=== PATIENT | male | born 1985 | race Caucasian/White ===

== ENCOUNTER → 2023-10-24 09:00 | Outpatient (CLI) | payer OTHER, SELFPAY ==
[2023-10-24 10:47] LABS: Add Manual Diff / Slide Review NO; Basophils Absolute Auto 0 /uL (0-100); Basophils Percent Auto 0.4 % (0-2); Eosinophils Absolute Auto 200 /uL (0-450); Eosinophils Percent Auto 2.3 % (2-4); Hematocrit 45.8 % (41-53); Hemoglobin 15.5 g/dL (13.5-17.5); Lymphocytes Absolute Auto 2000 /uL (1100-4500); Lymphocytes Percent Auto 23.2 % (25-40); Mean Corpuscular HGB Conc 33.8 % (30-36); Mean Corpuscular Volume 88.9 fL (80-100); Monocytes Absolute Auto 900 /uL (0-900); Monocytes Percent Auto 10.1 % (3-14); Neutrophils Absolute Auto 5400 /uL (1500-7000); Platelet Count 269 X10^3/uL (150-400); Red Blood Cell Count 5.15 X10^6/uL (4.5-5.9); Red Cell Distribution Width 13.2 % (11.6-14.8); White Blood Cell Count 8.5 X10^3/uL (4.5-11.0)
[2023-10-24 11:11] LABS: Alanine Aminotransferase 45 IU/L (<50); Albumin 4.5 g/dL (3.5-5.0); Albumin Globulin Ratio 1.5 (1.0-2.8); Alkaline Phosphatase 99 U/L (38-126); Aspartate Aminotransferase 27 IU/L (17-59); BUN Creatinine Ratio 12.6 (6-22); Bilirubin Total 0.6 mg/dL (0.2-1.3); Blood Urea Nitrogen 12 mg/dL (9-20); Calcium 9.2 mg/dL (8.4-10.2); Carbon Dioxide 26 mmol/L (22-32); Chloride 109 mmol/L (98-107); Cholesterol 131 mg/dL (140-199); Estimated Glomerular Filt Rate > 60 mL/min (>60); Glucose 99 mg/dL (70-100); HDL Cholesterol 31 mg/dL (40-60); HEMOLYSIS 15 (0-50); LDL Cholesterol Calculated 80 mg/dL (<100); Potassium 4.7 mmol/L (3.4-5.1); Sodium 139 mmol/L (137-145); Total Protein 7.5 g/dL (6.3-8.2); Triglycerides 98 mg/dL (35-150)
[2023-10-24 18:04] LABS: HIV 1 & 2 Ab/Ag 4th Gen Combo NEGATIVE (NEGATIVE); Hep C Virus Ab w/Reflex Quant NEGATIVE s/c (NEGATIVE)
== END ==
PROVIDERS: PCP Family Medicine; Referring Provider Family Medicine; Visit Provider Family Medicine
DX: Z11.4 Encounter for screening for human immunodeficiency virus [HIV] (principal); Z11.59 Encounter for screening for other viral diseases; Z13.220 Encounter for screening for lipoid disorders; H53.2 Diplopia
CPT/HCPCS: 36415; 80053; 80061; 84443; 85025; 86803; 87389

== ENCOUNTER → 2023-10-26 12:23 | Outpatient (CLI) | payer OTHER, SELFPAY ==
--- NOTE | 2023-10-26 12:24 | DI.ECHO.S_ITS ---
[facility] : : [address] : : [place] : : [id number] : : Phone: [phone] Echocardiogram Report + + :Name: SUE LORA Study Date: 10/26/2023 Height: 69 in : :[facility] ReadingLocation: Weight: 180 lb : : Gender: Male BSA: 2.0 m2 : :: 1985 Age: 38 yrs BP: 119/80 mmHg: :Reason For Study: SYNCOPE : :Ordering Physician: JUD DIAS Performed By: Candice Villavicencio : :Referring: JUD MORILLO : + + Interpretation Summary Normal sinus rhythm. Normal LV size, wall thickness, wall motion and LV systolic function. EF is 60-65%. Normal chamber sizes. No valvular abnormalities. No prior study available for comparison. Procedure: A two-dimensional transthoracic echocardiogram with color flow and Doppler was performed. The study quality was technically adequate. There is no prior echocardiogram noted for this patient. The patient was in sinus rhythm with heart rates between 65-82 bpm during the exam. Left Ventricle: The left ventricle is normal in size and wall thickness. The ejection fraction is estimated to be 60-65%. Right Ventricle: The right ventricle is normal in size and function. Atria: The left atrial size is normal. Right atrial size is normal. There is no Doppler evidence for an interatrial shunt. Mitral Valve: The mitral valve is normal in structure and function. There is trace mitral regurgitation. Aortic Valve: The aortic valve is trileaflet. The aortic valve opens well. There is no aortic valve stenosis. No aortic regurgitation is present. Tricuspid Valve: The tricuspid valve is normal in structure and function. There is a trace or physiologic amount of tricuspid regurgitation. Pulmonic Valve: The pulmonic valve leaflets are thin and pliable; valve motion is normal. There is no pulmonic valvular regurgitation. Great Vessels: The aortic root is normal size. The dimensions of the ascending aorta are normal. The IVC is of normal diameter and collapses greater than 50% with a sniff. This suggests a low right atrial pressure of 3 mm Hg. Pericardium/ Pleura There is no pericardial effusion. There is no pleural effusion. MMode/2D Measurements & Calculations LVIDd: 4.6 cm LVOT diam: 2.0 cm LVIDs: 3.0 cm Ao root diam: 3.0 cm FS: 33.5 % asc Aorta Diam: 3.2 cm IVSd: 0.77 cm Ao Arch Diam (Prox Trans): 2.8 cm LVPWd: 0.71 cm LV jiang. diameter/BSA (cm/m^2): 2.3 LV sys. diameter/BSA (cm/m^2): 1.5 LA A2 area: 10.7 cm2 RA long axis: 3.8 cm LA A4 area: 12.6 cm2 RA area: 11.0 cm2 LA length (vol): 4.5 cm RA vol: 27.4 ml LA vol: 25.2 ml RA : 13.9 ml/m2 LA vol index: 12.8 ml/m2 IVC diam: 1.7 cm RVD1 (basal): 3.1 cm RVD2 (mid): 2.9 cm TAPSE: 1.7 cm Doppler Measurements & Calculations Ao V2 max: 116.3 cm/sec LVOT Max Eben: 107.0 cm/sec Ao V2 mean: 83.9 cm/sec LV V1 max P.6 mmHg Ao max P.4 mmHg LV V1 VTI: 19.3 cm Ao mean P.1 mmHg ELY(I,D): 3.0 cm2 Ao V2 VTI: 21.4 cm ELY(V,D): 3.0 cm2 sev ratio: 0.90 ELY indexed to BSA (cm^2/m^2): 1.5 MV E max eben: 51.7 cm/sec PA V2 max: 110.3 cm/sec MV A max eben: 53.3 cm/sec PA V2 mean: 79.7 cm/sec MV E/A: 0.97 PA mean P.8 mmHg Med Peak E' Eben: 11.3 cm/sec PA pr(Accel): 29.3 mmHg E/E' med: 4.6 Lat Peak E' Eben: 14.9 cm/sec E/E' lat: 3.5 E/e' average: 4.0 MV dec time: 0.16 sec SV(LVOT): 63.5 ml Electronically signed by: Zaira Hickey M.D. on Reading Physician:10/27/2023 02:23 AM
== END ==
PROVIDERS: PCP Family Medicine; Referring Provider Family Medicine; Visit Provider Family Medicine
DX: R55 Syncope and collapse (principal)
CPT/HCPCS: 93306

== ENCOUNTER → 2023-10-27 08:19 | Outpatient (CLI) | payer OTHER, SELFPAY ==
--- NOTE | 2023-10-27 08:21 | DI.MRI.S_ITS ---
PROCEDURE: MR BRAIN (PITUITARY) WWO CON INDICATIONS: syncope, double vision TECHNIQUE: Noncontrast sagittal and axial FLAIR, axial gradient echo, axial diffusion and ADC through the brain. Thin-slice sagittal and coronal T1 spin echo, coronal T2 fast spin echo through the pituitary. After the administration contrast, optional dynamic coronal T1 spin echo, thin-slice coronal and sagittal T1 spin echo images through the pituitary fossa; axial and coronal and sagittal T1 spin echo with fat saturation through the brain. COMPARISON: None. FINDINGS: Image quality: Excellent. Pituitary Gland: The pituitary gland demonstrates normal signal and bulk. On the postcontrast imaging, no masses or abnormally enhancing areas are seen. The pituitary stalk and infundibulum have an unremarkable appearance. A normal appearing pituitary bright spot is seen posteriorly on the precontrast sagittal T1-weighted images. The optic chiasm and the ventral forebrain have an unremarkable appearance. CSF Spaces: Ventricles are normal in size and shape. Basal cisterns are patent. No extra-axial fluid collections. Brain: There is a poorly defined, poorly enhancing mass seen within the left frontal lobe anteriorly and inferiorly. This measures 4.8 x 7.2 cm in greatest axial dimension, with a craniocaudal extent 6 cm. Along the inferior medial aspect of the mass, there is a projection seen, which abuts the optic chiasm, with deviation the left optic tract, which is best seen on series 15, image 6. Associated mass effect is seen, with 1 cm of midline shift. There is mild subfalcine herniation. Moderate surrounding edema can be seen. Mildly increased FLAIR signal can be seen within the central cerebellum. No abnormal enhancement is seen. The clinical significance of this is uncertain. Parsons-white matter interface is intact. Diffusion weighted images demonstrate no acute ischemic insults. Brainstem is normal. Normal intravascular flow voids are present. Skull and face: Calvarial marrow is normal in signal. Orbits appear normal. Sinuses: Sinuses and mastoids are clear. IMPRESSION: Normal pituitary. There is a 7.2 cm poorly enhancing, poorly defined mass involving the left frontal lobe, with surrounding edema. An inferior projection of this mass is seen up on the optic chiasm and the left optic tract, which corresponds to the given history of double vision. There is surrounding edema and mass effect seen. There is 1 mm midline shift, with subfalcine herniation. Note: Dr. Moore could not be reached to discuss this case at the time of this dictation. Findings relayed to Dr. Moore via office staff, Niranjan, at 10:[address] [address] Moore will call back if there are any questions. Dictated by: Noel Lin M.D. on 10/27/2023 at 9:36 Approved by: Noel Lin M.D. on 10/27/2023 at 9:51
== END ==
PROVIDERS: PCP Family Medicine; Referring Provider Family Medicine; Visit Provider Family Medicine
DX: G93.89 Other specified disorders of brain (principal); G93.5 Compression of brain; R55 Syncope and collapse; H53.2 Diplopia; G93.6 Cerebral edema
CPT/HCPCS: 70553; A9579

== ENCOUNTER 2023-11-11 11:01 | Outpatient (RCR) | payer OTHER, SELFPAY ==
--- NOTE | 2023-11-11 15:13 | OT.OP.DC ---
Visit Care Team Role Provider Type Dany Moore DO Attending Provider Physician Family Provider Primary Care Provider Referring Provider Address: [address] [place] [address], [address], [place], [address] Email: [email or web address] [email or web address] Outpatient Adult Evaluation Start: 11/11/23 14:41 Freq: Status: Active Protocol: Document 11/11/23 14:41 AMS (Rec: 11/11/23 15:11 AMS [id number]) General Information - Adult Visit Information Insurance Information [employer] Session Time Visit Start Time 11:15 Visit Stop Time 11:40 Setting Treatment Setting Outpatient Care Visit Type Note Type Initial Evaluation Identification Identification Confirmed Yes Identification Confirmed By Self Assessment/Plan Assessment Treatment Assessment Boris Kennedy) is 38 y.o.; he is right hand dominant. He was referred to outpatient OT s/p L frontotemporal craniotomy ( which was completed on 10/28/23 ) for tumor resection. No other medical history was of significance and/or recorded on Health History Intake Form. Amadou resides an apartment independently; parents are in town visiting and assisting w/ public transportation given that Amadou currently is not driving. Amadou denies any difficulties with functional tasks. 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 Amaduo presented to session without mobility AE. He was independent with functional transfers and was able to navigate within outpatient clinic hallways without deviation and/or needing euceda to support orientation and/or upright mobility. He reported decreased activity tolerance frequently being active for 2 hours -> then napping. Although, he indicated that he had been up for 4 hours this a.m. without need for rest. Pain Assessment Grid completed ; indication of 1 out of 10 on pain scale relative to head ( left temporal/frontal region); indication of 2 out of 10 on the Hand/Wrist Pain Assessment relative to head (left temporal/frontal region). QuickDASH UE Outcome Measure Score = 9.09. QuickDASH UE WorkModule Score (ems helicopter pilot) = 100 .00. No coordination difficulties observed w/ opposition of thumb to each digit pad bilaterally w/ EO or EC. Slight impairment noted w / [id number]-dw-[id number] bilaterally with EC R and L. Misses however, were to some part of the 2nd digit bilaterally. Good B UE AROM; B UE AROM WNL. (+) orientation to midline w/ UEs relative to above head and at midline/infront of body . Dynamometer II agricultural mechanic strength elbows flexed 90 degrees = 82 .0# of force R agricultural mechanic (compared to 35-39 y.o. male norms 119.7 +/- 24.0) vs 88.0# of force L agricultural mechanic (compared to 35-39 y.o. male norms 112.9 +/- 21.7). Dynamometer II Employee'S Representative Strength Elbows Extended = 100.0# of force R agricultural mechanic vs 94.0# of force L agricultural mechanic. Pinchometer strength results: 21.0# of force R lateral dillard pinch (compared to 35-39 y.o. male norms 26.1 +/ - 3.2) vs 20.0# of force L lateral dillard pinch (compared to 35-39 y.o. male norms 25.6 +/ - 3.9); 13.0# of force R tip pinch (compared to 35-39 y.o. male norms 18.0 +/- 3.6) vs 12 .5# of force L tip pinch ( compared to 35-39 y.o. male norms 17.7 +/- 3.8); 15.0# of force R 3-jaw pinch (compared to 35-39 y.o. male norms 26.2 +/- 4.1) vs 21.0# of force L 3 -jaw pinch (compared to 35-39 y.o. male norms 25.9 +/- 5.4). The 9-Hole Peg Test is a timed test in which 9 pegs are inserted and removed from 9 holes in the pegboard with each hand. It is an assessment that can be used to assess hand dexterity. Amadou completed the 9-HPT in 24.9 sec with his right hand (vs norm for 35 -39 y.o. males 17.9 +/- 2.4) and in 27.2 sec with his left hand (vs norm for 35-39 y.o. males 19.4 +/- 3.5). Rec d/c from outpatient OT given that Amadou denies any functional limitations and his main concerns are related to PT scope of practice, gait abnormalities/balance concerns . Plan Patient Recommendations Discharge from Occupational Therapy Functional Wrist/Hand Scan Hand Side Sensory Assessment Sensory Profile2
== END 2023-11-15 10:50 | disposition home or self-care (01) ==
LOC: OT 11:01
PROVIDERS: Family Provider Family Medicine; PCP Family Medicine; Referring Provider Family Medicine; Visit Provider Family Medicine
DX: G93.89 Other specified disorders of brain (principal)
CPT/HCPCS: 97165

== ENCOUNTER → 2023-11-21 07:05 | Outpatient (CLI) | payer OTHER, SELFPAY ==
--- NOTE | 2023-11-21 07:07 | DI.MRI.S_ITS ---
PROCEDURE: MR CERVICAL SPINE WO/W CON INDICATIONS: Brain mass TECHNIQUE: Noncontrast sagittal T1 spin echo and T2 fast spin echo, sagittal STIR, foraminal oblique sagittal T2 fast spin echo, axial gradient echo or T2 fast spin echo through the cervical spine. After the administration of contrast, axial and sagittal T1 spin echo with fat saturation through the cervical spine. COMPARISON: [facility], MR, MR HEAD/BRAIN WO/W CON, 11/21/2023, 7:11. [facility], MR, MR THORACIC SPINE WO/W CON, 11/21/2023, 7:11. [facility], MR, MR LUMBAR SPINE WO/W CON, 11/21/2023, 7:11. [facility], MR, MR BRAIN (PITUITARY) WWO CON, 10/27/2023, 8:49. FINDINGS: Image quality: Diagnostic, with note made of motion artifact. Alignment and curvature: There is normal bony alignment. Marrow: Marrow is normal in overall signal, without suspicious enhancement. Spinal cord: Visualized spinal cord has normal size and signal. No cerebellar tonsillar herniation. No abnormal intramedullary enhancement. Paraspinous soft tissues: No paravertebral masses or suspicious enhancement. C2-3: The disc height is well-preserved. Loss of disc signal is seen at this level. A mild degree of generalized disc osteophyte complex is seen. There is mild left-sided and no right-sided neural foraminal narrowing. No central canal narrowing is seen. C3-4: The disc height and disk signal are relatively well-preserved. A mild degree of generalized disc osteophyte complex is seen. Mild facet joint hypertrophy is seen. Moderate bilateral neural foraminal narrowing is seen. No significant central canal narrowing is seen. C4-5: The disc height and disk signal are relatively well-preserved. A mild degree of generalized disc osteophyte complex is seen. Mild facet joint hypertrophy is seen. Mild bilateral neural foraminal narrowing is seen. No central canal narrowing is seen. C5-6: There is at least moderate loss of disc height and disc signal. Moderate generalized disc osteophyte complex is seen. There is a central disc osteophyte protrusion seen. There is xdmw-st-odftbdew right-sided and moderate left-sided facet hypertrophy. There is at least moderate bilateral neural foraminal narrowing. Mild central canal narrowing is seen. There is associated mass effect upon the ventral spinal cord. C6-7: Mild loss of disc height is seen. Loss of disc signal is seen. Mild disc osteophyte complex is seen, which is eccentric to the left. Mild facet joint hypertrophy is seen. No significant neural foraminal or central canal narrowing can be seen. C7-T1: Normal appearance. IMPRESSION: No findings of neoplasm can be seen within the cervical spine. No masses or abnormal enhancement can be seen. Cervical spine degenerative changes are seen, which are worst at the C5-C6 level. Dictated by: Noel Lin M.D. on 11/21/2023 at 13:52 Approved by: Noel Lin M.D. on 11/21/2023 at 13:57
--- NOTE | 2023-11-21 07:07 | DI.MRI.S_ITS ---
PROCEDURE: MR LUMBAR SPINE WO/W CON INDICATIONS: Brain mass TECHNIQUE: Noncontrast sagittal T1 spin echo and T2 fast echo, sagittal STIR, and T2 fast spin echo through the lumbar spine. In cases with scoliosis, additional coronal T2 fast spin echo may be performed. COMPARISON: [facility], MR, MR CERVICAL SPINE WO/W CON, 11/21/2023, 7:11. [facility], MR, MR THORACIC SPINE WO/W CON, 11/21/2023, 7:11. [facility], MR, MR HEAD/BRAIN WO/W CON, 11/21/2023, 7:11. [facility], MR, MR BRAIN (PITUITARY) WWO CON, 10/27/2023, 8:49. FINDINGS: Image quality: Excellent. Alignment and Curvature: There is normal bony alignment. Bone Marrow: Marrow is of normal overall signal. No acute vertebral body compression fractures. Spinal Cord: Conus medullaris terminates at the L1 level. Visualized cord demonstrates normal signal and size. Paraspinous Soft Tissues: No paravertebral masses. T12-L1: Normal appearance. L1-L2: Normal appearance. L2-L3: Normal appearance. L3-L4: Normal appearance. L4-L5: Normal appearance. L5-S1: Normal appearance. IMPRESSION: No findings of neoplasm can be seen within the lumbar spine. No masses or abnormal enhancement can be seen. Dictated by: Noel Lin M.D. on 11/21/2023 at 13:48 Approved by: Noel Lin M.D. on 11/21/2023 at 13:50
--- NOTE | 2023-11-21 07:07 | DI.MRI.S_ITS ---
PROCEDURE: MR HEAD/BRAIN WO/W CON INDICATIONS: Brain mass TECHNIQUE: Noncontrast axial T1 spin echo, axial T2 fast spin echo, sagittal and axial FLAIR, coronal T2 fast spin echo, axial gradient echo, axial diffusion and ADC through the brain. After the administration of contrast, axial and coronal and sagittal 3D VIBE or T1 spin echo with fat saturation through the brain. COMPARISON: [facility], MR, MR BRAIN (PITUITARY) [facility], 10/27/2023, 8:49. FINDINGS: Image quality: Excellent. CSF Spaces: Basal cisterns are patent. No extra-axial fluid collections. Ventricles are normal in size and shape. Brain: There is been interval removal of the left-sided brain mass, with a portion of the anterior left frontal lobe removed. Within the postoperative bed, there is hemosiderin deposition seen. The previously seen mass effect has clearly improved. Midline shift is seen, measuring 2-3 mm, which is improved compared to the prior. No mass effect is now seen upon the optic chiasm. There is a mild amount of curvilinear enhancement seen along the margins of the postoperative bed. No midline shift. The brainstem appears normal. Diffusion-weighted images demonstrate no acute infarct. No chronic ischemic insults. Normal intravascular flow voids are present. Skull and face: Left-sided craniotomy change can be seen. Associated soft tissue postoperative change with postoperative fluid can be seen involving the scalp. Calvarial marrow is normal in signal. Orbits appear normal. Sinuses: Sinuses and mastoids appear clear. IMPRESSION: Interval resection of a mass within the left frontal lobe, with clear improvement in the degree of mass effect. Curvilinear enhancement can be seen along the postoperative bed, which is most likely within postoperative limits. Please consider a short-term follow-up brain MRI performed with and without IV contrast for further evaluation. Dictated by: Noel Lin M.D. on 11/21/2023 at 13:44 Approved by: Noel Lin M.D. on 11/21/2023 at 13:48
--- NOTE | 2023-11-21 09:30 | DI.MRI.S_ITS ---
PROCEDURE: MR THORACIC SPINE WO/W CON INDICATIONS: Brain mass TECHNIQUE: Noncontrast sagittal T1 spin echo and T2 fast spin echo, sagittal STIR, axial T1 and T2 fast spin echo through the thoracic spine. After the administration of contrast, axial and sagittal T1 spin echo with fat saturation through the thoracic spine. COMPARISON: [facility], MR, MR HEAD/BRAIN WO/W CON, 11/21/2023, 7:11. [facility], MR, MR CERVICAL SPINE WO/W CON, 11/21/2023, 7:11. [facility], MR, MR LUMBAR SPINE WO/W CON, 11/21/2023, 7:11. [facility], MR, MR BRAIN (PITUITARY) [facility], 10/27/2023, 8:49. FINDINGS: Image quality: Diagnostic, with note made of motion artifact. Alignment and curvature: There is normal bony alignment. Marrow: Marrow is of normal overall signal. No acute vertebral body compression fractures. Spinal cord: Visualized spinal cord is of normal signal and size, without abnormal enhancement. Paraspinous soft tissues: No paravertebral masses or abnormal enhancement. Miscellaneous: At the T8-T9 level, there is a mild central disc osteophyte protrusion seen, as on series 12, image 6 and on series 8 image 8. There is minimal central canal narrowing seen, with minimal mass effect upon the ventral spinal cord. No significant neural foraminal narrowing can be seen. IMPRESSION: No masses or abnormal enhancement can be seen throughout the thoracic spine. Mild focal degenerative change can be seen at the T8-T9 level. Dictated by: Noel Lin M.D. on 11/21/2023 at 13:50 Approved by: Noel Lin M.D. on 11/21/2023 at 13:52
== END ==
PROVIDERS: Family Provider Family Medicine; PCP Family Medicine; Referring Provider Psychiatry & Neurology Neurology; Visit Provider Psychiatry & Neurology Neurology
DX: G93.89 Other specified disorders of brain (principal); M47.812 Spondylosis without myelopathy or radiculopathy, cervical region; M47.814 Spondylosis without myelopathy or radiculopathy, thoracic region
CPT/HCPCS: 70553; 72156; 72157; 72158; A9579

== ENCOUNTER 2023-12-07 10:30 | Outpatient (RCR) | payer OTHER, SELFPAY ==
--- NOTE | 2023-11-10 08:53 | ST.OPIE ---
Visit Care Team Role Provider Type Dany Moore DO Attending Provider Physician Family Provider Primary Care Provider Referring Provider Specialty: Family Practice Address: [address] [place] [address], [address], [place], [address] Email: [email or web address] Speech-Language Pathology Initial Evaluation DIRECTOR OF PLANT OPERATIONS Adult Cognitive Linguistic Eval Start: 11/09/23 17:18 Freq: Status: Active Protocol: Document 11/10/23 08:29 MA (Rec: 11/10/23 08:53 MA [id number]) Adult Cognitive Linguistic Evaluation Session Time Visit Start Time 15:15 Visit Stop Time 16:00 Total Visit Minutes 45 Visit Information Visit Number Initial Eval Plan of Care Dates 11/10/23-02/10/24 Insurance Information [facility] Referral Referring Provider Dr. Moore Reason for Referral Other specified disorders of the brain Setting Assessment Location Outpatient Care Visit Type Note Type Initial evaluation Next Note Type Next Note Type Treatment Note Patient Information Identification Type Name Patient History Pt is a 38 year old male seen this date for 1:1 speech/ language/cog evaluation s/p s/ p L awake craniotomy for tumor resection, specifically left frontal mass. He reports about a month ago he was experiencing vertigo, which caused him to go to the doctor 's where a cardiac/neurologic work up was completed. He had a MRI compelted on Oct 27 2023 where a frontal mass was found. He reports no other significant past medical history. His mom and dad are present for the evaluation. 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 He reports residual double vision since surgery, slower with words/processing information. He states he had lapses of words while in the hospital, however has improved since discharged home. He reports he has been engaging in brain stimulating games, such as crosswords and word games. Hearing Hearing Level Normal Vision Vision Status Impaired Comments Double vision Previous Therapy Previous Speech-Language Therapy Yes History of Therapy He reports he had speech therapy while at , however only a few sessions. Subjective Mental Status Alert,Responsive,Cooperative Assessment Oral Motor Examination Completed No Informal Assessment Receptive Language Normal Yes Expressive Language Normal No Expressive Language Impairment(s) Confrontation naming,Divergent naming Pragmatic Language Normal Yes Speech Normal Yes Cognition Normal No Cognitive Impairment(s) Short-term memory,Thought organization Formal Assessment Standardized Test/Screener Type Cognitive Linguistic Quick Test (CLQT) Administration Complete Results ST faciliated Cognitive Linguistic Quick Test (CLQT) with Pt scoring a total 4.0 indicating a severity rating of WNL. Pt scored the following on each section: Attention- 207- WNL Memory 169- WNL Executive Functions 32- WNL Language 31- WNL Visuospatial skills 101- WNL Clocking drawing 13- WNL Pt scored overall WNL, however demonstrated weaknesses with divergent naming task and memory task. Findings/Results Language Function Mildly impaired Cognitive Function Mildly impaired Findings Pt presents with mild cognitive communication deficits. ST is warranted in order to improve naming/word finding to improve overall communication as well as providing education on memory/ problem solving compensatory strategies. Cognitive Communication Deficits Self-awareness of Cognitive- Predictive awareness (able to Communication Deficits predict problem; impact of impairments) Concomitant Factors Concomitant Factors Diplopia Prognosis Prognosis Good Based on Cognitive status,Family support,Time since onset Plan of Care Speech-Language Treatment Yes Frequency 1x/week Duration 3 months Patient/Caregiver Education Described results of evaluation,Patient expressed understanding of evaluation, Patient expressed agreement with goals and treatment plans ,Patient requires further education/training,Family/ caregivers require further education/training Short Term Goals STG 1: Patient will name/ describe objects/pictures with 90% accuracy and mod cues for forced choice, phonemic/ semantic cueing, gestural/ contextual cues. STG 2: Patient will complete divergent naming task by naming 10 words in 1 minute given minimal cues. STG 3: Patient will demonstrate increase short term recall for functional/ daily life information with 90 % of opportunities given environmental modifications implemented and by using visual aids in order to increase safety during ADLs. Care Home Goals LTG 1: Patient will develop functional, cognitive- linguistic-based skills and utilize compensatory strategies to communicate wants and needs effectively to different conversational partners, maintain safety and participate socially in functional living environment
--- NOTE | 2023-11-10 08:53 | ST.OPPOC ---
Physical, Occupational & Speech Therapy At [facility] Visit Care Team Role Provider Type Dany Moore DO Attending Provider Physician Family Provider Primary Care Provider Referring Provider Address: [address] [place] [address], [address], [place], [address] Speech Pathology Plan of Care Plan of Care Dates 11/10/23-02/10/[address] Moore Patient History Pt is a 38 year old male seen this date for 1:1 speech/language/cog evaluation s/p s/p L awake craniotomy for tumor resection, specifically left frontal mass. He reports about a month ago he was experiencing vertigo, which caused him to go to the doctor's where a cardiac/neurologic work up was completed. He had a MRI compelted on Oct 27 2023 where a frontal mass was found. He reports no other significant past medical history. His mom and dad are present for the evaluation. 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 He reports residual double vision since surgery, slower with words/processing information. He states he had lapses of words while in the hospital, however has improved since discharged home. He reports he has been engaging in brain stimulating games, such as crosswNewlans and word games. Self-awareness of Cognitive- Predictive awareness (abl Communication Deficits Short Term Goals STG 1: Patient will name/describe objects/ pictures with 90% accuracy and mod cues for forced choice, phonemic/semantic cueing, gestural/contextual cues. STG 2: Patient will complete divergent naming task by naming 10 words in 1 minute given minimal cues. STG 3: Patient will demonstrate increase short term recall for functional/daily life information with 90% of opportunities given environmental modifications implemented and by using visual aids in order to increase safety during ADLs. Catering Attendant Goals LTG 1: Patient will develop functional, hszhgaqvw-awnaubhwlb-fvqmp skills and utilize compensatory strategies to communicate wants and needs effectively to different conversational partners, maintain safety and participate socially in functional living environment Comment: Electronically Signed by: NINFA Cunningham 11/10/23 0853 If you are in agreement with this Plan of Care, please return a signed and dated copy. I have reviewed this Plan of Care and certify that the skilled therapy services above are required to meet the patient?s needs. Physician Signature Date Printed Name and Credentials Clinical Instructor Signature Printed Name and Credentials
--- NOTE | 2023-12-07 10:44 | ST.OPTN ---
Visit Care Team Role Provider Type Dany Moore DO Attending Provider Physician Family Provider Primary Care Provider Referring Provider Address: [address] [place] [address], [address], [place], [address] DOCUMENT ANALYST Treatment Note DOCUMENT ANALYST Treatment Note Start: 12/07/23 10:39 Freq: Status: Active Protocol: Document 12/07/23 10:40 MA (Rec: 12/07/23 10:44 MA [id number]) Speech Pathology Treatment Note Session Time Visit Start Time 10:20 Visit Stop Time 10:35 Total Visit Minutes 15 Visit Information Visit Number 2 Plan of Care Dates 11/10/23-02/10/24 Setting Treatment Setting Outpatient Care Next Note Type Next Note Type Treatment Note General Information Patient History Pt is a 38 year old male seen this date for 1:1 speech/ language/cog evaluation s/p s/ p L awake craniotomy for tumor resection, specifically left frontal mass. He reports about a month ago he was experiencing vertigo, which caused him to go to the doctor 's where a cardiac/neurologic work up was completed. He had a MRI compelted on Oct 27 2023 where a frontal mass was found. He reports no other significant past medical history. His mom and dad are present for the evaluation. 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 He reports residual double vision since surgery, slower with words/processing information. He states he had lapses of words while in the hospital, however has improved since discharged home. He reports he has been engaging in brain stimulating games, such as crosswagencyQ and word games. Subjective Observations/Patient Presentation Pt arrived on time with his girlfriend who accompanied him to therapy. Objective Short Term Goals STG 1: Patient will name/ describe objects/pictures with 90% accuracy and mod cues for forced choice, phonemic/ semantic cueing, gestural/ contextual cues. STG 2: Patient will complete divergent naming task by naming 10 words in 1 minute given minimal cues. STG 3: Patient will demonstrate increase short term recall for functional/ daily life information with 90 % of opportunities given environmental modifications implemented and by using visual aids in order to increase safety during ADLs. Mental Health Aides Teacher Goals LTG 1: Patient will develop functional, cognitive- linguistic-based skills and utilize compensatory strategies to communicate wants and needs effectively to different conversational partners, maintain safety and participate socially in functional living environment Treatment Activities Check in post neurology appointment, education on word finding strategies and POC Assessment Assessment of Improvement Pt reports he had a f/u with his surgical team at a few weeks ago. He reports he has been feeling good, however continues with residual double vision and unsteady gait. He states he saw a neuro housing management representative who did not have many concerns and will see him in 6-8 weeks. He reports he has a second round of chemoo/radiation in [place] starting soon that will end in January. He states he will be living down there at that time. He states he has been engaging in brain games such as [employer]. He denies any difficulties communicating and only has occasional word finding difficulties. Denies any cognitive issues. He reports he has a f/u appointment scheduled in January, which he would like to keep d/t chemo/radiation possibly causing cognitive issues. ST provided educational handout on word finding strategies and encouraged Pt to practice them . Pt verbalized understanding.
--- NOTE | 2024-01-23 11:22 | ST.OPDS ---
Visit Care Team Role Provider Type Dany Moore DO Attending Provider Physician Family Provider Primary Care Provider Referring Provider Address: [address] [place] [address], [address], [place], [address] HEEL SCOURER Treatment Note HEEL SCOURER Treatment Note Start: 12/07/23 10:39 Freq: Status: Active Protocol: Document 12/07/23 10:40 MA (Rec: 12/07/23 10:44 MA [id number]) Speech Pathology Treatment Note Session Time Visit Start Time 10:20 Visit Stop Time 10:35 Total Visit Minutes 15 Visit Information Visit Number 2 Plan of Care Dates 11/10/23-02/10/24 Setting Treatment Setting Outpatient Care Next Note Type Next Note Type Treatment Note General Information Patient History Pt is a 38 year old male seen this date for 1:1 speech/ language/cog evaluation s/p s/ p L awake craniotomy for tumor resection, specifically left frontal mass. He reports about a month ago he was experiencing vertigo, which caused him to go to the doctor 's where a cardiac/neurologic work up was completed. He had a MRI compelted on Oct 27 2023 where a frontal mass was found. He reports no other significant past medical history. His mom and dad are present for the evaluation. 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 He reports residual double vision since surgery, slower with words/processing information. He states he had lapses of words while in the hospital, however has improved since discharged home. He reports he has been engaging in brain stimulating games, such as crosswHarperlabz and word games. Subjective Observations/Patient Presentation Pt arrived on time with his girlfriend who accompanied him to therapy. Objective Short Term Goals STG 1: Patient will name/ describe objects/pictures with 90% accuracy and mod cues for forced choice, phonemic/ semantic cueing, gestural/ contextual cues.- NOT MET STG 2: Patient will complete divergent naming task by naming 10 words in 1 minute given minimal cues.- NOT MET STG 3: Patient will demonstrate increase short term recall for functional/ daily life information with 90 % of opportunities given environmental modifications implemented and by using visual aids in order to increase safety during ADLs.- NOT MET Half-Way Goals LTG 1: Patient will develop functional, cognitive- linguistic-based skills and utilize compensatory strategies to communicate wants and needs effectively to different conversational partners, maintain safety and participate socially in functional living environment- NOT MET Treatment Activities Check in post neurology appointment, education on word finding strategies and POC Assessment Assessment of Improvement Pt reports he had a f/u with his surgical team at a few weeks ago. He reports he has been feeling good, however continues with residual double vision and unsteady gait. He states he saw a neuro machinist bench who did not have many concerns and will see him in 6-8 weeks. He reports he has a second round of chemoo/radiation in [place] starting soon that will end in January. He states he will be living down there at that time. He states he has been engaging in brain games such as [employer]. He denies any difficulties communicating and only has occasional word finding difficulties. Denies any cognitive issues. He reports he has a f/u appointment scheduled in January, which he would like to keep d/t chemo/radiation possibly causing cognitive issues. ST provided educational handout on word finding strategies and encouraged Pt to practice them . Pt verbalized understanding. Pt discharged d/t not returning to therapy.
== END 2024-01-23 13:52 | disposition home or self-care (01) ==
LOC: SP 10:30
PROVIDERS: Family Provider Family Medicine; PCP Family Medicine; Referring Provider Family Medicine; Visit Provider Family Medicine
DX: G93.89 Other specified disorders of brain (principal)
CPT/HCPCS: 92507; 92523

== ENCOUNTER → 2024-03-12 15:17 | Outpatient (CLI) | payer OTHER, SELFPAY ==
[2024-03-12 16:24] LABS: Add Manual Diff / Slide Review NO; Basophils Absolute Auto 0 /uL (0-100); Basophils Percent Auto 0.3 % (0-2); Eosinophils Absolute Auto 200 /uL (0-450); Eosinophils Percent Auto 2.6 % (2-4); Hematocrit 43.4 % (41-53); Hemoglobin 14.9 g/dL (13.5-17.5); Lymphocytes Absolute Auto 1300 /uL (1100-4500); Lymphocytes Percent Auto 20.1 % (25-40); Mean Corpuscular HGB Conc 34.3 % (30-36); Mean Corpuscular Hemoglobin 30.1 PG (26-34); Mean Corpuscular Volume 87.9 fL (80-100); Monocytes Absolute Auto 800 /uL (0-900); Monocytes Percent Auto 12.8 % (3-14); Neutrophils Absolute Auto 4100 /uL (1500-7000); Neutrophils Percent Auto 64.2 % (50-75); Platelet Count 276 X10^3/uL (150-400); Red Blood Cell Count 4.94 X10^6/uL (4.5-5.9); Red Cell Distribution Width 12.6 % (11.6-14.8); White Blood Cell Count 6.3 X10^3/uL (4.5-11.0)
[2024-03-12 16:45] LABS: Alanine Aminotransferase 37 IU/L (<50); Albumin 4.4 g/dL (3.5-5.0); Albumin Globulin Ratio 1.4 (1.0-2.8); Alkaline Phosphatase 95 U/L (38-126); Aspartate Aminotransferase 28 IU/L (17-59); BUN Creatinine Ratio 10.4 (6-22); Bilirubin Total 0.5 mg/dL (0.2-1.3); Blood Urea Nitrogen 11 mg/dL (9-20); Calcium 9.7 mg/dL (8.4-10.2); Carbon Dioxide 23 mmol/L (22-32); Chloride 104 mmol/L (98-107); Estimated Glomerular Filt Rate > 60 mL/min (>60); Globulin 3.1 g/dL (1.7-4.1); Glucose 101 mg/dL (70-100); HEMOLYSIS < 15 (0-50); Potassium 3.6 mmol/L (3.4-5.1); Sodium 138 mmol/L (137-145); Total Protein 7.5 g/dL (6.3-8.2)
== END ==
PROVIDERS: Family Provider Family Medicine; PCP Family Medicine; Referring Provider Psychiatry & Neurology Neurology; Visit Provider Psychiatry & Neurology Neurology
DX: C71.9 Malignant neoplasm of brain, unspecified (principal)
CPT/HCPCS: 36415; 80053; 85025

== ENCOUNTER → 2024-03-21 14:35 | Outpatient (CLI) | payer OTHER, SELFPAY ==
[2024-03-21 15:08] LABS: Add Manual Diff / Slide Review NO; Basophils Absolute Auto 0 /uL (0-100); Basophils Percent Auto 0.6 % (0-2); Eosinophils Absolute Auto 200 /uL (0-450); Eosinophils Percent Auto 3.2 % (2-4); Hematocrit 42.6 % (41-53); Hemoglobin 14.7 g/dL (13.5-17.5); Lymphocytes Absolute Auto 1000 /uL (1100-4500); Lymphocytes Percent Auto 17.8 % (25-40); Mean Corpuscular HGB Conc 34.4 % (30-36); Mean Corpuscular Hemoglobin 29.9 PG (26-34); Monocytes Absolute Auto 700 /uL (0-900); Monocytes Percent Auto 12.3 % (3-14); Neutrophils Absolute Auto 3900 /uL (1500-7000); Neutrophils Percent Auto 66.1 % (50-75); Platelet Count 293 X10^3/uL (150-400); Red Cell Distribution Width 12.8 % (11.6-14.8); White Blood Cell Count 5.9 X10^3/uL (4.5-11.0)
[2024-03-21 15:31] LABS: Alanine Aminotransferase 32 IU/L (<50); Albumin 4.3 g/dL (3.5-5.0); Albumin Globulin Ratio 1.4 (1.0-2.8); Alkaline Phosphatase 90 U/L (38-126); Aspartate Aminotransferase 29 IU/L (17-59); BUN Creatinine Ratio 9.1 (6-22); Bilirubin Total 0.5 mg/dL (0.2-1.3); Blood Urea Nitrogen 10 mg/dL (9-20); Calcium 9.5 mg/dL (8.4-10.2); Carbon Dioxide 26 mmol/L (22-32); Chloride 105 mmol/L (98-107); Estimated Glomerular Filt Rate > 60 mL/min (>60); Globulin 3.1 g/dL (1.7-4.1); Glucose 100 mg/dL (70-100); HEMOLYSIS < 15 (0-50); Potassium 4.1 mmol/L (3.4-5.1); Sodium 139 mmol/L (137-145); Total Protein 7.4 g/dL (6.3-8.2)
== END ==
PROVIDERS: Family Provider Family Medicine; PCP Family Medicine; Referring Provider Psychiatry & Neurology Neurology; Visit Provider Psychiatry & Neurology Neurology
DX: C71.9 Malignant neoplasm of brain, unspecified (principal)
CPT/HCPCS: 36415; 80053; 85025

== ENCOUNTER → 2024-04-09 15:27 | Outpatient (CLI) | payer OTHER, SELFPAY ==
[2024-04-09 16:01] LABS: Add Manual Diff / Slide Review NO; Basophils Absolute Auto 0 /uL (0-100); Basophils Percent Auto 0.1 % (0-2); Eosinophils Absolute Auto 200 /uL (0-450); Eosinophils Percent Auto 3.1 % (2-4); Hematocrit 45.6 % (41-53); Hemoglobin 15.3 g/dL (13.5-17.5); Lymphocytes Absolute Auto 1100 /uL (1100-4500); Lymphocytes Percent Auto 17.8 % (25-40); Mean Corpuscular HGB Conc 33.5 % (30-36); Mean Corpuscular Hemoglobin 29.4 PG (26-34); Mean Corpuscular Volume 87.6 fL (80-100); Monocytes Absolute Auto 800 /uL (0-900); Monocytes Percent Auto 12.8 % (3-14); Neutrophils Absolute Auto 4200 /uL (1500-7000); Neutrophils Percent Auto 66.2 % (50-75); Platelet Count 266 X10^3/uL (150-400); Red Blood Cell Count 5.21 X10^6/uL (4.5-5.9); Red Cell Distribution Width 13.3 % (11.6-14.8); White Blood Cell Count 6.3 X10^3/uL (4.5-11.0)
[2024-04-09 16:20] LABS: Alanine Aminotransferase 34 IU/L (<50); Albumin 4.6 g/dL (3.5-5.0); Albumin Globulin Ratio 1.6 (1.0-2.8); Alkaline Phosphatase 94 U/L (38-126); Aspartate Aminotransferase 27 IU/L (17-59); BUN Creatinine Ratio 10.7 (6-22); Bilirubin Total 0.7 mg/dL (0.2-1.3); Blood Urea Nitrogen 13 mg/dL (9-20); Calcium 9.6 mg/dL (8.4-10.2); Carbon Dioxide 24 mmol/L (22-32); Chloride 106 mmol/L (98-107); Estimated Glomerular Filt Rate > 60 mL/min (>60); Globulin 2.9 g/dL (1.7-4.1); Glucose 104 mg/dL (70-100); HEMOLYSIS < 15 (0-50); Potassium 3.6 mmol/L (3.4-5.1); Sodium 141 mmol/L (137-145); Total Protein 7.5 g/dL (6.3-8.2)
== END ==
LOC: LAB 15:30
PROVIDERS: Family Provider Family Medicine; PCP Family Medicine; Referring Provider Psychiatry & Neurology Neurology; Visit Provider Psychiatry & Neurology Neurology
DX: C71.9 Malignant neoplasm of brain, unspecified (principal)
CPT/HCPCS: 36415; 80053; 85025

== ENCOUNTER → 2024-04-17 10:18 | Outpatient (CLI) | payer OTHER, SELFPAY ==
[2024-04-17 10:58] LABS: Add Manual Diff / Slide Review NO; Basophils Absolute Auto 0 /uL (0-100); Basophils Percent Auto 0.3 % (0-2); Eosinophils Absolute Auto 100 /uL (0-450); Eosinophils Percent Auto 2.2 % (2-4); Hematocrit 43.8 % (41-53); Hemoglobin 15.1 g/dL (13.5-17.5); Lymphocytes Absolute Auto 1000 /uL (1100-4500); Lymphocytes Percent Auto 15.8 % (25-40); Mean Corpuscular HGB Conc 34.4 % (30-36); Monocytes Absolute Auto 1000 /uL (0-900); Monocytes Percent Auto 14.9 % (3-14); Neutrophils Absolute Auto 4300 /uL (1500-7000); Neutrophils Percent Auto 66.8 % (50-75); Platelet Count 181 X10^3/uL (150-400); Red Blood Cell Count 5.03 X10^6/uL (4.5-5.9); White Blood Cell Count 6.4 X10^3/uL (4.5-11.0)
[2024-04-17 11:15] LABS: Alanine Aminotransferase 38 IU/L (<50); Albumin 4.4 g/dL (3.5-5.0); Albumin Globulin Ratio 1.7 (1.0-2.8); Alkaline Phosphatase 91 U/L (38-126); Aspartate Aminotransferase 26 IU/L (17-59); BUN Creatinine Ratio 14.3 (6-22); Bilirubin Total 0.6 mg/dL (0.2-1.3); Blood Urea Nitrogen 14 mg/dL (9-20); Calcium 9.7 mg/dL (8.4-10.2); Carbon Dioxide 27 mmol/L (22-32); Chloride 106 mmol/L (98-107); Estimated Glomerular Filt Rate > 60 mL/min (>60); Globulin 2.6 g/dL (1.7-4.1); Glucose 89 mg/dL (70-100); HEMOLYSIS < 15 (0-50); Potassium 3.9 mmol/L (3.4-5.1); Sodium 141 mmol/L (137-145)
== END ==
PROVIDERS: Family Provider Family Medicine; PCP Family Medicine; Referring Provider Family Medicine; Visit Provider Psychiatry & Neurology Neurology
DX: C71.9 Malignant neoplasm of brain, unspecified (principal)
CPT/HCPCS: 36415; 80053; 85025

== ENCOUNTER → 2024-05-04 14:21 | Outpatient (CLI) | payer OTHER, SELFPAY ==
[2024-05-04 15:20] LABS: Add Manual Diff / Slide Review NO; Basophils Absolute Auto 0 /uL (0-100); Basophils Percent Auto 0.3 % (0-2); Eosinophils Absolute Auto 100 /uL (0-450); Eosinophils Percent Auto 1.7 % (2-4); Hematocrit 42.2 % (41-53); Hemoglobin 14.6 g/dL (13.5-17.5); Lymphocytes Absolute Auto 900 /uL (1100-4500); Lymphocytes Percent Auto 15.3 % (25-40); Mean Corpuscular HGB Conc 34.6 % (30-36); Mean Corpuscular Hemoglobin 30.3 PG (26-34); Mean Corpuscular Volume 87.5 fL (80-100); Monocytes Absolute Auto 700 /uL (0-900); Monocytes Percent Auto 12.7 % (3-14); Neutrophils Absolute Auto 4100 /uL (1500-7000); Platelet Count 307 X10^3/uL (150-400); Red Blood Cell Count 4.82 X10^6/uL (4.5-5.9); Red Cell Distribution Width 14.1 % (11.6-14.8); White Blood Cell Count 5.9 X10^3/uL (4.5-11.0)
[2024-05-04 15:43] LABS: Alanine Aminotransferase 44 IU/L (<50); Albumin 4.2 g/dL (3.5-5.0); Albumin Globulin Ratio 1.5 (1.0-2.8); Alkaline Phosphatase 106 U/L (38-126); Aspartate Aminotransferase 31 IU/L (17-59); BUN Creatinine Ratio 11.7 (6-22); Bilirubin Total 0.4 mg/dL (0.2-1.3); Blood Urea Nitrogen 13 mg/dL (9-20); Calcium 9.7 mg/dL (8.4-10.2); Carbon Dioxide 25 mmol/L (22-32); Chloride 105 mmol/L (98-107); Estimated Glomerular Filt Rate > 60 mL/min (>60); Globulin 2.8 g/dL (1.7-4.1); Glucose 93 mg/dL (70-100); HEMOLYSIS < 15 (0-50); Potassium 4.1 mmol/L (3.4-5.1); Sodium 137 mmol/L (137-145)
== END ==
LOC: LAB 14:22
PROVIDERS: Family Provider Family Medicine; PCP Family Medicine; Referring Provider Psychiatry & Neurology Neurology; Visit Provider Psychiatry & Neurology Neurology
DX: C71.9 Malignant neoplasm of brain, unspecified (principal)
CPT/HCPCS: 36415; 80053; 85025

== ENCOUNTER → 2024-06-04 10:40 | Outpatient (CLI) | payer OTHER, SELFPAY ==
[2024-06-04 12:47] LABS: Add Manual Diff / Slide Review NO; Basophils Absolute Auto 0 /uL (0-100); Basophils Percent Auto 0.4 % (0-2); Eosinophils Absolute Auto 300 /uL (0-450); Eosinophils Percent Auto 5.1 % (2-4); Hematocrit 43.9 % (41-53); Hemoglobin 14.9 g/dL (13.5-17.5); Lymphocytes Absolute Auto 600 /uL (1100-4500); Lymphocytes Percent Auto 11.5 % (25-40); Mean Corpuscular HGB Conc 33.9 % (30-36); Mean Corpuscular Hemoglobin 30.3 PG (26-34); Mean Corpuscular Volume 89.4 fL (80-100); Monocytes Absolute Auto 600 /uL (0-900); Monocytes Percent Auto 11.6 % (3-14); Neutrophils Absolute Auto 3900 /uL (1500-7000); Neutrophils Percent Auto 71.4 % (50-75); Platelet Count 273 X10^3/uL (150-400); Red Blood Cell Count 4.91 X10^6/uL (4.5-5.9); Red Cell Distribution Width 14.8 % (11.6-14.8); White Blood Cell Count 5.5 X10^3/uL (4.5-11.0)
[2024-06-04 13:23] LABS: Alanine Aminotransferase 37 IU/L (<50); Albumin 4.2 g/dL (3.5-5.0); Albumin Globulin Ratio 1.7 (1.0-2.8); Alkaline Phosphatase 101 U/L (38-126); Aspartate Aminotransferase 29 IU/L (17-59); BUN Creatinine Ratio 10.4 (6-22); Bilirubin Total 0.5 mg/dL (0.2-1.3); Blood Urea Nitrogen 14 mg/dL (9-20); Calcium 9.5 mg/dL (8.4-10.2); Carbon Dioxide 24 mmol/L (22-32); Chloride 108 mmol/L (98-107); Estimated Glomerular Filt Rate > 60 mL/min (>60); Globulin 2.5 g/dL (1.7-4.1); Glucose 90 mg/dL (70-100); HEMOLYSIS < 15 (0-50); Potassium 4.4 mmol/L (3.4-5.1); Sodium 141 mmol/L (137-145); Total Protein 6.7 g/dL (6.3-8.2)
== END ==
LOC: LAB 10:42
PROVIDERS: Family Provider Family Medicine; PCP Family Medicine; Referring Provider Psychiatry & Neurology Neurology; Visit Provider Psychiatry & Neurology Neurology
DX: C71.9 Malignant neoplasm of brain, unspecified (principal)
CPT/HCPCS: 36415; 80053; 85025

== ENCOUNTER → 2024-07-16 10:37 | Outpatient (CLI) | payer OTHER, SELFPAY ==
[2024-07-16 11:08] LABS: Add Manual Diff / Slide Review NO; Basophils Absolute Auto 0 /uL (0-100); Eosinophils Absolute Auto 100 /uL (0-450); Eosinophils Percent Auto 2.3 % (2-4); Hematocrit 43.8 % (41-53); Hemoglobin 15.2 g/dL (13.5-17.5); Lymphocytes Absolute Auto 900 /uL (1100-4500); Lymphocytes Percent Auto 20.5 % (25-40); Mean Corpuscular HGB Conc 34.7 % (30-36); Mean Corpuscular Volume 89.3 fL (80-100); Monocytes Absolute Auto 600 /uL (0-900); Monocytes Percent Auto 13.2 % (3-14); Neutrophils Absolute Auto 2900 /uL (1500-7000); Platelet Count 157 X10^3/uL (150-400); Red Blood Cell Count 4.91 X10^6/uL (4.5-5.9); Red Cell Distribution Width 14.6 % (11.6-14.8); White Blood Cell Count 4.6 X10^3/uL (4.5-11.0)
[2024-07-16 11:30] LABS: Alanine Aminotransferase 37 IU/L (<50); Albumin 4.7 g/dL (3.5-5.0); Albumin Globulin Ratio 1.9 (1.0-2.8); Alkaline Phosphatase 96 U/L (38-126); Aspartate Aminotransferase 29 IU/L (17-59); BUN Creatinine Ratio 11.7 (6-22); Bilirubin Total 0.5 mg/dL (0.2-1.3); Blood Urea Nitrogen 15 mg/dL (9-20); Calcium 9.5 mg/dL (8.4-10.2); Carbon Dioxide 22 mmol/L (22-32); Chloride 107 mmol/L (98-107); Estimated Glomerular Filt Rate > 60 mL/min (>60); Globulin 2.5 g/dL (1.7-4.1); Glucose 104 mg/dL (70-100); HEMOLYSIS < 15 (0-50); Potassium 3.9 mmol/L (3.4-5.1); Sodium 141 mmol/L (137-145); Total Protein 7.2 g/dL (6.3-8.2)
== END ==
PROVIDERS: Family Provider Family Medicine; PCP Family Medicine; Referring Provider Psychiatry & Neurology Neurology; Visit Provider Psychiatry & Neurology Neurology
DX: C71.9 Malignant neoplasm of brain, unspecified (principal)
CPT/HCPCS: 36415; 80053; 85025

== ENCOUNTER → 2024-08-13 11:41 | Outpatient (CLI) | payer OTHER, SELFPAY ==
[2024-08-13 12:21] LABS: Add Manual Diff / Slide Review NO; Basophils Absolute Auto 0 /uL (0-100); Basophils Percent Auto 0.5 % (0-2); Eosinophils Absolute Auto 100 /uL (0-450); Eosinophils Percent Auto 2.2 % (2-4); Hematocrit 43.8 % (41-53); Hemoglobin 14.9 g/dL (13.5-17.5); Lymphocytes Absolute Auto 700 /uL (1100-4500); Lymphocytes Percent Auto 10.8 % (25-40); Mean Corpuscular Hemoglobin 31.1 PG (26-34); Mean Corpuscular Volume 91.6 fL (80-100); Monocytes Absolute Auto 800 /uL (0-900); Monocytes Percent Auto 11.9 % (3-14); Neutrophils Absolute Auto 4800 /uL (1500-7000); Neutrophils Percent Auto 74.6 % (50-75); Platelet Count 154 X10^3/uL (150-400); Red Blood Cell Count 4.78 X10^6/uL (4.5-5.9); Red Cell Distribution Width 14.3 % (11.6-14.8); White Blood Cell Count 6.5 X10^3/uL (4.5-11.0)
[2024-08-13 12:37] LABS: Alanine Aminotransferase 33 IU/L (<50); Albumin 4.5 g/dL (3.5-5.0); Albumin Globulin Ratio 1.7 (1.0-2.8); Alkaline Phosphatase 96 U/L (38-126); Aspartate Aminotransferase 26 IU/L (17-59); BUN Creatinine Ratio 14.8 (6-22); Bilirubin Total 0.5 mg/dL (0.2-1.3); Blood Urea Nitrogen 19 mg/dL (9-20); Calcium 9.6 mg/dL (8.4-10.2); Carbon Dioxide 23 mmol/L (22-32); Chloride 107 mmol/L (98-107); Estimated Glomerular Filt Rate > 60 mL/min (>60); Globulin 2.6 g/dL (1.7-4.1); Glucose 129 mg/dL (70-100); HEMOLYSIS < 15 (0-50); Potassium 4.1 mmol/L (3.4-5.1); Sodium 140 mmol/L (137-145); Total Protein 7.1 g/dL (6.3-8.2)
== END ==
LOC: LAB 11:44
PROVIDERS: Family Provider Family Medicine; PCP Family Medicine; Referring Provider Psychiatry & Neurology Neurology; Visit Provider Psychiatry & Neurology Neurology
DX: C71.9 Malignant neoplasm of brain, unspecified (principal)
CPT/HCPCS: 36415; 80053; 85025

== ENCOUNTER 2025-01-22 14:30 | Outpatient (RCR) | payer OTHER, SELFPAY ==
--- NOTE | 2024-01-31 14:28 | PT.OIE ---
Current Diagnoses Other specified disorders of brain (01/31/24) Past Medical History (Last Updated 12/03/23 @ 20:22 by Viktoriya Karimi) Allergies Brain mass Brain tumor, glioma Chicken pox Tinnitus Past Surgical History (Last Updated 12/03/23 @ 20:22 by Viktoriya Karimi) Anesthesia Calder teeth removed Visit Care Team Role Provider Type Dany Moore DO Attending Provider Physician Family Provider Primary Care Provider Referring Provider Specialty: Family Practice Address: [address] [place] [address], [facility] [address], [place], [facility] Email: [email or web address] Physical Therapy Initial Evaluation PT-OP-A Visit Information Start: 01/25/24 17:51 Freq: Status: Active Protocol: Document 01/31/24 13:01 [facility] (Rec: 01/31/24 14:28 [facility] [id number]) Out-Patient Physical Therapy Visit Information Visit Information Visit Type Initial Evaluation Visit Start Time 13:01 Visit Stop Time 13:51 Visit Number 1 Number of GLASS PRODUCTS INSPECTOR Visits 0 PT-OP-B Current Condition Start: 01/25/24 17:51 Freq: Status: Active Protocol: Document 01/31/24 13:01 [facility] (Rec: 01/31/24 14:28 [facility] [id number]) Current Condition History of Current Condition Onset Date october 27 Current Complaints dec balance and double vision s/p brain mass ressection w/ residual tumors History of Current Condition Pt had brain mass ressection ( frontal lobe L) on oct 28 2023 at . In September, passed out and on October 26 was able to get MRI and SAKSHI () helped her get into a neuro surgeon the next day. He was DC from hospital October 30. Reports he is feeling wobbly. Mass was cancerous. 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 He just finished radiation on Jan 22 and start chemo in one month (feb 25) through Jul then further MRIs. Double vision and wobbly. Going to see neuro-opthamologist in about 1 .5 month. Grade 3 astrocytoma. denies pain or ORTEGA. Wobby gait since surgery. Minor short term memory loss. Hard to stab things with fork. He has been DC from [employer] and OT. 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 Does better w/balance when following line. The faster he walks, the straighter he walks and more normal AGNES he has vs wider AGNES. Denies falls, but occ braces w/wall. terrain changes that are the same color, he struggles to recognize it. Past hx: likes to hike and occ run and gym. Has not done either since. Trying to get more regular w/ walking. Stamina is also a concern. denies lightheadness/ dizziness. BP is slightly high but okay. Has not returned to gym. This is the first day since not getting treatments since hospital. Tapering off kepra from surgery. Does report jaw tightness. He can't eat large sandwiches. sore after been eating. 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 Treatment Goals Patient/Caregiver Goals Wants to not walk as zigzag; dec use of support of euceda PT-OP-D Balance Start: 01/25/24 17:51 Freq: Status: Active Protocol: Document 01/31/24 13:01 [facility] (Rec: 01/31/24 14:28 [facility] [id number]) Balance Tests Single Limb Standing Single Limb- Right 2 sec Single Limb- Left 3 sec Other Other Balance Tests Performed coordination tests: hand pronation/supination-able w/ alt hands EO/EC; dec coordination w/leg slide up opp leg seated R>L; dec coordination and speed EO and EC w/finger to nose L hand PT-OP-E Functional Tests Start: 01/25/24 17:51 Freq: Status: Active Protocol: Document 01/31/24 13:01 [facility] (Rec: 01/31/24 14:28 [facility] [id number]) Functional Tests 30 Second Sit to Stand Test Score 9 Dynamic Gait Index (DGI) Score 12 Five Times Sit to Stand Test Score 16 sec Functional Gait Assessment Score 14 PT-OP-F Manual Assessment Start: 01/25/24 17:51 Freq: Status: Active Protocol: Document 01/31/24 13:01 [facility] (Rec: 01/31/24 14:28 [facility] [id number]) Manual Assessments Other Manual Assessments Other Manual Assessments jaw opening deviates to L as opens; scar tissue tightness L side (pt reports some mm taken out w/surgery) PT-OP-G Mobility & Gait Start: 01/25/24 17:51 Freq: Status: Active Protocol: Document 01/31/24 13:01 [facility] (Rec: 01/31/24 14:28 [facility] [id number]) OP Gait Assessment Comments Gait Comments WBOS, lat leaning, arms slightly to sides PT-OP-M Strength Start: 01/25/24 17:51 Freq: Status: Active Protocol: Document 01/31/24 13:01 [facility] (Rec: 01/31/24 14:28 [facility] [id number]) Hip Strength Hip Manual Muscle Testing B Flexion (L2) 5 Normal External Rotation 5 Normal Internal Rotation 5 Normal Knee Strength Knee Manual Muscle Testing B Flexion (S2) 5 Normal Extension (L3) 5 Normal Ankle/Foot Strength Ankle and Foot Manual Muscle Testing B Dorsiflexion (L4) 5 Normal Plantarflexion (S1) 5 Normal Comments tested seated PT-OP-Q Treatments Start: 01/25/24 17:51 Freq: Status: Active Protocol: Document 01/31/24 13:01 [facility] (Rec: 01/31/24 14:28 [facility] [id number]) Self-Care/Home Management Treatment Education Other Education 8 min: edu to pt that will adjust schedule based on chemo and progression likely will not be a linear progression d/ t tumors and undergoing chemo in 1 month. Discussed not seeing pt during chemo week and week after unless feels well enough for PT during that week. PT-OP-T Assessment and Plan Start: 01/25/24 17:51 Freq: Status: Active Protocol: Document 01/31/24 13:01 [facility] (Rec: 01/31/24 14:28 [facility] [id number]) Physical Therapy Assessment Rehab Potential Rehabilitation Potential Good Evaluation Complexity Number of Personal Factors/Comorbidities 3 or More Number of Body Systems Impaired 4 or More Clinical Presentation at Evaluation Evolving Impairments Impairments Activity Tolerance,Balance, Coordination,Functional Activities,Functional Mobility ,Gait,Posture,ROM,Soft Tissue Mobility,Strength Goals dynamic balance Impairment DGI 12;FGA 14/30 Short Term Goal (STG) Pt will score at least 20/24 on DGI to show dec fall risk STG Duration 10/1 Halfway Goal (LTG) Pt will score at least 22/30 on FGA to show dec fall risk LTG Duration 11/5 sit to stands Impairment 9 in 30 sec; 16 sec for 5x sit to stand Short Term Goal (STG) Pt will be able to do 5x sit to investments manager no more than 11 sec STG Duration 03/19 Valve Fitter Goal (LTG) Pt will be able to do at least 15 sit to stands in 30 sec to show improved balance and coordination LTG Duration 04/24 SLS Short Term Goal (STG) Pt will be able to do SLS B at least 5 sec STG Duration 03/04 Valve Fitter Goal (LTG) Pt will be able to do SLS B at least 8 sec w/good recovery method vs need for use of wall LTG Duration 04/24 jaw Valve Fitter Goal (LTG) pt will be able to open jaw w/ o feeling of tightness and no more than mild deviation to L LTG Duration 04/24 Assessment Summary Assessment Pt presents 3 months after mass removal from L frontal lobe and 2 month ago finding of further tumors at brain stem and cerebellum. He finished radiation last week and will start 6 months of chemo in 1 month. He shows unsteadiness w/his gait and reports fatigues w/activity. He shows inc risk for falls based on testing today and showed dec coordination overall most notable w/LUE and RLE. He does have difficulty and when starts to lose balance when tested, has delayed response. Pt would benefit from skilled PT to work on balance, gait, strength and mobility to improve safety. Physical Therapy Plan Frequency and Duration Frequency of Treatment 2x/Week Duration of treatment (weeks) 12 Plan of Care Start Date 01/31/24 Plan of Care End Date 04/24/24 Therapeutic Interventions Therapeutic Interventions Balance Training,Coordination Training,Gait Training,Home Exercise Program,Joint Mobilizations,Manual Therapy, Neuromuscular Re-education, Orthotic/Prosthetic Management ,Patient/Caregiver Education, Self-Care/Home Management,Soft Tissue Mobilization,Taping, Therapeutic Activities, Therapeutic Exercises Next Visit Focus/Plan Next Note Type Treatment Note Next Visit Plan close CGA w/balance activities ; hurdles, balance board, toe taps, foam w/head turns, EC balance HEP: corner SLS & tandem/ modified tandem; sit to stands , rocabado jaw exercises
--- NOTE | 2024-01-31 14:28 | PT.OPPOC ---
Physical, Occupational & Speech Therapy At [facility] Current Diagnoses Other specified disorders of brain (01/31/24) Visit Care Team Role Provider Type Dany Moore DO Attending Provider Physician Family Provider Primary Care Provider Referring Provider Specialty: Family Practice Address: [address] [place] [address], [address], [place], [address] Email: [email or web address] Plan Of Care PT-OP-B Current Condition Start: 01/25/24 17:51 Freq: Status: Active Protocol: Document 01/31/24 13:01 [facility] (Rec: 01/31/24 14:28 [facility] [id number]) Current Condition History of Current Condition Onset Date october 27 Current Complaints dec balance and double vision s/p brain mass ressection w/ residual tumors History of Current Condition Pt had brain mass ressection ( frontal lobe L) on oct 28 2023 at . In September, passed out and on October 26 was able to get MRI and SAKSHI () helped her get into a neuro surgeon the next day. He was DC from hospital October 30. Reports he is feeling wobbly. Mass was cancerous. 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 He just finished radiation on Jan 22 and start chemo in one month (feb 25) through Jul then further MRIs. Double vision and wobbly. Going to see neuro-opthamologist in about 1 .5 month. Grade 3 astrocytoma. denies pain or ORTEGA. Wobby gait since surgery. Minor short term memory loss. Hard to stab things with fork. 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 Does better w/balance when following line. The faster he walks, the straighter he walks and more normal AGNES he has vs wider AGNES. Denies falls, but occ braces w/wall. terrain changes that are the same color, he struggles to recognize it. Past hx: likes to hike and occ run and gym. Has not done either since. Trying to get more regular w/ walking. Stamina is also a concern. denies lightheadness/ dizziness. BP is slightly high but okay. Has not returned to gym. This is the first day since not getting treatments since hospital. Tapering off kepra from surgery. Does report jaw tightness. He can't eat large sandwiches. sore after been eating. 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 Treatment Goals Patient/Caregiver Goals Wants to not walk as zigzag; dec use of support of euceda PT-OP-T Assessment and Plan Start: 01/25/24 17:51 Freq: Status: Active Protocol: Document 01/31/24 13:01 [facility] (Rec: 01/31/24 14:28 [facility] [id number]) Physical Therapy Assessment Rehab Potential Rehabilitation Potential Good Evaluation Complexity Number of Personal Factors/Comorbidities 3 or More Number of Body Systems Impaired 4 or More Clinical Presentation at Evaluation Evolving Impairments Impairments Activity Tolerance,Balance, Coordination,Functional Activities,Functional Mobility ,Gait,Posture,ROM,Soft Tissue Mobility,Strength Goals dynamic balance Impairment DGI 06/12;FGA Short Term Goal (STG) Pt will score at least 20/24 on DGI to show dec fall risk STG Duration 03/20 Assisted Goal (LTG) Pt will score at least 22/30 on FGA to show dec fall risk LTG Duration 04/24 sit to stands Impairment 9 in 30 sec; 16 sec for 5x sit to stand Short Term Goal (STG) Pt will be able to do 5x sit to senior principal no more than 11 sec STG Duration 03/19 P D Driver Goal (LTG) Pt will be able to do at least 15 sit to stands in 30 sec to show improved balance and coordination LTG Duration 04/24 SLS Short Term Goal (STG) Pt will be able to do SLS B at least 5 sec STG Duration 03/04 P D Driver Goal (LTG) Pt will be able to do SLS B at least 8 sec w/good recovery method vs need for use of wall LTG Duration 04/24 jaw Assisted Goal (LTG) pt will be able to open jaw w/ o feeling of tightness and no more than mild deviation to L LTG Duration 04/24 Assessment Summary Assessment Pt presents 3 months after mass removal from L frontal lobe and 2 month ago finding of further tumors at brain stem and cerebellum. He finished radiation last week and will start 6 months of chemo in 1 month. He shows unsteadiness w/his gait and reports fatigues w/activity. He shows inc risk for falls based on testing today and showed dec coordination overall most notable w/LUE and RLE. He does have difficulty and when starts to lose balance when tested, has delayed response. Pt would benefit from skilled PT to work on balance, gait, strength and mobility to improve safety. Physical Therapy Plan Frequency and Duration Frequency of Treatment 2x/Week Duration of treatment (weeks) 12 Plan of Care Start Date 01/31/24 Plan of Care End Date 04/24/24 Therapeutic Interventions Therapeutic Interventions Balance Training,Coordination Training,Gait Training,Home Exercise Program,Joint Mobilizations,Manual Therapy, Neuromuscular Re-education, Orthotic/Prosthetic Management ,Patient/Caregiver Education, Self-Care/Home Management,Soft Tissue Mobilization,Taping, Therapeutic Activities, Therapeutic Exercises Next Visit Focus/Plan Next Note Type Treatment Note Next Visit Plan close CGA w/balance activities ; hurdles, balance board, toe taps, foam w/head turns, EC balance HEP: corner SLS & tandem/ modified tandem; sit to stands , rocabado jaw exercises Plan of Care Dates Plan of Care Start Date 01/31/24 Plan of Care End Date 04/24/24 Electronically Signed by: Libia Barroso, PT 01/31/24 2744 If you are in agreement with this Plan of Care, please return a signed and dated copy. I have reviewed this Plan of Care and certify that the skilled therapy services above are required to meet the patient?s needs. Physician Signature Date Printed Name and Credentials Clinical Instructor Signature Printed Name and Credentials
--- NOTE | 2024-02-02 09:00 | PT.OTN ---
Current Diagnoses Other specified disorders of brain (02/02/24) Physical Therapy Treatment Note PT-OP-A Visit Information Start: 01/25/24 17:51 Freq: Status: Active Protocol: Document 02/02/24 08:19 [facility] (Rec: 02/02/24 09:02 [facility] [id number]) Out-Patient Physical Therapy Visit Information Visit Information Visit Type Treatment Note Visit Start Time 08:19 Visit Stop Time 09:00 Visit Number 2 Number of COUNSELING CASE MANAGER Visits 1 Precautions Precautions *Uncontrolled without warning decreased properioception R and retro at times, Double Vision, difficulty see uneven and change in surfaces, goyo if coloring similar. PT-OP-B Current Condition Start: 01/25/24 17:51 Freq: Status: Active Protocol: Document 01/31/24 13:01 [facility] (Rec: 01/31/24 14:28 [facility] [id number]) Current Condition History of Current Condition Onset Date october 27 Current Complaints dec balance and double vision s/p brain mass ressection w/ residual tumors History of Current Condition Pt had brain mass ressection ( frontal lobe L) on oct 28 2023 at . In September, passed out and on October 26 was able to get MRI and SAKSHI () helped her get into a neuro surgeon the next day. He was DC from hospital October 30. Reports he is feeling wobbly. Mass was cancerous. 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 He just finished radiation on Jan 22 and start chemo in one month (feb 25) through Jul then further MRIs. Double vision and wobbly. Going to see neuro-opthamologist in about 1 .5 month. Grade 3 astrocytoma. denies pain or ORTEGA. Wobby gait since surgery. Minor short term memory loss. Hard to stab things with fork. He has been DC from PRODUCTION GEAR CUTTER and OT. 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 Does better w/balance when following line. The faster he walks, the straighter he walks and more normal AGNES he has vs wider AGNES. Denies falls, but occ braces w/wall. terrain changes that are the same color, he struggles to recognize it. Past hx: likes to hike and occ run and gym. Has not done either since. Trying to get more regular w/ walking. Stamina is also a concern. denies lightheadness/ dizziness. BP is slightly high but okay. Has not returned to gym. This is the first day since not getting treatments since hospital. Tapering off kepra from surgery. Does report jaw tightness. He can't eat large sandwiches. sore after been eating. 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 Treatment Goals Patient/Caregiver Goals Wants to not walk as zigzag; dec use of support of euceda PT-OP-C Subjective Start: 01/25/24 17:51 Freq: Status: Active Protocol: Document 02/02/24 08:19 SP (Rec: 02/02/24 09:02 SP [id number]) OP-PT Subjective Patient Comments Patient Comments Pt doesn't use AD. Does demonstration deviations to R during gait. States at times during balance challenges can just lose balance to R without warning. He is walking laps around block 2-3 blocks then tires out. PT-OP-D Balance Start: 01/25/24 17:51 Freq: Status: Active Protocol: Document 01/31/24 13:01 [facility] (Rec: 01/31/24 14:28 [facility] [id number]) Balance Tests Single Limb Standing Single Limb- Right 2 sec Single Limb- Left 3 sec Other Other Balance Tests Performed coordination tests: hand pronation/supination-able w/ alt hands EO/EC; dec coordination w/leg slide up opp leg seated R>L; dec coordination and speed EO and EC w/finger to nose L hand PT-OP-E Functional Tests Start: 01/25/24 17:51 Freq: Status: Active Protocol: Document 01/31/24 13:01 [facility] (Rec: 01/31/24 14:28 [facility] [id number]) Functional Tests 30 Second Sit to Stand Test Score 9 Dynamic Gait Index (DGI) Score 12 Five Times Sit to Stand Test Score 16 sec Functional Gait Assessment Score 14 PT-OP-F Manual Assessment Start: 01/25/24 17:51 Freq: Status: Active Protocol: Document 01/31/24 13:01 [facility] (Rec: 01/31/24 14:28 [facility] [id number]) Manual Assessments Other Manual Assessments Other Manual Assessments jaw opening deviates to L as opens; scar tissue tightness L side (pt reports some mm taken out w/surgery) PT-OP-G Mobility & Gait Start: 01/25/24 17:51 Freq: Status: Active Protocol: Document 01/31/24 13:01 [facility] (Rec: 01/31/24 14:28 [facility] [id number]) OP Gait Assessment Comments Gait Comments WBOS, lat leaning, arms slightly to sides PT-OP-M Strength Start: 01/25/24 17:51 Freq: Status: Active Protocol: Document 01/31/24 13:01 [facility] (Rec: 01/31/24 14:28 [facility] [id number]) Hip Strength Hip Manual Muscle Testing B Flexion (L2) 5 Normal External Rotation 5 Normal Internal Rotation 5 Normal Knee Strength Knee Manual Muscle Testing B Flexion (S2) 5 Normal Extension (L3) 5 Normal Ankle/Foot Strength Ankle and Foot Manual Muscle Testing B Dorsiflexion (L4) 5 Normal Plantarflexion (S1) 5 Normal Comments tested seated PT-OP-Q Treatments Start: 01/25/24 17:51 Freq: Status: Active Protocol: Document 02/02/24 08:19 SP (Rec: 02/02/24 09:02 SP [id number]) Gym Equipment Shuttle Recovery bilateral squat Details cued no lock knees, slower pacing eccentric control for strength Resistance 100# (4 navy bands) Reps/Time 2x15 Therapeutic Exercises Sitting Exercises STS Sitting Exercise Name added to HEP- declined HO Equipment Used mesh chair Reps/Minutes 5 reps sit stand, 5 reps eccentric taps Standing Exercises hip abd Standing Exercise Name added to HEP- declined HO Side bilateral Resistance TB #3 grand traverse green at ankles, counter/chair support Reps/Minutes x10 Comments cued postural alignment tall over full foot, slow effort pacing. Neuro Re-Education Treatment Balance Activities hurdles Details fwd, lateral Surface 5 hurdles, floor>blue foam Equipment //bars PRN -CG-Min A Reps/Duration 4 laps each Comments step to (fwd and lateral)> receiprocal (fwd) LOB x5 to R (Mod A recovery) and couple retro but improved with reps step taps Equipment 6>8 step, //bars PRN, gait belt 4@ leg wt Reps/Duration 10 reps alternating BLE Comments cued tall slight fwd over stance LE /c core and Rhomboid fac , slower pacing, soft stepping-improved stabiltiy reduction retro and R lateral lean PT-OP-T Assessment and Plan Start: 01/25/24 17:51 Freq: Status: Active Protocol: Document 02/02/24 08:19 SP (Rec: 02/02/24 09:02 SP [id number]) Physical Therapy Assessment Goals dynamic balance Impairment DGI 06/12;FGA Short Term Goal (STG) Pt will score at least 20/24 on DGI to show dec fall risk STG Duration 03/20 Mcc Goal (LTG) Pt will score at least 22/30 on FGA to show dec fall risk LTG Duration 04/24 sit to stands Impairment 9 in 30 sec; 16 sec for 5x sit to stand Short Term Goal (STG) Pt will be able to do 5x sit to higher level teaching assistant no more than 11 sec STG Duration 03/19 Propeller Tester Goal (LTG) Pt will be able to do at least 15 sit to stands in 30 sec to show improved balance and coordination LTG Duration 04/24 SLS Short Term Goal (STG) Pt will be able to do SLS B at least 5 sec STG Duration 03/04 Propeller Tester Goal (LTG) Pt will be able to do SLS B at least 8 sec w/good recovery method vs need for use of wall LTG Duration 04/24 jaw Propeller Tester Goal (LTG) pt will be able to open jaw w/ o feeling of tightness and no more than mild deviation to L LTG Duration 04/24 Assessment Summary Assessment Use gait belt for safety support during all activities in standing due to proprioception deficits to R and retro at times. Good tolerance tiring report during resistance shuttle recovery warm up cued not locking knees and eccentric control. Added HEP for assist safety progression carryover home: STS cues for feet parallel and lessen momentum coming to standing without UE support COG over AGNES so no retro lean into heel LOB, hip hinge slower descent sit for safety and muscular control emphasis progression. Pt challenged initially midline trunk corrections gadiel steppings step to progressed to receiprocal stepping. Mod cues for tall posture, parascapular and core engagement over stance LE was ableto progress without UE support and add uneven surface , LOB x5 total during 4 laps Mod A recovery and use //bar. Pt improved decreased trunk sway gait leaving but continues wider AGNES. Physical Therapy Plan Frequency and Duration Frequency of Treatment 2x/Week Duration of treatment (weeks) 12 Plan of Care Start Date 01/31/24 Plan of Care End Date 04/24/24 Therapeutic Interventions Therapeutic Interventions Balance Training,Coordination Training,Gait Training,Home Exercise Program,Joint Mobilizations,Manual Therapy, Neuromuscular Re-education, Orthotic/Prosthetic Management ,Patient/Caregiver Education, Self-Care/Home Management,Soft Tissue Mobilization,Taping, Therapeutic Activities, Therapeutic Exercises Next Visit Focus/Plan Next Note Type Treatment Note Next Visit Plan *GAIT BELT USE! PT POC: close CGA w/balance activities; hurdles, balance board, toe taps, foam w/head turns, EC balance HEP: corner SLS & tandem/ modified tandem; sit to stands , rocabado jaw exercises
--- NOTE | 2024-02-06 12:07 | PT-OP ANOTE ---
Pt cancelled today's appt, change in [facility]. Next appt scheduled with PT 02/08/24.
--- NOTE | 2024-02-14 13:46 | PT.OTN ---
Current Diagnoses Other specified disorders of brain (02/14/24) Physical Therapy Treatment Note PT-OP-A Visit Information Start: 01/25/24 17:51 Freq: Status: Active Protocol: Document 02/14/24 12:59 [facility] (Rec: 02/14/24 13:46 [facility] [id number]) Out-Patient Physical Therapy Visit Information Visit Information Visit Type Treatment Note Visit Start Time 13:03 Visit Stop Time 13:43 Visit Number 4 Number of NETWORKING ENGINEER Visits 0 PT-OP-B Current Condition Start: 01/25/24 17:51 Freq: Status: Active Protocol: Document 01/31/24 13:01 [facility] (Rec: 01/31/24 14:28 [facility] [id number]) Current Condition History of Current Condition Onset Date october 27 Current Complaints dec balance and double vision s/p brain mass ressection w/ residual tumors History of Current Condition Pt had brain mass ressection ( frontal lobe L) on oct 28 2023 at . In September, passed out and on October 26 was able to get MRI and SAKSHI () helped her get into a neuro surgeon the next day. He was DC from hospital October 30. Reports he is feeling wobbly. Mass was cancerous. 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 He just finished radiation on Jan 22 and start chemo in one month (feb 25) through Jul then further MRIs. Double vision and wobbly. Going to see neuro-opthamologist in about 1 .5 month. Grade 3 astrocytoma. denies pain or ORTEGA. Wobby gait since surgery. Minor short term memory loss. Hard to stab things with fork. He has been DC from DATA ENTRY ANALYST and OT. 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 Does better w/balance when following line. The faster he walks, the straighter he walks and more normal AGNES he has vs wider AGNES. Denies falls, but occ braces w/wall. terrain changes that are the same color, he struggles to recognize it. Past hx: likes to hike and occ run and gym. Has not done either since. Trying to get more regular w/ walking. Stamina is also a concern. denies lightheadness/ dizziness. BP is slightly high but okay. Has not returned to gym. This is the first day since not getting treatments since hospital. Tapering off kepra from surgery. Does report jaw tightness. He can't eat large sandwiches. sore after been eating. 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 Treatment Goals Patient/Caregiver Goals Wants to not walk as zigzag; dec use of support of euceda PT-OP-C Subjective Start: 01/25/24 17:51 Freq: Status: Active Protocol: Document 02/14/24 12:59 [facility] (Rec: 02/14/24 13:46 [facility] [id number]) OP-PT Subjective Patient Comments Patient Comments pt reports compliance w/ exercises. PT-OP-D Balance Start: 01/25/24 17:51 Freq: Status: Active Protocol: Document 01/31/24 13:01 [facility] (Rec: 01/31/24 14:28 [facility] [id number]) Balance Tests Single Limb Standing Single Limb- Right 2 sec Single Limb- Left 3 sec Other Other Balance Tests Performed coordination tests: hand pronation/supination-able w/ alt hands EO/EC; dec coordination w/leg slide up opp leg seated R>L; dec coordination and speed EO and EC w/finger to nose L hand PT-OP-E Functional Tests Start: 01/25/24 17:51 Freq: Status: Active Protocol: Document 01/31/24 13:01 [facility] (Rec: 01/31/24 14:28 [facility] [id number]) Functional Tests 30 Second Sit to Stand Test Score 9 Dynamic Gait Index (DGI) Score 12 Five Times Sit to Stand Test Score 16 sec Functional Gait Assessment Score 14 PT-OP-F Manual Assessment Start: 01/25/24 17:51 Freq: Status: Active Protocol: Document 01/31/24 13:01 [facility] (Rec: 01/31/24 14:28 [facility] [id number]) Manual Assessments Other Manual Assessments Other Manual Assessments jaw opening deviates to L as opens; scar tissue tightness L side (pt reports some mm taken out w/surgery) PT-OP-G Mobility & Gait Start: 01/25/24 17:51 Freq: Status: Active Protocol: Document 01/31/24 13:01 [facility] (Rec: 01/31/24 14:28 [facility] [id number]) OP Gait Assessment Comments Gait Comments WBOS, lat leaning, arms slightly to sides PT-OP-M Strength Start: 08/07/24 17:51 Freq: Status: Active Protocol: Document 01/31/24 13:01 [facility] (Rec: 01/31/24 14:28 [facility] [id number]) Hip Strength Hip Manual Muscle Testing B Flexion (L2) 5 Normal External Rotation 5 Normal Internal Rotation 5 Normal Knee Strength Knee Manual Muscle Testing B Flexion (S2) 5 Normal Extension (L3) 5 Normal Ankle/Foot Strength Ankle and Foot Manual Muscle Testing B Dorsiflexion (L4) 5 Normal Plantarflexion (S1) 5 Normal Comments tested seated PT-OP-Q Treatments Start: 01/25/24 17:51 Freq: Status: Active Protocol: Document 02/14/24 12:59 [facility] (Rec: 02/14/24 13:46 [facility] [id number]) Therapeutic Exercises Standing Exercises resisted walk Standing Exercise Name 1.fwd/back 2. side step Side bilateral Equipment Used L3 Reps/Minutes 15ft x2 ea lat lunge Standing Exercise Name lat step lunge Side bilateral Reps/Minutes 10 lunge Standing Exercise Name backwards Side bilateral Equipment Used rail prn Reps/Minutes 10 ea DF/PF Side bilateral Equipment Used rail Reps/Minutes 20 Neuro Re-Education Treatment Balance Activities bosu Details DL balance tandem Comments 1. stance B trials 2. fwd walk 2x15ft tilt board Details 1.fwd facing 2. lat facing Comments 1. balance 2. wt shifts 3. squats x5 ea position foam Details EO/EC, head turns vertical and horizonal Equipment blue foam Comments WBOS, NBOS, staggered stance hurdles Surface firm Equipment 6 hurdles Comments 1. recip fwd x8 2. sidestep x2 B step taps Details tap to bosu (quiet tap) Reps/Duration 10 B PT-OP-T Assessment and Plan Start: 01/25/24 17:51 Freq: Status: Active Protocol: Document 02/14/24 12:59 [facility] (Rec: 02/14/24 13:46 [facility] [id number]) Physical Therapy Assessment Goals dynamic balance Impairment DGI 06/12;FGA 1430 Short Term Goal (STG) Pt will score at least 20/24 on DGI to show dec fall risk STG Duration 10 Mcfp Goal (LTG) Pt will score at least 22/30 on FGA to show dec fall risk LTG Duration 11/5 sit to stands Impairment 9 in 30 sec; 16 sec for 5x sit to stand Short Term Goal (STG) Pt will be able to do 5x sit to oil well drilling manager no more than 11 sec STG Duration 03/19 Mcfp Goal (LTG) Pt will be able to do at least 15 sit to stands in 30 sec to show improved balance and coordination LTG Duration 04/24 SLS Short Term Goal (STG) Pt will be able to do SLS B at least 5 sec STG Duration 03/04 Entry Level Paralegal Goal (LTG) Pt will be able to do SLS B at least 8 sec w/good recovery method vs need for use of wall LTG Duration 04/24 jaw Mcfp Goal (LTG) pt will be able to open jaw w/ o feeling of tightness and no more than mild deviation to L LTG Duration 04/24 Assessment Summary Assessment Pt had improved overall balance response but does completely lose balance w/EC activities. He was challenged by lunges w/ mm weakness and balance. Physical Therapy Plan Frequency and Duration Frequency of Treatment 2x/Week Duration of treatment (weeks) 12 Plan of Care Start Date 01/31/24 Plan of Care End Date 04/24/24 Next Visit Focus/Plan Next Note Type Treatment Note Next Visit Plan *GAIT BELT USE! Advance balance exercises HEP:add rocabado jaw exercises
--- NOTE | 2024-02-16 13:43 | PT.OTN ---
Current Diagnoses Other specified disorders of brain (02/16/24) Physical Therapy Treatment Note PT-OP-A Visit Information Start: 01/25/24 17:51 Freq: Status: Active Protocol: Document 02/16/24 13:02 SP (Rec: 02/16/24 13:50 SP [id number]) Out-Patient Physical Therapy Visit Information Visit Information Visit Type Treatment Note Visit Start Time 13:02 Visit Stop Time 13:43 Visit Number 5 Number of MANAGER DECISION SUPPORT Visits 1 Precautions Precautions *Uncontrolled without warning decreased properioception R and retro at times, Double Vision, difficulty see uneven and change in surfaces, goyo if coloring similar. PT-OP-B Current Condition Start: 01/25/24 17:51 Freq: Status: Active Protocol: Document 01/31/24 13:01 [facility] (Rec: 01/31/24 14:28 [facility] [id number]) Current Condition History of Current Condition Onset Date october 27 Current Complaints dec balance and double vision s/p brain mass ressection w/ residual tumors History of Current Condition Pt had brain mass ressection ( frontal lobe L) on oct 28 2023 at . In September, passed out and on October 26 was able to get MRI and SAKSHI () helped her get into a neuro surgeon the next day. He was DC from hospital October 30. Reports he is feeling wobbly. Mass was cancerous. 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 He just finished radiation on Jan 22 and start chemo in one month (feb 25) through Jul then further MRIs. Double vision and wobbly. Going to see neuro-opthamologist in about 1 .5 month. Grade 3 astrocytoma. denies pain or ORTEGA. Wobby gait since surgery. Minor short term memory loss. Hard to stab things with fork. He has been DC from [facility] and OT. 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 Does better w/balance when following line. The faster he walks, the straighter he walks and more normal AGNES he has vs wider AGNES. Denies falls, but occ braces w/wall. terrain changes that are the same color, he struggles to recognize it. Past hx: likes to hike and occ run and gym. Has not done either since. Trying to get more regular w/ walking. Stamina is also a concern. denies lightheadness/ dizziness. BP is slightly high but okay. Has not returned to gym. This is the first day since not getting treatments since hospital. Tapering off kepra from surgery. Does report jaw tightness. He can't eat large sandwiches. sore after been eating. 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 His eyes are twitching today. PT-OP-D Balance Start: 01/25/24 17:51 Freq: Status: Active Protocol: Document 01/31/24 13:01 [facility] (Rec: 01/31/24 14:28 [facility] [id number]) Balance Tests Single Limb Standing Single Limb- Right 2 sec Single Limb- Left 3 sec Other Other Balance Tests Performed coordination tests: hand pronation/supination-able w/ alt hands EO/EC; dec coordination w/leg slide up opp leg seated R>L; dec coordination and speed EO and EC w/finger to nose L hand PT-OP-E Functional Tests Start: 01/25/24 17:51 Freq: Status: Active Protocol: Document 01/31/24 13:01 [facility] (Rec: 01/31/24 14:28 [facility] [id number]) Functional Tests 30 Second Sit to Stand Test Score 9 Dynamic Gait Index (DGI) Score 12 Five Times Sit to Stand Test Score 16 sec Functional Gait Assessment Score 14 PT-OP-F Manual Assessment Start: 01/25/24 17:51 Freq: Status: Active Protocol: Document 01/31/24 13:01 [facility] (Rec: 01/31/24 14:28 [facility] [id number]) Manual Assessments Other Manual Assessments Other Manual Assessments jaw opening deviates to L as opens; scar tissue tightness L side (pt reports some mm taken out w/surgery) PT-OP-G Mobility & Gait Start: 01/25/24 17:51 Freq: Status: Active Protocol: Document 01/31/24 13:01 [facility] (Rec: 01/31/24 14:28 [facility] [id number]) OP Gait Assessment Comments Gait Comments WBOS, lat leaning, arms slightly to sides PT-OP-M Strength Start: 01/25/24 17:51 Freq: Status: Active Protocol: Document 01/31/24 13:01 [facility] (Rec: 01/31/24 14:28 [facility] [id number]) Hip Strength Hip Manual Muscle Testing B Flexion (L2) 5 Normal External Rotation 5 Normal Internal Rotation 5 Normal Knee Strength Knee Manual Muscle Testing B Flexion (S2) 5 Normal Extension (L3) 5 Normal Ankle/Foot Strength Ankle and Foot Manual Muscle Testing B Dorsiflexion (L4) 5 Normal Plantarflexion (S1) 5 Normal Comments tested seated PT-OP-Q Treatments Start: 01/25/24 17:51 Freq: Status: Active Protocol: Document 02/16/24 13:02 SP (Rec: 02/16/24 13:50 SP [id number]) Therapeutic Exercises Standing Exercises resisted walk Standing Exercise Name 1.fwd/back 2. side step Side bilateral Resistance near rail, not needed, provided close sBA Equipment Used L3 at ankles (discussed shins home) Reps/Minutes 15ft x2 ea Comments no LOB, cued slower eccentric together lat lunge Standing Exercise Name lat step lunge Side bilateral Resistance (gait belt donned)- CG- 5%A Equipment Used AROM-near rail- contact PRN Reps/Minutes 10 Comments cued WB forefoot & heel COG over AGNES lunge Standing Exercise Name backwards Side bilateral Equipment Used rail prn, CG- Mod A due to over wt shfit lean L or R or fwd. Reps/Minutes 10 reps, 5 reps Comments cued increase AGNES stepping back, pause stance then lunge not to floor DF/PF Standing Exercise Name 1. DF/PF facing rail 2. DF back to rail Side bilateral Resistance CG- close SBA Equipment Used rail Reps/Minutes 1. 20 2. 10 reps 2 SH- buttocks near rail but not touching Comments MANAGER DECISION SUPPORT prepared anterior shld support needed. Neuro Re-Education Treatment Balance Activities tandem Details CG- 5%A tandem Comments 1. stance B trials- support cue where do corrections midline 2. fwd walk 2x15ft- wts shift fwd front foot fwd, wt shift over front bharat going bwd until placement. SL balance Surface firm Equipment near rail for bal support, gait belt Reps/Duration trials Comments 2 sets CG -5%A RLE 18 sec LLE 20 sec PT-OP-T Assessment and Plan Start: 01/25/24 17:51 Freq: Status: Active Protocol: Document 02/16/24 13:02 SP (Rec: 02/16/24 13:50 SP [id number]) Physical Therapy Assessment Goals dynamic balance Impairment DGI 06/12;FGA Short Term Goal (STG) Pt will score at least 20/24 on DGI to show dec fall risk STG Duration 03/20 Provider Engagement Executive Goal (LTG) Pt will score at least 22/30 on FGA to show dec fall risk LTG Duration 04/24 sit to stands Impairment 9 in 30 sec; 16 sec for 5x sit to stand Short Term Goal (STG) Pt will be able to do 5x sit to metal sprayer machined parts no more than 11 sec STG Duration 03/19 Halfway Goal (LTG) Pt will be able to do at least 15 sit to stands in 30 sec to show improved balance and coordination LTG Duration 04/24 SLS Short Term Goal (STG) Pt will be able to do SLS B at least 5 sec STG Duration 03/04 Provider Engagement Executive Goal (LTG) Pt will be able to do SLS B at least 8 sec w/good recovery method vs need for use of wall LTG Duration 04/24 jaw Halfway Goal (LTG) pt will be able to open jaw w/ o feeling of tightness and no more than mild deviation to L LTG Duration 04/24 Assessment Summary Assessment Pt improved COG over AGNES during many activities, today provided support into lean cued which direction for self correction midline vs helping if just slight support needed . He was ableto complete SLS up to 18-20 sec with slight sways with alot focus. Pt most challenged tandem stepping LOB to R and L, improves with cues for tall over adavanced LE fwd, and slight fwd over front leg when retro stepping. Sill needs gait belt support for safety. Disucssed add band walk side stepping back couch for safety, not need assist today without rail but SBA provided. . Physical Therapy Plan Frequency and Duration Frequency of Treatment 2x/Week Duration of treatment (weeks) 12 Plan of Care Start Date 01/31/24 Plan of Care End Date 04/24/24 Therapeutic Interventions Therapeutic Interventions Balance Training,Coordination Training,Gait Training,Home Exercise Program,Joint Mobilizations,Manual Therapy, Neuromuscular Re-education, Orthotic/Prosthetic Management ,Patient/Caregiver Education, Self-Care/Home Management,Soft Tissue Mobilization,Taping, Therapeutic Activities, Therapeutic Exercises Next Visit Focus/Plan Next Note Type Treatment Note Next Visit Plan *GAIT BELT USE! Advance balance exercises HEP:add rocabado jaw exercises
--- NOTE | 2024-02-21 13:46 | PT.OTN ---
Current Diagnoses Other specified disorders of brain (02/21/24) Physical Therapy Treatment Note PT-OP-A Visit Information Start: 01/25/24 17:51 Freq: Status: Active Protocol: Document 02/21/24 13:05 SP (Rec: 02/21/24 13:50 SP [id number]) Out-Patient Physical Therapy Visit Information Visit Information Visit Type Treatment Note Visit Start Time 13:05 Visit Stop Time 13:46 Visit Number 6 Number of INCIDENT COORDINATOR Visits 2 Precautions Precautions *Uncontrolled without warning decreased properioception R and retro at times, Double Vision, difficulty see uneven and change in surfaces, goyo if coloring similar. PT-OP-B Current Condition Start: 01/25/24 17:51 Freq: Status: Active Protocol: Document 01/31/24 13:01 [facility] (Rec: 01/31/24 14:28 [facility] [id number]) Current Condition History of Current Condition Onset Date october 27 Current Complaints dec balance and double vision s/p brain mass ressection w/ residual tumors History of Current Condition Pt had brain mass ressection ( frontal lobe L) on oct 28 2023 at . In September, passed out and on October 26 was able to get MRI and SAKSHI () helped her get into a neuro surgeon the next day. He was DC from hospital October 30. Reports he is feeling wobbly. Mass was cancerous. 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 He just finished radiation on Jan 22 and start chemo in one month (feb 25) through Jul then further MRIs. Double vision and wobbly. Going to see neuro-opthamologist in about 1 .5 month. Grade 3 astrocytoma. denies pain or ORTEGA. Wobby gait since surgery. Minor short term memory loss. Hard to stab things with fork. He has been DC from [facility] [facility] and OT. 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 Does better w/balance when following line. The faster he walks, the straighter he walks and more normal AGNES he has vs wider AGNES. Denies falls, but occ braces w/wall. terrain changes that are the same color, he struggles to recognize it. Past hx: likes to hike and occ run and gym. Has not done either since. Trying to get more regular w/ walking. Stamina is also a concern. denies lightheadness/ dizziness. BP is slightly high but okay. Has not returned to gym. This is the first day since not getting treatments since hospital. Tapering off kepra from surgery. Does report jaw tightness. He can't eat large sandwiches. sore after been eating. 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 Treatment Goals Patient/Caregiver Goals Wants to not walk as zigzag; dec use of support of euceda PT-OP-C Subjective Start: 01/25/24 17:51 Freq: Status: Active Protocol: Document 02/21/24 13:05 SP (Rec: 02/21/24 13:50 SP [id number]) OP-PT Subjective Patient Comments Patient Comments Pt reports feels good tiring effort post PT, feels making gains over all on balance, less LOB, compliant with PT exercises. Seeing NeuroOpthamologist on Mar 12 follow up. PT-OP-D Balance Start: 01/25/24 17:51 Freq: Status: Active Protocol: Document 01/31/24 13:01 [facility] (Rec: 01/31/24 14:28 [facility] [id number]) Balance Tests Single Limb Standing Single Limb- Right 2 sec Single Limb- Left 3 sec Other Other Balance Tests Performed coordination tests: hand pronation/supination-able w/ alt hands EO/EC; dec coordination w/leg slide up opp leg seated R>L; dec coordination and speed EO and EC w/finger to nose L hand PT-OP-E Functional Tests Start: 01/25/24 17:51 Freq: Status: Active Protocol: Document 01/31/24 13:01 [facility] (Rec: 01/31/24 14:28 [facility] [id number]) Functional Tests 30 Second Sit to Stand Test Score 9 Dynamic Gait Index (DGI) Score 12 Five Times Sit to Stand Test Score 16 sec Functional Gait Assessment Score 14 PT-OP-F Manual Assessment Start: 01/25/24 17:51 Freq: Status: Active Protocol: Document 01/31/24 13:01 [facility] (Rec: 01/31/24 14:28 [facility] [id number]) Manual Assessments Other Manual Assessments Other Manual Assessments jaw opening deviates to L as opens; scar tissue tightness L side (pt reports some mm taken out w/surgery) PT-OP-G Mobility & Gait Start: 01/25/24 17:51 Freq: Status: Active Protocol: Document 01/31/24 13:01 [facility] (Rec: 01/31/24 14:28 [facility] [id number]) OP Gait Assessment Comments Gait Comments WBOS, lat leaning, arms slightly to sides PT-OP-M Strength Start: 01/25/24 17:51 Freq: Status: Active Protocol: Document 01/31/24 13:01 [facility] (Rec: 01/31/24 14:28 [facility] [id number]) Hip Strength Hip Manual Muscle Testing B Flexion (L2) 5 Normal External Rotation 5 Normal Internal Rotation 5 Normal Knee Strength Knee Manual Muscle Testing B Flexion (S2) 5 Normal Extension (L3) 5 Normal Ankle/Foot Strength Ankle and Foot Manual Muscle Testing B Dorsiflexion (L4) 5 Normal Plantarflexion (S1) 5 Normal Comments tested seated PT-OP-Q Treatments Start: 01/25/24 17:51 Freq: Status: Active Protocol: Document 02/21/24 13:05 SP (Rec: 02/21/24 13:50 SP [id number]) Therapeutic Exercises Standing Exercises racabado ex Standing Exercise Name 1. tongue roof mouth breath 2. add open close 3. resisted open close Equipment Used front mirror- improves alignment post manual and self performance with reps Reps/Minutes 1. 30 2. x10 3. x5 reps Comments use mirror for self corrections alignment, tends to considerable deviate L resisted walk Standing Exercise Name 1.fwd/back 2. side step Side bilateral Resistance near rail, not needed, provided close sBA Equipment Used L3 at ankles Reps/Minutes 15ft x3 ea Comments no LOB, cued slower eccentric together lat lunge Standing Exercise Name lat step lunge- in PT Side bilateral Resistance (gait belt donned)- CG- 5%A Equipment Used AROM>TB #3 at ankles- contact PRN Reps/Minutes 10 Comments cued WB forefoot & heel COG over AGNES lunge Standing Exercise Name backwards- in PT Side bilateral Resistance AROM>Tb #3 at ankles Equipment Used rail prn, CG-5% A PRN Reps/Minutes 10 reps Comments cued increase AGNES stepping back, pause stance then lunge not to floor DF/PF Standing Exercise Name 1. DF/PF facing rail 2. DF back to rail Side bilateral Resistance CG- close SBA Equipment Used rail Reps/Minutes 1. 20 2. 10 reps 2 SH- buttocks near rail but not touching Comments INCIDENT COORDINATOR prepared anterior shld support needed. Manual Therapy Treatment Soft Tissue Mobilization TMJ Body Location Masseter, Med Pterygoid, Hypoglossal Comments manual STMs and self ed, MWM tongue roof mouth Neuro Re-Education Treatment Balance Activities bosu Details DL balance Equipment PRN rail at stairs Comments CGA- Min A 10% PRN stop over wt shift but self correct with cuing then self without cues. Self-Care/Home Management Treatment Education Patient Education Body Mechanics Other Education Assessed Geraldo calf tightness: able DF knee to wall up to 2 toe from wall, Unable complete DF at 3 from wall. PT-OP-T Assessment and Plan Start: 01/25/24 17:51 Freq: Status: Active Protocol: Document 02/21/24 13:05 SP (Rec: 02/21/24 13:50 SP [id number]) Physical Therapy Assessment Goals dynamic balance Impairment DGI 06/12;FGA Short Term Goal (STG) Pt will score at least 20/24 on DGI to show dec fall risk STG Duration 03/20 Log Buncher Goal (LTG) Pt will score at least 22/30 on FGA to show dec fall risk LTG Duration 04/24 sit to stands Impairment 9 in 30 sec; 16 sec for 5x sit to stand Short Term Goal (STG) Pt will be able to do 5x sit to biomedical service engineer no more than 11 sec STG Duration 03/19 Half-Way Goal (LTG) Pt will be able to do at least 15 sit to stands in 30 sec to show improved balance and coordination LTG Duration 04/24 SLS Short Term Goal (STG) Pt will be able to do SLS B at least 5 sec STG Duration 03/04 Log Buncher Goal (LTG) Pt will be able to do SLS B at least 8 sec w/good recovery method vs need for use of wall LTG Duration 04/24 jaw Log Buncher Goal (LTG) pt will be able to open jaw w/ o feeling of tightness and no more than mild deviation to L LTG Duration 04/24 Assessment Summary Assessment INCIDENT COORDINATOR had to provide less repetition support during lunges today only block over wt shift and cues self correct midline slower pacing to reduce use of momentum and better control noted, added resistance to ankles with no adverse affect. Cues for COG over front and back foot. Physical Therapy Plan Frequency and Duration Frequency of Treatment 2x/Week Duration of treatment (weeks) 12 Plan of Care Start Date 01/31/24 Plan of Care End Date 04/24/24 Therapeutic Interventions Therapeutic Interventions Balance Training,Coordination Training,Gait Training,Home Exercise Program,Joint Mobilizations,Manual Therapy, Neuromuscular Re-education, Orthotic/Prosthetic Management ,Patient/Caregiver Education, Self-Care/Home Management,Soft Tissue Mobilization,Taping, Therapeutic Activities, Therapeutic Exercises Next Visit Focus/Plan Next Note Type Treatment Note Next Visit Plan *GAIT BELT USE! Advance balance exercises Review: rocabado jaw exercises added last tx.
--- NOTE | 2024-02-23 14:36 | PT.OTN ---
Current Diagnoses Other specified disorders of brain (02/23/24) Physical Therapy Treatment Note PT-OP-A Visit Information Start: 01/25/24 17:51 Freq: Status: Active Protocol: Document 02/23/24 13:05 [facility] (Rec: 02/23/24 14:36 [facility] [id number]) Out-Patient Physical Therapy Visit Information Visit Information Visit Type Treatment Note Visit Start Time 13:05 Visit Stop Time 13:45 Visit Number 7 Number of SALES AND CATERING COORDINATOR Visits 0 PT-OP-B Current Condition Start: 01/25/24 17:51 Freq: Status: Active Protocol: Document 01/31/24 13:01 [facility] (Rec: 01/31/24 14:28 [facility] [id number]) Current Condition History of Current Condition Onset Date october 27 Current Complaints dec balance and double vision s/p brain mass ressection w/ residual tumors History of Current Condition Pt had brain mass ressection ( frontal lobe L) on oct 28 2023 at . In September, passed out and on October 26 was able to get MRI and SAKSHI () helped her get into a neuro surgeon the next day. He was DC from hospital October 30. Reports he is feeling wobbly. Mass was cancerous. 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 He just finished radiation on Jan 22 and start chemo in one month (feb 25) through Jul then further MRIs. Double vision and wobbly. Going to see neuro-opthamologist in about 1 .5 month. Grade 3 astrocytoma. denies pain or ORTEGA. Wobby gait since surgery. Minor short term memory loss. Hard to stab things with fork. He has been DC from PERIPATOLOGIST and OT. 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 Does better w/balance when following line. The faster he walks, the straighter he walks and more normal AGNES he has vs wider AGNES. Denies falls, but occ braces w/wall. terrain changes that are the same color, he struggles to recognize it. Past hx: likes to hike and occ run and gym. Has not done either since. Trying to get more regular w/ walking. Stamina is also a concern. denies lightheadness/ dizziness. BP is slightly high but okay. Has not returned to gym. This is the first day since not getting treatments since hospital. Tapering off kepra from surgery. Does report jaw tightness. He can't eat large sandwiches. sore after been eating. 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 Treatment Goals Patient/Caregiver Goals Wants to not walk as zigzag; dec use of support of euceda PT-OP-C Subjective Start: 01/25/24 17:51 Freq: Status: Active Protocol: Document 02/23/24 13:05 [facility] (Rec: 02/23/24 14:36 [facility] [id number]) OP-PT Subjective Patient Comments Patient Comments pt reports he feels little more unbalanced today. Did spend 8 hours at yesterday. Starts treatment next week. PT-OP-D Balance Start: 01/25/24 17:51 Freq: Status: Active Protocol: Document 01/31/24 13:01 [facility] (Rec: 01/31/24 14:28 [facility] [id number]) Balance Tests Single Limb Standing Single Limb- Right 2 sec Single Limb- Left 3 sec Other Other Balance Tests Performed coordination tests: hand pronation/supination-able w/ alt hands EO/EC; dec coordination w/leg slide up opp leg seated R>L; dec coordination and speed EO and EC w/finger to nose L hand PT-OP-E Functional Tests Start: 01/25/24 17:51 Freq: Status: Active Protocol: Document 01/31/24 13:01 [facility] (Rec: 01/31/24 14:28 [facility] [id number]) Functional Tests 30 Second Sit to Stand Test Score 9 Dynamic Gait Index (DGI) Score 12 Five Times Sit to Stand Test Score 16 sec Functional Gait Assessment Score 14 PT-OP-F Manual Assessment Start: 01/25/24 17:51 Freq: Status: Active Protocol: Document 01/31/24 13:01 [facility] (Rec: 01/31/24 14:28 [facility] [id number]) Manual Assessments Other Manual Assessments Other Manual Assessments jaw opening deviates to L as opens; scar tissue tightness L side (pt reports some mm taken out w/surgery) PT-OP-G Mobility & Gait Start: 01/25/24 17:51 Freq: Status: Active Protocol: Document 01/31/24 13:01 [facility] (Rec: 01/31/24 14:28 [facility] [id number]) OP Gait Assessment Comments Gait Comments WBOS, lat leaning, arms slightly to sides PT-OP-M Strength Start: 01/25/24 17:51 Freq: Status: Active Protocol: Document 01/31/24 13:01 [facility] (Rec: 01/31/24 14:28 [facility] [id number]) Hip Strength Hip Manual Muscle Testing B Flexion (L2) 5 Normal External Rotation 5 Normal Internal Rotation 5 Normal Knee Strength Knee Manual Muscle Testing B Flexion (S2) 5 Normal Extension (L3) 5 Normal Ankle/Foot Strength Ankle and Foot Manual Muscle Testing B Dorsiflexion (L4) 5 Normal Plantarflexion (S1) 5 Normal Comments tested seated PT-OP-Q Treatments Start: 01/25/24 17:51 Freq: Status: Active Protocol: Document 02/23/24 13:05 [facility] (Rec: 02/23/24 14:36 [facility] [id number]) Neuro Re-Education Treatment Balance Activities bosu Comments 1. standing balance DL 2. step ups w/2 fingers on rail (occ grab) x6 B tandem Comments 1. stance trials B 2. fwd walk 2 fingers on rail 2x15ft tilt board Details 1.fwd facing 2. lat facing Comments 1. balance 2. wt shifts foam Details 1-3 EC & head turn trials Surface blue foam Comments 1. WBOS 2. NBOS 3. staggered stance 4. squats x15 5. PT pertubations WBOS & NBOS EO and EC 6. pT pertubations w/L4 band WBOS & NBOS EO and EC hurdles Surface firm Equipment 6 hurdles Comments 1. recip fwd x8 2. sidestep x2 B PT-OP-T Assessment and Plan Start: 01/25/24 17:51 Freq: Status: Active Protocol: Document 02/23/24 13:05 [facility] (Rec: 02/23/24 14:36 [facility] [id number]) Physical Therapy Assessment Goals dynamic balance Impairment DGI 12;FGA 14/30 Short Term Goal (STG) Pt will score at least 20/24 on DGI to show dec fall risk STG Duration 10/1 Otr Company Driver Goal (LTG) Pt will score at least 22/30 on FGA to show dec fall risk LTG Duration 11/5 sit to stands Impairment 9 in 30 sec; 16 sec for 5x sit to stand Short Term Goal (STG) Pt will be able to do 5x sit to stitcher standard machine no more than 11 sec STG Duration 03/19 Otr Company Driver Goal (LTG) Pt will be able to do at least 15 sit to stands in 30 sec to show improved balance and coordination LTG Duration 04/24 SLS Short Term Goal (STG) Pt will be able to do SLS B at least 5 sec STG Duration 03/04 Jail Goal (LTG) Pt will be able to do SLS B at least 8 sec w/good recovery method vs need for use of wall LTG Duration 04/24 jaw Otr Company Driver Goal (LTG) pt will be able to open jaw w/ o feeling of tightness and no more than mild deviation to L LTG Duration 04/24 Assessment Summary Assessment Pt did better w/tilt board today but did still struggle w /balance on it. He was very challenged by EC activities and bosutoday Physical Therapy Plan Frequency and Duration Frequency of Treatment 2x/Week Duration of treatment (weeks) 12 Plan of Care Start Date 01/31/24 Plan of Care End Date 04/24/24 Next Visit Focus/Plan Next Note Type Progress Note Next Visit Plan *GAIT BELT USE! Advance balance exercises Review: rocabado jaw exercises added last tx.
--- NOTE | 2024-03-12 15:22 | PT.OTN ---
Current Diagnoses Other specified disorders of brain (03/12/24) Physical Therapy Treatment Note PT-OP-A Visit Information Start: 01/25/24 17:51 Freq: Status: Active Protocol: Document 03/12/24 15:16 [facility] (Rec: 03/12/24 15:18 [facility] [id number]) Out-Patient Physical Therapy Visit Information Visit Information Visit Type Progress Note Visit Note 06/29 Visit Start Time 14:30 Visit Stop Time 15:12 Visit Number 8 Number of CLASP MACHINE OPERATOR Visits 0 PT-OP-B Current Condition Start: 01/25/24 17:51 Freq: Status: Active Protocol: Document 01/31/24 13:01 [facility] (Rec: 01/31/24 14:28 [facility] [id number]) Current Condition History of Current Condition Onset Date october 27 Current Complaints dec balance and double vision s/p brain mass ressection w/ residual tumors History of Current Condition Pt had brain mass ressection ( frontal lobe L) on oct 28 2023 at . In September, passed out and on October 26 was able to get MRI and SAKSHI () helped her get into a neuro surgeon the next day. He was DC from hospital October 30. Reports he is feeling wobbly. Mass was cancerous. 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 He just finished radiation on Jan 22 and start chemo in one month (feb 25) through Jul then further MRIs. Double vision and wobbly. Going to see neuro-opthamologist in about 1 .5 month. Grade 3 astrocytoma. denies pain or ORTEGA. Wobby gait since surgery. Minor short term memory loss. Hard to stab things with fork. He has been DC from PRINCIPAL INVESTIGATOR and OT. 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 Does better w/balance when following line. The faster he walks, the straighter he walks and more normal AGNES he has vs wider AGNES. Denies falls, but occ braces w/wall. terrain changes that are the same color, he struggles to recognize it. Past hx: likes to hike and occ run and gym. Has not done either since. Trying to get more regular w/ walking. Stamina is also a concern. denies lightheadness/ dizziness. BP is slightly high but okay. Has not returned to gym. This is the first day since not getting treatments since hospital. Tapering off kepra from surgery. Does report jaw tightness. He can't eat large sandwiches. sore after been eating. 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 Treatment Goals Patient/Caregiver Goals Wants to not walk as zigzag; dec use of support of euceda PT-OP-C Subjective Start: 01/25/24 17:51 Freq: Status: Active Protocol: Document 03/12/24 15:16 [facility] (Rec: 03/12/24 15:18 [facility] [id number]) OP-PT Subjective Patient Comments Patient Comments Pt reports chemo went okay. didn't feel great for a few days. Towards the end of last week resumed exercsies again PT-OP-D Balance Start: 01/25/24 17:51 Freq: Status: Active Protocol: Document 03/12/24 15:16 [facility] (Rec: 03/12/24 15:18 [facility] [id number]) Balance Tests Single Limb Standing Single Limb- Right 5 sec Single Limb- Left 3 sec PT-OP-E Functional Tests Start: 01/25/24 17:51 Freq: Status: Active Protocol: Document 03/12/24 15:16 [facility] (Rec: 03/12/24 15:18 [facility] [id number]) Functional Tests 30 Second Sit to Stand Test Score 9 Dynamic Gait Index (DGI) Score 20 Five Times Sit to Stand Test Score 16 sec Functional Gait Assessment Score 22 PT-OP-F Manual Assessment Start: 01/25/24 17:51 Freq: Status: Active Protocol: Document 01/31/24 13:01 [facility] (Rec: 01/31/24 14:28 [facility] [id number]) Manual Assessments Other Manual Assessments Other Manual Assessments jaw opening deviates to L as opens; scar tissue tightness L side (pt reports some mm taken out w/surgery) PT-OP-G Mobility & Gait Start: 01/25/24 17:51 Freq: Status: Active Protocol: Document 01/31/24 13:01 [facility] (Rec: 01/31/24 14:28 [facility] [id number]) OP Gait Assessment Comments Gait Comments WBOS, lat leaning, arms slightly to sides PT-OP-M Strength Start: 01/25/24 17:51 Freq: Status: Active Protocol: Document 01/31/24 13:01 [facility] (Rec: 01/31/24 14:28 [facility] [id number]) Hip Strength Hip Manual Muscle Testing B Flexion (L2) 5 Normal External Rotation 5 Normal Internal Rotation 5 Normal Knee Strength Knee Manual Muscle Testing B Flexion (S2) 5 Normal Extension (L3) 5 Normal Ankle/Foot Strength Ankle and Foot Manual Muscle Testing B Dorsiflexion (L4) 5 Normal Plantarflexion (S1) 5 Normal Comments tested seated PT-OP-Q Treatments Start: 01/25/24 17:51 Freq: Status: Active Protocol: Document 03/12/24 15:16 [facility] (Rec: 03/12/24 15:18 [facility] [id number]) Gym Equipment Shuttle Balance red clips Comments fwd & side:WBOS & NBOS fwd: staggered stance B Therapeutic Exercises Sitting Exercises STS Equipment Used silver chair Reps/Minutes 30 sec Standing Exercises racabado ex Standing Exercise Name 1. opening w/blocking TMJ B 2. add open close 3. resisted open close Equipment Used front mirror- improves alignment post manual and self performance with reps Reps/Minutes 10 ea Comments use mirror for self corrections alignment, tends to considerable deviate L Neuro Re-Education Treatment Balance Activities testing Comments FGA, DGI tilt board Details 1.fwd facing 2. lat facing Comments 1.squatsx8 ea 2. wt shifts SL balance Details B trials hurdles Equipment 6 hurdles Comments 1. recip fwd x2 ;x6 w/ square foam every other gadiel 2. sidestep x2 B PT-OP-T Assessment and Plan Start: 01/25/24 17:51 Freq: Status: Active Protocol: Document 03/12/24 15:16 [facility] (Rec: 03/12/24 15:18 [facility] [id number]) Physical Therapy Assessment Goals dynamic balance Impairment DGI 06/12;FGA Short Term Goal (STG) Pt will score at least 20/24 on DGI to show dec fall risk STG Duration achieved 03/12 Senior Living Goal (LTG) Pt will score at least 22/30 on FGA to show dec fall risk 03/12: achieved advance goal to 25/30 LTG Duration 12/6 sit to stands Impairment 9 in 30 sec; 16 sec for 5x sit to stand Short Term Goal (STG) Pt will be able to do 5x sit to viscosity inspector no more than 11 sec STG Duration 10/25 Software Systems Analyst Goal (LTG) Pt will be able to do at least 15 sit to stands in 30 sec to show improved balance and coordination LTG Duration 06/04 SLS Short Term Goal (STG) Pt will be able to do SLS B at least 5 sec 03/12-3 sec L; 5 sec R STG Duration 03/04 Senior Living Goal (LTG) Pt will be able to do SLS B at least 8 sec w/good recovery method vs need for use of wall LTG Duration 04/24 jaw Senior Living Goal (LTG) pt will be able to open jaw w/ o feeling of tightness and no more than mild deviation to L 03/12-still feels tight and has deviation L; completing exercises LTG Duration 05/25 Assessment Summary Assessment Pt making excellent progress w /PT and is showing much improved balance based on standardized testing and less risk for falls, but still at risk based on FGA and DGI. Would benefit form cont PT for balance, strength and work on jaw mobility. Physical Therapy Plan Frequency and Duration Frequency of Treatment 2x/Week Duration of treatment (weeks) 12 Plan of Care Start Date 03/12/24 Plan of Care End Date 06/04/24 Therapeutic Interventions Therapeutic Interventions Balance Training,Coordination Training,Gait Training,Home Exercise Program,Joint Mobilizations,Manual Therapy, Neuromuscular Re-education, Orthotic/Prosthetic Management ,Patient/Caregiver Education, Self-Care/Home Management,Soft Tissue Mobilization,Taping, Therapeutic Activities, Therapeutic Exercises Next Visit Focus/Plan Next Note Type Treatment Note Next Visit Plan *GAIT BELT USE! Advance balance exercises Review: rocabado jaw exercises added last tx.
--- NOTE | 2024-03-12 15:22 | PT.OPPOC ---
Physical, Occupational & Speech Therapy At [facility] Current Diagnoses Other specified disorders of brain (03/12/24) Visit Care Team Role Provider Type Dany Moore DO Attending Provider Physician Family Provider Primary Care Provider Referring Provider Specialty: Family Practice Address: [address] [place] [address], [address], [place], [address] Email: [email or web address] Plan Of Care PT-OP-B Current Condition Start: 01/25/24 17:51 Freq: Status: Active Protocol: Document 01/31/24 13:01 [facility] (Rec: 01/31/24 14:28 [facility] [id number]) Current Condition History of Current Condition Onset Date october 27 Current Complaints dec balance and double vision s/p brain mass ressection w/ residual tumors History of Current Condition Pt had brain mass ressection ( frontal lobe L) on oct 28 2023 at . In September, passed out and on October 26 was able to get MRI and SAKSHI () helped her get into a neuro surgeon the next day. He was DC from hospital October 30. Reports he is feeling wobbly. Mass was cancerous. 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 He just finished radiation on Jan 22 and start chemo in one month (feb 25) through Jul then further MRIs. Double vision and wobbly. Going to see neuro-opthamologist in about 1 .5 month. Grade 3 astrocytoma. denies pain or ORTEGA. Wobby gait since surgery. Minor short term memory loss. Hard to stab things with fork. He has been DC from DISASTER DIRECTOR and OT. 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 Does better w/balance when following line. The faster he walks, the straighter he walks and more normal AGNES he has vs wider AGNES. Denies falls, but occ braces w/wall. terrain changes that are the same color, he struggles to recognize it. Past hx: likes to hike and occ run and gym. Has not done either since. Trying to get more regular w/ walking. Stamina is also a concern. denies lightheadness/ dizziness. BP is slightly high but okay. Has not returned to gym. This is the first day since not getting treatments since hospital. Tapering off kepra from surgery. Does report jaw tightness. He can't eat large sandwiches. sore after been eating. 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 Treatment Goals Patient/Caregiver Goals Wants to not walk as zigzag; dec use of support of euceda PT-OP-T Assessment and Plan Start: 01/25/24 17:51 Freq: Status: Active Protocol: Document 03/12/24 15:16 [facility] (Rec: 03/12/24 15:18 [facility] [id number]) Physical Therapy Assessment Goals dynamic balance Impairment DGI 06/12;FGA Short Term Goal (STG) Pt will score at least 20/24 on DGI to show dec fall risk STG Duration achieved 03/12 Precision Devices Inspector/Tester Goal (LTG) Pt will score at least 22/30 on FGA to show dec fall risk 03/12: achieved advance goal to LTG Duration 05/25 sit to stands Impairment 9 in 30 sec; 16 sec for 5x sit to stand Short Term Goal (STG) Pt will be able to do 5x sit to screen examiner no more than 11 sec STG Duration 04/13 Jail Goal (LTG) Pt will be able to do at least 15 sit to stands in 30 sec to show improved balance and coordination LTG Duration 06/04 SLS Short Term Goal (STG) Pt will be able to do SLS B at least 5 sec 03/12-3 sec L; 5 sec R STG Duration 03/04 Precision Devices Inspector/Tester Goal (LTG) Pt will be able to do SLS B at least 8 sec w/good recovery method vs need for use of wall LTG Duration 04/24 jaw Jail Goal (LTG) pt will be able to open jaw w/ o feeling of tightness and no more than mild deviation to L 03/12-still feels tight and has deviation L; completing exercises LTG Duration 05/25 Assessment Summary Assessment Pt making excellent progress w /PT and is showing much improved balance based on standardized testing and less risk for falls, but still at risk based on FGA and DGI. Would benefit form cont PT for balance, strength and work on jaw mobility. Physical Therapy Plan Frequency and Duration Frequency of Treatment 2x/Week Duration of treatment (weeks) 12 Plan of Care Start Date 03/12/24 Plan of Care End Date 12/16/24 Therapeutic Interventions Therapeutic Interventions Balance Training,Coordination Training,Gait Training,Home Exercise Program,Joint Mobilizations,Manual Therapy, Neuromuscular Re-education, Orthotic/Prosthetic Management ,Patient/Caregiver Education, Self-Care/Home Management,Soft Tissue Mobilization,Taping, Therapeutic Activities, Therapeutic Exercises Next Visit Focus/Plan Next Note Type Treatment Note Next Visit Plan *GAIT BELT USE! Advance balance exercises Review: rocabado jaw exercises added last tx. Plan of Care Dates Plan of Care Start Date 03/12/24 Plan of Care End Date 06/04/24 Electronically Signed by: Libia Barroso, PT 03/12/24 [id number] If you are in agreement with this Plan of Care, please return a signed and dated copy. I have reviewed this Plan of Care and certify that the skilled therapy services above are required to meet the patient?s needs. Physician Signature Date Printed Name and Credentials Clinical Instructor Signature Printed Name and Credentials
--- NOTE | 2024-03-14 15:11 | PT.OTN ---
Current Diagnoses Other specified disorders of brain (03/14/24) Physical Therapy Treatment Note PT-OP-A Visit Information Start: 01/25/24 17:51 Freq: Status: Active Protocol: Document 03/14/24 14:31 SP (Rec: 03/14/24 15:30 SP [id number]) Out-Patient Physical Therapy Visit Information Visit Information Visit Type Treatment Note Visit Note 07/30 after PN Visit Start Time 14:31 Visit Stop Time 15:11 Visit Number 9 Number of LONG TERM Visits 1 Precautions Precautions *Uncontrolled without warning decreased properioception R and retro at times, Double Vision, difficulty see uneven and change in surfaces, goyo if coloring similar. PT-OP-B Current Condition Start: 01/25/24 17:51 Freq: Status: Active Protocol: Document 01/31/24 13:01 [facility] (Rec: 01/31/24 14:28 [facility] [id number]) Current Condition History of Current Condition Onset Date october 27 Current Complaints dec balance and double vision s/p brain mass ressection w/ residual tumors History of Current Condition Pt had brain mass ressection ( frontal lobe L) on oct 28 2023 at . In September, passed out and on October 26 was able to get MRI and SAKSHI () helped her get into a neuro surgeon the next day. He was DC from hospital October 30. Reports he is feeling wobbly. Mass was cancerous. 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 He just finished radiation on Jan 22 and start chemo in one month (feb 25) through Jul then further MRIs. Double vision and wobbly. Going to see neuro-opthamologist in about 1 .5 month. Grade 3 astrocytoma. denies pain or ORTEGA. Wobby gait since surgery. Minor short term memory loss. Hard to stab things with fork. He has been DC from [employer] and OT. 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 Does better w/balance when following line. The faster he walks, the straighter he walks and more normal AGNES he has vs wider AGNES. Denies falls, but occ braces w/wall. terrain changes that are the same color, he struggles to recognize it. Past hx: likes to hike and occ run and gym. Has not done either since. Trying to get more regular w/ walking. Stamina is also a concern. denies lightheadness/ dizziness. BP is slightly high but okay. Has not returned to gym. This is the first day since not getting treatments since hospital. Tapering off kepra from surgery. Does report jaw tightness. He can't eat large sandwiches. sore after been eating. 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 Treatment Goals Patient/Caregiver Goals Wants to not walk as zigzag; dec use of support of euceda PT-OP-C Subjective Start: 01/25/24 17:51 Freq: Status: Active Protocol: Document 03/14/24 14:31 SP (Rec: 03/14/24 15:30 SP [id number]) OP-PT Subjective Patient Comments Patient Comments Pt reports compliant with jaw ex inmirror. Stil haveing L jaw tension. PT-OP-D Balance Start: 01/25/24 17:51 Freq: Status: Active Protocol: Document 03/12/24 15:16 [facility] (Rec: 03/12/24 15:18 [facility] [id number]) Balance Tests Single Limb Standing Single Limb- Right 5 sec Single Limb- Left 3 sec PT-OP-E Functional Tests Start: 01/25/24 17:51 Freq: Status: Active Protocol: Document 03/12/24 15:16 [facility] (Rec: 03/12/24 15:18 [facility] [id number]) Functional Tests 30 Second Sit to Stand Test Score 9 Dynamic Gait Index (DGI) Score 20 Five Times Sit to Stand Test Score 16 sec Functional Gait Assessment Score 22 PT-OP-F Manual Assessment Start: 01/25/24 17:51 Freq: Status: Active Protocol: Document 01/31/24 13:01 [facility] (Rec: 01/31/24 14:28 [facility] [id number]) Manual Assessments Other Manual Assessments Other Manual Assessments jaw opening deviates to L as opens; scar tissue tightness L side (pt reports some mm taken out w/surgery) PT-OP-G Mobility & Gait Start: 01/25/24 17:51 Freq: Status: Active Protocol: Document 01/31/24 13:01 [facility] (Rec: 01/31/24 14:28 [facility] [id number]) OP Gait Assessment Comments Gait Comments WBOS, lat leaning, arms slightly to sides PT-OP-M Strength Start: 01/25/24 17:51 Freq: Status: Active Protocol: Document 01/31/24 13:01 [facility] (Rec: 01/31/24 14:28 [facility] [id number]) Hip Strength Hip Manual Muscle Testing B Flexion (L2) 5 Normal External Rotation 5 Normal Internal Rotation 5 Normal Knee Strength Knee Manual Muscle Testing B Flexion (S2) 5 Normal Extension (L3) 5 Normal Ankle/Foot Strength Ankle and Foot Manual Muscle Testing B Dorsiflexion (L4) 5 Normal Plantarflexion (S1) 5 Normal Comments tested seated PT-OP-Q Treatments Start: 01/25/24 17:51 Freq: Status: Active Protocol: Document 03/14/24 14:31 SP (Rec: 03/14/24 15:30 SP [id number]) Gym Equipment Shuttle Balance red clips Details WBOS, stagger stance Comments fwd & side:WBOS fwd: WBOS HTs, EC, stagger stance wt shift and stationary look fwd Cued during HTs look at wall items for support stabiltiy and slow turns during uneven stationary stance- improved with more midline bal recovery midline CG- Mod A- cues for direction wt shfit recovery. Sport Cord green Exercise Details fwd, bwd, lateral R & stepping , fw/bk down 4 step, 4 step + 2 foam Cord/Resistance green (red next tx) Reps/Duration 5 reps each LE Comments occasional cues for eccentric return stepping R return, step up LLE, wt shift over stance LE during step advancement /c eccentric landing, eccentric fwd heel toe Therapeutic Exercises Standing Exercises racabado ex Standing Exercise Name 1. opening w/blocking TMJ B 2. add open close 3. resisted open close Equipment Used front mirror- improves alignment post manual and self performance with reps Reps/Minutes 10 ea Comments use mirror for self corrections alignment, tends to considerable deviate L Manual Therapy Treatment Soft Tissue Mobilization head Body Location L>R temporalis, ear pull, mandible light caudal decompression Mobilization Type Cross-Friction,Rolling, Sustained Pressure,Other Intensity/Depth Moderate Body Position Supine Comments manual and ed self application TMJ Body Location L [place], L Med Pterygoid ( intraoral), B Hypoglossal Mobilization Type Rolling,Sustained Pressure, Other Intensity/Depth Moderate Body Position Supine Comments manual and ed self inSTMs and ed self MWM tongue roof mouth PT-OP-T Assessment and Plan Start: 01/25/24 17:51 Freq: Status: Active Protocol: Document 03/14/24 14:31 SP (Rec: 03/14/24 15:30 SP [id number]) Physical Therapy Assessment Goals dynamic balance Impairment DGI 06/12;FGA Short Term Goal (STG) Pt will score at least 20/24 on DGI to show dec fall risk STG Duration achieved 03/12 Nursing Home Goal (LTG) Pt will score at least 22/30 on FGA to show dec fall risk 03/12: achieved advance goal to LTG Duration 05/25 sit to stands Impairment 9 in 30 sec; 16 sec for 5x sit to stand Short Term Goal (STG) Pt will be able to do 5x sit to hogshead mat inspector no more than 11 sec STG Duration 04/13 Nursing Home Goal (LTG) Pt will be able to do at least 15 sit to stands in 30 sec to show improved balance and coordination LTG Duration 06/04 SLS Short Term Goal (STG) Pt will be able to do SLS B at least 5 sec 03/12-3 sec L; 5 sec R STG Duration 03/04 Saas Architect Goal (LTG) Pt will be able to do SLS B at least 8 sec w/good recovery method vs need for use of wall LTG Duration 04/24 jaw Nursing Home Goal (LTG) pt will be able to open jaw w/ o feeling of tightness and no more than mild deviation to L 03/12-still feels tight and has deviation L; completing exercises LTG Duration 05/25 Assessment Summary Assessment Pt responded well to manual and education on self application intraoral and exteral TMJ and temporalis for tension reduction on L, use mirror for self jaw opening corrections. Improved CG- Mod A during shuttle balance and occasional Min A druing initiated sport cord resisted stepping with cues for trunk directioning midline support. Physical Therapy Plan Frequency and Duration Frequency of Treatment 2x/Week Duration of treatment (weeks) 12 Plan of Care Start Date 03/12/24 Plan of Care End Date 06/04/24 Therapeutic Interventions Therapeutic Interventions Balance Training,Coordination Training,Gait Training,Home Exercise Program,Joint Mobilizations,Manual Therapy, Neuromuscular Re-education, Orthotic/Prosthetic Management ,Patient/Caregiver Education, Self-Care/Home Management,Soft Tissue Mobilization,Taping, Therapeutic Activities, Therapeutic Exercises Next Visit Focus/Plan Next Note Type Treatment Note Next Visit Plan *GAIT BELT USE! Ask response to sport cord and addition of self ed manual L TMJ last tx. POC: Advance balance exercises Review: rocabado jaw exercises added last tx.
--- NOTE | 2024-03-19 15:10 | PT.OTN ---
Current Diagnoses Other specified disorders of brain (03/19/24) Physical Therapy Treatment Note PT-OP-A Visit Information Start: 01/25/24 17:51 Freq: Status: Active Protocol: Document 03/19/24 14:32 SP (Rec: 03/19/24 15:48 SP [id number]) Out-Patient Physical Therapy Visit Information Visit Information Visit Type Treatment Note Visit Note 08/27 after PN Visit Start Time 14:32 Visit Stop Time 15:10 Visit Number 10 Number of SPONSORSHIP MANAGER Visits 2 Precautions Precautions *Decreased proprioception R and retro gait belt at all times, Double Vision, difficulty see uneven and change in surfaces, goyo if coloring similar. PT-OP-B Current Condition Start: 01/25/24 17:51 Freq: Status: Active Protocol: Document 01/31/24 13:01 [facility] (Rec: 01/31/24 14:28 [facility] [id number]) Current Condition History of Current Condition Onset Date october 27 Current Complaints dec balance and double vision s/p brain mass ressection w/ residual tumors History of Current Condition Pt had brain mass ressection ( frontal lobe L) on oct 28 2023 at . In September, passed out and on October 26 was able to get MRI and SAKSHI () helped her get into a neuro surgeon the next day. He was DC from hospital October 30. Reports he is feeling wobbly. Mass was cancerous. 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 He just finished radiation on Jan 22 and start chemo in one month (feb 25) through Jul then further MRIs. Double vision and wobbly. Going to see neuro-opthamologist in about 1 .5 month. Grade 3 astrocytoma. denies pain or ORTEGA. Wobby gait since surgery. Minor short term memory loss. Hard to stab things with fork. He has been DC from [employer] and OT. 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 Does better w/balance when following line. The faster he walks, the straighter he walks and more normal AGNES he has vs wider AGNES. Denies falls, but occ braces w/wall. terrain changes that are the same color, he struggles to recognize it. Past hx: likes to hike and occ run and gym. Has not done either since. Trying to get more regular w/ walking. Stamina is also a concern. denies lightheadness/ dizziness. BP is slightly high but okay. Has not returned to gym. This is the first day since not getting treatments since hospital. Tapering off kepra from surgery. Does report jaw tightness. He can't eat large sandwiches. sore after been eating. 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 Treatment Goals Patient/Caregiver Goals Wants to not walk as zigzag; dec use of support of euceda PT-OP-C Subjective Start: 01/25/24 17:51 Freq: Status: Active Protocol: Document 03/19/24 14:32 SP (Rec: 03/19/24 15:48 SP [id number]) OP-PT Subjective Patient Comments Patient Comments Pt reports not as stable today . Jaw feels fine today. PT-OP-D Balance Start: 01/25/24 17:51 Freq: Status: Active Protocol: Document 03/12/24 15:16 [facility] (Rec: 03/12/24 15:18 [facility] [id number]) Balance Tests Single Limb Standing Single Limb- Right 5 sec Single Limb- Left 3 sec PT-OP-E Functional Tests Start: 01/25/24 17:51 Freq: Status: Active Protocol: Document 03/12/24 15:16 [facility] (Rec: 03/12/24 15:18 [facility] [id number]) Functional Tests 30 Second Sit to Stand Test Score 9 Dynamic Gait Index (DGI) Score 20 Five Times Sit to Stand Test Score 16 sec Functional Gait Assessment Score 22 PT-OP-F Manual Assessment Start: 01/25/24 17:51 Freq: Status: Active Protocol: Document 01/31/24 13:01 [facility] (Rec: 01/31/24 14:28 [facility] [id number]) Manual Assessments Other Manual Assessments Other Manual Assessments jaw opening deviates to L as opens; scar tissue tightness L side (pt reports some mm taken out w/surgery) PT-OP-G Mobility & Gait Start: 01/25/24 17:51 Freq: Status: Active Protocol: Document 01/31/24 13:01 [facility] (Rec: 01/31/24 14:28 [facility] [id number]) OP Gait Assessment Comments Gait Comments WBOS, lat leaning, arms slightly to sides PT-OP-M Strength Start: 01/25/24 17:51 Freq: Status: Active Protocol: Document 01/31/24 13:01 [facility] (Rec: 01/31/24 14:28 [facility] [id number]) Hip Strength Hip Manual Muscle Testing B Flexion (L2) 5 Normal External Rotation 5 Normal Internal Rotation 5 Normal Knee Strength Knee Manual Muscle Testing B Flexion (S2) 5 Normal Extension (L3) 5 Normal Ankle/Foot Strength Ankle and Foot Manual Muscle Testing B Dorsiflexion (L4) 5 Normal Plantarflexion (S1) 5 Normal Comments tested seated PT-OP-Q Treatments Start: 01/25/24 17:51 Freq: Status: Active Protocol: Document 03/19/24 14:32 SP (Rec: 03/19/24 15:48 SP [id number]) Gym Equipment Sport Cord red Exercise Details f, b, lateral Cord/Resistance red Reps/Duration 5 reps each direction/ each suface Comments floor> blue mat CG-5%A LOB Lateral L>R initial stepping fwd/bwd on mat then improved midline corrections and eccentric stepping with reps Therapeutic Exercises Supine Exercises bridge Supine Exercise Name DIscussed, suggested performanc Side bilateral Resistance AROM Equipment Used added to HEP Comments recheck next tx Prone Exercises Plank Prone Exercise Name 1. forearm knees 2. Forearms/ feet Resistance added to HEP Reps/Minutes 1. 30 sec x2 2. 7 sec x1 Comments cued Sitting Exercises STS Resistance mesh chair, 5.5 lb Equipment Used foam, rocker board not successful Reps/Minutes 10 reps each, 1 rep Comments CG-5%A Standing Exercises lunge Standing Exercise Name backwards- in PT Side bilateral Resistance AROM>Tb #3 at ankles Equipment Used rail prn, CG-5% A PRN Reps/Minutes 10 reps Comments cued increase AGNES stepping back, pause stance then lunge not to floor Therapeutic Activity Therapeutic Activity on/off floor Reps/Minutes 1 rep Comments safe & controlled /c use of chair support Neuro Re-Education Treatment Balance Activities dynamic walking Reps/Duration hallway 50 ft x2 laps fwd/bwd Comments -head turn vertical/horiztonal fwd EO -backward stepping EO - EC fwd/bwd walk finger glide on wall: 20 ft x2 laps -Tandem- EO- moderate challenging Min/Mod A PT-OP-T Assessment and Plan Start: 01/25/24 17:51 Freq: Status: Active Protocol: Document 03/19/24 14:32 SP (Rec: 03/19/24 15:48 SP [id number]) Physical Therapy Assessment Goals dynamic balance Impairment DGI 06/12;FGA Short Term Goal (STG) Pt will score at least 20/24 on DGI to show dec fall risk STG Duration achieved 03/12 Custodial Goal (LTG) Pt will score at least 22/30 on FGA to show dec fall risk 03/12: achieved advance goal to LTG Duration 05/25 sit to stands Impairment 9 in 30 sec; 16 sec for 5x sit to stand Short Term Goal (STG) Pt will be able to do 5x sit to completion engineer no more than 11 sec STG Duration 04/13 Custodial Goal (LTG) Pt will be able to do at least 15 sit to stands in 30 sec to show improved balance and coordination LTG Duration 06/04 SLS Short Term Goal (STG) Pt will be able to do SLS B at least 5 sec 03/12-3 sec L; 5 sec R STG Duration 03/04 Metrology Technician Goal (LTG) Pt will be able to do SLS B at least 8 sec w/good recovery method vs need for use of wall LTG Duration 04/24 jaw Custodial Goal (LTG) pt will be able to open jaw w/ o feeling of tightness and no more than mild deviation to L 03/12-still feels tight and has deviation L; completing exercises LTG Duration 05/25 Assessment Summary Assessment Pt worked hard this session on midline postural/COG corrections. Increased support initially resisted mat walking and tandem dynamic gait due to R>L lateral uncontrolled lean. Pt was ableto get on floor use chair support with cues safe slow pacing 1/2 kneel stance, importance use chair ascend for control momentum return to stand. Initiated floor strengthening and flexibility exercises if feels safe to perform on floor but can do on bed if tolerated. Pt reports feels pretty good end tx, not to tired and glad to have HEP can continue home. Physical Therapy Plan Frequency and Duration Frequency of Treatment 2x/Week Duration of treatment (weeks) 12 Plan of Care Start Date 03/12/24 Plan of Care End Date 06/04/24 Therapeutic Interventions Therapeutic Interventions Balance Training,Coordination Training,Gait Training,Home Exercise Program,Joint Mobilizations,Manual Therapy, Neuromuscular Re-education, Orthotic/Prosthetic Management ,Patient/Caregiver Education, Self-Care/Home Management,Soft Tissue Mobilization,Taping, Therapeutic Activities, Therapeutic Exercises Next Visit Focus/Plan Next Note Type Treatment Note Next Visit Plan *GAIT BELT USE! Recheck floor ex: bridge, forearm plank knees, bird dog, child's pose, thread needle. POC: Advance balance exercises Review: rocabado jaw exercises added last tx.
--- NOTE | 2024-03-21 14:29 | PT.OTN ---
Current Diagnoses Other specified disorders of brain (03/21/24) Physical Therapy Treatment Note PT-OP-A Visit Information Start: 01/25/24 17:51 Freq: Status: Active Protocol: Document 03/21/24 13:46 [facility] (Rec: 03/21/24 14:29 [facility] [id number]) Out-Patient Physical Therapy Visit Information Visit Information Visit Type Treatment Note Visit Note 09/27 after PN Visit Start Time 13:46 Visit Stop Time 14:26 Visit Number 11 Number of APPLE TURNER Visits 0 PT-OP-B Current Condition Start: 01/25/24 17:51 Freq: Status: Active Protocol: Document 01/31/24 13:01 [facility] (Rec: 01/31/24 14:28 [facility] [id number]) Current Condition History of Current Condition Onset Date october 27 Current Complaints dec balance and double vision s/p brain mass ressection w/ residual tumors History of Current Condition Pt had brain mass ressection ( frontal lobe L) on oct 28 2023 at . In September, passed out and on October 26 was able to get MRI and SAKSHI () helped her get into a neuro surgeon the next day. He was DC from hospital October 30. Reports he is feeling wobbly. Mass was cancerous. 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 He just finished radiation on Jan 22 and start chemo in one month (feb 25) through Jul then further MRIs. Double vision and wobbly. Going to see neuro-opthamologist in about 1 .5 month. Grade 3 astrocytoma. denies pain or ORTEGA. Wobby gait since surgery. Minor short term memory loss. Hard to stab things with fork. He has been DC from BUSINESS CONTROLLER and OT. 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 Does better w/balance when following line. The faster he walks, the straighter he walks and more normal AGNES he has vs wider AGNES. Denies falls, but occ braces w/wall. terrain changes that are the same color, he struggles to recognize it. Past hx: likes to hike and occ run and gym. Has not done either since. Trying to get more regular w/ walking. Stamina is also a concern. denies lightheadness/ dizziness. BP is slightly high but okay. Has not returned to gym. This is the first day since not getting treatments since hospital. Tapering off kepra from surgery. Does report jaw tightness. He can't eat large sandwiches. sore after been eating. 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 Treatment Goals Patient/Caregiver Goals Wants to not walk as zigzag; dec use of support of euceda PT-OP-C Subjective Start: 01/25/24 17:51 Freq: Status: Active Protocol: Document 03/21/24 13:46 [facility] (Rec: 03/21/24 14:29 [facility] [id number]) OP-PT Subjective Patient Comments Patient Comments Has another treatment next week. PT-OP-D Balance Start: 01/25/24 17:51 Freq: Status: Active Protocol: Document 03/12/24 15:16 [facility] (Rec: 03/12/24 15:18 [facility] [id number]) Balance Tests Single Limb Standing Single Limb- Right 5 sec Single Limb- Left 3 sec PT-OP-E Functional Tests Start: 01/25/24 17:51 Freq: Status: Active Protocol: Document 03/12/24 15:16 [facility] (Rec: 03/12/24 15:18 [facility] [id number]) Functional Tests 30 Second Sit to Stand Test Score 9 Dynamic Gait Index (DGI) Score 20 Five Times Sit to Stand Test Score 16 sec Functional Gait Assessment Score 22 PT-OP-F Manual Assessment Start: 01/25/24 17:51 Freq: Status: Active Protocol: Document 01/31/24 13:01 [facility] (Rec: 01/31/24 14:28 [facility] [id number]) Manual Assessments Other Manual Assessments Other Manual Assessments jaw opening deviates to L as opens; scar tissue tightness L side (pt reports some mm taken out w/surgery) PT-OP-G Mobility & Gait Start: 01/25/24 17:51 Freq: Status: Active Protocol: Document 01/31/24 13:01 [facility] (Rec: 01/31/24 14:28 [facility] [id number]) OP Gait Assessment Comments Gait Comments WBOS, lat leaning, arms slightly to sides PT-OP-M Strength Start: 01/25/24 17:51 Freq: Status: Active Protocol: Document 01/31/24 13:01 [facility] (Rec: 01/31/24 14:28 [facility] [id number]) Hip Strength Hip Manual Muscle Testing B Flexion (L2) 5 Normal External Rotation 5 Normal Internal Rotation 5 Normal Knee Strength Knee Manual Muscle Testing B Flexion (S2) 5 Normal Extension (L3) 5 Normal Ankle/Foot Strength Ankle and Foot Manual Muscle Testing B Dorsiflexion (L4) 5 Normal Plantarflexion (S1) 5 Normal Comments tested seated PT-OP-Q Treatments Start: 01/25/24 17:51 Freq: Status: Active Protocol: Document 03/21/24 13:46 [facility] (Rec: 03/21/24 14:29 [facility] [id number]) Gym Equipment Shuttle Balance red clips Comments fwd& side WBOS Therapeutic Exercises Supine Exercises bridge Supine Exercise Name w/march Side bilateral Reps/Minutes 8 Prone Exercises Plank Prone Exercise Name 1. forearm knees Resistance added to HEP Reps/Minutes 1. 30 sec x2 Comments cued Other Exercises bird dog Side bilateral Reps/Minutes 10 Comments cues core and steadiness angel pose Side bilateral Reps/Minutes 30 sec thread the needle Side bilateral Reps/Minutes 5 Comments cues for elbow position Manual Therapy Treatment Consent Patient gave verbal consent for manual Yes treatment Soft Tissue Mobilization head Body Location L scar, temoralis Mobilization Type Myofascial Release,Rolling Body Position Supine TMJ Body Location L masseter, L med pterygoid, digastric Mobilization Type Rolling,Sustained Pressure Intensity/Depth Moderate Body Position Supine Joint Mobilizations TMJ Joint L distraction w/ R glide Neuro Re-Education Treatment Balance Activities dynamic walking Comments 1. head turns vertical/ horizonal per PT direction 5x50ft 2. fwd/back walk x50ft ea EC 3. fwd august (slow) x50ft 4. grapevine x50ft B PT-OP-T Assessment and Plan Start: 01/25/24 17:51 Freq: Status: Active Protocol: Document 03/21/24 13:46 [facility] (Rec: 03/21/24 14:29 [facility] [id number]) Physical Therapy Assessment Goals dynamic balance Impairment DGI 06/12;FGA Short Term Goal (STG) Pt will score at least 20/24 on DGI to show dec fall risk STG Duration achieved 03/12 [facility] Goal (LTG) Pt will score at least 22/30 on FGA to show dec fall risk 03/12: achieved advance goal to 2530 LTG Duration 12/6 sit to stands Impairment 9 in 30 sec; 16 sec for 5x sit to stand Short Term Goal (STG) Pt will be able to do 5x sit to roll up machine operator no more than 11 sec STG Duration 04/13 [facility] Goal (LTG) Pt will be able to do at least 15 sit to stands in 30 sec to show improved balance and coordination LTG Duration 06/04 SLS Short Term Goal (STG) Pt will be able to do SLS B at least 5 sec 03/12-3 sec L; 5 sec R STG Duration 03/04 [facility] Goal (LTG) Pt will be able to do SLS B at least 8 sec w/good recovery method vs need for use of wall LTG Duration 04/24 jaw [facility] Goal (LTG) pt will be able to open jaw w/ o feeling of tightness and no more than mild deviation to L 03/12-still feels tight and has deviation L; completing exercises LTG Duration 05/25 Assessment Summary Assessment Pt did well with dynamic balance but was challenged by all. MIld improvemnt in tracking of jaw after manual. Physical Therapy Plan Frequency and Duration Frequency of Treatment 2x/Week Duration of treatment (weeks) 12 Plan of Care Start Date 03/12/24 Plan of Care End Date 06/04/24 Next Visit Focus/Plan Next Note Type Treatment Note Next Visit Plan *GAIT BELT USE! Recheck floor ex: bridge, forearm plank knees, bird dog, child's pose, thread needle. POC: Advance balance exercises Review: rocabado jaw exercises added last tx.
--- NOTE | 2024-04-09 18:19 | PT.OTN ---
Current Diagnoses Other specified disorders of brain (04/09/24) Physical Therapy Treatment Note PT-OP-A Visit Information Start: 01/25/24 17:51 Freq: Status: Active Protocol: Document 04/09/24 14:32 [facility] (Rec: 04/09/24 18:19 [facility] [id number]) Out-Patient Physical Therapy Visit Information Visit Information Visit Type Treatment Note Visit Note 10/27 after PN Visit Start Time 14:31 Visit Stop Time 15:14 Visit Number [address]MIN[address]RATOR Visits 0 PT-OP-B Current Condition Start: 01/25/24 17:51 Freq: Status: Active Protocol: Document 01/31/24 13:01 [facility] (Rec: 01/31/24 14:28 [facility] [id number]) Current Condition History of Current Condition Onset Date october 27 Current Complaints dec balance and double vision s/p brain mass ressection w/ residual tumors History of Current Condition Pt had brain mass ressection ( frontal lobe L) on oct 28 2023 at . In September, passed out and on October 26 was able to get MRI and SAKSHI () helped her get into a neuro surgeon the next day. He was DC from hospital October 30. Reports he is feeling wobbly. Mass was cancerous. 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 He just finished radiation on Jan 22 and start chemo in one month (feb 25) through Jul then further MRIs. Double vision and wobbly. Going to see neuro-opthamologist in about 1 .5 month. Grade 3 astrocytoma. denies pain or ORTEGA. Wobby gait since surgery. Minor short term memory loss. Hard to stab things with fork. He has been DC from OIL FIELD PUMPER and OT. 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 Does better w/balance when following line. The faster he walks, the straighter he walks and more normal AGNES he has vs wider AGNES. Denies falls, but occ braces w/wall. terrain changes that are the same color, he struggles to recognize it. Past hx: likes to hike and occ run and gym. Has not done either since. Trying to get more regular w/ walking. Stamina is also a concern. denies lightheadness/ dizziness. BP is slightly high but okay. Has not returned to gym. This is the first day since not getting treatments since hospital. Tapering off kepra from surgery. Does report jaw tightness. He can't eat large sandwiches. sore after been eating. 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 Treatment Goals Patient/Caregiver Goals Wants to not walk as zigzag; dec use of support of euceda PT-OP-C Subjective Start: 01/25/24 17:51 Freq: Status: Active Protocol: Document 04/09/24 14:32 [facility] (Rec: 04/09/24 18:19 [facility] [id number]) OP-PT Subjective Patient Comments Patient Comments pt reports he had days were he slept 12 hours overnight and a 4 hour nap during the day. PT-OP-D Balance Start: 01/25/24 17:51 Freq: Status: Active Protocol: Document 03/12/24 15:16 [facility] (Rec: 03/12/24 15:18 [facility] [id number]) Balance Tests Single Limb Standing Single Limb- Right 5 sec Single Limb- Left 3 sec PT-OP-E Functional Tests Start: 01/25/24 17:51 Freq: Status: Active Protocol: Document 03/12/24 15:16 [facility] (Rec: 03/12/24 15:18 [facility] [id number]) Functional Tests 30 Second Sit to Stand Test Score 9 Dynamic Gait Index (DGI) Score 20 Five Times Sit to Stand Test Score 16 sec Functional Gait Assessment Score 22 PT-OP-F Manual Assessment Start: 01/25/24 17:51 Freq: Status: Active Protocol: Document 01/31/24 13:01 [facility] (Rec: 01/31/24 14:28 [facility] [id number]) Manual Assessments Other Manual Assessments Other Manual Assessments jaw opening deviates to L as opens; scar tissue tightness L side (pt reports some mm taken out w/surgery) PT-OP-G Mobility & Gait Start: 01/25/24 17:51 Freq: Status: Active Protocol: Document 01/31/24 13:01 [facility] (Rec: 01/31/24 14:28 [facility] [id number]) OP Gait Assessment Comments Gait Comments WBOS, lat leaning, arms slightly to sides PT-OP-M Strength Start: 01/25/24 17:51 Freq: Status: Active Protocol: Document 01/31/24 13:01 [facility] (Rec: 01/31/24 14:28 [facility] [id number]) Hip Strength Hip Manual Muscle Testing B Flexion (L2) 5 Normal External Rotation 5 Normal Internal Rotation 5 Normal Knee Strength Knee Manual Muscle Testing B Flexion (S2) 5 Normal Extension (L3) 5 Normal Ankle/Foot Strength Ankle and Foot Manual Muscle Testing B Dorsiflexion (L4) 5 Normal Plantarflexion (S1) 5 Normal Comments tested seated PT-OP-Q Treatments Start: 01/25/24 17:51 Freq: Status: Active Protocol: Document 04/09/24 14:32 [facility] (Rec: 04/09/24 18:19 [facility] [id number]) Gym Equipment Shuttle Rebound balance Comments alt august x10 B Shuttle Balance red clips Comments fwd& side: WBOS, NBOS fwd: staggered stance B Neuro Re-Education Treatment Balance Activities uneven surface Comments over foam mat w/different textures under x8 dynamic walking Comments 1.fwd august x50ft 2. backwards walk x50ft 3. EC walk 2x50ft foam Comments 1. WBOS, NBOS and staggered stance B w/EC and head turns trials 2. fwd walk over x8 hurdles Equipment 6 hurdles Comments 1. recip fwd x8 step taps Surface foam Reps/Duration 10 B PT-OP-T Assessment and Plan Start: 01/25/24 17:51 Freq: Status: Active Protocol: Document 04/09/24 14:32 [facility] (Rec: 04/09/24 18:19 [facility] [id number]) Physical Therapy Assessment Goals dynamic balance Impairment DGI 06/12;FGA Short Term Goal (STG) Pt will score at least 20/24 on DGI to show dec fall risk STG Duration achieved 03/12 Wide Area Network Administrator Goal (LTG) Pt will score at least 22/30 on FGA to show dec fall risk 03/12: achieved advance goal to LTG Duration 12/ sit to stands Impairment 9 in 30 sec; 16 sec for 5x sit to stand Short Term Goal (STG) Pt will be able to do 5x sit to traffic incident management manager no more than 11 sec STG Duration 04/13 Wide Area Network Administrator Goal (LTG) Pt will be able to do at least 15 sit to stands in 30 sec to show improved balance and coordination LTG Duration 1216 SLS Short Term Goal (STG) Pt will be able to do SLS B at least 5 sec 03/12-3 sec L; 5 sec R STG Duration 03/04 Wide Area Network Administrator Goal (LTG) Pt will be able to do SLS B at least 8 sec w/good recovery method vs need for use of wall LTG Duration 04/24 jaw Wide Area Network Administrator Goal (LTG) pt will be able to open jaw w/ o feeling of tightness and no more than mild deviation to L 03/12-still feels tight and has deviation L; completing exercises LTG Duration 05/25 Assessment Summary Assessment Pt did well overall with balance today but struggled w/ dynamic walk over uneven surfaces most Physical Therapy Plan Frequency and Duration Frequency of Treatment 2x/Week Duration of treatment (weeks) 12 Plan of Care Start Date 03/12/24 Plan of Care End Date 06/04/24 Therapeutic Interventions Therapeutic Interventions Balance Training,Coordination Training,Gait Training,Home Exercise Program,Joint Mobilizations,Manual Therapy, Neuromuscular Re-education, Orthotic/Prosthetic Management ,Patient/Caregiver Education, Self-Care/Home Management,Soft Tissue Mobilization,Taping, Therapeutic Activities, Therapeutic Exercises Next Visit Focus/Plan Next Note Type Treatment Note Next Visit Plan PN 04/18 appt, cont to advance balancea dn work on jaw mobility
--- NOTE | 2024-04-11 15:13 | PT.OTN ---
Current Diagnoses Other specified disorders of brain (04/11/24) Physical Therapy Treatment Note PT-OP-A Visit Information Start: 01/25/24 17:51 Freq: Status: Active Protocol: Document 04/11/24 14:33 [facility] (Rec: 04/11/24 15:44 [facility] [id number]) Out-Patient Physical Therapy Visit Information Visit Information Visit Type Treatment Note Visit Start Time 14:33 Visit Stop Time 15:13 Visit Number 13 (11/27 after PN) Number of APPLE PRESS OPERATOR Visits 1 Precautions Precautions *Decreased proprioception R and retro gait belt at all times, Double Vision, difficulty see uneven and change in surfaces, goyo if coloring similar. PT-OP-B Current Condition Start: 01/25/24 17:51 Freq: Status: Active Protocol: Document 01/31/24 13:01 [facility] (Rec: 01/31/24 14:28 [facility] [id number]) Current Condition History of Current Condition Onset Date october 27 Current Complaints dec balance and double vision s/p brain mass ressection w/ residual tumors History of Current Condition Pt had brain mass ressection ( frontal lobe L) on oct 28 2023 at . In September, passed out and on October 26 was able to get MRI and SAKSHI () helped her get into a neuro surgeon the next day. He was DC from hospital October 30. Reports he is feeling wobbly. Mass was cancerous. 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 He just finished radiation on Jan 22 and start chemo in one month (feb 25) through Jul then further MRIs. Double vision and wobbly. Going to see neuro-opthamologist in about 1 .5 month. Grade 3 astrocytoma. denies pain or ORTEGA. Wobby gait since surgery. Minor short term memory loss. Hard to stab things with fork. He has been DC from POP SINGER and OT. 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 Does better w/balance when following line. The faster he walks, the straighter he walks and more normal AGNES he has vs wider AGNES. Denies falls, but occ braces w/wall. terrain changes that are the same color, he struggles to recognize it. Past hx: likes to hike and occ run and gym. Has not done either since. Trying to get more regular w/ walking. Stamina is also a concern. denies lightheadness/ dizziness. BP is slightly high but okay. Has not returned to gym. This is the first day since not getting treatments since hospital. Tapering off kepra from surgery. Does report jaw tightness. He can't eat large sandwiches. sore after been eating. 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 Treatment Goals Patient/Caregiver Goals Wants to not walk as zigzag; dec use of support of euceda PT-OP-C Subjective Start: 01/25/24 17:51 Freq: Status: Active Protocol: Document 04/11/24 14:33 [facility] (Rec: 04/11/24 15:44 [facility] [id number]) OP-PT Subjective Patient Comments Patient Comments Pt reports reports feels doing more multiple actiions at same time as walking texting/ put phone on silent. Still challenge walking on grass due unsure terrain intaller grass and balance recovery. PT-OP-D Balance Start: 01/25/24 17:51 Freq: Status: Active Protocol: Document 03/12/24 15:16 [facility] (Rec: 03/12/24 15:18 [facility] [id number]) Balance Tests Single Limb Standing Single Limb- Right 5 sec Single Limb- Left 3 sec PT-OP-E Functional Tests Start: 01/25/24 17:51 Freq: Status: Active Protocol: Document 03/12/24 15:16 [facility] (Rec: 03/12/24 15:18 [facility] [id number]) Functional Tests 30 Second Sit to Stand Test Score 9 Dynamic Gait Index (DGI) Score 20 Five Times Sit to Stand Test Score 16 sec Functional Gait Assessment Score 22 PT-OP-F Manual Assessment Start: 01/25/24 17:51 Freq: Status: Active Protocol: Document 01/31/24 13:01 [facility] (Rec: 01/31/24 14:28 [facility] [id number]) Manual Assessments Other Manual Assessments Other Manual Assessments jaw opening deviates to L as opens; scar tissue tightness L side (pt reports some mm taken out w/surgery) PT-OP-G Mobility & Gait Start: 01/25/24 17:51 Freq: Status: Active Protocol: Document 01/31/24 13:01 [facility] (Rec: 01/31/24 14:28 [facility] [id number]) OP Gait Assessment Comments Gait Comments WBOS, lat leaning, arms slightly to sides PT-OP-M Strength Start: 01/25/24 17:51 Freq: Status: Active Protocol: Document 01/31/24 13:01 [facility] (Rec: 01/31/24 14:28 [facility] [id number]) Hip Strength Hip Manual Muscle Testing B Flexion (L2) 5 Normal External Rotation 5 Normal Internal Rotation 5 Normal Knee Strength Knee Manual Muscle Testing B Flexion (S2) 5 Normal Extension (L3) 5 Normal Ankle/Foot Strength Ankle and Foot Manual Muscle Testing B Dorsiflexion (L4) 5 Normal Plantarflexion (S1) 5 Normal Comments tested seated PT-OP-Q Treatments Start: 01/25/24 17:51 Freq: Status: Active Protocol: Document 04/11/24 14:33 [facility] (Rec: 04/11/24 15:44 [facility] [id number]) Gym Equipment Sport Cord red Exercise Details fwd, bwd, lateral R and L Cord/Resistance red Reps/Duration 6 reps each direction Comments initial quick uncontrolled, cues for smaller controlled step return, imrpoved last 2 reps each Therapeutic Exercises Supine Exercises bridge Supine Exercise Name 1. SL bridge 2. bridge w/march Side bilateral Reps/Minutes 1. x10 2. alternating 10 each LE Comments cued eccentric foot landing and level pelvis Prone Exercises Plank Prone Exercise Name forearm & knees Reps/Minutes 1min 15 sec Comments good form, only scap tiring, no pain Sidelying Exercises side plank Sidelying Exercise Name forearms, knees Side bilateral Reps/Minutes L 30 sec, R 60 sec Comments cued for pelvis forward Neuro Re-Education Treatment Balance Activities uneven surface Details fwd, lateral Surface mat over tilt board, wedges, pods, foam stones Reps/Duration 4 laps each direction Comments cues smaller eccentric LE advancement stride, wt shift midline stability CG-Mod A, dynamic walking Surface finger glide wall as needed during EC Reps/Duration 3 LAPS EACH Comments 1. fwd tandem x20ft x2 laps- challenging 2. backwards walk [id number] 3. EC fwd/bwd walk 2x50ft hurdles Surface 6 hurdles +foam Equipment inside //bars Reps/Duration recip fwd x8 Comments CG- Mod A /c cues for wt shift balanced over advanced LE, eccentric landing PT-OP-T Assessment and Plan Start: 01/25/24 17:51 Freq: Status: Active Protocol: Document 04/11/24 14:33 [facility] (Rec: 04/11/24 15:44 [facility] [id number]) Physical Therapy Assessment Goals dynamic balance Impairment DGI 06/12;FGA Short Term Goal (STG) Pt will score at least 20/24 on DGI to show dec fall risk STG Duration achieved 03/12 Electron Gun Inspector Goal (LTG) Pt will score at least 22/30 on FGA to show dec fall risk 03/12: achieved advance goal to LTG Duration 05/25 sit to stands Impairment 9 in 30 sec; 16 sec for 5x sit to stand Short Term Goal (STG) Pt will be able to do 5x sit to entry level mechanical engineer no more than 11 sec STG Duration 04/13 Intermediate Goal (LTG) Pt will be able to do at least 15 sit to stands in 30 sec to show improved balance and coordination LTG Duration 06/04 SLS Short Term Goal (STG) Pt will be able to do SLS B at least 5 sec 03/12-3 sec L; 5 sec R STG Duration 03/04 Intermediate Goal (LTG) Pt will be able to do SLS B at least 8 sec w/good recovery method vs need for use of wall LTG Duration 04/24 jaw Intermediate Goal (LTG) pt will be able to open jaw w/ o feeling of tightness and no more than mild deviation to L 03/12-still feels tight and has deviation L; completing exercises LTG Duration 05/25 Assessment Summary Assessment Pt improved postural corrections with cuing directioning, challenging with Mod A required uneven surface stepping. cues for smaller stride and eccentric foot strike. Mod A during dynamic stepping tandem tends to vier forward left, less CG/MIn A after EC backward walking. Physical Therapy Plan Frequency and Duration Frequency of Treatment 2x/Week Duration of treatment (weeks) 12 Plan of Care Start Date 03/12/24 Plan of Care End Date 06/04/24 Therapeutic Interventions Therapeutic Interventions Balance Training,Coordination Training,Gait Training,Home Exercise Program,Joint Mobilizations,Manual Therapy, Neuromuscular Re-education, Orthotic/Prosthetic Management ,Patient/Caregiver Education, Self-Care/Home Management,Soft Tissue Mobilization,Taping, Therapeutic Activities, Therapeutic Exercises Next Visit Focus/Plan Next Note Type Treatment Note Next Visit Plan PN 10/30 appt, cont to advance balance and work on jaw mobility
--- NOTE | 2024-04-16 15:16 | PT.OTN ---
Current Diagnoses Other specified disorders of brain (04/16/24) Physical Therapy Treatment Note PT-OP-A Visit Information Start: 01/25/24 17:51 Freq: Status: Active Protocol: Document 04/16/24 14:36 SP (Rec: 04/16/24 15:38 SP [id number]) Out-Patient Physical Therapy Visit Information Visit Information Visit Type Treatment Note Visit Start Time 14:36 Visit Stop Time 15:16 Visit Number 14 (12/27 after PN) Number of SPOOLING MACHINE OPERATOR Visits 2 Precautions Precautions *Decreased proprioception R and retro gait belt at all times, Double Vision, difficulty see uneven and change in surfaces, goyo if coloring similar. PT-OP-B Current Condition Start: 01/25/24 17:51 Freq: Status: Active Protocol: Document 01/31/24 13:01 [facility] (Rec: 01/31/24 14:28 [facility] [id number]) Current Condition History of Current Condition Onset Date october 27 Current Complaints dec balance and double vision s/p brain mass ressection w/ residual tumors History of Current Condition Pt had brain mass ressection ( frontal lobe L) on oct 28 2023 at . In September, passed out and on October 26 was able to get MRI and SAKSHI () helped her get into a neuro surgeon the next day. He was DC from hospital October 30. Reports he is feeling wobbly. Mass was cancerous. 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 He just finished radiation on Jan 22 and start chemo in one month (feb 25) through Jul then further MRIs. Double vision and wobbly. Going to see neuro-opthamologist in about 1 .5 month. Grade 3 astrocytoma. denies pain or ORTEGA. Wobby gait since surgery. Minor short term memory loss. Hard to stab things with fork. He has been DC from FINANCIAL SYSTEMS ADMINISTRATOR and OT. 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 Does better w/balance when following line. The faster he walks, the straighter he walks and more normal AGNES he has vs wider AGNES. Denies falls, but occ braces w/wall. terrain changes that are the same color, he struggles to recognize it. Past hx: likes to hike and occ run and gym. Has not done either since. Trying to get more regular w/ walking. Stamina is also a concern. denies lightheadness/ dizziness. BP is slightly high but okay. Has not returned to gym. This is the first day since not getting treatments since hospital. Tapering off kepra from surgery. Does report jaw tightness. He can't eat large sandwiches. sore after been eating. 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 Treatment Goals Patient/Caregiver Goals Wants to not walk as zigzag; dec use of support of euceda PT-OP-C Subjective Start: 01/25/24 17:51 Freq: Status: Active Protocol: Document 04/16/24 14:36 SP (Rec: 04/16/24 15:38 SP [id number]) OP-PT Subjective Patient Comments Patient Comments Pt report PT-OP-D Balance Start: 01/25/24 17:51 Freq: Status: Active Protocol: Document 03/12/24 15:16 [facility] (Rec: 03/12/24 15:18 [facility] [id number]) Balance Tests Single Limb Standing Single Limb- Right 5 sec Single Limb- Left 3 sec PT-OP-E Functional Tests Start: 01/25/24 17:51 Freq: Status: Active Protocol: Document 03/12/24 15:16 [facility] (Rec: 03/12/24 15:18 [facility] [id number]) Functional Tests 30 Second Sit to Stand Test Score 9 Dynamic Gait Index (DGI) Score 20 Five Times Sit to Stand Test Score 16 sec Functional Gait Assessment Score 22 PT-OP-F Manual Assessment Start: 01/25/24 17:51 Freq: Status: Active Protocol: Document 01/31/24 13:01 [facility] (Rec: 01/31/24 14:28 [facility] [id number]) Manual Assessments Other Manual Assessments Other Manual Assessments jaw opening deviates to L as opens; scar tissue tightness L side (pt reports some mm taken out w/surgery) PT-OP-G Mobility & Gait Start: 01/25/24 17:51 Freq: Status: Active Protocol: Document 01/31/24 13:01 [facility] (Rec: 01/31/24 14:28 [facility] [id number]) OP Gait Assessment Comments Gait Comments WBOS, lat leaning, arms slightly to sides PT-OP-M Strength Start: 01/25/24 17:51 Freq: Status: Active Protocol: Document 01/31/24 13:01 [facility] (Rec: 01/31/24 14:28 [facility] [id number]) Hip Strength Hip Manual Muscle Testing B Flexion (L2) 5 Normal External Rotation 5 Normal Internal Rotation 5 Normal Knee Strength Knee Manual Muscle Testing B Flexion (S2) 5 Normal Extension (L3) 5 Normal Ankle/Foot Strength Ankle and Foot Manual Muscle Testing B Dorsiflexion (L4) 5 Normal Plantarflexion (S1) 5 Normal Comments tested seated PT-OP-Q Treatments Start: 01/25/24 17:51 Freq: Status: Active Protocol: Document 04/16/24 14:36 SP (Rec: 04/16/24 15:38 SP [id number]) Gym Equipment Shuttle Recovery unilateral squat Resistance 62# 2 navy Reps/Time 2x12 Shuttle Balance red clips Comments fwd: WBOS, NBOS, staggered stance B (CG-10%) HTs EC up to WBOS 7 sec Therapeutic Exercises Sitting Exercises STS Equipment Used 16 box Reps/Minutes 10 reps each end tx gross motor trunk Flexion Comments SBA Standing Exercises racabado ex Standing Exercise Name 1. opening w/blocking TMJ B 2. add open close 3. resisted open close Resistance 04/16 supine: manual with verbal cues Equipment Used states does self front mirror Reps/Minutes 10 ea Comments 2. resisted inferior then R lateral mandible resisted walk Standing Exercise Name 1.fwd/back 2. side step Side bilateral Resistance SBA, //bars contact x2 instances self recovery Equipment Used GTB at ankles Reps/Minutes 15ft x3 ea Comments no LOB, cued slower eccentric together Manual Therapy Treatment Consent Patient gave verbal consent for manual Yes treatment Soft Tissue Mobilization TMJ Body Location L masseter, L med pterygoid, digastric Mobilization Type Myofascial Release,Rolling Intensity/Depth Moderate Body Position Hooklying Comments manual intra and external STMs and review self application Neuro Re-Education Treatment Balance Activities dynamic walking Surface finger glide wall EO, EC Reps/Duration 3 LAPS EACH Comments 1. fwd tandem x20ft x2 laps- not performed 04/16 2. backwards walk EO/MXu83gl ( finger/no finger assist) 3. EC fwd/bwd walk 2x50ft 4. Fwd EO HTs 90 bpm 50 ft x4 lengths 5. carioca 20 ft x2 laps little slower coordinating L, CGA no added supported needed bosu Comments 1. Standing balance DL, min contact as needed rail 2. Mini squat- very challenging 2 reps tilt board Details fwd & lat facing Equipment PRN contact side stair rails ( 2) Comments squats x 10 ea PT-OP-T Assessment and Plan Start: 01/25/24 17:51 Freq: Status: Active Protocol: Document 04/16/24 14:36 SP (Rec: 04/16/24 15:38 SP [id number]) Physical Therapy Assessment Goals dynamic balance Impairment DGI 06/12;FGA Short Term Goal (STG) Pt will score at least 20/24 on DGI to show dec fall risk STG Duration achieved 03/12 [facility]entiary Goal (LTG) Pt will score at least 22/30 on FGA to show dec fall risk 03/12: achieved advance goal to LTG Duration 05/25 sit to stands Impairment 9 in 30 sec; 16 sec for 5x sit to stand Short Term Goal (STG) Pt will be able to do 5x sit to metal machine setter no more than 11 sec STG Duration 04/13 Penitentiary Goal (LTG) Pt will be able to do at least 15 sit to stands in 30 sec to show improved balance and coordination LTG Duration 06/04 SLS Short Term Goal (STG) Pt will be able to do SLS B at least 5 sec 03/12-3 sec L; 5 sec R STG Duration 03/04 Banquet Line Cook Goal (LTG) Pt will be able to do SLS B at least 8 sec w/good recovery method vs need for use of wall LTG Duration 04/24 jaw Banquet Line Cook Goal (LTG) pt will be able to open jaw w/ o feeling of tightness and no more than mild deviation to L 03/12-still feels tight and has deviation L; completing exercises 04/16/24: still not able open fully and L jaw gets tight eating steak. LTG Duration 05/25 updated 04/16/24 Assessment Summary Assessment Pt improved ability to balance wiht less cues for self postural midline corrections, able to complete head turns with slightly increased support up to 10%A and EC up to 7 sec on shuttle balance today. Cues for softer stepping during EC dynamic stepping was able to walk without wall support fwd, tends to vier R backward but corrects with cuing. He was able to complete patterning carioca stepping CGA for safety, little slower pacing L than R. He reports decreased tension L jaw post manual, didn't measure pre/post AROM. Physical Therapy Plan Frequency and Duration Frequency of Treatment 2x/Week Duration of treatment (weeks) 12 Plan of Care Start Date 03/12/24 Plan of Care End Date 06/04/24 Therapeutic Interventions Therapeutic Interventions Balance Training,Coordination Training,Gait Training,Home Exercise Program,Joint Mobilizations,Manual Therapy, Neuromuscular Re-education, Orthotic/Prosthetic Management ,Patient/Caregiver Education, Self-Care/Home Management,Soft Tissue Mobilization,Taping, Therapeutic Activities, Therapeutic Exercises Next Visit Focus/Plan Next Note Type Treatment Note Next Visit Plan PN 04/18 appt, cont to advance balance and work on jaw mobility
--- NOTE | 2024-04-18 15:18 | PT.OTN ---
Current Diagnoses Other specified disorders of brain (04/18/24) Physical Therapy Treatment Note PT-OP-A Visit Information Start: 01/25/24 17:51 Freq: Status: Active Protocol: Document 04/18/24 14:32 [facility] (Rec: 04/18/24 15:18 [facility] [id number]) Out-Patient Physical Therapy Visit Information Visit Information Visit Type Progress Note Visit Start Time 14:32 Visit Stop Time 15:12 Visit Number 15 (06/29 after PN) Number of SURVEY CAD TECHNICIAN Visits 0 PT-OP-B Current Condition Start: 01/25/24 17:51 Freq: Status: Active Protocol: Document 01/31/24 13:01 [facility] (Rec: 01/31/24 14:28 [facility] [id number]) Current Condition History of Current Condition Onset Date october 27 Current Complaints dec balance and double vision s/p brain mass ressection w/ residual tumors History of Current Condition Pt had brain mass ressection ( frontal lobe L) on oct 28 2023 at . In September, passed out and on October 26 was able to get MRI and SAKSHI () helped her get into a neuro surgeon the next day. He was DC from hospital October 30. Reports he is feeling wobbly. Mass was cancerous. 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 He just finished radiation on Jan 22 and start chemo in one month (feb 25) through Jul then further MRIs. Double vision and wobbly. Going to see neuro-opthamologist in about 1 .5 month. Grade 3 astrocytoma. denies pain or ORTEGA. Wobby gait since surgery. Minor short term memory loss. Hard to stab things with fork. He has been DC from GENERAL MAINTENANCE TECHNICIAN and OT. 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 Does better w/balance when following line. The faster he walks, the straighter he walks and more normal AGNES he has vs wider AGNES. Denies falls, but occ braces w/wall. terrain changes that are the same color, he struggles to recognize it. Past hx: likes to hike and occ run and gym. Has not done either since. Trying to get more regular w/ walking. Stamina is also a concern. denies lightheadness/ dizziness. BP is slightly high but okay. Has not returned to gym. This is the first day since not getting treatments since hospital. Tapering off kepra from surgery. Does report jaw tightness. He can't eat large sandwiches. sore after been eating. 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 Treatment Goals Patient/Caregiver Goals Wants to not walk as zigzag; dec use of support of euceda PT-OP-C Subjective Start: 01/25/24 17:51 Freq: Status: Active Protocol: Document 04/18/24 14:32 [facility] (Rec: 04/18/24 15:18 [facility] [id number]) OP-PT Subjective Patient Comments Patient Comments Pt reports a busy earlier day including doctor's visit and check in at [facility]. A little more fatigued today. PT-OP-D Balance Start: 01/25/24 17:51 Freq: Status: Active Protocol: Document 04/18/24 14:32 [facility] (Rec: 04/18/24 15:18 [facility] [id number]) Balance Tests Single Limb Standing Single Limb- Right 3 sec Single Limb- Left 3 sec PT-OP-E Functional Tests Start: 01/25/24 17:51 Freq: Status: Active Protocol: Document 04/18/24 14:32 [facility] (Rec: 04/18/24 15:18 [facility] [id number]) Functional Tests 30 Second Sit to Stand Test Score 13 Five Times Sit to Stand Test Score 10 sec Functional Gait Assessment Score 21 PT-OP-F Manual Assessment Start: 01/25/24 17:51 Freq: Status: Active Protocol: Document 01/31/24 13:01 [facility] (Rec: 01/31/24 14:28 [facility] [id number]) Manual Assessments Other Manual Assessments Other Manual Assessments jaw opening deviates to L as opens; scar tissue tightness L side (pt reports some mm taken out w/surgery) PT-OP-G Mobility & Gait Start: 01/25/24 17:51 Freq: Status: Active Protocol: Document 01/31/24 13:01 [facility] (Rec: 01/31/24 14:28 [facility] [id number]) OP Gait Assessment Comments Gait Comments WBOS, lat leaning, arms slightly to sides PT-OP-M Strength Start: 01/25/24 17:51 Freq: Status: Active Protocol: Document 01/31/24 13:01 [facility] (Rec: 01/31/24 14:28 [facility] [id number]) Hip Strength Hip Manual Muscle Testing B Flexion (L2) 5 Normal External Rotation 5 Normal Internal Rotation 5 Normal Knee Strength Knee Manual Muscle Testing B Flexion (S2) 5 Normal Extension (L3) 5 Normal Ankle/Foot Strength Ankle and Foot Manual Muscle Testing B Dorsiflexion (L4) 5 Normal Plantarflexion (S1) 5 Normal Comments tested seated PT-OP-Q Treatments Start: 01/25/24 17:51 Freq: Status: Active Protocol: Document 04/18/24 14:32 [facility] (Rec: 04/18/24 15:18 [facility] [id number]) Gym Equipment Shuttle Rebound balance Comments alt august x12 B Shuttle Balance red clips Comments fwd & side: WBOS & NBOS fwd: staggered stance B Neuro Re-Education Treatment Balance Activities dynamic walking Comments FGA tilt board Details fwd & lat facing Equipment rails prn Comments 1. squats x8 ea 2. wt shifts x12 b foam Comments WBOS, NBOS, staggered stance B w/head turns and EC trials PT-OP-T Assessment and Plan Start: 01/25/24 17:51 Freq: Status: Active Protocol: Document 04/18/24 14:32 [facility] (Rec: 04/18/24 15:18 [facility] [id number]) Physical Therapy Assessment Goals dynamic balance Impairment DGI 06/12;FGA Short Term Goal (STG) Pt will score at least 20/24 on DGI to show dec fall risk STG Duration achieved 03/12 [facility] Goal (LTG) Pt will score at least 22/30 on FGA to show dec fall risk 03/12: achieved advance goal to 04/18- LTG Duration 07/11/24 sit to stands Impairment 9 in 30 sec; 16 sec for 5x sit to stand Short Term Goal (STG) Pt will be able to do 5x sit to renal medicine physician no more than 11 sec STG Duration achieved to 10 sec 04/18 [facility] Goal (LTG) Pt will be able to do at least 15 sit to stands in 30 sec to show improved balance and coordination 04/18- improved LTG Duration 07/11 SLS Short Term Goal (STG) Pt will be able to do SLS B at least 5 sec 03/12-3 sec L; 5 sec R 04/18- 3 sec B STG Duration 05/20 [facility] Goal (LTG) Pt will be able to do SLS B at least 8 sec w/good recovery method vs need for use of wall LTG Duration 07/11 jaw [facility]sp Goal (LTG) pt will be able to open jaw w/ o feeling of tightness and no more than mild deviation to L 03/12-still feels tight and has deviation L; completing exercises 04/16/24: still not able open fully and L jaw gets tight eating steak. 04/18 tightness here and there . still some deviation to L LTG Duration 07/11/24 Assessment Summary Assessment Pt improved w/sit to stand test and had minor dec (1 pt) in FGA and mild dec LLE SLS but did have a busy day earlier likely affecting this. He cont to participate in ongoing chemo and would benefit from cont PT to work on balance, strength, jaw mobility and reduce risk for falls. Physical Therapy Plan Frequency and Duration Frequency of Treatment 1-2x/Week Duration of treatment (weeks) 12 Plan of Care Start Date 04/18/24 Plan of Care End Date 07/11/24 Therapeutic Interventions Therapeutic Interventions Balance Training,Coordination Training,Gait Training,Home Exercise Program,Joint Mobilizations,Manual Therapy, Neuromuscular Re-education, Orthotic/Prosthetic Management ,Patient/Caregiver Education, Self-Care/Home Management,Soft Tissue Mobilization,Taping, Therapeutic Activities, Therapeutic Exercises Next Visit Focus/Plan Next Note Type Treatment Note Next Visit Plan cont to advance balance and work on jaw mobility
--- NOTE | 2024-04-18 15:18 | PT.OPPOC ---
Physical, Occupational & Speech Therapy At [facility] Current Diagnoses Other specified disorders of brain (04/18/24) Visit Care Team Role Provider Type Dany Moore DO Attending Provider Physician Family Provider Primary Care Provider Referring Provider Specialty: Family Practice Address: [address] [place] [address], [address], [place], [address] Email: [email or web address] Plan Of Care PT-OP-B Current Condition Start: 01/25/24 17:51 Freq: Status: Active Protocol: Document 01/31/24 13:01 [facility] (Rec: 01/31/24 14:28 [facility] [id number]) Current Condition History of Current Condition Onset Date october 27 Current Complaints dec balance and double vision s/p brain mass ressection w/ residual tumors History of Current Condition Pt had brain mass ressection ( frontal lobe L) on oct 28 2023 at . In September, passed out and on October 26 was able to get MRI and SAKSHI () helped her get into a neuro surgeon the next day. He was DC from hospital October 30. Reports he is feeling wobbly. Mass was cancerous. 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 He just finished radiation on Jan 22 and start chemo in one month (feb 25) through Jul then further MRIs. Double vision and wobbly. Going to see neuro-opthamologist in about 1 .5 month. Grade 3 astrocytoma. denies pain or ORTEGA. Wobby gait since surgery. Minor short term memory loss. Hard to stab things with fork. He has been DC from SEISMOGRAPHER and OT. 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 Does better w/balance when following line. The faster he walks, the straighter he walks and more normal AGNES he has vs wider AGNES. Denies falls, but occ braces w/wall. terrain changes that are the same color, he struggles to recognize it. Past hx: likes to hike and occ run and gym. Has not done either since. Trying to get more regular w/ walking. Stamina is also a concern. denies lightheadness/ dizziness. BP is slightly high but okay. Has not returned to gym. This is the first day since not getting treatments since hospital. Tapering off kepra from surgery. Does report jaw tightness. He can't eat large sandwiches. sore after been eating. 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 Treatment Goals Patient/Caregiver Goals Wants to not walk as zigzag; dec use of support of euceda PT-OP-T Assessment and Plan Start: 01/25/24 17:51 Freq: Status: Active Protocol: Document 04/18/24 14:32 [facility] (Rec: 04/18/24 15:18 [facility] [id number]) Physical Therapy Assessment Goals dynamic balance Impairment DGI 06/12;FGA Short Term Goal (STG) Pt will score at least / on DGI to show dec fall risk STG Duration achieved 03/12 Public Transit Specialist Goal (LTG) Pt will score at least on FGA to show dec fall risk 03/12: achieved advance goal to 04/18- LTG Duration 07/11/24 sit to stands Impairment 9 in 30 sec; 16 sec for 5x sit to stand Short Term Goal (STG) Pt will be able to do 5x sit to conference planning manager no more than 11 sec STG Duration achieved to 10 sec 04/18 [facility] Goal (LTG) Pt will be able to do at least 15 sit to stands in 30 sec to show improved balance and coordination 04/18- improved LTG Duration 07/11 SLS Short Term Goal (STG) Pt will be able to do SLS B at least 5 sec 03/12-3 sec L; 5 sec R 04/18- 3 sec B STG Duration 05/20 Public Transit Specialist Goal (LTG) Pt will be able to do SLS B at least 8 sec w/good recovery method vs need for use of wall LTG Duration 07/11 jaw Public Transit Specialist Goal (LTG) pt will be able to open jaw w/ o feeling of tightness and no more than mild deviation to L 03/12-still feels tight and has deviation L; completing exercises 04/16/24: still not able open fully and L jaw gets tight eating steak. 04/18 tightness here and there . still some deviation to L LTG Duration 07/11/24 Assessment Summary Assessment Pt improved w/sit to stand test and had minor dec (1 pt) in FGA and mild dec LLE SLS but did have a busy day earlier likely affecting this. He cont to participate in ongoing chemo and would benefit from cont PT to work on balance, strength, jaw mobility and reduce risk for falls. Physical Therapy Plan Frequency and Duration Frequency of Treatment 1-2x/Week Duration of treatment (weeks) 12 Plan of Care Start Date 04/18/24 Plan of Care End Date 07/11/24 Therapeutic Interventions Therapeutic Interventions Balance Training,Coordination Training,Gait Training,Home Exercise Program,Joint Mobilizations,Manual Therapy, Neuromuscular Re-education, Orthotic/Prosthetic Management ,Patient/Caregiver Education, Self-Care/Home Management,Soft Tissue Mobilization,Taping, Therapeutic Activities, Therapeutic Exercises Next Visit Focus/Plan Next Note Type Treatment Note Next Visit Plan cont to advance balance and work on jaw mobility Plan of Care Dates Plan of Care Start Date 04/18/24 Plan of Care End Date 07/11/24 Electronically Signed by: Libia Barroso, PT 04/18/24 8240 If you are in agreement with this Plan of Care, please return a signed and dated copy. I have reviewed this Plan of Care and certify that the skilled therapy services above are required to meet the patient?s needs. Physician Signature Date Printed Name and Credentials Clinical Instructor Signature Printed Name and Credentials
--- NOTE | 2024-05-04 10:29 | PT.OTN ---
Current Diagnoses Other specified disorders of brain (05/04/24) Physical Therapy Treatment Note PT-OP-A Visit Information Start: 01/25/24 17:51 Freq: Status: Active Protocol: Document 05/04/24 09:49 SP (Rec: 05/04/24 10:31 SP [id number]) Out-Patient Physical Therapy Visit Information Visit Information Visit Type Treatment Note Visit Note *Gap in appts 05/04-05/30 away for Thanksigiving and round of Chemo, also cxl 06/06 due to OOT family visit xmas. *182 lbs, awareness for feedback eating. Visit Start Time 09:49 Visit Stop Time 10:29 Visit Number 16 (07/30 after PN) Number of CEMENT GUN OPERATOR Visits 1 Precautions Precautions *Decreased proprioception R and retro gait belt at all times, Double Vision, difficulty see uneven and change in surfaces, goyo if coloring similar. PT-OP-B Current Condition Start: 01/25/24 17:51 Freq: Status: Active Protocol: Document 01/31/24 13:01 [facility] (Rec: 01/31/24 14:28 [facility] [id number]) Current Condition History of Current Condition Onset Date october 27 Current Complaints dec balance and double vision s/p brain mass ressection w/ residual tumors History of Current Condition Pt had brain mass ressection ( frontal lobe L) on oct 28 2023 at . In September, passed out and on October 26 was able to get MRI and SAKSHI () helped her get into a neuro surgeon the next day. He was DC from hospital October 30. Reports he is feeling wobbly. Mass was cancerous. 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 He just finished radiation on Jan 22 and start chemo in one month (feb 25) through Jul then further MRIs. Double vision and wobbly. Going to see neuro-opthamologist in about 1 .5 month. Grade 3 astrocytoma. denies pain or ORTEGA. Wobby gait since surgery. Minor short term memory loss. Hard to stab things with fork. He has been DC from SCHEDULE CLERK and OT. 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 Does better w/balance when following line. The faster he walks, the straighter he walks and more normal AGNES he has vs wider AGNES. Denies falls, but occ braces w/wall. terrain changes that are the same color, he struggles to recognize it. Past hx: likes to hike and occ run and gym. Has not done either since. Trying to get more regular w/ walking. Stamina is also a concern. denies lightheadness/ dizziness. BP is slightly high but okay. Has not returned to gym. This is the first day since not getting treatments since hospital. Tapering off kepra from surgery. Does report jaw tightness. He can't eat large sandwiches. sore after been eating. 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 Treatment Goals Patient/Caregiver Goals Wants to not walk as zigzag; dec use of support of euceda PT-OP-C Subjective Start: 01/25/24 17:51 Freq: Status: Active Protocol: Document 05/04/24 09:49 SP (Rec: 05/04/24 10:31 SP [id number]) OP-PT Subjective Patient Comments Patient Comments Pt reports wasn't as fatigued as thought would be after activities. PT-OP-D Balance Start: 01/25/24 17:51 Freq: Status: Active Protocol: Document 04/18/24 14:32 [facility] (Rec: 04/18/24 15:18 [facility] [id number]) Balance Tests Single Limb Standing Single Limb- Right 3 sec Single Limb- Left 3 sec PT-OP-E Functional Tests Start: 01/25/24 17:51 Freq: Status: Active Protocol: Document 04/18/24 14:32 [facility] (Rec: 04/18/24 15:18 [facility] [id number]) Functional Tests 30 Second Sit to Stand Test Score 13 Five Times Sit to Stand Test Score 10 sec Functional Gait Assessment Score 21 PT-OP-F Manual Assessment Start: 01/25/24 17:51 Freq: Status: Active Protocol: Document 01/31/24 13:01 [facility] (Rec: 01/31/24 14:28 [facility] [id number]) Manual Assessments Other Manual Assessments Other Manual Assessments jaw opening deviates to L as opens; scar tissue tightness L side (pt reports some mm taken out w/surgery) PT-OP-G Mobility & Gait Start: 01/25/24 17:51 Freq: Status: Active Protocol: Document 01/31/24 13:01 [facility] (Rec: 01/31/24 14:28 [facility] [id number]) OP Gait Assessment Comments Gait Comments WBOS, lat leaning, arms slightly to sides PT-OP-M Strength Start: 01/25/24 17:51 Freq: Status: Active Protocol: Document 01/31/24 13:01 [facility] (Rec: 01/31/24 14:28 [facility] [id number]) Hip Strength Hip Manual Muscle Testing B Flexion (L2) 5 Normal External Rotation 5 Normal Internal Rotation 5 Normal Knee Strength Knee Manual Muscle Testing B Flexion (S2) 5 Normal Extension (L3) 5 Normal Ankle/Foot Strength Ankle and Foot Manual Muscle Testing B Dorsiflexion (L4) 5 Normal Plantarflexion (S1) 5 Normal Comments tested seated PT-OP-Q Treatments Start: 01/25/24 17:51 Freq: Status: Active Protocol: Document 05/04/24 09:49 SP (Rec: 05/04/24 10:31 SP [id number]) Gym Equipment Shuttle Rebound balance Comments 1. alt august x20 B alternating 2. balloon volley /c PT Aide ( CG-5%A provided by CEMENT GUN OPERATOR) 1 min x2 Shuttle Balance red clips Comments fwd WBOS HTs 1 LOB 5%A and contact , EC 10 sec side: wt shift trying not touch floor improved slow change direction wt shift NBOS ball & wt shift fwd: staggered stance B Neuro Re-Education Treatment Balance Activities dynamic walking Details fwd, bwd; grapevine (arms out to side) Comments HTs each direction Challenge arm swing cue fwd increase min A due to adducted stepping foam Comments WBOS, NBOS, staggered stance B w/head turns and EC trials Stagger Stance (2 between BLEs) HTs self midline correction: EC 7 sec before LOB L L ft fwd; R ft fwd EC 32 sec before LOB R head turn R. PT-OP-T Assessment and Plan Start: 01/25/24 17:51 Freq: Status: Active Protocol: Document 05/04/24 09:49 SP (Rec: 05/04/24 10:31 SP [id number]) Physical Therapy Assessment Goals dynamic balance Impairment DGI 06/12;FGA Short Term Goal (STG) Pt will score at least 20/24 on DGI to show dec fall risk STG Duration achieved 03/12 Community Music Therapist Goal (LTG) Pt will score at least 22/30 on FGA to show dec fall risk 03/12: achieved advance goal to 04/18- LTG Duration 07/11/24 sit to stands Impairment 9 in 30 sec; 16 sec for 5x sit to stand Short Term Goal (STG) Pt will be able to do 5x sit to agricultural engineering teacher no more than 11 sec STG Duration achieved to 10 sec 04/18 Community Music Therapist Goal (LTG) Pt will be able to do at least 15 sit to stands in 30 sec to show improved balance and coordination 04/18- improved LTG Duration 07/11 SLS Short Term Goal (STG) Pt will be able to do SLS B at least 5 sec 03/12-3 sec L; 5 sec R 04/18- 3 sec B STG Duration 05/20 Community Music Therapist Goal (LTG) Pt will be able to do SLS B at least 8 sec w/good recovery method vs need for use of wall LTG Duration 07/11 jaw Skilled Nursing Goal (LTG) pt will be able to open jaw w/ o feeling of tightness and no more than mild deviation to L 03/12-still feels tight and has deviation L; completing exercises 04/16/24: still not able open fully and L jaw gets tight eating steak. 04/18 tightness here and there . still some deviation to L LTG Duration 07/11/24 Assessment Summary Assessment Pt improved midline corrections with less outside assist. Challenge arms swings during dynamic head turn fwd/ bwd, causing adducted stepping . Was able to increase time EC uneven stationary stance before LOB. Physical Therapy Plan Frequency and Duration Frequency of Treatment 1-2x/Week Duration of treatment (weeks) 12 Plan of Care Start Date 04/18/24 Plan of Care End Date 07/11/24 Therapeutic Interventions Therapeutic Interventions Balance Training,Coordination Training,Gait Training,Home Exercise Program,Joint Mobilizations,Manual Therapy, Neuromuscular Re-education, Orthotic/Prosthetic Management ,Patient/Caregiver Education, Self-Care/Home Management,Soft Tissue Mobilization,Taping, Therapeutic Activities, Therapeutic Exercises Next Visit Focus/Plan Next Note Type Treatment Note Next Visit Plan cont to advance balance and work on jaw mobility
--- NOTE | 2024-05-30 12:32 | PT-OP ANOTE ---
Called pt re: w/in 24 hr cancellation. Pt started chemo 4 days late d/t pharmacy. [place] okay the past couple days but woke up today and felt a little dizzy and doesn't feel like he could tolerate PT today d/t med affects.
--- NOTE | 2024-06-01 11:28 | PT.OTN ---
Current Diagnoses Other specified disorders of brain (06/01/24) Physical Therapy Treatment Note PT-OP-A Visit Information Start: 01/25/24 17:51 Freq: Status: Active Protocol: Document 06/01/24 10:48 SP (Rec: 06/01/24 11:58 SP [id number]) Out-Patient Physical Therapy Visit Information Visit Information Visit Type Treatment Note Visit Note cxl 06/06 due to OOT family visit xmas. *1781bs (loss of 4), awareness for feedback eating enough maintain/gains needed. Visit Start Time 10:48 Visit Stop Time 11:28 Visit Number 17 (08/27 after PN) Number of TIN PLATER Visits 2 Precautions Precautions *Decreased proprioception R and retro gait belt at all times, Double Vision, difficulty see uneven and change in surfaces, goyo if coloring similar. PT-OP-B Current Condition Start: 01/25/24 17:51 Freq: Status: Active Protocol: Document 01/31/24 13:01 [facility] (Rec: 01/31/24 14:28 [facility] [id number]) Current Condition History of Current Condition Onset Date october 27 Current Complaints dec balance and double vision s/p brain mass ressection w/ residual tumors History of Current Condition Pt had brain mass ressection ( frontal lobe L) on oct 28 2023 at . In September, passed out and on October 26 was able to get MRI and SAKSHI () helped her get into a neuro surgeon the next day. He was DC from hospital October 30. Reports he is feeling wobbly. Mass was cancerous. 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 He just finished radiation on Jan 22 and start chemo in one month (feb 25) through Jul then further MRIs. Double vision and wobbly. Going to see neuro-opthamologist in about 1 .5 month. Grade 3 astrocytoma. denies pain or ORTEGA. Wobby gait since surgery. Minor short term memory loss. Hard to stab things with fork. He has been DC from FLATBED TRUCK DRIVER and OT. 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 Does better w/balance when following line. The faster he walks, the straighter he walks and more normal AGNES he has vs wider AGNES. Denies falls, but occ braces w/wall. terrain changes that are the same color, he struggles to recognize it. Past hx: likes to hike and occ run and gym. Has not done either since. Trying to get more regular w/ walking. Stamina is also a concern. denies lightheadness/ dizziness. BP is slightly high but okay. Has not returned to gym. This is the first day since not getting treatments since hospital. Tapering off kepra from surgery. Does report jaw tightness. He can't eat large sandwiches. sore after been eating. 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 Treatment Goals Patient/Caregiver Goals Wants to not walk as zigzag; dec use of support of euceda PT-OP-C Subjective Start: 01/25/24 17:51 Freq: Status: Active Protocol: Document 06/01/24 10:48 SP (Rec: 06/01/24 11:58 SP [id number]) OP-PT Subjective Patient Comments Patient Comments Pt reported had to cancel not good day yesterday. Getting HEP in 2/wk. Go to HEP: cheng STS, PT-OP-D Balance Start: 01/25/24 17:51 Freq: Status: Active Protocol: Document 04/18/24 14:32 [facility] (Rec: 04/18/24 15:18 [facility] [id number]) Balance Tests Single Limb Standing Single Limb- Right 3 sec Single Limb- Left 3 sec PT-OP-E Functional Tests Start: 01/25/24 17:51 Freq: Status: Active Protocol: Document 04/18/24 14:32 [facility] (Rec: 04/18/24 15:18 [facility] [id number]) Functional Tests 30 Second Sit to Stand Test Score 13 Five Times Sit to Stand Test Score 10 sec Functional Gait Assessment Score 21 PT-OP-F Manual Assessment Start: 01/25/24 17:51 Freq: Status: Active Protocol: Document 01/31/24 13:01 [facility] (Rec: 01/31/24 14:28 [facility] [id number]) Manual Assessments Other Manual Assessments Other Manual Assessments jaw opening deviates to L as opens; scar tissue tightness L side (pt reports some mm taken out w/surgery) PT-OP-G Mobility & Gait Start: 01/25/24 17:51 Freq: Status: Active Protocol: Document 01/31/24 13:01 [facility] (Rec: 01/31/24 14:28 [facility] [id number]) OP Gait Assessment Comments Gait Comments WBOS, lat leaning, arms slightly to sides PT-OP-M Strength Start: 01/25/24 17:51 Freq: Status: Active Protocol: Document 01/31/24 13:01 [facility] (Rec: 01/31/24 14:28 [facility] [id number]) Hip Strength Hip Manual Muscle Testing B Flexion (L2) 5 Normal External Rotation 5 Normal Internal Rotation 5 Normal Knee Strength Knee Manual Muscle Testing B Flexion (S2) 5 Normal Extension (L3) 5 Normal Ankle/Foot Strength Ankle and Foot Manual Muscle Testing B Dorsiflexion (L4) 5 Normal Plantarflexion (S1) 5 Normal Comments tested seated PT-OP-Q Treatments Start: 01/25/24 17:51 Freq: Status: Active Protocol: Document 06/01/24 10:48 SP (Rec: 06/01/24 11:58 SP [id number]) Gym Equipment Shuttle Recovery jumps squat Details cued DF, heel down, knee flexion slower pacing landing Resistance 37# Shuttle Recovery Platform Stable Reps/Time 10 x2 unilateral squat Details reminded not lock into ext and slower eccentric control flexion Resistance 62# 2 navy Reps/Time 2x15 Shuttle Balance red clips Details WBOS, stagger Comments -WBOS: HTs & EC up to 20 sec -Stagger: balloon volley /c PT Aide- CG-Min A, more challenging R ft fwd. Therapeutic Exercises Supine Exercises bridge Supine Exercise Name 1. SL bridge 2. bridge w/march Side bilateral Resistance 06/01/24: discussed perform daily Reps/Minutes 1. x10 2. alternating 10 each LE Comments cued eccentric foot landing and level pelvis Prone Exercises Plank Prone Exercise Name forearm & feet Reps/Minutes 50 sec max Comments cued TA & glut fac, started tiring at 28 sec, shaky scap/ LEs/core need stop Sitting Exercises STS Sitting Exercise Name verbalized continue as HEP Standing Exercises resisted walk Standing Exercise Name verbalized continue as HEP Other Exercises bird dog Side bilateral Reps/Minutes 10 Comments cues slower pacing reach vs lift high, impro core and steadiness Neuro Re-Education Treatment Balance Activities dynamic walking Details fwd, bwd; grapevine (arms out to side) Reps/Duration 50 ft x3 laps each Comments -Fwd HTs 90>100 bpm -Bwd regular stepping look fwd -[place] progressed 100 spm then added HT change every side step. Self-Care/Home Management Treatment Education Patient Education Body Mechanics,Fall Risk, Posture,Safety Other Education Time spent review good effort HEP performance at least 3x/wk to daily: SL bridge, DL bridge august, plank off feet, STS, resisted stepping, add fwd HTs/regular retro stepping / grapevine stepping behind couch safety contact for carryover progression home if safe that day. PT-OP-T Assessment and Plan Start: 01/25/24 17:51 Freq: Status: Active Protocol: Document 06/01/24 10:48 SP (Rec: 06/01/24 11:58 SP [id number]) Physical Therapy Assessment Goals dynamic balance Impairment DGI 06/12;FGA Short Term Goal (STG) Pt will score at least 20/24 on DGI to show dec fall risk STG Duration achieved 03/12 Clinical Psychologist Goal (LTG) Pt will score at least 22/30 on FGA to show dec fall risk 03/12: achieved advance goal to 04/18- LTG Duration 07/11/24 sit to stands Impairment 9 in 30 sec; 16 sec for 5x sit to stand Short Term Goal (STG) Pt will be able to do 5x sit to cooker pie filling no more than 11 sec STG Duration achieved to 10 sec 04/18 Clinical Psychologist Goal (LTG) Pt will be able to do at least 15 sit to stands in 30 sec to show improved balance and coordination 04/18- improved LTG Duration 07/11 SLS Short Term Goal (STG) Pt will be able to do SLS B at least 5 sec 03/12-3 sec L; 5 sec R 04/18- 3 sec B STG Duration 05/20 Clinical Psychologist Goal (LTG) Pt will be able to do SLS B at least 8 sec w/good recovery method vs need for use of wall LTG Duration 07/11 jaw Clinical Psychologist Goal (LTG) pt will be able to open jaw w/ o feeling of tightness and no more than mild deviation to L 03/12-still feels tight and has deviation L; completing exercises 04/16/24: still not able open fully and L jaw gets tight eating steak. 04/18 tightness here and there . still some deviation to L LTG Duration 07/11/24 Assessment Summary Assessment Took time to review HEP and education performance home at least 3x/wk, improved progression plank off feet up to 50 sec cued TA & glut fac. Improved dynamic walking with incorporation use metronome head turns up to 90 BPM then grapevine step patterning 100spm then able add HTs, safety continue in PTdue to CG - 5%A, occ cues for slower pace soft step to beat reduce risk fall. Pt verbalized agreement. Good challenged balloon volley, up to MoD A required. Physical Therapy Plan Frequency and Duration Frequency of Treatment 1-2x/Week Duration of treatment (weeks) 12 Plan of Care Start Date 04/18/24 Plan of Care End Date 07/11/24 Therapeutic Interventions Therapeutic Interventions Balance Training,Coordination Training,Gait Training,Home Exercise Program,Joint Mobilizations,Manual Therapy, Neuromuscular Re-education, Orthotic/Prosthetic Management ,Patient/Caregiver Education, Self-Care/Home Management,Soft Tissue Mobilization,Taping, Therapeutic Activities, Therapeutic Exercises Next Visit Focus/Plan Next Note Type Progress Note Next Visit Plan 30 day PN next visit, then update POC before 07/11/23. cont to advance balance incorporation metronome and work on jaw mobility
--- NOTE | 2024-06-04 16:09 | PT.OTN ---
Current Diagnoses Other specified disorders of brain (06/04/24) Physical Therapy Treatment Note PT-OP-A Visit Information Start: 01/25/24 17:51 Freq: Status: Active Protocol: Document 06/04/24 09:51 [facility] (Rec: 06/04/24 16:09 [facility] [id number]) Out-Patient Physical Therapy Visit Information Visit Information Visit Type Progress Note Visit Start Time 10:51 Visit Stop Time 11:31 Visit Number 18 (06/29 PN) Number of WEATHER TEACHER Visits 0 PT-OP-B Current Condition Start: 01/25/24 17:51 Freq: Status: Active Protocol: Document 01/31/24 13:01 [facility] (Rec: 01/31/24 14:28 [facility] [id number]) Current Condition History of Current Condition Onset Date october 27 Current Complaints dec balance and double vision s/p brain mass ressection w/ residual tumors History of Current Condition Pt had brain mass ressection ( frontal lobe L) on oct 28 2023 at . In September, passed out and on October 26 was able to get MRI and SAKSHI () helped her get into a neuro surgeon the next day. He was DC from hospital October 30. Reports he is feeling wobbly. Mass was cancerous. 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 He just finished radiation on Jan 22 and start chemo in one month (feb 25) through Jul then further MRIs. Double vision and wobbly. Going to see neuro-opthamologist in about 1 .5 month. Grade 3 astrocytoma. denies pain or ORTEGA. Wobby gait since surgery. Minor short term memory loss. Hard to stab things with fork. He has been DC from [employer]ELES[employer] PROFESSIONAL and OT. 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 Does better w/balance when following line. The faster he walks, the straighter he walks and more normal AGNES he has vs wider AGNES. Denies falls, but occ braces w/wall. terrain changes that are the same color, he struggles to recognize it. Past hx: likes to hike and occ run and gym. Has not done either since. Trying to get more regular w/ walking. Stamina is also a concern. denies lightheadness/ dizziness. BP is slightly high but okay. Has not returned to gym. This is the first day since not getting treatments since hospital. Tapering off kepra from surgery. Does report jaw tightness. He can't eat large sandwiches. sore after been eating. 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 Treatment Goals Patient/Caregiver Goals Wants to not walk as zigzag; dec use of support of euceda PT-OP-C Subjective Start: 01/25/24 17:51 Freq: Status: Active Protocol: Document 06/04/24 09:51 [facility] (Rec: 06/04/24 16:09 [facility] [id number]) OP-PT Subjective Patient Comments Patient Comments Pt has been away and had med come late which threw off his treatments w/PT PT-OP-D Balance Start: 01/25/24 17:51 Freq: Status: Active Protocol: Document 06/04/24 09:51 [facility] (Rec: 06/04/24 16:09 [facility] [id number]) Balance Tests Single Limb Standing Single Limb- Right 4 sec Single Limb- Left 12 sec PT-OP-E Functional Tests Start: 01/25/24 17:51 Freq: Status: Active Protocol: Document 06/04/24 09:51 [facility] (Rec: 06/04/24 16:09 [facility] [id number]) Functional Tests 30 Second Sit to Stand Test Score 17 Five Times Sit to Stand Test Score 8 sec Functional Gait Assessment Score 22 PT-OP-F Manual Assessment Start: 01/25/24 17:51 Freq: Status: Active Protocol: Document 01/31/24 13:01 [facility] (Rec: 01/31/24 14:28 [facility] [id number]) Manual Assessments Other Manual Assessments Other Manual Assessments jaw opening deviates to L as opens; scar tissue tightness L side (pt reports some mm taken out w/surgery) PT-OP-G Mobility & Gait Start: 01/25/24 17:51 Freq: Status: Active Protocol: Document 01/31/24 13:01 [facility] (Rec: 01/31/24 14:28 [facility] [id number]) OP Gait Assessment Comments Gait Comments WBOS, lat leaning, arms slightly to sides PT-OP-M Strength Start: 01/25/24 17:51 Freq: Status: Active Protocol: Document 01/31/24 13:01 [facility] (Rec: 01/31/24 14:28 [facility] [id number]) Hip Strength Hip Manual Muscle Testing B Flexion (L2) 5 Normal External Rotation 5 Normal Internal Rotation 5 Normal Knee Strength Knee Manual Muscle Testing B Flexion (S2) 5 Normal Extension (L3) 5 Normal Ankle/Foot Strength Ankle and Foot Manual Muscle Testing B Dorsiflexion (L4) 5 Normal Plantarflexion (S1) 5 Normal Comments tested seated PT-OP-Q Treatments Start: 01/25/24 17:51 Freq: Status: Active Protocol: Document 06/04/24 09:51 [facility] (Rec: 06/04/24 16:09 [facility] [id number]) Gym Equipment Shuttle Rebound balance Comments alt august x10 B Shuttle Balance red clips Comments fwd and side : WBOS and NBOS fwd:staggered stance B Therapeutic Exercises Sitting Exercises STS Reps/Minutes 30 sec Comments 15 x Standing Exercises step up Side bilateral Equipment Used 8 in w/black foam Reps/Minutes 10 B Neuro Re-Education Treatment Balance Activities testing Comments FGA SL balance Comments step up 8 in step to SL then step down x10 B PT-OP-T Assessment and Plan Start: 01/25/24 17:51 Freq: Status: Active Protocol: Document 06/04/24 09:51 [facility] (Rec: 06/04/24 16:09 [facility] [id number]) Physical Therapy Assessment Goals dynamic balance Impairment DGI 06/12;FGA Short Term Goal (STG) Pt will score at least 20/24 on DGI to show dec fall risk STG Duration achieved 03/12 [facility] Goal (LTG) Pt will score at least 22/30 on FGA to show dec fall risk 03/12: achieved advance goal to 04/18- 06/04- LTG Duration 07/30 sit to stands Impairment 9 in 30 sec; 16 sec for 5x sit to stand Short Term Goal (STG) Pt will be able to do 5x sit to analyst market intelligence no more than 11 sec STG Duration achieved to 10 sec 04/18 Trail Maintenance Worker Goal (LTG) Pt will be able to do at least 15 sit to stands in 30 sec to show improved balance and coordination 04/18-13 improved LTG Duration achieved 06/04 SLS Short Term Goal (STG) Pt will be able to do SLS B at least 5 sec 03/12-3 sec L; 5 sec R 10/30- 3 sec B 06/04-improving 4 sec R; 12 sec R STG Duration 07/04 [facility] Goal (LTG) Pt will be able to do SLS B at least 8 sec w/good recovery method vs need for use of wall 06/04-improving 4 sec R; 12 sec R LTG Duration 08/13/24 jaw [facility] Goal (LTG) pt will be able to open jaw w/ o feeling of tightness and no more than mild deviation to L 03/12-still feels tight and has deviation L; completing exercises 04/16/24: still not able open fully and L jaw gets tight eating steak. 04/18 tightness here and there . still some deviation to L 06/04-tightenss w/deviation LTG Duration 08/13/24 Assessment Summary Assessment pt demonstrated improved balance today and is showing improved strnegth and stability w/testing today. Much improved sit to stand test and much improved SLS today. Cont PT for strength and balance. Pt will have less linear progress as he is going through chemo treatments for active brain cancer. Physical Therapy Plan Frequency and Duration Frequency of Treatment 1-2x/Week Duration of treatment (weeks) 10 Plan of Care Start Date 06/04/24 Plan of Care End Date 08/13/24 Therapeutic Interventions Therapeutic Interventions Balance Training,Coordination Training,Gait Training,Home Exercise Program,Joint Mobilizations,Manual Therapy, Neuromuscular Re-education, Orthotic/Prosthetic Management ,Patient/Caregiver Education, Self-Care/Home Management,Soft Tissue Mobilization,Taping, Therapeutic Activities, Therapeutic Exercises Next Visit Focus/Plan Next Note Type Treatment Note Next Visit Plan cont to advance balance incorporation metronome and work on jaw mobility
--- NOTE | 2024-06-04 16:09 | PT.OPPOC ---
Physical, Occupational & Speech Therapy At [facility] Current Diagnoses Other specified disorders of brain (06/04/24) Visit Care Team Role Provider Type Dany Moore DO Attending Provider Physician Family Provider Primary Care Provider Referring Provider Specialty: Family Practice Address: [address] [place] [address], [address], [place], [address] Email: [email or web address] Plan Of Care PT-OP-B Current Condition Start: 01/25/24 17:51 Freq: Status: Active Protocol: Document 01/31/24 13:01 [facility] (Rec: 01/31/24 14:28 [facility] [id number]) Current Condition History of Current Condition Onset Date october 27 Current Complaints dec balance and double vision s/p brain mass ressection w/ residual tumors History of Current Condition Pt had brain mass ressection ( frontal lobe L) on oct 28 2023 at . In September, passed out and on October 26 was able to get MRI and SAKSHI () helped her get into a neuro surgeon the next day. He was DC from hospital October 30. Reports he is feeling wobbly. Mass was cancerous. 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 He just finished radiation on Jan 22 and start chemo in one month (feb 25) through Jul then further MRIs. Double vision and wobbly. Going to see neuro-opthamologist in about 1 .5 month. Grade 3 astrocytoma. denies pain or ORTEGA. Wobby gait since surgery. Minor short term memory loss. Hard to stab things with fork. 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 Does better w/balance when following line. The faster he walks, the straighter he walks and more normal AGNES he has vs wider AGNES. Denies falls, but occ braces w/wall. terrain changes that are the same color, he struggles to recognize it. Past hx: likes to hike and occ run and gym. Has not done either since. Trying to get more regular w/ walking. Stamina is also a concern. denies lightheadness/ dizziness. BP is slightly high but okay. Has not returned to gym. This is the first day since not getting treatments since hospital. Tapering off kepra from surgery. Does report jaw tightness. He can't eat large sandwiches. sore after been eating. 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 Treatment Goals Patient/Caregiver Goals Wants to not walk as zigzag; dec use of support of euceda PT-OP-T Assessment and Plan Start: 01/25/24 17:51 Freq: Status: Active Protocol: Document 06/04/24 09:51 [facility] (Rec: 06/04/24 16:09 [facility] [id number]) Physical Therapy Assessment Goals dynamic balance Impairment DGI 06/12;FGA Short Term Goal (STG) Pt will score at least 20/24 on DGI to show dec fall risk STG Duration achieved 03/12 Shopper Goal (LTG) Pt will score at least 22/ on FGA to show dec fall risk 03/12: achieved advance goal to 04/18- 06/04- LTG Duration 07/30 sit to stands Impairment 9 in 30 sec; 16 sec for 5x sit to stand Short Term Goal (STG) Pt will be able to do 5x sit to blue line hanger no more than 11 sec STG Duration achieved to 10 sec 04/18 Shopper Goal (LTG) Pt will be able to do at least 15 sit to stands in 30 sec to show improved balance and coordination 04/18- improved LTG Duration achieved 06/04 SLS Short Term Goal (STG) Pt will be able to do SLS B at least 5 sec 03/12-3 sec L; 5 sec R 04/18- 3 sec B 06/04-improving 4 sec R; 12 sec R STG Duration 07/04 [facility] Goal (LTG) Pt will be able to do SLS B at least 8 sec w/good recovery method vs need for use of wall 06/04-improving 4 sec R; 12 sec R LTG Duration 08/13/24 jaw Shopper Goal (LTG) pt will be able to open jaw w/ o feeling of tightness and no more than mild deviation to L 03/12-still feels tight and has deviation L; completing exercises 04/16/24: still not able open fully and L jaw gets tight eating steak. 04/18 tightness here and there . still some deviation to L 06/04-tightenss w/deviation LTG Duration 08/13/24 Assessment Summary Assessment pt demonstrated improved balance today and is showing improved strnegth and stability w/testing today. Much improved sit to stand test and much improved SLS today. Cont PT for strength and balance. Pt will have less linear progress as he is going through chemo treatments for active brain cancer. Physical Therapy Plan Frequency and Duration Frequency of Treatment 1-2x/Week Duration of treatment (weeks) 10 Plan of Care Start Date 06/04/24 Plan of Care End Date 08/13/24 Therapeutic Interventions Therapeutic Interventions Balance Training,Coordination Training,Gait Training,Home Exercise Program,Joint Mobilizations,Manual Therapy, Neuromuscular Re-education, Orthotic/Prosthetic Management ,Patient/Caregiver Education, Self-Care/Home Management,Soft Tissue Mobilization,Taping, Therapeutic Activities, Therapeutic Exercises Next Visit Focus/Plan Next Note Type Treatment Note Next Visit Plan cont to advance balance incorporation metronome and work on jaw mobility Plan of Care Dates Plan of Care Start Date 06/04/24 Plan of Care End Date 08/13/24 Electronically Signed by: Libia Barroso, PT 06/04/24 1816 If you are in agreement with this Plan of Care, please return a signed and dated copy. I have reviewed this Plan of Care and certify that the skilled therapy services above are required to meet the patient?s needs. Physician Signature Date Printed Name and Credentials Clinical Instructor Signature Printed Name and Credentials
--- NOTE | 2024-07-02 12:34 | PT.OTN ---
Current Diagnoses Other specified disorders of brain (07/02/24) Physical Therapy Treatment Note PT-OP-A Visit Information Start: 01/25/24 17:51 Freq: Status: Active Protocol: Document 07/02/24 10:51 [facility] (Rec: 07/02/24 12:34 [facility] [id number]) Out-Patient Physical Therapy Visit Information Visit Information Visit Type Progress Note Visit Start Time 10:51 Visit Stop Time 11:32 Visit Number 19 (06/29 PN) Number of MARINE CARGO INSPECTOR Visits 0 PT-OP-B Current Condition Start: 01/25/24 17:51 Freq: Status: Active Protocol: Document 01/31/24 13:01 [facility] (Rec: 01/31/24 14:28 [facility] [id number]) Current Condition History of Current Condition Onset Date october 27 Current Complaints dec balance and double vision s/p brain mass ressection w/ residual tumors History of Current Condition Pt had brain mass ressection ( frontal lobe L) on oct 28 2023 at . In September, passed out and on October 26 was able to get MRI and SAKSHI () helped her get into a neuro surgeon the next day. He was DC from hospital October 30. Reports he is feeling wobbly. Mass was cancerous. 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 He just finished radiation on Jan 22 and start chemo in one month (feb 25) through Jul then further MRIs. Double vision and wobbly. Going to see neuro-opthamologist in about 1 .5 month. Grade 3 astrocytoma. denies pain or ORTEGA. Wobby gait since surgery. Minor short term memory loss. Hard to stab things with fork. 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 Does better w/balance when following line. The faster he walks, the straighter he walks and more normal AGNES he has vs wider AGNES. Denies falls, but occ braces w/wall. terrain changes that are the same color, he struggles to recognize it. Past hx: likes to hike and occ run and gym. Has not done either since. Trying to get more regular w/ walking. Stamina is also a concern. denies lightheadness/ dizziness. BP is slightly high but okay. Has not returned to gym. This is the first day since not getting treatments since hospital. Tapering off kepra from surgery. Does report jaw tightness. He can't eat large sandwiches. sore after been eating. 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 Treatment Goals Patient/Caregiver Goals Wants to not walk as zigzag; dec use of support of euceda PT-OP-C Subjective Start: 01/25/24 17:51 Freq: Status: Active Protocol: Document 07/02/24 10:51 [facility] (Rec: 07/02/24 12:34 [facility] [id number]) OP-PT Subjective Patient Comments Patient Comments reports hasn't been great about exercises with all the travelling PT-OP-D Balance Start: 01/25/24 17:51 Freq: Status: Active Protocol: Document 07/02/24 10:51 [facility] (Rec: 07/02/24 12:34 [facility] [id number]) Balance Tests Single Limb Standing Single Limb- Right 7 sec Single Limb- Left 6 sec PT-OP-E Functional Tests Start: 01/25/24 17:51 Freq: Status: Active Protocol: Document 07/02/24 10:51 [facility] (Rec: 07/02/24 12:34 [facility] [id number]) Functional Tests Functional Gait Assessment Score 25 PT-OP-F Manual Assessment Start: 01/25/24 17:51 Freq: Status: Active Protocol: Document 01/31/24 13:01 [facility] (Rec: 01/31/24 14:28 [facility] [id number]) Manual Assessments Other Manual Assessments Other Manual Assessments jaw opening deviates to L as opens; scar tissue tightness L side (pt reports some mm taken out w/surgery) PT-OP-G Mobility & Gait Start: 01/25/24 17:51 Freq: Status: Active Protocol: Document 01/31/24 13:01 [facility] (Rec: 01/31/24 14:28 [facility] [id number]) OP Gait Assessment Comments Gait Comments WBOS, lat leaning, arms slightly to sides PT-OP-M Strength Start: 01/25/24 17:51 Freq: Status: Active Protocol: Document 01/31/24 13:01 [facility] (Rec: 01/31/24 14:28 [facility] [id number]) Hip Strength Hip Manual Muscle Testing B Flexion (L2) 5 Normal External Rotation 5 Normal Internal Rotation 5 Normal Knee Strength Knee Manual Muscle Testing B Flexion (S2) 5 Normal Extension (L3) 5 Normal Ankle/Foot Strength Ankle and Foot Manual Muscle Testing B Dorsiflexion (L4) 5 Normal Plantarflexion (S1) 5 Normal Comments tested seated PT-OP-Q Treatments Start: 01/25/24 17:51 Freq: Status: Active Protocol: Document 07/02/24 10:51 [facility] ([facility]: 07/02/24 12:[id number] Equipment Shuttle Balance red clips Comments fwd and side : WBOS and NBOS fwd:staggered stance B Neuro Re-Education Treatment Balance Activities testing Comments FGA bosu Comments 1. squats blue side x15 2. DL balance blue side 3. mini lunge x5 B 4. sidestep up and over x10 B tandem Comments stance B SL balance Comments 1. SLS B trials 2. mod w/opp LE on ball B PT-OP-T Assessment and Plan Start: 01/25/24 17:51 Freq: Status: Active Protocol: Document 07/02/24 10:51 [facility] (Rec: 07/02/24 12:34 [id number] Physical Therapy Assessment Goals dynamic balance Impairment DGI 06/12;FGA Short Term Goal (STG) Pt will score at least 20/24 on DGI to show dec fall risk STG Duration achieved 03/12 Home Coordinator Goal (LTG) Pt will score at least 22/30 on FGA to show dec fall risk 03/12: achieved advance goal to 04/18- 06/04- LTG Duration achieved 07/02 sit to stands Impairment 9 in 30 sec; 16 sec for 5x sit to stand Short Term Goal (STG) Pt will be able to do 5x sit to supervisor ship maintenance services no more than 11 sec STG Duration achieved to 10 sec 04/18 Home Coordinator Goal (LTG) Pt will be able to do at least 15 sit to stands in 30 sec to show improved balance and coordination 04/18- improved LTG Duration achieved 06/04 SLS Short Term Goal (STG) Pt will be able to do SLS B at least 5 sec 03/12-3 sec L; 5 sec R 04/18- 3 sec B 06/04-improving 4 sec R; 12 sec R STG Duration achieved 07/02 Home Coordinator Goal (LTG) Pt will be able to do SLS B at least 8 sec w/good recovery method vs need for use of wall 06/04-improving 4 sec R; 12 sec R 07/02-6 sec L, 7 sec R LTG Duration 08/13/24 jaw Long-Term Goal (LTG) pt will be able to open jaw w/ o feeling of tightness and no more than mild deviation to L 03/12-still feels tight and has deviation L; completing exercises 04/16/24: still not able open fully and L jaw gets tight eating steak. 04/18 tightness here and there . still some deviation to L 06/04-tightenss w/deviation 07/02-jaw tightness occ, w/ deviation LTG Duration 08/13/24 Assessment Summary Assessment Improved performance w/FGA and dynamic gait but still dec balance w/unstable surfaces, SLS and NBOS like tandem stance. COnt PT to improve balance and stability Physical Therapy Plan Frequency and Duration Frequency of Treatment 1-2x/Week Duration of treatment (weeks) 10 Plan of Care Start Date 06/04/24 Plan of Care End Date 08/13/24 Next Visit Focus/Plan Next Note Type Treatment Note Next Visit Plan cont to advance balance incorporation metronome and work on jaw mobility
--- NOTE | 2024-07-04 10:34 | PT.OTN ---
Current Diagnoses Other specified disorders of brain (07/04/24) Physical Therapy Treatment Note PT-OP-A Visit Information Start: 01/25/24 17:51 Freq: Status: Active Protocol: Document 07/04/24 10:58 NBM (Rec: 07/04/24 11:37 NB [id number]) Out-Patient Physical Therapy Visit Information Visit Information Visit Type Treatment Note Visit Start Time 10:55 Visit Stop Time 11:35 Visit Number 20 (2/10 PN) Number of PHARMACIST APPRENTICE Visits 1 PT-OP-B Current Condition Start: 01/25/24 17:51 Freq: Status: Active Protocol: Document 01/31/24 13:01 [facility] (Rec: 01/31/24 14:28 [facility] [id number]) Current Condition History of Current Condition Onset Date october 27 Current Complaints dec balance and double vision s/p brain mass ressection w/ residual tumors History of Current Condition Pt had brain mass ressection ( frontal lobe L) on oct 28 2023 at . In September, passed out and on October 26 was able to get MRI and SAKSHI () helped her get into a neuro surgeon the next day. He was DC from hospital October 30. Reports he is feeling wobbly. Mass was cancerous. 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 He just finished radiation on Jan 22 and start chemo in one month (feb 25) through Jul then further MRIs. Double vision and wobbly. Going to see neuro-opthamologist in about 1 .5 month. Grade 3 astrocytoma. denies pain or ORTEGA. Wobby gait since surgery. Minor short term memory loss. Hard to stab things with fork. He has been DC from BOWLING BALL MOLDER and OT. 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 Does better w/balance when following line. The faster he walks, the straighter he walks and more normal AGNES he has vs wider AGNES. Denies falls, but occ braces w/wall. terrain changes that are the same color, he struggles to recognize it. Past hx: likes to hike and occ run and gym. Has not done either since. Trying to get more regular w/ walking. Stamina is also a concern. denies lightheadness/ dizziness. BP is slightly high but okay. Has not returned to gym. This is the first day since not getting treatments since hospital. Tapering off kepra from surgery. Does report jaw tightness. He can't eat large sandwiches. sore after been eating. 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 Treatment Goals Patient/Caregiver Goals Wants to not walk as zigzag; dec use of support of euceda PT-OP-C Subjective Start: 01/25/24 17:51 Freq: Status: Active Protocol: Document 07/04/24 10:58 NBM (Rec: 07/04/24 11:37 NB [id number]) OP-PT Subjective Patient Comments Patient Comments Amadou reports walking is better but still zigzags and sees double. He feels less off- balance. Still struggles with tandem balance and stuff on BOSU. PT-OP-D Balance Start: 01/25/24 17:51 Freq: Status: Active Protocol: Document 07/02/24 10:51 [facility] (Rec: 07/02/24 12:34 [facility] [id number]) Balance Tests Single Limb Standing Single Limb- Right 7 sec Single Limb- Left 6 sec PT-OP-E Functional Tests Start: 01/25/24 17:51 Freq: Status: Active Protocol: Document 07/02/24 10:51 [facility] (Rec: 07/02/24 12:34 [facility] [id number]) Functional Tests Functional Gait Assessment Score 25 PT-OP-F Manual Assessment Start: 01/25/24 17:51 Freq: Status: Active Protocol: Document 01/31/24 13:01 [facility] (Rec: 01/31/24 14:28 [facility] [id number]) Manual Assessments Other Manual Assessments Other Manual Assessments jaw opening deviates to L as opens; scar tissue tightness L side (pt reports some mm taken out w/surgery) PT-OP-G Mobility & Gait Start: 01/25/24 17:51 Freq: Status: Active Protocol: Document 01/31/24 13:01 [facility] (Rec: 01/31/24 14:28 [facility] [id number]) OP Gait Assessment Comments Gait Comments WBOS, lat leaning, arms slightly to sides PT-OP-M Strength Start: 01/25/24 17:51 Freq: Status: Active Protocol: Document 01/31/24 13:01 [facility] (Rec: 01/31/24 14:28 [facility] [id number]) Hip Strength Hip Manual Muscle Testing B Flexion (L2) 5 Normal External Rotation 5 Normal Internal Rotation 5 Normal Knee Strength Knee Manual Muscle Testing B Flexion (S2) 5 Normal Extension (L3) 5 Normal Ankle/Foot Strength Ankle and Foot Manual Muscle Testing B Dorsiflexion (L4) 5 Normal Plantarflexion (S1) 5 Normal Comments tested seated PT-OP-Q Treatments Start: 01/25/24 17:51 Freq: Status: Active Protocol: Document 07/04/24 10:58 [facility] (Rec: 07/04/24 11:37 [facility] [id number]) Gym Equipment Shuttle Balance red clips Comments fwd : WBOS and NBOS CGA, staggered stance B (Elma>modA for balance) All: a/p weightshifting, EO/EC , head turns, stilling platform NBOS balloon volleyball (Elma> modA) Therapeutic Exercises Prone Exercises Plank Prone Exercise Name forearm & feet Reps/Minutes 50 sec max Comments cued TA & glut fac, started tiring at 28 sec, shaky scap/ LEs/core need stop Other Exercises bird dog Side bilateral Equipment Used phone on sacrum for biofeedback Reps/Minutes 10 Comments cues slower pacing reach vs lift high, impro core and steadiness Neuro Re-Education Treatment Balance Activities dynamic walking Details fwd, bwd; grapevine (arms out to side) Comments -Fwd HTs 90>100 bpm x50ft -Bwd regular stepping look fwd -[place]ano progressed 100 spm then added HT change every side step. PT-OP-T Assessment and Plan Start: 01/25/24 17:51 Freq: Status: Active Protocol: Document 07/04/24 10:58 NB (Rec: 07/04/24 11:37 [facility] [id number]) Physical Therapy Assessment Goals dynamic balance Impairment DGI 06/12;FGA Short Term Goal (STG) Pt will score at least 20/24 on DGI to show dec fall risk STG Duration achieved 03/12 [facility] Goal (LTG) Pt will score at least 22/30 on FGA to show dec fall risk 03/12: achieved advance goal to 04/18- 06/04- LTG Duration achieved 07/02 sit to stands Impairment 9 in 30 sec; 16 sec for 5x sit to stand Short Term Goal (STG) Pt will be able to do 5x sit to communications instructor no more than 11 sec STG Duration achieved to 10 sec 04/18 Custom Shop Worker Goal (LTG) Pt will be able to do at least 15 sit to stands in 30 sec to show improved balance and coordination 04/18- improved LTG Duration achieved 06/04 SLS Short Term Goal (STG) Pt will be able to do SLS B at least 5 sec 03/12-3 sec L; 5 sec R 04/18- 3 sec B 06/04-improving 4 sec R; 12 sec R STG Duration achieved 07/02 Custom Shop Worker Goal (LTG) Pt will be able to do SLS B at least 8 sec w/good recovery method vs need for use of wall 06/04-improving 4 sec R; 12 sec R 07/02-6 sec L, 7 sec R LTG Duration 08/13/24 jaw [facility] Goal (LTG) pt will be able to open jaw w/ o feeling of tightness and no more than mild deviation to L 03/12-still feels tight and has deviation L; completing exercises 04/16/24: still not able open fully and L jaw gets tight eating steak. 04/18 tightness here and there . still some deviation to L 06/04-tightenss w/deviation 07/02-jaw tightness occ, w/ deviation LTG Duration 08/13/24 Assessment Summary Assessment Treatment focus on balance and core (Shuttle balance, dynamic walking, prone plank, bird dog w/ biofeedback). He require min Assist to mod Assist with balance on Shuttle balance red clips with staggered stance and balloon volleyball. He requires cues with grapevine for full pelvic rotation to maintain straight lateral movement and self- awareness improves with cueing and repetition. Physical Therapy Plan Frequency and Duration Frequency of Treatment 1-2x/Week Duration of treatment (weeks) 10 Plan of Care Start Date 06/04/24 Plan of Care End Date 08/13/24 Therapeutic Interventions Therapeutic Interventions Balance Training,Coordination Training,Gait Training,Home Exercise Program,Joint Mobilizations,Manual Therapy, Neuromuscular Re-education, Orthotic/Prosthetic Management ,Patient/Caregiver Education, Self-Care/Home Management,Soft Tissue Mobilization,Taping, Therapeutic Activities, Therapeutic Exercises Next Visit Focus/Plan Next Note Type Treatment Note Next Visit Plan cont to advance balance incorporation metronome and work on jaw mobility
--- NOTE | 2024-07-09 10:48 | PT.OTN ---
Current Diagnoses Other specified disorders of brain (07/09/24) Physical Therapy Treatment Note PT-OP-A Visit Information Start: 01/25/24 17:51 Freq: Status: Active Protocol: Document 07/04/24 10:58 [facility] (Rec: 07/04/24 11:37 NB [id number]) Out-Patient Physical Therapy Visit Information Visit Information Visit Type Treatment Note Visit Start Time 10:55 Visit Stop Time 11:35 Visit Number 20 (2/10 PN) Number of STRUCTURAL STEEL PAINTER Visits 1 PT-OP-B Current Condition Start: 01/25/24 17:51 Freq: Status: Active Protocol: Document 01/31/24 13:01 [facility] (Rec: 01/31/24 14:28 [facility] [id number]) Current Condition History of Current Condition Onset Date october 27 Current Complaints dec balance and double vision s/p brain mass ressection w/ residual tumors History of Current Condition Pt had brain mass ressection ( frontal lobe L) on oct 28 2023 at . In September, passed out and on October 26 was able to get MRI and SAKSHI () helped her get into a neuro surgeon the next day. He was DC from hospital October 30. Reports he is feeling wobbly. Mass was cancerous. 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 He just finished radiation on Jan 22 and start chemo in one month (feb 25) through Jul then further MRIs. Double vision and wobbly. Going to see neuro-opthamologist in about 1 .5 month. Grade 3 astrocytoma. denies pain or ORTEGA. Wobby gait since surgery. Minor short term memory loss. Hard to stab things with fork. He has been DC from CABLE FERRY[employer] OPERATOR and OT. 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 Does better w/balance when following line. The faster he walks, the straighter he walks and more normal AGNES he has vs wider AGNES. Denies falls, but occ braces w/wall. terrain changes that are the same color, he struggles to recognize it. Past hx: likes to hike and occ run and gym. Has not done either since. Trying to get more regular w/ walking. Stamina is also a concern. denies lightheadness/ dizziness. BP is slightly high but okay. Has not returned to gym. This is the first day since not getting treatments since hospital. Tapering off kepra from surgery. Does report jaw tightness. He can't eat large sandwiches. sore after been eating. 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 Treatment Goals Patient/Caregiver Goals Wants to not walk as zigzag; dec use of support of euceda PT-OP-C Subjective Start: 01/25/24 17:51 Freq: Status: Active Protocol: Document 07/04/24 10:58 [facility] (Rec: 07/04/24 11:37 NB [id number]) OP-PT Subjective Patient Comments Patient Comments Amadou reports walking is better but still zigzags and sees double. He feels less off- balance. Still struggles with tandem balance and stuff on BOSU. PT-OP-D Balance Start: 01/25/24 17:51 Freq: Status: Active Protocol: Document 07/02/24 10:51 [facility] (Rec: 07/02/24 12:34 [facility] [id number]) Balance Tests Single Limb Standing Single Limb- Right 7 sec Single Limb- Left 6 sec PT-OP-E Functional Tests Start: 01/25/24 17:51 Freq: Status: Active Protocol: Document 07/02/24 10:51 [facility] (Rec: 07/02/24 12:34 [facility] [id number]) Functional Tests Functional Gait Assessment Score 25 PT-OP-F Manual Assessment Start: 01/25/24 17:51 Freq: Status: Active Protocol: Document 01/31/24 13:01 [facility] (Rec: 01/31/24 14:28 [facility] [id number]) Manual Assessments Other Manual Assessments Other Manual Assessments jaw opening deviates to L as opens; scar tissue tightness L side (pt reports some mm taken out w/surgery) PT-OP-G Mobility & Gait Start: 01/25/24 17:51 Freq: Status: Active Protocol: Document 01/31/24 13:01 [facility] (Rec: 01/31/24 14:28 [facility] [id number]) OP Gait Assessment Comments Gait Comments WBOS, lat leaning, arms slightly to sides PT-OP-M Strength Start: 01/25/24 17:51 Freq: Status: Active Protocol: Document 01/31/24 13:01 [facility] (Rec: 01/31/24 14:28 [facility] [id number]) Hip Strength Hip Manual Muscle Testing B Flexion (L2) 5 Normal External Rotation 5 Normal Internal Rotation 5 Normal Knee Strength Knee Manual Muscle Testing B Flexion (S2) 5 Normal Extension (L3) 5 Normal Ankle/Foot Strength Ankle and Foot Manual Muscle Testing B Dorsiflexion (L4) 5 Normal Plantarflexion (S1) 5 Normal Comments tested seated PT-OP-Q Treatments Start: 01/25/24 17:51 Freq: Status: Active Protocol: Document 07/09/24 10:09 [facility] (Rec: 07/09/24 10:48 [facility] [id number]) Gym Equipment Shuttle Rebound balance Comments 1. alt august x20 B alternating Shuttle Balance red clips Comments fwd and side : WBOS and NBOS fwd:staggered stance B Therapeutic Exercises Prone Exercises Plank Prone Exercise Name forearm & feet w.twists Reps/Minutes 3x ea side x2 Other Exercises 1/2 kneel Other Exercise Name kneel to 1/2 kneels Side bilateral Reps/Minutes 10 B bird dog Side bilateral Equipment Used phone on sacrum for biofeedback Reps/Minutes 10 Comments cues slower pacing reach vs lift high, impro core and steadiness Neuro Re-Education Treatment Balance Activities bosu Comments 1. sidestep overs x2 min 2. quick step taps x10B tandem Comments 1.stance B 2.tandme walk 1 finger on rail 2x15ft tilt board Details fwd & lat facing Equipment rails prn Comments 1. squats x12 ea 2. wt shifts x12 b 3.balance w/head turns SL balance Comments 1. SL sit to stands from 22 in x12 2. y reach tap x5 B PT-OP-T Assessment and Plan Start: 01/25/24 17:51 Freq: Status: Active Protocol: Document 07/09/24 10:09 [facility] (Rec: 07/09/24 10:48 [facility] [id number]) Physical Therapy Assessment Goals dynamic balance Impairment DGI 06/12;FGA Short Term Goal (STG) Pt will score at least 20/24 on DGI to show dec fall risk STG Duration achieved 03/12 Nursing Home Goal (LTG) Pt will score at least 22/30 on FGA to show dec fall risk 03/12: achieved advance goal to 04/18- 06/04- LTG Duration achieved 1/13 25/30 sit to stands Impairment 9 in 30 sec; 16 sec for 5x sit to stand Short Term Goal (STG) Pt will be able to do 5x sit to business objects consultant no more than 11 sec STG Duration achieved to 10 sec 04/18 Nursing Home Goal (LTG) Pt will be able to do at least 15 sit to stands in 30 sec to show improved balance and coordination 04/18- improved LTG Duration achieved 06/04 SLS Short Term Goal (STG) Pt will be able to do SLS B at least 5 sec 03/12-3 sec L; 5 sec R 04/18- 3 sec B 06/04-improving 4 sec R; 12 sec R STG Duration achieved 07/02 Nursing Home Goal (LTG) Pt will be able to do SLS B at least 8 sec w/good recovery method vs need for use of wall 06/04-improving 4 sec R; 12 sec R 07/02-6 sec L, 7 sec R LTG Duration 08/13/24 jaw Nursing Home Goal (LTG) pt will be able to open jaw w/ o feeling of tightness and no more than mild deviation to L 03/12-still feels tight and has deviation L; completing exercises 04/16/24: still not able open fully and L jaw gets tight eating steak. 04/18 tightness here and there . still some deviation to L 06/04-tightenss w/deviation 07/02-jaw tightness occ, w/ deviation LTG Duration 08/13/24 Assessment Summary Assessment pt did well with challneges today but was more challenged by new exercsies today. SL activities were difficult Physical Therapy Plan Frequency and Duration Frequency of Treatment 1-2x/Week Duration of treatment (weeks) 10 Plan of Care Start Date 06/04/24 Plan of Care End Date 08/13/24 Next Visit Focus/Plan Next Note Type Treatment Note Next Visit Plan cont to advance balance incorporation metronome and work on jaw mobility
--- NOTE | 2024-07-11 10:29 | PT.OTN ---
Current Diagnoses Other specified disorders of brain (07/11/24) Physical Therapy Treatment Note PT-OP-A Visit Information Start: 01/25/24 17:51 Freq: Status: Active Protocol: Document 07/11/24 09:49 SP (Rec: 07/11/24 10:33 SP [id number]) Out-Patient Physical Therapy Visit Information Visit Information Visit Type Treatment Note Visit Start Time 09:49 Visit Stop Time 10:29 Visit Number 23 (4/10 PN) Number of CLOTH BLEACHING SUPERVISOR Visits 1 Precautions Precautions *Decreased proprioception R and retro gait belt at all times, Double Vision, difficulty see uneven and change in surfaces, goyo if coloring similar. PT-OP-B Current Condition Start: 01/25/24 17:51 Freq: Status: Active Protocol: Document 01/31/24 13:01 [facility] (Rec: 01/31/24 14:28 [facility] [id number]) Current Condition History of Current Condition Onset Date october 27 Current Complaints dec balance and double vision s/p brain mass ressection w/ residual tumors History of Current Condition Pt had brain mass ressection ( frontal lobe L) on oct 28 2023 at . In September, passed out and on October 26 was able to get MRI and SAKSHI () helped her get into a neuro surgeon the next day. He was DC from hospital October 30. Reports he is feeling wobbly. Mass was cancerous. 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 He just finished radiation on Jan 22 and start chemo in one month (feb 25) through Jul then further MRIs. Double vision and wobbly. Going to see neuro-opthamologist in about 1 .5 month. Grade 3 astrocytoma. denies pain or ORTEGA. Wobby gait since surgery. Minor short term memory loss. Hard to stab things with fork. He has been DC from CONGRESSIONAL REPRESENTATIVE and OT. 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 Does better w/balance when following line. The faster he walks, the straighter he walks and more normal AGNES he has vs wider AGNES. Denies falls, but occ braces w/wall. terrain changes that are the same color, he struggles to recognize it. Past hx: likes to hike and occ run and gym. Has not done either since. Trying to get more regular w/ walking. Stamina is also a concern. denies lightheadness/ dizziness. BP is slightly high but okay. Has not returned to gym. This is the first day since not getting treatments since hospital. Tapering off kepra from surgery. Does report jaw tightness. He can't eat large sandwiches. sore after been eating. 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 Treatment Goals Patient/Caregiver Goals Wants to not walk as zigzag; dec use of support of euceda PT-OP-C Subjective Start: 01/25/24 17:51 Freq: Status: Active Protocol: Document 07/11/24 09:49 SP (Rec: 07/11/24 10:33 SP [id number]) OP-PT Subjective Patient Comments Patient Comments Pt reports has MRI tomorrow, driving down today self. PT-OP-D Balance Start: 01/25/24 17:51 Freq: Status: Active Protocol: Document 07/02/24 10:51 [facility] (Rec: 07/02/24 12:34 [facility] [id number]) Balance Tests Single Limb Standing Single Limb- Right 7 sec Single Limb- Left 6 sec PT-OP-E Functional Tests Start: 01/25/24 17:51 Freq: Status: Active Protocol: Document 07/02/24 10:51 [facility] (Rec: 07/02/24 12:34 [facility] [id number]) Functional Tests Functional Gait Assessment Score 25 PT-OP-F Manual Assessment Start: 01/25/24 17:51 Freq: Status: Active Protocol: Document 01/31/24 13:01 [facility] (Rec: 01/31/24 14:28 [facility] [id number]) Manual Assessments Other Manual Assessments Other Manual Assessments jaw opening deviates to L as opens; scar tissue tightness L side (pt reports some mm taken out w/surgery) PT-OP-G Mobility & Gait Start: 01/25/24 17:51 Freq: Status: Active Protocol: Document 01/31/24 13:01 [facility] (Rec: 01/31/24 14:28 [facility] [id number]) OP Gait Assessment Comments Gait Comments WBOS, lat leaning, arms slightly to sides PT-OP-M Strength Start: 01/25/24 17:51 Freq: Status: Active Protocol: Document 01/31/24 13:01 [facility] (Rec: 01/31/24 14:28 [facility] [id number]) Hip Strength Hip Manual Muscle Testing B Flexion (L2) 5 Normal External Rotation 5 Normal Internal Rotation 5 Normal Knee Strength Knee Manual Muscle Testing B Flexion (S2) 5 Normal Extension (L3) 5 Normal Ankle/Foot Strength Ankle and Foot Manual Muscle Testing B Dorsiflexion (L4) 5 Normal Plantarflexion (S1) 5 Normal Comments tested seated PT-OP-Q Treatments Start: 01/25/24 17:51 Freq: Status: Active Protocol: Document 07/11/24 09:49 SP (Rec: 07/11/24 10:33 SP [id number]) Gym Equipment Shuttle Rebound balance Exercise Details gait belt, LOB x2 MIn A (L & retro) Comments 1. alt august alternating Cued elongated posture, TA and soft foot landing forefoot to heel AGNES. Shuttle Balance red clips Comments fwd: WBOS HTs EC 3, 5, 21 sec Side: WBOS up to 30 sec, Staggered stance B Fwd: Therapeutic Exercises Prone Exercises Plank Prone Exercise Name forearm & feet Reps/Minutes 60 sec fwd Comments good self TA & glut engagement corrections during time Sidelying Exercises side plank Sidelying Exercise Name forearms, knees Side bilateral Reps/Minutes L 60 sec, R 60 sec Comments cued for pelvis lift at 40 sec L, R solid Other Exercises 1/2 kneel Other Exercise Name kneel to 1/2 kneels Side bilateral Reps/Minutes 10 alternating Comments improved SLS transition, wt shfit corrections, 1 LOB to R LLE , RUErecovery bird dog Side bilateral Equipment Used phone on sacrum for biofeedback, no twist/lower pelvis drop Reps/Minutes 20 alternating Comments cues slower pacing reach vs lift high, impro core and steadiness Neuro Re-Education Treatment Balance Activities bosu Details gait belt support Comments 1. sidestep overs x 2 min alternating- more challenge today 07/11 Mod A recovery LOB L and retro. 2. quick step taps x10B: stationary foot floor> AirEx foam- 20 reps alternating each PT-OP-T Assessment and Plan Start: 01/25/24 17:51 Freq: Status: Active Protocol: Document 07/11/24 09:49 SP (Rec: 07/11/24 10:33 SP [id number]) Physical Therapy Assessment Goals dynamic balance Impairment DGI 06/12;FGA Short Term Goal (STG) Pt will score at least 20/24 on DGI to show dec fall risk STG Duration achieved 03/12 Cheese Wrapper Goal (LTG) Pt will score at least 22/30 on FGA to show dec fall risk 03/12: achieved advance goal to 04/18- 06/04- LTG Duration achieved 07/02 sit to stands Impairment 9 in 30 sec; 16 sec for 5x sit to stand Short Term Goal (STG) Pt will be able to do 5x sit to intensive care anaesthetist no more than 11 sec STG Duration achieved to 10 sec 04/18 Cheese Wrapper Goal (LTG) Pt will be able to do at least 15 sit to stands in 30 sec to show improved balance and coordination 04/18- improved LTG Duration achieved 06/04 SLS Short Term Goal (STG) Pt will be able to do SLS B at least 5 sec 03/12-3 sec L; 5 sec R 04/18- 3 sec B 06/04-improving 4 sec R; 12 sec R STG Duration achieved 07/02 Group Home Goal (LTG) Pt will be able to do SLS B at least 8 sec w/good recovery method vs need for use of wall 06/04-improving 4 sec R; 12 sec R 07/02-6 sec L, 7 sec R LTG Duration 08/13/24 jaw Group Home Goal (LTG) pt will be able to open jaw w/ o feeling of tightness and no more than mild deviation to L 03/12-still feels tight and has deviation L; completing exercises 04/16/24: still not able open fully and L jaw gets tight eating steak. 04/18 tightness here and there . still some deviation to L 06/04-tightenss w/deviation 07/02-jaw tightness occ, w/ deviation LTG Duration 08/13/24 Assessment Summary Assessment Pt did well balance challenges on Shuttle Balance able complete EC up to 21 sec. More challenging shuttle bal on rebound and BOSU up/overs requires Min/Mod A for L and retro LOB. He progressed uneven step taps, less to no outside support. Physical Therapy Plan Frequency and Duration Frequency of Treatment 1-2x/Week Duration of treatment (weeks) 10 Plan of Care Start Date 06/04/24 Plan of Care End Date 08/13/24 Therapeutic Interventions Therapeutic Interventions Balance Training,Coordination Training,Gait Training,Home Exercise Program,Joint Mobilizations,Manual Therapy, Neuromuscular Re-education, Orthotic/Prosthetic Management ,Patient/Caregiver Education, Self-Care/Home Management,Soft Tissue Mobilization,Taping, Therapeutic Activities, Therapeutic Exercises Next Visit Focus/Plan Next Note Type Treatment Note Next Visit Plan Cont to advance balance, next incorporation metronome and work on jaw mobility
--- NOTE | 2024-07-16 10:48 | PT.OTN ---
Current Diagnoses Other specified disorders of brain (07/16/24) Physical Therapy Treatment Note PT-OP-A Visit Information Start: 01/25/24 17:51 Freq: Status: Active Protocol: Document 07/16/24 09:49 [facility] (Rec: 07/16/24 10:48 [facility] [id number]) Out-Patient Physical Therapy Visit Information Visit Information Visit Type Progress Note Visit Start Time 09:50 Visit Stop Time 10:30 Visit Number 24 (06/29 PN) Number of PHILOSOPHY AND RELIGION INSTRUCTOR Visits 0 PT-OP-B Current Condition Start: 01/25/24 17:51 Freq: Status: Active Protocol: Document 01/31/24 13:01 [facility] (Rec: 01/31/24 14:28 [facility] [id number]) Current Condition History of Current Condition Onset Date october 27 Current Complaints dec balance and double vision s/p brain mass ressection w/ residual tumors History of Current Condition Pt had brain mass ressection ( frontal lobe L) on oct 28 2023 at . In September, passed out and on October 26 was able to get MRI and SAKSHI () helped her get into a neuro surgeon the next day. He was DC from hospital October 30. Reports he is feeling wobbly. Mass was cancerous. 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 He just finished radiation on Jan 22 and start chemo in one month (feb 25) through Jul then further MRIs. Double vision and wobbly. Going to see neuro-opthamologist in about 1 .5 month. Grade 3 astrocytoma. denies pain or ORTEGA. Wobby gait since surgery. Minor short term memory loss. Hard to stab things with fork. He has been DC from KENNEL TECHNICIAN and OT. 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 Does better w/balance when following line. The faster he walks, the straighter he walks and more normal AGNES he has vs wider AGNES. Denies falls, but occ braces w/wall. terrain changes that are the same color, he struggles to recognize it. Past hx: likes to hike and occ run and gym. Has not done either since. Trying to get more regular w/ walking. Stamina is also a concern. denies lightheadness/ dizziness. BP is slightly high but okay. Has not returned to gym. This is the first day since not getting treatments since hospital. Tapering off kepra from surgery. Does report jaw tightness. He can't eat large sandwiches. sore after been eating. 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 Treatment Goals Patient/Caregiver Goals Wants to not walk as zigzag; dec use of support of euceda PT-OP-C Subjective Start: 01/25/24 17:51 Freq: Status: Active Protocol: Document 07/16/24 09:49 [facility] (Rec: 07/16/24 10:48 [facility] [id number]) OP-PT Subjective Patient Comments Patient Comments Pt reports scans looked good and will be doing his last chemo treatment for now later this week PT-OP-D Balance Start: 01/25/24 17:51 Freq: Status: Active Protocol: Document 07/16/24 09:49 [facility] (Rec: 07/16/24 10:48 [facility] [id number]) Balance Tests Other Other Balance Tests Performed FELIX 19 PT-OP-E Functional Tests Start: 01/25/24 17:51 Freq: Status: Active Protocol: Document 07/02/24 10:51 [facility] (Rec: 07/02/24 12:34 [facility] [id number]) Functional Tests Functional Gait Assessment Score 25 PT-OP-F Manual Assessment Start: 01/25/24 17:51 Freq: Status: Active Protocol: Document 01/31/24 13:01 [facility] (Rec: 01/31/24 14:28 [facility] [id number]) Manual Assessments Other Manual Assessments Other Manual Assessments jaw opening deviates to L as opens; scar tissue tightness L side (pt reports some mm taken out w/surgery) PT-OP-G Mobility & Gait Start: 01/25/24 17:51 Freq: Status: Active Protocol: Document 01/31/24 13:01 [facility] (Rec: 01/31/24 14:28 [facility] [id number]) OP Gait Assessment Comments Gait Comments WBOS, lat leaning, arms slightly to sides PT-OP-M Strength Start: 01/25/24 17:51 Freq: Status: Active Protocol: Document 01/31/24 13:01 [facility] (Rec: 01/31/24 14:28 [facility] [id number]) Hip Strength Hip Manual Muscle Testing B Flexion (L2) 5 Normal External Rotation 5 Normal Internal Rotation 5 Normal Knee Strength Knee Manual Muscle Testing B Flexion (S2) 5 Normal Extension (L3) 5 Normal Ankle/Foot Strength Ankle and Foot Manual Muscle Testing B Dorsiflexion (L4) 5 Normal Plantarflexion (S1) 5 Normal Comments tested seated PT-OP-Q Treatments Start: 01/25/24 17:51 Freq: Status: Active Protocol: Document 07/16/24 09:49 [facility] (Rec: 07/16/24 10:48 [facility] [id number]) Gym Equipment Shuttle Balance red clips Comments fwd and side : WBOS and NBOS Therapeutic Exercises Standing Exercises suitcase carry Standing Exercise Name fwd/back walk, fwd/back march Side bilateral Equipment Used 10# 1 hand Reps/Minutes 20ft ea farmers carry Standing Exercise Name fwd/back walk, fwd/back march Side bilateral Equipment Used 10# B Reps/Minutes 20ft ea Other Exercises nordic HS curls Other Exercise Name PT holding ft Reps/Minutes 10 1/2 kneel Other Exercise Name kneel to 1/2 kneels Side bilateral Reps/Minutes 10 alternating x2 (2nd set w/ 10# wt in B hands at chest) Neuro Re-Education Treatment Balance Activities carry Details carrying 10Lb wt x2 Ea UE, carrying 10lb wt B x4 Comments step up and over 4 in step, 2 foam pads and 5 in step Coordination Activities stairs Equipment 10lb wt for #2 Comments 1. recip up w/o rail loby stairs (26 steps ) and down w/ light rail touch w/red light, green light 2. up/down 4in and 6 in stairs recip w/o rail a. wt in one hand x1 B b. wt in B hands x2 PT-OP-T Assessment and Plan Start: 01/25/24 17:51 Freq: Status: Active Protocol: Document 07/16/24 09:49 [facility] (Rec: 07/16/24 10:48 [facility] [id number]) Physical Therapy Assessment Goals activity Short Term Goal (STG) Pt will be able to carry objects in B hands when walking in/out of the house. STG Duration 3/1 General Repair Mechanic Goal (LTG) Pt will be able to reciprocate up/down stairs w/o rail when one not available. LTG Duration 4/7 FELIX Impairment 19 Short Term Goal (STG) Pt will improve FELIX score to no greater than 15 to show improved balance STG Duration 08/23 General Repair Mechanic Goal (LTG) Pt will improve FELIX score to no greater than 8 to show improved balance LTG Duration 09/24 dynamic balance Impairment DGI 06/12;FGA Short Term Goal (STG) Pt will score at least 20/24 on DGI to show dec fall risk STG Duration achieved 03/12 General Repair Mechanic Goal (LTG) Pt will score at least 22/30 on FGA to show dec fall risk 03/12: achieved advance goal to 04/18- 06/04- LTG Duration achieved 07/02 sit to stands Impairment 9 in 30 sec; 16 sec for 5x sit to stand Short Term Goal (STG) Pt will be able to do 5x sit to cork insulation setter no more than 11 sec STG Duration achieved to 10 sec 04/18 General Repair Mechanic Goal (LTG) Pt will be able to do at least 15 sit to stands in 30 sec to show improved balance and coordination 04/18- improved LTG Duration achieved 06/04 SLS Short Term Goal (STG) Pt will be able to do SLS B at least 5 sec 03/12-3 sec L; 5 sec R 04/18- 3 sec B 06/04-improving 4 sec R; 12 sec R STG Duration achieved 07/02 Halfway Goal (LTG) Pt will be able to do SLS B at least 8 sec w/good recovery method vs need for use of wall 06/04-improving 4 sec R; 12 sec R 07/02-6 sec L, 7 sec R 07/16-10 sec R, 13 sec L LTG Duration achieved 07/16 jaw Halfway Goal (LTG) pt will be able to open jaw w/ o feeling of tightness and no more than mild deviation to L 03/12-still feels tight and has deviation L; completing exercises 04/16/24: still not able open fully and L jaw gets tight eating steak. 04/18 tightness here and there . still some deviation to L 06/04-tightenss w/deviation 07/02-jaw tightness occ, w/ deviation LTG Duration 09/15 Assessment Summary Assessment Pt making good progress w/ balance overall but does note some deficits w/functional mobility still. Cont PT to improve balance and iprove functional mobility. Physical Therapy Plan Frequency and Duration Frequency of Treatment 1-2x/Week Duration of treatment (weeks) 10 Plan of Care Start Date 07/16/24 Plan of Care End Date 09/24/24 Therapeutic Interventions Therapeutic Interventions Balance Training,Coordination Training,Gait Training,Home Exercise Program,Joint Mobilizations,Manual Therapy, Neuromuscular Re-education, Orthotic/Prosthetic Management ,Patient/Caregiver Education, Self-Care/Home Management,Soft Tissue Mobilization,Taping, Therapeutic Activities, Therapeutic Exercises Next Visit Focus/Plan Next Note Type Treatment Note Next Visit Plan Cont to advance balance, next incorporation metronome and work on jaw mobility
--- NOTE | 2024-07-16 10:48 | PT.OPPOC ---
Physical, Occupational & Speech Therapy At [facility] Current Diagnoses Other specified disorders of brain (07/16/24) Visit Care Team Role Provider Type Dany Moore DO Attending Provider Physician Family Provider Primary Care Provider Referring Provider Specialty: Family Practice Address: [address] [place] [address], [address], [address] Email: [email or web address] Plan Of Care PT-OP-B Current Condition Start: 01/25/24 17:51 Freq: Status: Active Protocol: Document 01/31/24 13:01 [facility] (Rec: 01/31/24 14:28 [facility] [id number]) Current Condition History of Current Condition Onset Date october 27 Current Complaints dec balance and double vision s/p brain mass ressection w/ residual tumors History of Current Condition Pt had brain mass ressection ( frontal lobe L) on oct 28 2023 at . In September, passed out and on October 26 was able to get MRI and SAKSHI () helped her get into a neuro surgeon the next day. He was DC from hospital October 30. Reports he is feeling wobbly. Mass was cancerous. 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 He just finished radiation on Jan 22 and start chemo in one month (feb 25) through Jul then further MRIs. Double vision and wobbly. Going to see neuro-opthamologist in about 1 .5 month. Grade 3 astrocytoma. denies pain or ORTEGA. Wobby gait since surgery. Minor short term memory loss. Hard to stab things with fork. He has been DC from CLIMATE CHANGE RISK ASSESSOR and OT. 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 Does better w/balance when following line. The faster he walks, the straighter he walks and more normal AGNES he has vs wider AGNES. Denies falls, but occ braces w/wall. terrain changes that are the same color, he struggles to recognize it. Past hx: likes to hike and occ run and gym. Has not done either since. Trying to get more regular w/ walking. Stamina is also a concern. denies lightheadness/ dizziness. BP is slightly high but okay. Has not returned to gym. This is the first day since not getting treatments since hospital. Tapering off kepra from surgery. Does report jaw tightness. He can't eat large sandwiches. sore after been eating. 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 Treatment Goals Patient/Caregiver Goals Wants to not walk as zigzag; dec use of support of euceda PT-OP-T Assessment and Plan Start: 01/25/24 17:51 Freq: Status: Active Protocol: Document 07/16/24 09:49 [facility] (Rec: 07/16/24 10:48 [facility] [id number]) Physical Therapy Assessment Goals activity Short Term Goal (STG) Pt will be able to carry objects in B hands when walking in/out of the house. STG Duration 08/18 Group Home Goal (LTG) Pt will be able to reciprocate up/down stairs w/o rail when one not available. LTG Duration 09/24 FELIX Impairment 19 Short Term Goal (STG) Pt will improve FELIX score to no greater than 15 to show improved balance STG Duration 08/23 Group Home Goal (LTG) Pt will improve FELIX score to no greater than 8 to show improved balance LTG Duration 09/24 dynamic balance Impairment DGI 06/12;FGA Short Term Goal (STG) Pt will score at least 20/24 on DGI to show dec fall risk STG Duration achieved 03/12 Group Home Goal (LTG) Pt will score at least 22/30 on FGA to show dec fall risk 03/12: achieved advance goal to 04/18- 06/04- LTG Duration achieved 07/02 sit to stands Impairment 9 in 30 sec; 16 sec for 5x sit to stand Short Term Goal (STG) Pt will be able to do 5x sit to pacs administrator no more than 11 sec STG Duration achieved to 10 sec 04/18 Funding Analyst Goal (LTG) Pt will be able to do at least 15 sit to stands in 30 sec to show improved balance and coordination 04/18- improved LTG Duration achieved 06/04 SLS Short Term Goal (STG) Pt will be able to do SLS B at least 5 sec 03/12-3 sec L; 5 sec R 04/18- 3 sec B 06/04-improving 4 sec R; 12 sec R STG Duration achieved 07/02 Funding Analyst Goal (LTG) Pt will be able to do SLS B at least 8 sec w/good recovery method vs need for use of wall 06/04-improving 4 sec R; 12 sec R 07/02-6 sec L, 7 sec R 07/16-10 sec R, 13 sec L LTG Duration achieved 07/16 jaw Group Home Goal (LTG) pt will be able to open jaw w/ o feeling of tightness and no more than mild deviation to L 03/12-still feels tight and has deviation L; completing exercises 04/16/24: still not able open fully and L jaw gets tight eating steak. 04/18 tightness here and there . still some deviation to L 06/04-tightenss w/deviation 07/02-jaw tightness occ, w/ deviation LTG Duration 09/15 Assessment Summary Assessment Pt making good progress w/ balance overall but does note some deficits w/functional mobility still. Cont PT to improve balance and iprove functional mobility. Physical Therapy Plan Frequency and Duration Frequency of Treatment 1-2x/Week Duration of treatment (weeks) 10 Plan of Care Start Date 07/16/24 Plan of Care End Date 09/24/24 Therapeutic Interventions Therapeutic Interventions Balance Training,Coordination Training,Gait Training,Home Exercise Program,Joint Mobilizations,Manual Therapy, Neuromuscular Re-education, Orthotic/Prosthetic Management ,Patient/Caregiver Education, Self-Care/Home Management,Soft Tissue Mobilization,Taping, Therapeutic Activities, Therapeutic Exercises Next Visit Focus/Plan Next Note Type Treatment Note Next Visit Plan Cont to advance balance, next incorporation metronome and work on jaw mobility Plan of Care Dates Plan of Care Start Date 07/16/24 Plan of Care End Date 09/24/24 Electronically Signed by: Libia Barroso, PT 07/16/24 [id number] If you are in agreement with this Plan of Care, please return a signed and dated copy. I have reviewed this Plan of Care and certify that the skilled therapy services above are required to meet the patient?s needs. Physician Signature Date Printed Name and Credentials Clinical Instructor Signature Printed Name and Credentials
--- NOTE | 2024-07-18 12:08 | PT.OTN ---
Current Diagnoses Other specified disorders of brain (07/18/24) Physical Therapy Treatment Note PT-OP-A Visit Information Start: 01/25/24 17:51 Freq: Status: Active Protocol: Document 07/18/24 10:15 [facility] (Rec: 07/18/24 12:08 [facility] [id number]) Out-Patient Physical Therapy Visit Information Visit Information Visit Type Treatment Note Visit Start Time 09:51 Visit Stop Time 10:30 Visit Number 25 (2/10 PN) Number of NET DEVELOPER Visits 0 PT-OP-B Current Condition Start: 01/25/24 17:51 Freq: Status: Active Protocol: Document 01/31/24 13:01 [facility] (Rec: 01/31/24 14:28 [facility] [id number]) Current Condition History of Current Condition Onset Date october 27 Current Complaints dec balance and double vision s/p brain mass ressection w/ residual tumors History of Current Condition Pt had brain mass ressection ( frontal lobe L) on oct 28 2023 at . In September, passed out and on October 26 was able to get MRI and SAKSHI () helped her get into a neuro surgeon the next day. He was DC from hospital October 30. Reports he is feeling wobbly. Mass was cancerous. 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 He just finished radiation on Jan 22 and start chemo in one month (feb 25) through Jul then further MRIs. Double vision and wobbly. Going to see neuro-opthamologist in about 1 .5 month. Grade 3 astrocytoma. denies pain or ORTEGA. Wobby gait since surgery. Minor short term memory loss. Hard to stab things with fork. He has been DC from PHYSICAL LABORATORY ASSISTANT and OT. 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 Does better w/balance when following line. The faster he walks, the straighter he walks and more normal AGNES he has vs wider AGNES. Denies falls, but occ braces w/wall. terrain changes that are the same color, he struggles to recognize it. Past hx: likes to hike and occ run and gym. Has not done either since. Trying to get more regular w/ walking. Stamina is also a concern. denies lightheadness/ dizziness. BP is slightly high but okay. Has not returned to gym. This is the first day since not getting treatments since hospital. Tapering off kepra from surgery. Does report jaw tightness. He can't eat large sandwiches. sore after been eating. 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 Treatment Goals Patient/Caregiver Goals Wants to not walk as zigzag; dec use of support of euceda PT-OP-C Subjective Start: 01/25/24 17:51 Freq: Status: Active Protocol: Document 07/18/24 10:15 [facility] (Rec: 07/18/24 12:08 [facility] [id number]) OP-PT Subjective Patient Comments Patient Comments Pt is starting med tomorrow PT-OP-D Balance Start: 01/25/24 17:51 Freq: Status: Active Protocol: Document 07/16/24 09:49 [facility] (Rec: 07/16/24 10:48 [facility] [id number]) Balance Tests Other Other Balance Tests Performed FELIX 19 PT-OP-E Functional Tests Start: 01/25/24 17:51 Freq: Status: Active Protocol: Document 07/02/24 10:51 [facility] (Rec: 07/02/24 12:34 [facility] [id number]) Functional Tests Functional Gait Assessment Score 25 PT-OP-F Manual Assessment Start: 01/25/24 17:51 Freq: Status: Active Protocol: Document 01/31/24 13:01 [facility] (Rec: 01/31/24 14:28 [facility] [id number]) Manual Assessments Other Manual Assessments Other Manual Assessments jaw opening deviates to L as opens; scar tissue tightness L side (pt reports some mm taken out w/surgery) PT-OP-G Mobility & Gait Start: 01/25/24 17:51 Freq: Status: Active Protocol: Document 01/31/24 13:01 [facility] (Rec: 01/31/24 14:28 [facility] [id number]) OP Gait Assessment Comments Gait Comments WBOS, lat leaning, arms slightly to sides PT-OP-M Strength Start: 01/25/24 17:51 Freq: Status: Active Protocol: Document 01/31/24 13:01 [facility] (Rec: 01/31/24 14:28 [facility] [id number]) Hip Strength Hip Manual Muscle Testing B Flexion (L2) 5 Normal External Rotation 5 Normal Internal Rotation 5 Normal Knee Strength Knee Manual Muscle Testing B Flexion (S2) 5 Normal Extension (L3) 5 Normal Ankle/Foot Strength Ankle and Foot Manual Muscle Testing B Dorsiflexion (L4) 5 Normal Plantarflexion (S1) 5 Normal Comments tested seated PT-OP-Q Treatments Start: 01/25/24 17:51 Freq: Status: Active Protocol: Document 07/18/24 10:15 [facility] (Rec: 07/18/24 12:08 [facility] [id number]) Therapeutic Exercises Standing Exercises RDL Standing Exercise Name 1. DL no wt 2. DL w/10lb B 3. SL w/foot on wall Side bilateral Reps/Minutes 10 ea suitcase carry Standing Exercise Name fwd/back walk, fwd/back march Side bilateral Equipment Used 10# 1 hand Reps/Minutes 20ft ea w/ea ue farmers carry Standing Exercise Name fwd/back walk, fwd/back march Side bilateral Equipment Used 10# B Reps/Minutes 20ft ea Neuro Re-Education Treatment Balance Activities pertubations Details EC Surface firm Reps/Duration PT pertubations to shoulders and hips Comments WBOS, NBOS, staggered stance B [place] Comments 20ft B 20ft x2 B w/10Lb B uneven surface Surface blue mats w/mult surfaces under Reps/Duration 6x tilt board Details fwd & lat facing Equipment rails prn Comments 1. squats x12 ea 2. wt shifts x12 b 3.balance w/head turns foam Comments fwd walk over foam pads and tilt board x8 hurdles Details w/red light green light Comments 1. fwd recip x6 2. sidestep x1 B Coordination Activities stairs Comments 1. recip up w/o rail loby stairs (26 steps ) and down w/ light rail touch w/red light, green light PT-OP-T Assessment and Plan Start: 01/25/24 17:51 Freq: Status: Active Protocol: Document 07/18/24 10:15 [facility] (Rec: 07/18/24 12:08 [facility] [id number]) Physical Therapy Assessment Goals activity Short Term Goal (STG) Pt will be able to carry objects in B hands when walking in/out of the house. STG Duration 3/1 District Operations Manager Goal (LTG) Pt will be able to reciprocate up/down stairs w/o rail when one not available. LTG Duration 4/7 FELIX Impairment 19 Short Term Goal (STG) Pt will improve FELIX score to no greater than 15 to show improved balance STG Duration 08/23 District Operations Manager Goal (LTG) Pt will improve FELIX score to no greater than 8 to show improved balance LTG Duration 09/24 dynamic balance Impairment DGI 06/12;FGA Short Term Goal (STG) Pt will score at least 20/24 on DGI to show dec fall risk STG Duration achieved 03/12 Group Home Goal (LTG) Pt will score at least 22/30 on FGA to show dec fall risk 03/12: achieved advance goal to 04/18- 06/04- LTG Duration achieved 07/02 sit to stands Impairment 9 in 30 sec; 16 sec for 5x sit to stand Short Term Goal (STG) Pt will be able to do 5x sit to inspector hairspring no more than 11 sec STG Duration achieved to 10 sec 04/18 Group Home Goal (LTG) Pt will be able to do at least 15 sit to stands in 30 sec to show improved balance and coordination 04/18- improved LTG Duration achieved 06/04 SLS Short Term Goal (STG) Pt will be able to do SLS B at least 5 sec 03/12-3 sec L; 5 sec R 04/18- 3 sec B 06/04-improving 4 sec R; 12 sec R STG Duration achieved 07/02 District Operations Manager Goal (LTG) Pt will be able to do SLS B at least 8 sec w/good recovery method vs need for use of wall 06/04-improving 4 sec R; 12 sec R 07/02-6 sec L, 7 sec R 07/16-10 sec R, 13 sec L LTG Duration achieved 07/16 jaw Group Home Goal (LTG) pt will be able to open jaw w/ o feeling of tightness and no more than mild deviation to L 03/12-still feels tight and has deviation L; completing exercises 04/16/24: still not able open fully and L jaw gets tight eating steak. 04/18 tightness here and there . still some deviation to L 06/04-tightenss w/deviation 07/02-jaw tightness occ, w/ deviation LTG Duration 09/15 Assessment Summary Assessment Pt did well with balance today and showed imporved stability when doing dynamic balance Physical Therapy Plan Frequency and Duration Frequency of Treatment 1-2x/Week Duration of treatment (weeks) 10 Plan of Care Start Date 07/16/24 Plan of Care End Date 09/24/24 Next Visit Focus/Plan Next Note Type Treatment Note Next Visit Plan Cont to advance balance, next incorporation metronome and work on jaw mobility
--- NOTE | 2024-08-13 12:32 | PT.OTN ---
Current Diagnoses Other specified disorders of brain (08/13/24) Physical Therapy Treatment Note PT-OP-A Visit Information Start: 01/25/24 17:51 Freq: Status: Active Protocol: Document 08/13/24 10:51 [facility] (Rec: 08/13/24 12:31 [facility] [id number]) Out-Patient Physical Therapy Visit Information Visit Information Visit Type Treatment Note Visit Start Time 09:51 Visit Stop Time 10:31 Visit Number 26 (3/10 PN) Number of ENERGY AUDITOR Visits 0 PT-OP-B Current Condition Start: 01/25/24 17:51 Freq: Status: Active Protocol: Document 01/31/24 13:01 [facility] (Rec: 01/31/24 14:28 [facility] [id number]) Current Condition History of Current Condition Onset Date october 27 Current Complaints dec balance and double vision s/p brain mass ressection w/ residual tumors History of Current Condition Pt had brain mass ressection ( frontal lobe L) on oct 28 2023 at . In September, passed out and on October 26 was able to get MRI and SAKSHI () helped her get into a neuro surgeon the next day. He was DC from hospital October 30. Reports he is feeling wobbly. Mass was cancerous. 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 He just finished radiation on Jan 22 and start chemo in one month (feb 25) through Jul then further MRIs. Double vision and wobbly. Going to see neuro-opthamologist in about 1 .5 month. Grade 3 astrocytoma. denies pain or ORTEGA. Wobby gait since surgery. Minor short term memory loss. Hard to stab things with fork. He has been DC from INTERNSHIP COORDINATOR and OT. 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 Does better w/balance when following line. The faster he walks, the straighter he walks and more normal AGNES he has vs wider AGNES. Denies falls, but occ braces w/wall. terrain changes that are the same color, he struggles to recognize it. Past hx: likes to hike and occ run and gym. Has not done either since. Trying to get more regular w/ walking. Stamina is also a concern. denies lightheadness/ dizziness. BP is slightly high but okay. Has not returned to gym. This is the first day since not getting treatments since hospital. Tapering off kepra from surgery. Does report jaw tightness. He can't eat large sandwiches. sore after been eating. 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 Treatment Goals Patient/Caregiver Goals Wants to not walk as zigzag; dec use of support of euceda PT-OP-C Subjective Start: 01/25/24 17:51 Freq: Status: Active Protocol: Document 08/13/24 10:51 [facility] (Rec: 08/13/24 12:31 [facility] [id number]) OP-PT Subjective Patient Comments Patient Comments Pt reports he did well on his trip overall PT-OP-D Balance Start: 01/25/24 17:51 Freq: Status: Active Protocol: Document 07/16/24 09:49 [facility] (Rec: 07/16/24 10:48 [facility] [id number]) Balance Tests Other Other Balance Tests Performed FELIX 19 PT-OP-E Functional Tests Start: 01/25/24 17:51 Freq: Status: Active Protocol: Document 07/02/24 10:51 [facility] (Rec: 07/02/24 12:34 [facility] [id number]) Functional Tests Functional Gait Assessment Score 25 PT-OP-F Manual Assessment Start: 01/25/24 17:51 Freq: Status: Active Protocol: Document 01/31/24 13:01 [facility] (Rec: 01/31/24 14:28 [facility] [id number]) Manual Assessments Other Manual Assessments Other Manual Assessments jaw opening deviates to L as opens; scar tissue tightness L side (pt reports some mm taken out w/surgery) PT-OP-G Mobility & Gait Start: 01/25/24 17:51 Freq: Status: Active Protocol: Document 01/31/24 13:01 [facility] (Rec: 01/31/24 14:28 [facility] [id number]) OP Gait Assessment Comments Gait Comments WBOS, lat leaning, arms slightly to sides PT-OP-M Strength Start: 01/25/24 17:51 Freq: Status: Active Protocol: Document 01/31/24 13:01 [facility] (Rec: 01/31/24 14:28 [facility] [id number]) Hip Strength Hip Manual Muscle Testing B Flexion (L2) 5 Normal External Rotation 5 Normal Internal Rotation 5 Normal Knee Strength Knee Manual Muscle Testing B Flexion (S2) 5 Normal Extension (L3) 5 Normal Ankle/Foot Strength Ankle and Foot Manual Muscle Testing B Dorsiflexion (L4) 5 Normal Plantarflexion (S1) 5 Normal Comments tested seated PT-OP-Q Treatments Start: 01/25/24 17:51 Freq: Status: Active Protocol: Document 08/13/24 10:51 [facility] (Rec: 08/13/24 12:31 [facility] [id number]) Neuro Re-Education Treatment Balance Activities carry Comments carry 10lb ball 1 arm up/down training stairs and over 2 hurdles and on and off black tpad in [place] x3 ea direction uneven surface Comments fwd walk w/talking over tbpads x8 testing Comments FELIX bosu Comments 1. [place] wt shift CW and CWW black side 2. squats black side x10 3. fwd lunge x10 B 4. lat lunge x6 B SL balance Comments SL sit to stand from tall chair in waiting room x10 B hurdles Comments carry 10lb ball w/1 arm x6 recip Coordination Activities stairs Comments 1. recip up w/o rail loby stairs (26 steps ) and down PT-OP-T Assessment and Plan Start: 01/25/24 17:51 Freq: Status: Active Protocol: Document 08/13/24 10:51 [facility] (Rec: 08/13/24 12:31 [facility] [id number]) Physical Therapy Assessment Goals activity Short Term Goal (STG) Pt will be able to carry objects in B hands when walking in/out of the house. 08/13-if weird size stuff STG Duration 3/ Senior Research Engineer Goal (LTG) Pt will be able to reciprocate up/down stairs w/o rail when one not available. 08/13-has to go slowly LTG Duration 4 FELIX Impairment 19 Short Term Goal (STG) Pt will improve FELIX score to no greater than 15 to show improved balance 08/13-20 STG Duration 3/ Residential Goal (LTG) Pt will improve FELIX score to no greater than 8 to show improved balance LTG Duration 4 dynamic balance Impairment DGI 06/12;FGA Short Term Goal (STG) Pt will score at least / on DGI to show dec fall risk STG Duration achieved 03/12 Residential Goal (LTG) Pt will score at least /30 on FGA to show dec fall risk 03/12: achieved advance goal to 04/18- 06/04- LTG Duration achieved 07/02 sit to stands Impairment 9 in 30 sec; 16 sec for 5x sit to stand Short Term Goal (STG) Pt will be able to do 5x sit to chief clinical dietitian no more than 11 sec STG Duration achieved to 10 sec 04/18 Residential Goal (LTG) Pt will be able to do at least 15 sit to stands in 30 sec to show improved balance and coordination 04/18- improved LTG Duration achieved 06/04 SLS Short Term Goal (STG) Pt will be able to do SLS B at least 5 sec 03/12-3 sec L; 5 sec R 04/18- 3 sec B 06/04-improving 4 sec R; 12 sec R STG Duration achieved 07/02 Residential Goal (LTG) Pt will be able to do SLS B at least 8 sec w/good recovery method vs need for use of wall 06/04-improving 4 sec R; 12 sec R 07/02-6 sec L, 7 sec R 07/16-10 sec R, 13 sec L LTG Duration achieved 07/16 jaw Residential Goal (LTG) pt will be able to open jaw w/ o feeling of tightness and no more than mild deviation to L 03/12-still feels tight and has deviation L; completing exercises 04/16/24: still not able open fully and L jaw gets tight eating steak. 04/18 tightness here and there . still some deviation to L 06/04-tightenss w/deviation 07/02-jaw tightness occ, w/ deviation 08/13-tight on L and L deviation LTG Duration 09/15 Assessment Summary Assessment Pt has been in PT limited times since goals made d/t trip and chemo time limiting progress. He is gradually progressing w/strength and stability. cont PT to work on balance and stability. Physical Therapy Plan Frequency and Duration Frequency of Treatment 1-2x/Week Duration of treatment (weeks) 10 Plan of Care Start Date 07/16/24 Plan of Care End Date 09/24/24 Therapeutic Interventions Therapeutic Interventions Balance Training,Coordination Training,Gait Training,Home Exercise Program,Joint Mobilizations,Manual Therapy, Neuromuscular Re-education, Orthotic/Prosthetic Management ,Patient/Caregiver Education, Self-Care/Home Management,Soft Tissue Mobilization,Taping, Therapeutic Activities, Therapeutic Exercises Next Visit Focus/Plan Next Note Type Treatment Note Next Visit Plan Cont to advance balance, next incorporation metronome and work on jaw mobility
--- NOTE | 2024-08-15 11:30 | PT.OTN ---
Current Diagnoses Other specified disorders of brain (08/15/24) Physical Therapy Treatment Note PT-OP-A Visit Information Start: 01/25/24 17:51 Freq: Status: Active Protocol: Document 08/15/24 10:47 SP (Rec: 08/15/24 11:32 SP [id number]) Out-Patient Physical Therapy Visit Information Visit Information Visit Type Treatment Note Visit Start Time 10:47 Visit Stop Time 11:30 Visit Number 27 (4/10 PN) Number of MORTGAGE LOAN CLOSER Visits 1 Precautions Precautions *Decreased proprioception R and retro gait belt at all times, Double Vision, difficulty see uneven and change in surfaces, goyo if coloring similar. PT-OP-B Current Condition Start: 01/25/24 17:51 Freq: Status: Active Protocol: Document 01/31/24 13:01 [facility] (Rec: 01/31/24 14:28 [facility] [id number]) Current Condition History of Current Condition Onset Date october 27 Current Complaints dec balance and double vision s/p brain mass ressection w/ residual tumors History of Current Condition Pt had brain mass ressection ( frontal lobe L) on oct 28 2023 at . In September, passed out and on October 26 was able to get MRI and SAKSHI () helped her get into a neuro surgeon the next day. He was DC from hospital October 30. Reports he is feeling wobbly. Mass was cancerous. 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 He just finished radiation on Jan 22 and start chemo in one month (feb 25) through Jul then further MRIs. Double vision and wobbly. Going to see neuro-opthamologist in about 1 .5 month. Grade 3 astrocytoma. denies pain or ORTEGA. Wobby gait since surgery. Minor short term memory loss. Hard to stab things with fork. He has been DC from MEDICAL REVIEW COORDINATOR and OT. 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 Does better w/balance when following line. The faster he walks, the straighter he walks and more normal AGNES he has vs wider AGNES. Denies falls, but occ braces w/wall. terrain changes that are the same color, he struggles to recognize it. Past hx: likes to hike and occ run and gym. Has not done either since. Trying to get more regular w/ walking. Stamina is also a concern. denies lightheadness/ dizziness. BP is slightly high but okay. Has not returned to gym. This is the first day since not getting treatments since hospital. Tapering off kepra from surgery. Does report jaw tightness. He can't eat large sandwiches. sore after been eating. 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 Treatment Goals Patient/Caregiver Goals Wants to not walk as zigzag; dec use of support of euceda PT-OP-C Subjective Start: 01/25/24 17:51 Freq: Status: Active Protocol: Document 08/15/24 10:47 SP (Rec: 08/15/24 11:32 SP [id number]) OP-PT Subjective Patient Comments Patient Comments Pt reports felt good after last tx with increased challenge balance activities. PT-OP-D Balance Start: 01/25/24 17:51 Freq: Status: Active Protocol: Document 07/16/24 09:49 [facility] (Rec: 07/16/24 10:48 [facility] [id number]) Balance Tests Other Other Balance Tests Performed FELIX 19 PT-OP-E Functional Tests Start: 01/25/24 17:51 Freq: Status: Active Protocol: Document 07/02/24 10:51 [facility] (Rec: 07/02/24 12:34 [facility] [id number]) Functional Tests Functional Gait Assessment Score 25 PT-OP-F Manual Assessment Start: 01/25/24 17:51 Freq: Status: Active Protocol: Document 01/31/24 13:01 [facility] (Rec: 01/31/24 14:28 [facility] [id number]) Manual Assessments Other Manual Assessments Other Manual Assessments jaw opening deviates to L as opens; scar tissue tightness L side (pt reports some mm taken out w/surgery) PT-OP-G Mobility & Gait Start: 01/25/24 17:51 Freq: Status: Active Protocol: Document 01/31/24 13:01 [facility] (Rec: 01/31/24 14:28 [facility] [id number]) OP Gait Assessment Comments Gait Comments WBOS, lat leaning, arms slightly to sides PT-OP-M Strength Start: 01/25/24 17:51 Freq: Status: Active Protocol: Document 01/31/24 13:01 [facility] (Rec: 01/31/24 14:28 [facility] [id number]) Hip Strength Hip Manual Muscle Testing B Flexion (L2) 5 Normal External Rotation 5 Normal Internal Rotation 5 Normal Knee Strength Knee Manual Muscle Testing B Flexion (S2) 5 Normal Extension (L3) 5 Normal Ankle/Foot Strength Ankle and Foot Manual Muscle Testing B Dorsiflexion (L4) 5 Normal Plantarflexion (S1) 5 Normal Comments tested seated PT-OP-Q Treatments Start: 01/25/24 17:51 Freq: Status: Active Protocol: Document 08/15/24 10:47 SP (Rec: 08/15/24 11:32 SP [id number]) Cardio Equipment Treadmill Duration (Minutes) 2 Speed 2.0-2.5 Incline 0 Other cad, PRN jet (approx 101- 103 bpm walking) for support arm swing Gait Training Gait Activity Metronome Description Use Metronome Device Used 0 Level of Assistance SBA/ CGA as needed Distance/Duration 80 ft ER Hallway Treatment Focus Normalize stride and AGNES, improve midline trunk stability Comments fwd 103 bwd 93 grapevine 85 stairs ascend 93, descend 80 Cued arms swing Neuro Re-Education Treatment Balance Activities carry Details 1. 10 DB carrying 28 stairs 2. 10# DB in 1 hand incorporated with hurles Comments 2. carry 10lb DB 1 arm up/down training stair and over 3 uneven hurdles, on and off black tpad at bottom/eachside gym stairs in [place] obstacle course x3 ea direction. CG- Min A, gadiel stepping LOB x2 recovery through uneven hurdles. Lat lean at times while wt stair mgt self touch rail vs trunk right corrections. bosu Surface CG- Teagan as needed Equipment near corner stairs rail Comments 1. [place] wt shift CW and CWW black side 2. squats black side x10 3. fwd lunge x10 alternating B PRN rail contact 4. lat lunge x10 repeated each LE PT-OP-T Assessment and Plan Start: 01/25/24 17:51 Freq: Status: Active Protocol: Document 08/15/24 10:47 SP (Rec: 08/15/24 11:32 SP [id number]) Physical Therapy Assessment Goals activity Short Term Goal (STG) Pt will be able to carry objects in B hands when walking in/out of the house. 08/13-if weird size stuff STG Duration 08/18 Raw Silk Grader Goal (LTG) Pt will be able to reciprocate up/down stairs w/o rail when one not available. 08/13-has to go slowly LTG Duration 09/24 FELIX Impairment 19 Short Term Goal (STG) Pt will improve FELIX score to no greater than 15 to show improved balance 08/13- STG Duration 08/23 Usp Goal (LTG) Pt will improve FELIX score to no greater than 8 to show improved balance LTG Duration 09/24 dynamic balance Impairment DGI 06/12;FGA Short Term Goal (STG) Pt will score at least 20/ on DGI to show dec fall risk STG Duration achieved 03/12 Usp Goal (LTG) Pt will score at least 22/ on FGA to show dec fall risk 03/12: achieved advance goal to 04/18- 06/04- LTG Duration achieved 07/02 sit to stands Impairment 9 in 30 sec; 16 sec for 5x sit to stand Short Term Goal (STG) Pt will be able to do 5x sit to ore miner no more than 11 sec STG Duration achieved to 10 sec 04/18 Usp Goal (LTG) Pt will be able to do at least 15 sit to stands in 30 sec to show improved balance and coordination 04/18- improved LTG Duration achieved 06/04 SLS Short Term Goal (STG) Pt will be able to do SLS B at least 5 sec 03/12-3 sec L; 5 sec R 04/18- 3 sec B 06/04-improving 4 sec R; 12 sec R STG Duration achieved 07/02 Raw Silk Grader Goal (LTG) Pt will be able to do SLS B at least 8 sec w/good recovery method vs need for use of wall 06/04-improving 4 sec R; 12 sec R 07/02-6 sec L, 7 sec R 07/16-10 sec R, 13 sec L LTG Duration achieved 07/16 jaw Raw Silk Grader Goal (LTG) pt will be able to open jaw w/ o feeling of tightness and no more than mild deviation to L 03/12-still feels tight and has deviation L; completing exercises 04/16/24: still not able open fully and L jaw gets tight eating steak. 04/18 tightness here and there . still some deviation to L 06/04-tightenss w/deviation 07/02-jaw tightness occ, w/ deviation 08/13-tight on L and L deviation LTG Duration 09/15 Assessment Summary Assessment Pt improved decreased AGNES and normalize stride gait use of metronome fwd 103bpm, bwd 93 bpm, grapevine 85bpm, stairs 93 asc/80 desc with cued for arms swing to allow functional mobility jet. Continued weighted carrying items stair mgt for carryover functional mobility home ability to carry items up stairs. Was challenged by uneven hurdles, required increased support due to LOB laterally receiprocal patterning. Was little more challenging progressed receiprocal BOSU stepping fwd today CG with Min A recovery as needed off bal retro. Lateral lunge step up/down improved with cues for foot placement body side of top [place] on ball, help air distribution for stability. Physical Therapy Plan Frequency and Duration Frequency of Treatment 1-2x/Week Duration of treatment (weeks) 10 Plan of Care Start Date 07/16/24 Plan of Care End Date 09/24/24 Therapeutic Interventions Therapeutic Interventions Balance Training,Coordination Training,Gait Training,Home Exercise Program,Joint Mobilizations,Manual Therapy, Neuromuscular Re-education, Orthotic/Prosthetic Management ,Patient/Caregiver Education, Self-Care/Home Management,Soft Tissue Mobilization,Taping, Therapeutic Activities, Therapeutic Exercises Next Visit Focus/Plan Next Note Type Treatment Note Next Visit Plan Continue use metronome. POC: Cont to advance balance, next incorporation metronome and work on jaw mobility
--- NOTE | 2024-08-22 13:57 | PT-OP ANOTE ---
Gun Synchronizer edit today's appt, moved pt appt today to tomorrow.
--- NOTE | 2024-08-23 10:50 | PT.OTN ---
Current Diagnoses Other specified disorders of brain (08/23/24) Physical Therapy Treatment Note PT-OP-A Visit Information Start: 01/25/24 17:51 Freq: Status: Active Protocol: Document 08/23/24 08:20 [facility] (Rec: 08/23/24 10:50 [facility] [id number]) Out-Patient Physical Therapy Visit Information Visit Information Visit Type Progress Note Visit Start Time 08:20 Visit Stop Time 09:00 Visit Number 28 (06/29) Number of PARTS COUNTERPERSON Visits 0 PT-OP-B Current Condition Start: 01/25/24 17:51 Freq: Status: Active Protocol: Document 01/31/24 13:01 [facility] (Rec: 01/31/24 14:28 [facility] [id number]) Current Condition History of Current Condition Onset Date october 27 Current Complaints dec balance and double vision s/p brain mass ressection w/ residual tumors History of Current Condition Pt had brain mass ressection ( frontal lobe L) on oct 28 2023 at . In September, passed out and on October 26 was able to get MRI and SAKSHI () helped her get into a neuro surgeon the next day. He was DC from hospital October 30. Reports he is feeling wobbly. Mass was cancerous. 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 He just finished radiation on Jan 22 and start chemo in one month (feb 25) through Jul then further MRIs. Double vision and wobbly. Going to see neuro-opthamologist in about 1 .5 month. Grade 3 astrocytoma. denies pain or ORTEGA. Wobby gait since surgery. Minor short term memory loss. Hard to stab things with fork. He has been DC from OPTICAL BRIGHTENER MAKER HELPER and OT. 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 Does better w/balance when following line. The faster he walks, the straighter he walks and more normal AGNES he has vs wider AGNES. Denies falls, but occ braces w/wall. terrain changes that are the same color, he struggles to recognize it. Past hx: likes to hike and occ run and gym. Has not done either since. Trying to get more regular w/ walking. Stamina is also a concern. denies lightheadness/ dizziness. BP is slightly high but okay. Has not returned to gym. This is the first day since not getting treatments since hospital. Tapering off kepra from surgery. Does report jaw tightness. He can't eat large sandwiches. sore after been eating. 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 Treatment Goals Patient/Caregiver Goals Wants to not walk as zigzag; dec use of support of euceda PT-OP-C Subjective Start: 01/25/24 17:51 Freq: Status: Active Protocol: Document 08/23/24 08:20 [facility] (Rec: 08/23/24 10:50 [facility] [id number]) OP-PT Subjective Patient Comments Patient Comments Pt reports doing well Patient Reported Progress Improving PT-OP-D Balance Start: 01/25/24 17:51 Freq: Status: Active Protocol: Document 08/23/24 08:20 [facility] (Rec: 08/23/24 10:50 [facility] [id number]) Balance Tests Other Other Balance Tests Performed [facility] 24 PT-OP-E Functional Tests Start: 01/25/24 17:51 Freq: Status: Active Protocol: Document 07/02/24 10:51 [facility] (Rec: 07/02/24 12:34 [facility] [id number]) Functional Tests Functional Gait Assessment Score 25 PT-OP-F Manual Assessment Start: 01/25/24 17:51 Freq: Status: Active Protocol: Document 01/31/24 13:01 [facility] (Rec: 01/31/24 14:28 [facility] [id number]) Manual Assessments Other Manual Assessments Other Manual Assessments jaw opening deviates to L as opens; scar tissue tightness L side (pt reports some mm taken out w/surgery) PT-OP-G Mobility & Gait Start: 01/25/24 17:51 Freq: Status: Active Protocol: Document 01/31/24 13:01 [facility] (Rec: 01/31/24 14:28 [facility] [id number]) OP Gait Assessment Comments Gait Comments WBOS, lat leaning, arms slightly to sides PT-OP-M Strength Start: 01/25/24 17:51 Freq: Status: Active Protocol: Document 01/31/24 13:01 [facility] (Rec: 01/31/24 14:28 [facility] [id number]) Hip Strength Hip Manual Muscle Testing B Flexion (L2) 5 Normal External Rotation 5 Normal Internal Rotation 5 Normal Knee Strength Knee Manual Muscle Testing B Flexion (S2) 5 Normal Extension (L3) 5 Normal Ankle/Foot Strength Ankle and Foot Manual Muscle Testing B Dorsiflexion (L4) 5 Normal Plantarflexion (S1) 5 Normal Comments tested seated PT-OP-Q Treatments Start: 01/25/24 17:51 Freq: Status: Active Protocol: Document 08/23/24 08:20 [facility] (Rec: 08/23/24 10:50 [facility] [id number]) Gym Equipment Shuttle Rebound balance Exercise Details cognitive challenge Comments 1. alt august x 15 B Shuttle Balance red clips Details w/cognitive challenge Comments fwd and side : WBOS and NBOS fwd: staggered stance B Neuro Re-Education Treatment Balance Activities uneven surface Comments fwd walk w/talking over foam x8 dynamic walking Comments 1. walking w/head turns and sudden turns w/10# ball in 1 hand and 7# wt in other hand x4 min 2. up/down 8 in steps, 16 in steps, foam and hurdles x8 testing Comments FELIX 24 bosu Details w/cognitive challenge Comments 1. fwd lunge x6 B 2. squat black side hurdles Details w/cognitive challenge Comments fwd recip x8 sidestep x1 B PT-OP-T Assessment and Plan Start: 01/25/24 17:51 Freq: Status: Active Protocol: Document 08/23/24 08:20 [facility] (Rec: 08/23/24 10:50 [facility] [id number]) Physical Therapy Assessment Goals activity Short Term Goal (STG) Pt will be able to carry objects in B hands when walking in/out of the house. 08/13-if weird size stuff 08/23-only issue if they are weird wt distribution STG Duration 09/18 Senior Living Goal (LTG) Pt will be able to reciprocate up/down stairs w/o rail when one not available. 08/13-has to go slowly /6-improving LTG Duration 5/ FELIX Impairment 19 Short Term Goal (STG) Pt will improve FELIX score to no greater than 15 to show improved balance 08/13-20 08/23-24 STG Duration 4/6 Design Technician Goal (LTG) Pt will improve FELIX score to no greater than 8 to show improved balance LTG Duration 10/23 dynamic balance Impairment DGI 06/12;FGA Short Term Goal (STG) Pt will score at least 20/24 on DGI to show dec fall risk STG Duration achieved 03/12 Senior Living Goal (LTG) Pt will score at least 22/30 on FGA to show dec fall risk 03/12: achieved advance goal to 04/18- 06/04- LTG Duration achieved 07/02 sit to stands Impairment 9 in 30 sec; 16 sec for 5x sit to stand Short Term Goal (STG) Pt will be able to do 5x sit to double ending machine operator no more than 11 sec STG Duration achieved to 10 sec 04/18 Design Technician Goal (LTG) Pt will be able to do at least 15 sit to stands in 30 sec to show improved balance and coordination 04/18- improved LTG Duration achieved 06/04 SLS Short Term Goal (STG) Pt will be able to do SLS B at least 5 sec 03/12-3 sec L; 5 sec R 04/18- 3 sec B 06/04-improving 4 sec R; 12 sec R STG Duration achieved 07/02 Design Technician Goal (LTG) Pt will be able to do SLS B at least 8 sec w/good recovery method vs need for use of wall 06/04-improving 4 sec R; 12 sec R 07/02-6 sec L, 7 sec R 07/16-10 sec R, 13 sec L LTG Duration achieved 07/16 jaw Senior Living Goal (LTG) pt will be able to open jaw w/ o feeling of tightness and no more than mild deviation to L 03/12-still feels tight and has deviation L; completing exercises 04/16/24: still not able open fully and L jaw gets tight eating steak. 04/18 tightness here and there . still some deviation to L 06/04-tightenss w/deviation 07/02-jaw tightness occ, w/ deviation 08/13-tight on L and L deviation 08/23-some tightness LTG Duration 11/01 Assessment Summary Assessment Pt challenged by mic mccollums activities today but cont to improve w/balance but struggles still w/EC tasks. He would benefit from cont PT to cont to improve balance Physical Therapy Plan Frequency and Duration Frequency of Treatment 1-2x/Week Duration of treatment (weeks) 10 Plan of Care Start Date 08/23/24 Plan of Care End Date 11/01/24 Therapeutic Interventions Therapeutic Interventions Balance Training,Coordination Training,Gait Training,Home Exercise Program,Joint Mobilizations,Manual Therapy, Neuromuscular Re-education, Orthotic/Prosthetic Management ,Patient/Caregiver Education, Self-Care/Home Management,Soft Tissue Mobilization,Taping, Therapeutic Activities, Therapeutic Exercises Next Visit Focus/Plan Next Note Type Treatment Note Next Visit Plan Continue use metronome and cognitive challenge at same time
--- NOTE | 2024-08-30 17:47 | PT.OTN ---
Current Diagnoses Other specified disorders of brain (08/30/24) Physical Therapy Treatment Note PT-OP-A Visit Information Start: 01/25/24 17:51 Freq: Status: Active Protocol: Document 08/30/24 08:17 [facility] (Rec: 08/30/24 17:47 [facility] [id number]) Out-Patient Physical Therapy Visit Information Visit Information Visit Type Initial Evaluation Visit Start Time 09:50 Visit Stop Time 10:30 Visit Number 1 Number of GROUND WATER CONTRACTOR Visits 0 PT-OP-B Current Condition Start: 01/25/24 17:51 Freq: Status: Active Protocol: Document 01/31/24 13:01 [facility] (Rec: 01/31/24 14:28 [facility] [id number]) Current Condition History of Current Condition Onset Date october 27 Current Complaints dec balance and double vision s/p brain mass ressection w/ residual tumors History of Current Condition Pt had brain mass ressection ( frontal lobe L) on oct 28 2023 at . In September, passed out and on October 26 was able to get MRI and SAKSHI () helped her get into a neuro surgeon the next day. He was DC from hospital October 30. Reports he is feeling wobbly. Mass was cancerous. 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 He just finished radiation on Jan 22 and start chemo in one month (feb 25) through Jul then further MRIs. Double vision and wobbly. Going to see neuro-opthamologist in about 1 .5 month. Grade 3 astrocytoma. denies pain or ORTEGA. Wobby gait since surgery. Minor short term memory loss. Hard to stab things with fork. He has been DC from TIRE REBUILDER and OT. 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 Does better w/balance when following line. The faster he walks, the straighter he walks and more normal AGNES he has vs wider AGNES. Denies falls, but occ braces w/wall. terrain changes that are the same color, he struggles to recognize it. Past hx: likes to hike and occ run and gym. Has not done either since. Trying to get more regular w/ walking. Stamina is also a concern. denies lightheadness/ dizziness. BP is slightly high but okay. Has not returned to gym. This is the first day since not getting treatments since hospital. Tapering off kepra from surgery. Does report jaw tightness. He can't eat large sandwiches. sore after been eating. 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 Treatment Goals Patient/Caregiver Goals Wants to not walk as zigzag; dec use of support of euceda PT-OP-C Subjective Start: 01/25/24 17:51 Freq: Status: Active Protocol: Document 08/30/24 08:17 [facility] (Rec: 08/30/24 17:47 [facility] [id number]) OP-PT Subjective Patient Comments Patient Comments no new complaints PT-OP-D Balance Start: 01/25/24 17:51 Freq: Status: Active Protocol: Document 08/23/24 08:20 [facility] (Rec: 08/23/24 10:50 [facility] [id number]) Balance Tests Other Other Balance Tests Performed FELIX 24 PT-OP-E Functional Tests Start: 01/25/24 17:51 Freq: Status: Active Protocol: Document 07/02/24 10:51 [facility] (Rec: 07/02/24 12:34 [facility] [id number]) Functional Tests Functional Gait Assessment Score 25 PT-OP-F Manual Assessment Start: 01/25/24 17:51 Freq: Status: Active Protocol: Document 01/31/24 13:01 [facility] (Rec: 01/31/24 14:28 [facility] [id number]) Manual Assessments Other Manual Assessments Other Manual Assessments jaw opening deviates to L as opens; scar tissue tightness L side (pt reports some mm taken out w/surgery) PT-OP-G Mobility & Gait Start: 01/25/24 17:51 Freq: Status: Active Protocol: Document 01/31/24 13:01 [facility] (Rec: 01/31/24 14:28 [facility] [id number]) OP Gait Assessment Comments Gait Comments WBOS, lat leaning, arms slightly to sides PT-OP-M Strength Start: 01/25/24 17:51 Freq: Status: Active Protocol: Document 01/31/24 13:01 [facility] (Rec: 01/31/24 14:28 [facility] [id number]) Hip Strength Hip Manual Muscle Testing B Flexion (L2) 5 Normal External Rotation 5 Normal Internal Rotation 5 Normal Knee Strength Knee Manual Muscle Testing B Flexion (S2) 5 Normal Extension (L3) 5 Normal Ankle/Foot Strength Ankle and Foot Manual Muscle Testing B Dorsiflexion (L4) 5 Normal Plantarflexion (S1) 5 Normal Comments tested seated PT-OP-Q Treatments Start: 01/25/24 17:51 Freq: Status: Active Protocol: Document 08/30/24 08:17 [facility] (Rec: 08/30/24 17:47 [facility] [id number]) Gym Equipment Shuttle Rebound balance Exercise Details cognitive challenge Comments 1. alt august x 15 B Shuttle Balance red clips Details w/cognitive challenge Comments fwd and side : WBOS and NBOS fwd: staggered stance B Therapeutic Exercises Standing Exercises DF/PF Standing Exercise Name back at wall Side bilateral Reps/Minutes 20 Neuro Re-Education Treatment Balance Activities beam Comments lat walk over lg beam (rail prn) x6 B uneven surface Equipment carrying 10lb wt then squat to crab picker 10lb ball on lg foam pad Comments fwd walk w/talking over foam w/hurdles recip then up/down 12 in step, 4 in step and 8 in step x6 foam Comments NBOS and staggered stance EC trials B tandem stance EO trials SL balance Comments w/ tap to random colors called by PT (4 pt around pt ) B Coordination Activities lat shuffle Comments lat shuffle to colors called by PT w/squat weaving Comments around 5 tpods w/lat cutting x8 PT-OP-T Assessment and Plan Start: 01/25/24 17:51 Freq: Status: Active Protocol: Document 08/30/24 08:17 [facility] (Rec: 08/30/24 17:47 [facility] [id number]) Physical Therapy Assessment Goals activity Short Term Goal (STG) Pt will be able to carry objects in B hands when walking in/out of the house. 08/13-if weird size stuff 08/23-only issue if they are weird wt distribution STG Duration 09/18 Curriculum Specialist Goal (LTG) Pt will be able to reciprocate up/down stairs w/o rail when one not available. 08/13-has to go slowly /6-improving LTG Duration 5/6 FELIX Impairment 19 Short Term Goal (STG) Pt will improve FELIX score to no greater than 15 to show improved balance 08/13-20 08/23-24 STG Duration 4/6 Senior Care Goal (LTG) Pt will improve FELIX score to no greater than 8 to show improved balance LTG Duration 10/23 jaw Senior Care Goal (LTG) pt will be able to open jaw w/ o feeling of tightness and no more than mild deviation to L 03/12-still feels tight and has deviation L; completing exercises 04/16/24: still not able open fully and L jaw gets tight eating steak. 04/18 tightness here and there . still some deviation to L 06/04-tightenss w/deviation 07/02-jaw tightness occ, w/ deviation 08/13-tight on L and L deviation 08/23-some tightness LTG Duration 11/01 Assessment Summary Assessment Pt did better w/balance tasks overall today even w/cognitive challenges at the the same time. Still challenged by uneven surfaces especially when wt in arms or w/EC Physical Therapy Plan Frequency and Duration Frequency of Treatment 1-2x/Week Duration of treatment (weeks) 10 Plan of Care Start Date 08/23/24 Plan of Care End Date 11/01/24 Next Visit Focus/Plan Next Note Type Treatment Note Next Visit Plan Continue use metronome and also cognitive challenge during balance
--- NOTE | 2024-09-04 14:35 | PT.OTN ---
Current Diagnoses Other specified disorders of brain (09/04/24) Physical Therapy Treatment Note PT-OP-A Visit Information Start: 01/25/24 17:51 Freq: Status: Active Protocol: Document 09/04/24 11:28 [facility] (Rec: 09/04/24 14:35 [facility] [id number]) Out-Patient Physical Therapy Visit Information Visit Information Visit Type Treatment Note Visit Start Time 11:30 Visit Stop Time 12:10 Visit Number 30 (08/27) Number of PLUG OVERWRAP MACHINE TENDER Visits 0 PT-OP-B Current Condition Start: 01/25/24 17:51 Freq: Status: Active Protocol: Document 01/31/24 13:01 [facility] (Rec: 01/31/24 14:28 [facility] [id number]) Current Condition History of Current Condition Onset Date october 27 Current Complaints dec balance and double vision s/p brain mass ressection w/ residual tumors History of Current Condition Pt had brain mass ressection ( frontal lobe L) on oct 28 2023 at . In September, passed out and on October 26 was able to get MRI and SAKSHI () helped her get into a neuro surgeon the next day. He was DC from hospital October 30. Reports he is feeling wobbly. Mass was cancerous. 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 He just finished radiation on Jan 22 and start chemo in one month (feb 25) through Jul then further MRIs. Double vision and wobbly. Going to see neuro-opthamologist in about 1 .5 month. Grade 3 astrocytoma. denies pain or ORTEGA. Wobby gait since surgery. Minor short term memory loss. Hard to stab things with fork. He has been DC from UNDERCOVER AGENT and OT. 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 Does better w/balance when following line. The faster he walks, the straighter he walks and more normal AGNES he has vs wider AGNES. Denies falls, but occ braces w/wall. terrain changes that are the same color, he struggles to recognize it. Past hx: likes to hike and occ run and gym. Has not done either since. Trying to get more regular w/ walking. Stamina is also a concern. denies lightheadness/ dizziness. BP is slightly high but okay. Has not returned to gym. This is the first day since not getting treatments since hospital. Tapering off kepra from surgery. Does report jaw tightness. He can't eat large sandwiches. sore after been eating. 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 Treatment Goals Patient/Caregiver Goals Wants to not walk as zigzag; dec use of support of euceda PT-OP-C Subjective Start: 01/25/24 17:51 Freq: Status: Active Protocol: Document 09/04/24 11:28 [facility] (Rec: 09/04/24 14:35 [facility] [id number]) OP-PT Subjective Patient Comments Patient Comments pt reports feels like balance is off fwd more today PT-OP-D Balance Start: 01/25/24 17:51 Freq: Status: Active Protocol: Document 08/23/24 08:20 [facility] (Rec: 08/23/24 10:50 [facility] [id number]) Balance Tests Other Other Balance Tests Performed FELIX 24 PT-OP-E Functional Tests Start: 01/25/24 17:51 Freq: Status: Active Protocol: Document 07/02/24 10:51 [facility] ([facility] 07/02/24 12:[id number] Functional Tests Functional Gait Assessment Score 25 PT-OP-F Manual Assessment Start: 01/25/24 17:51 Freq: Status: Active Protocol: Document 01/31/24 13:01 [facility] (Rec: 01/31/24 14:28 [facility] [id number]) Manual Assessments Other Manual Assessments Other Manual Assessments jaw opening deviates to L as opens; scar tissue tightness L side (pt reports some mm taken out w/surgery) PT-OP-G Mobility & Gait Start: 01/25/24 17:51 Freq: Status: Active Protocol: Document 01/31/24 13:01 [facility] (Rec: 01/31/24 14:28 [facility] [id number]) OP Gait Assessment Comments Gait Comments WBOS, lat leaning, arms slightly to sides PT-OP-M Strength Start: 01/25/24 17:51 Freq: Status: Active Protocol: Document 01/31/24 13:01 [facility] (Rec: 01/31/24 14:28 [facility] [id number]) Hip Strength Hip Manual Muscle Testing B Flexion (L2) 5 Normal External Rotation 5 Normal Internal Rotation 5 Normal Knee Strength Knee Manual Muscle Testing B Flexion (S2) 5 Normal Extension (L3) 5 Normal Ankle/Foot Strength Ankle and Foot Manual Muscle Testing B Dorsiflexion (L4) 5 Normal Plantarflexion (S1) 5 Normal Comments tested seated PT-OP-Q Treatments Start: 01/25/24 17:51 Freq: Status: Active Protocol: Document 09/04/24 11:28 [facility] (Rec: 09/04/24 14:35 [facility] [id number]) Gym Equipment Shuttle Rebound balance Exercise Details cognitive challenge Comments 1. alt august x 15 B Shuttle Balance red clips Details w/cognitive challenge Comments fwd and side : WBOS and NBOS fwd: staggered stance B Therapeutic Exercises Standing Exercises lunge Standing Exercise Name fwd Side bilateral Reps/Minutes 10 Comments rail prn Neuro Re-Education Treatment Balance Activities beam Comments lat walk over sm beam (rail prn) x8 B uneven surface Equipment carrying 10lb wt then squat to [employer] 10lb ball on lg foam pad Comments fwd walk w/talking over foam recip then up/down training steps x5 bosu Comments fwd step up then down x10 B foam Comments 1.NBOS and staggered stance EC trials B 2.tandem stance EO trials 3. squat on lg foam w/10lb med ball throw x10 SL balance Comments w/ tap to random colors called by PT (3 pt around pt ) B hurdles Equipment 6 hurdles Comments w/foam recip x8 PT-OP-T Assessment and Plan Start: 01/25/24 17:51 Freq: Status: Active Protocol: Document 09/04/24 11:28 [facility] (Rec: 09/04/24 14:35 [facility] [id number]) Physical Therapy Assessment Goals activity Short Term Goal (STG) Pt will be able to carry objects in B hands when walking in/out of the house. 08/13-if weird size stuff 08/23-only issue if they are weird wt distribution STG Duration 4 Fpc Goal (LTG) Pt will be able to reciprocate up/down stairs w/o rail when one not available. 08/13-has to go slowly 3/6-improving LTG Duration 5/6 FELIX Impairment 19 Short Term Goal (STG) Pt will improve FELIX score to no greater than 15 to show improved balance 08/13-20 08/23-24 STG Duration 09/23 Salesperson Flowers Goal (LTG) Pt will improve FELIX score to no greater than 8 to show improved balance LTG Duration 10/23 jaw Salesperson Flowers Goal (LTG) pt will be able to open jaw w/ o feeling of tightness and no more than mild deviation to L 03/12-still feels tight and has deviation L; completing exercises 04/16/24: still not able open fully and L jaw gets tight eating steak. 04/18 tightness here and there . still some deviation to L 06/04-tightenss w/deviation 07/02-jaw tightness occ, w/ deviation 08/13-tight on L and L deviation 08/23-some tightness LTG Duration 11/01 Assessment Summary Assessment pt did well with most exercises today but struggled more w/wt shifts forward with balance activities. Physical Therapy Plan Frequency and Duration Frequency of Treatment 1-2x/Week Duration of treatment (weeks) 10 Plan of Care Start Date 08/23/24 Plan of Care End Date 11/01/24 Next Visit Focus/Plan Next Note Type Treatment Note Next Visit Plan Continue use metronome and also cognitive challenge during balance
--- NOTE | 2024-09-12 12:13 | PT.OTN ---
Current Diagnoses Other specified disorders of brain (09/12/24) Physical Therapy Treatment Note PT-OP-A Visit Information Start: 01/25/24 17:51 Freq: Status: Active Protocol: Document 09/12/24 11:29 [facility] (Rec: 09/12/24 12:17 [facility] [id number]) Out-Patient Physical Therapy Visit Information Visit Information Visit Type Treatment Note Visit Start Time 11:32 Visit Stop Time 12:13 Visit Number 31 (09/27) Number of HEALTH NAVIGATOR Visits 1 Precautions Precautions *Decreased proprioception R and retro gait belt at all times, Double Vision, difficulty see uneven and change in surfaces, goyo if coloring similar. PT-OP-B Current Condition Start: 01/25/24 17:51 Freq: Status: Active Protocol: Document 01/31/24 13:01 [facility] (Rec: 01/31/24 14:28 [facility] [id number]) Current Condition History of Current Condition Onset Date october 27 Current Complaints dec balance and double vision s/p brain mass ressection w/ residual tumors History of Current Condition Pt had brain mass ressection ( frontal lobe L) on oct 28 2023 at . In September, passed out and on October 26 was able to get MRI and SAKSHI () helped her get into a neuro surgeon the next day. He was DC from hospital October 30. Reports he is feeling wobbly. Mass was cancerous. 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 He just finished radiation on Jan 22 and start chemo in one month (feb 25) through Jul then further MRIs. Double vision and wobbly. Going to see neuro-opthamologist in about 1 .5 month. Grade 3 astrocytoma. denies pain or ORTEGA. Wobby gait since surgery. Minor short term memory loss. Hard to stab things with fork. He has been DC from HOSPITAL CHIEF FINANCIAL OFFICER and OT. 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 Does better w/balance when following line. The faster he walks, the straighter he walks and more normal AGNES he has vs wider AGNES. Denies falls, but occ braces w/wall. terrain changes that are the same color, he struggles to recognize it. Past hx: likes to hike and occ run and gym. Has not done either since. Trying to get more regular w/ walking. Stamina is also a concern. denies lightheadness/ dizziness. BP is slightly high but okay. Has not returned to gym. This is the first day since not getting treatments since hospital. Tapering off kepra from surgery. Does report jaw tightness. He can't eat large sandwiches. sore after been eating. 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 PT-OP-D Balance Start: 01/25/24 17:51 Freq: Status: Active Protocol: Document 08/23/24 08:20 [facility] (Rec: 08/23/24 10:50 [facility] [id number]) Balance Tests Other Other Balance Tests Performed [facility] 24 PT-OP-E Functional Tests Start: 01/25/24 17:51 Freq: Status: Active Protocol: Document 07/02/24 10:51 [facility] (Rec: 07/02/24 12:34 [facility] [id number]) Functional Tests Functional Gait Assessment Score 25 PT-OP-F Manual Assessment Start: 01/25/24 17:51 Freq: Status: Active Protocol: Document 01/31/24 13:01 [facility] (Rec: 01/31/24 14:28 [facility] [id number]) Manual Assessments Other Manual Assessments Other Manual Assessments jaw opening deviates to L as opens; scar tissue tightness L side (pt reports some mm taken out w/surgery) PT-OP-G Mobility & Gait Start: 01/25/24 17:51 Freq: Status: Active Protocol: Document 01/31/24 13:01 [facility] (Rec: 01/31/24 14:28 [facility] [id number]) OP Gait Assessment Comments Gait Comments WBOS, lat leaning, arms slightly to sides PT-OP-M Strength Start: 01/25/24 17:51 Freq: Status: Active Protocol: Document 01/31/24 13:01 [facility] (Rec: 01/31/24 14:28 [facility] [id number]) Hip Strength Hip Manual Muscle Testing B Flexion (L2) 5 Normal External Rotation 5 Normal Internal Rotation 5 Normal Knee Strength Knee Manual Muscle Testing B Flexion (S2) 5 Normal Extension (L3) 5 Normal Ankle/Foot Strength Ankle and Foot Manual Muscle Testing B Dorsiflexion (L4) 5 Normal Plantarflexion (S1) 5 Normal Comments tested seated PT-OP-Q Treatments Start: 01/25/24 17:51 Freq: Status: Active Protocol: Document 09/12/24 11:29 [facility] (Rec: 09/12/24 12:17 [facility] [id number]) Gym Equipment Shuttle Rebound balance Exercise Details cognitive challenge Comments 1. alt august 2 min- sport teams Shuttle Balance red clips Details w/cognitive challenge (cities) Comments fwd and side : WBOS and NBOS fwd: staggered stance B End tx: balloon volley with PT AIde Therapeutic Exercises Standing Exercises lunge Standing Exercise Name fwd Side bilateral Reps/Minutes 10 Comments rail prn Neuro Re-Education Treatment Balance Activities beam Reps/Duration 4 laps Comments lat walk over lrg beam CG-Mod A through gait belt uneven surface Equipment carrying 10lb wt course, ball slam squt to molded goods spot picker 10lb ball on lg foam pad Comments fwd walk w/talking over foam/ hurdles/6 step recip then up /down training steps x5 PT-OP-T Assessment and Plan Start: 01/25/24 17:51 Freq: Status: Active Protocol: Document 09/12/24 11:29 [facility] (Rec: 09/12/24 12:17 [facility] [id number]) Physical Therapy Assessment Goals activity Short Term Goal (STG) Pt will be able to carry objects in B hands when walking in/out of the house. 08/13-if weird size stuff 08/23-only issue if they are weird wt distribution STG Duration 09/18 [facility] Goal (LTG) Pt will be able to reciprocate up/down stairs w/o rail when one not available. 08/13-has to go slowly /6-improving LTG Duration 5/6 FELIX Impairment 19 Short Term Goal (STG) Pt will improve FELIX score to no greater than 15 to show improved balance 08/13-20 08/23-24 STG Duration 4/6 Administrative Medical Director Goal (LTG) Pt will improve FELIX score to no greater than 8 to show improved balance LTG Duration 10/23 jaw Administrative Medical Director Goal (LTG) pt will be able to open jaw w/ o feeling of tightness and no more than mild deviation to L 03/12-still feels tight and has deviation L; completing exercises 04/16/24: still not able open fully and L jaw gets tight eating steak. 04/18 tightness here and there . still some deviation to L 06/04-tightenss w/deviation 07/02-jaw tightness occ, w/ deviation 08/13-tight on L and L deviation 08/23-some tightness LTG Duration 11/01 Assessment Summary Assessment Pt did well with most exerciseds, most challenging bal beam, mod A PRN LOB Lateral/fwd/bwd. Improved weighted stairs and uneven hurdles. Mod A x3 during lunges due to over wt shfit fwd, cues for keep front LE heel down, back knee bend toward floor. Physical Therapy Plan Frequency and Duration Frequency of Treatment 1-2x/Week Duration of treatment (weeks) 10 Plan of Care Start Date 08/23/24 Plan of Care End Date 11/01/24 Therapeutic Interventions Therapeutic Interventions Balance Training,Coordination Training,Gait Training,Home Exercise Program,Joint Mobilizations,Manual Therapy, Neuromuscular Re-education, Orthotic/Prosthetic Management ,Patient/Caregiver Education, Self-Care/Home Management,Soft Tissue Mobilization,Taping, Therapeutic Activities, Therapeutic Exercises Next Visit Focus/Plan Next Note Type Treatment Note Next Visit Plan Continue use metronome and also cognitive challenge during balance
--- NOTE | 2024-10-08 14:28 | PT.OTN ---
Current Diagnoses Other specified disorders of brain (10/08/24) Physical Therapy Treatment Note PT-OP-A Visit Information Start: 01/25/24 17:51 Freq: Status: Active Protocol: Document 10/08/24 13:47 SP (Rec: 10/08/24 14:30 SP Laptop) Out-Patient Physical Therapy Visit Information Visit Information Visit Type Treatment Note Visit Start Time 13:47 Visit Stop Time 14:28 Visit Number 32 (10/27) Number of COLOR SPRAYER Visits 2 Precautions Precautions *Decreased proprioception R and retro gait belt at all times, Double Vision, difficulty see uneven and change in surfaces, goyo if coloring similar. PT-OP-B Current Condition Start: 01/25/24 17:51 Freq: Status: Active Protocol: Document 01/31/24 13:01 [facility] (Rec: 01/31/24 14:28 [facility] [id number]) Current Condition History of Current Condition Onset Date october 27 Current Complaints dec balance and double vision s/p brain mass ressection w/ residual tumors History of Current Condition Pt had brain mass ressection ( frontal lobe L) on oct 28 2023 at . In September, passed out and on October 26 was able to get MRI and SAKSHI () helped her get into a neuro surgeon the next day. He was DC from hospital October 30. Reports he is feeling wobbly. Mass was cancerous. 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 He just finished radiation on Jan 22 and start chemo in one month (feb 25) through Jul then further MRIs. Double vision and wobbly. Going to see neuro-opthamologist in about 1 .5 month. Grade 3 astrocytoma. denies pain or ORTEGA. Wobby gait since surgery. Minor short term memory loss. Hard to stab things with fork. He has been DC from [employer] and OT. 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 Does better w/balance when following line. The faster he walks, the straighter he walks and more normal AGNES he has vs wider AGNES. Denies falls, but occ braces w/wall. terrain changes that are the same color, he struggles to recognize it. Past hx: likes to hike and occ run and gym. Has not done either since. Trying to get more regular w/ walking. Stamina is also a concern. denies lightheadness/ dizziness. BP is slightly high but okay. Has not returned to gym. This is the first day since not getting treatments since hospital. Tapering off kepra from surgery. Does report jaw tightness. He can't eat large sandwiches. sore after been eating. 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 Treatment Goals Patient/Caregiver Goals Wants to not walk as zigzag; dec use of support of euceda PT-OP-C Subjective Start: 01/25/24 17:51 Freq: Status: Active Protocol: Document 10/08/24 13:47 SP (Rec: 10/08/24 14:30 SP Laptop) OP-PT Subjective Patient Comments Patient Comments Pt reports was OOT to [place] and side walks was good enough challenge of gait uneven surfaces, tiring and standing rests needed for recovery. Since returned has performed low [employer] program. Had appt with for reevaluation. PT-OP-D Balance Start: 01/25/24 17:51 Freq: Status: Active Protocol: Document 08/23/24 08:20 [facility] (Rec: 08/23/24 10:50 [facility] [id number]) Balance Tests Other Other Balance Tests Performed FELIX 24 PT-OP-E Functional Tests Start: 01/25/24 17:51 Freq: Status: Active Protocol: Document 07/02/24 10:51 [facility] (Rec: 07/02/24 12:34 [facility] [id number]) Functional Tests Functional Gait Assessment Score 25 PT-OP-F Manual Assessment Start: 01/25/24 17:51 Freq: Status: Active Protocol: Document 01/31/24 13:01 [facility] (Rec: 01/31/24 14:28 [facility] [id number]) Manual Assessments Other Manual Assessments Other Manual Assessments jaw opening deviates to L as opens; scar tissue tightness L side (pt reports some mm taken out w/surgery) PT-OP-G Mobility & Gait Start: 01/25/24 17:51 Freq: Status: Active Protocol: Document 01/31/24 13:01 [facility] (Rec: 01/31/24 14:28 [facility] [id number]) OP Gait Assessment Comments Gait Comments WBOS, lat leaning, arms slightly to sides PT-OP-M Strength Start: 01/25/24 17:51 Freq: Status: Active Protocol: Document 01/31/24 13:01 [facility] (Rec: 01/31/24 14:28 [facility] [id number]) Hip Strength Hip Manual Muscle Testing B Flexion (L2) 5 Normal External Rotation 5 Normal Internal Rotation 5 Normal Knee Strength Knee Manual Muscle Testing B Flexion (S2) 5 Normal Extension (L3) 5 Normal Ankle/Foot Strength Ankle and Foot Manual Muscle Testing B Dorsiflexion (L4) 5 Normal Plantarflexion (S1) 5 Normal Comments tested seated PT-OP-Q Treatments Start: 01/25/24 17:51 Freq: Status: Active Protocol: Document 10/08/24 13:47 SP (Rec: 10/08/24 14:30 SP Laptop) Gym Equipment Shuttle Rebound balance Exercise Details cognitive challenge Reps/Duration 3 min total Comments alt august 2 min- sport teams, [facility] Shuttle Balance red clips Details HT challenge today horizontal & vertical each position Comments fwd and side : WBOS fwd: staggered stance B Lateral: WBOS Fwd: WBOS EC 5 sec End tx: balloon volley with PT AIde Neuro Re-Education Treatment Balance Activities beam Reps/Duration 4 laps Comments lat walk over lrg beam CG-Mod A through gait belt [employer] Equipment basketball (ball pass with PT Aide), CG5%Alexia COLOR SPRAYER. Reps/Duration 50 ft x2 laps, 15 ft with ball pass and added cognitive challenge Comments at times tends to have hard heel strike and sways but no LOB. carry Details 1. 10 DB 1> BU carrying 6 4 + 4 6 2. 10Lb BUE stairs and 2 uneven hurdles Equipment 1. stair mgt 2. added hurdles between sets stairs Reps/Duration 8 laps Comments 2. carry 10lb DB 1 arm up/down training stair and over 3 uneven hurdles, on and off black tpad at bottom/eachside gym stairs in [place] obstacle course x3 ea direction. CG- Min A, gadiel stepping LOB x1 recovery through uneven hurdles. Lat lean at times while wt stair mgt self touch rail vs trunk right corrections. dynamic walking Details Tandem walking fwd/bwd Surface carpet seam Comments CG<>Min/Mod fwd CG/ Min bwd PT-OP-T Assessment and Plan Start: 01/25/24 17:51 Freq: Status: Active Protocol: Document 10/08/24 13:47 SP (Rec: 10/08/24 14:30 SP Laptop) Physical Therapy Assessment Goals activity Short Term Goal (STG) Pt will be able to carry objects in B hands when walking in/out of the house. 08/13-if weird size stuff 08/23-only issue if they are weird wt distribution STG Duration 09/18 Traffic Representative Goal (LTG) Pt will be able to reciprocate up/down stairs w/o rail when one not available. 08/13-has to go slowly 08/23-improving LTG Duration 10/23 FELIX Impairment 19 Short Term Goal (STG) Pt will improve FELIX score to no greater than 15 to show improved balance 08/13-20 08/23-24 STG Duration 09/23 Detention Goal (LTG) Pt will improve FELIX score to no greater than 8 to show improved balance LTG Duration 10/23 jaw Traffic Representative Goal (LTG) pt will be able to open jaw w/ o feeling of tightness and no more than mild deviation to L 03/12-still feels tight and has deviation L; completing exercises 04/16/24: still not able open fully and L jaw gets tight eating steak. 04/18 tightness here and there . still some deviation to L 06/04-tightenss w/deviation 07/02-jaw tightness occ, w/ deviation 08/13-tight on L and L deviation 08/23-some tightness LTG Duration 11/01 Assessment Summary Assessment Pt tolerated progression shuttle balance including head turns CG/ MIn A does at times lateral lean uncontrolled support needed fwd/retro and EC but up 5 sec but was unable to complete EC in past. Better tolerance and trunk midline during resisted functional stair mgt with decrease only 1 LOB Lateral L Mod A recovery incorporating uneven gadiel stepping. Pt improvement in multitasking [place], ball pass and cognitive challenge, 1 heavy step CG/5%A required for safety stability. Tandem fwd harder than retro on floor and balance beam still a challenge fwd CG/Mod A requred . Physical Therapy Plan Frequency and Duration Frequency of Treatment 1-2x/Week Duration of treatment (weeks) 10 Plan of Care Start Date 08/23/24 Plan of Care End Date 11/01/24 Therapeutic Interventions Therapeutic Interventions Balance Training,Coordination Training,Gait Training,Home Exercise Program,Joint Mobilizations,Manual Therapy, Neuromuscular Re-education, Orthotic/Prosthetic Management ,Patient/Caregiver Education, Self-Care/Home Management,Soft Tissue Mobilization,Taping, Therapeutic Activities, Therapeutic Exercises Next Visit Focus/Plan Next Note Type Treatment Note Next Visit Plan Continue use metronome and also cognitive challenge during balance
--- NOTE | 2024-10-11 11:28 | PT.OTN ---
Current Diagnoses Other specified disorders of brain (10/11/24) Physical Therapy Treatment Note PT-OP-A Visit Information Start: 01/25/24 17:51 Freq: Status: Active Protocol: Document 10/11/24 10:46 SP (Rec: 10/11/24 12:05 SP [id number]) Out-Patient Physical Therapy Visit Information Visit Information Visit Type Treatment Note Visit Note SPTA Ankita observed tx provided by DAVID Norton with permission of pt. Visit Start Time 10:46 Visit Stop Time 11:28 Visit Number 33 (11/27) Number of TRACK LEADER Visits 3 Precautions Precautions *Decreased proprioception R and retro gait belt at all times, Double Vision, difficulty see uneven and change in surfaces, goyo if coloring similar. PT-OP-B Current Condition Start: 01/25/24 17:51 Freq: Status: Active Protocol: Document 01/31/24 13:01 [facility] (Rec: 01/31/24 14:28 [facility] [id number]) Current Condition History of Current Condition Onset Date october 27 Current Complaints dec balance and double vision s/p brain mass ressection w/ residual tumors History of Current Condition Pt had brain mass ressection ( frontal lobe L) on oct 28 2023 at . In September, passed out and on October 26 was able to get MRI and SAKSHI () helped her get into a neuro surgeon the next day. He was DC from hospital October 30. Reports he is feeling wobbly. Mass was cancerous. 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 He just finished radiation on Jan 22 and start chemo in one month (feb 25) through Jul then further MRIs. Double vision and wobbly. Going to see neuro-opthamologist in about 1 .5 month. Grade 3 astrocytoma. denies pain or ORTEGA. Wobby gait since surgery. Minor short term memory loss. Hard to stab things with fork. He has been DC from [employer] and OT. 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 Does better w/balance when following line. The faster he walks, the straighter he walks and more normal AGNES he has vs wider AGNES. Denies falls, but occ braces w/wall. terrain changes that are the same color, he struggles to recognize it. Past hx: likes to hike and occ run and gym. Has not done either since. Trying to get more regular w/ walking. Stamina is also a concern. denies lightheadness/ dizziness. BP is slightly high but okay. Has not returned to gym. This is the first day since not getting treatments since hospital. Tapering off kepra from surgery. Does report jaw tightness. He can't eat large sandwiches. sore after been eating. 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 Treatment Goals Patient/Caregiver Goals Wants to not walk as zigzag; dec use of support of euceda PT-OP-C Subjective Start: 01/25/24 17:51 Freq: Status: Active Protocol: Document 10/11/24 10:46 SP (Rec: 10/11/24 12:05 SP [id number]) OP-PT Subjective Patient Comments Patient Comments Pt reports went up to [place] to do some hiking but to much snow so just enjoyed the sights. He felt good after last tx, reported felt good challenge. PT-OP-D Balance Start: 01/25/24 17:51 Freq: Status: Active Protocol: Document 08/23/24 08:20 [facility] (Rec: 08/23/24 10:50 [facility] [id number]) Balance Tests Other Other Balance Tests Performed FELIX 24 PT-OP-E Functional Tests Start: 01/25/24 17:51 Freq: Status: Active Protocol: Document 07/02/24 10:51 [facility] (Rec: 07/02/24 12:34 [facility] [id number]) Functional Tests Functional Gait Assessment Score 25 PT-OP-F Manual Assessment Start: 01/25/24 17:51 Freq: Status: Active Protocol: Document 01/31/24 13:01 [facility] (Rec: 01/31/24 14:28 [facility] [id number]) Manual Assessments Other Manual Assessments Other Manual Assessments jaw opening deviates to L as opens; scar tissue tightness L side (pt reports some mm taken out w/surgery) PT-OP-G Mobility & Gait Start: 01/25/24 17:51 Freq: Status: Active Protocol: Document 01/31/24 13:01 [facility] (Rec: 01/31/24 14:28 [facility] [id number]) OP Gait Assessment Comments Gait Comments WBOS, lat leaning, arms slightly to sides PT-OP-M Strength Start: 01/25/24 17:51 Freq: Status: Active Protocol: Document 01/31/24 13:01 [facility] (Rec: 01/31/24 14:28 [facility] [id number]) Hip Strength Hip Manual Muscle Testing B Flexion (L2) 5 Normal External Rotation 5 Normal Internal Rotation 5 Normal Knee Strength Knee Manual Muscle Testing B Flexion (S2) 5 Normal Extension (L3) 5 Normal Ankle/Foot Strength Ankle and Foot Manual Muscle Testing B Dorsiflexion (L4) 5 Normal Plantarflexion (S1) 5 Normal Comments tested seated PT-OP-Q Treatments Start: 01/25/24 17:51 Freq: Status: Active Protocol: Document 10/11/24 10:46 SP (Rec: 10/11/24 12:05 SP [id number]) Gym Equipment Shuttle Rebound balance Exercise Details cognitive challenge Reps/Duration 4 min total Comments 1. alt august 2 min- sport teams, [facility] 2. august with balloon volley 2 min with PT Aide then added cog challenge, CG/10%A as needed, improved stability with time Neuro Re-Education Treatment Balance Activities [employer] Equipment basketball (ball pass and bounce pass with PT Aide), CG5 %A by TRACK LEADER. Reps/Duration 15 ft with pass and added cognitive challenge Comments at times tends to have hard heel strike and sways but no LOB. carry Details 1. 10 DB 1> BU carrying 6 4 + 4 6 2. 10Lb BUE stairs and 2 uneven hurdles Equipment 1. stair 4-6 stair mgt 2. hurdles and foam between sets stairs Reps/Duration 4 laps each direction Comments 2. carry 10lb DB 1 arm up/down training stair and over 3 uneven hurdles, on and off black tpad at bottom/eachside gym stairs in [place] obstacle course x4 ea direction. CG- Min A, gadiel stepping LOB x4 more R>L recovery through uneven hurdles. Lat lean at times while wt stair mgt self trunk right corrections vs rail contact recovery. uneven surface Details 1. ball march 2. ball slam 3. walk uneven mat 4 nieves Equipment 1-2. on larg mat 3. mats over pods/foam stones 4. 4-6 stairs gadiel foam Comments 3. B trek poles for assimulate beach navigation tandem Details semi > tandem Equipment ball pass & bounce pass with TRACK LEADER Aide Comments improves with reps, CG/MIn A, without>with cog challenge. PT-OP-T Assessment and Plan Start: 01/25/24 17:51 Freq: Status: Active Protocol: Document 10/11/24 10:46 SP (Rec: 10/11/24 12:05 SP [id number]) Physical Therapy Assessment Goals activity Short Term Goal (STG) Pt will be able to carry objects in B hands when walking in/out of the house. 08/13-if weird size stuff 08/23-only issue if they are weird wt distribution STG Duration 09/18 Senior Care Goal (LTG) Pt will be able to reciprocate up/down stairs w/o rail when one not available. 08/13-has to go slowly 08/23-improving LTG Duration 10/23 FELIX Impairment 19 Short Term Goal (STG) Pt will improve FELIX score to no greater than 15 to show improved balance 08/13-20 08/23- STG Duration 09/23 Counter Stitcher Goal (LTG) Pt will improve FELIX score to no greater than 8 to show improved balance LTG Duration 10/23 jaw Counter Stitcher Goal (LTG) pt will be able to open jaw w/ o feeling of tightness and no more than mild deviation to L 03/12-still feels tight and has deviation L; completing exercises 04/16/24: still not able open fully and L jaw gets tight eating steak. 04/18 tightness here and there . still some deviation to L 06/04-tightenss w/deviation 07/02-jaw tightness occ, w/ deviation 08/13-tight on L and L deviation 08/23-some tightness LTG Duration 11/01 Assessment Summary Assessment Pt improved progression uneven marching with additive balloon volley but continues to need occasional outside outside support, able to include cognitive challenge, noted decrease jet when reaching for balloon for support stability, cued for awareness to allow multitasking. Initiated uneven surface walking today with Geraldo trek poles 2-4 pt gait patterning for trail and beach navigation in community for safety support trunk midline corrections. He requires instructional cuing individual trek pole positioning vs together provides more stability. Pt was able to decreased outside support during dynamic grapevine cog challenge during passing but at times demonstrates decreased addition of alternate bwd step. Physical Therapy Plan Frequency and Duration Frequency of Treatment 1-2x/Week Duration of treatment (weeks) 10 Plan of Care Start Date 08/23/24 Plan of Care End Date 11/01/24 Therapeutic Interventions Therapeutic Interventions Balance Training,Coordination Training,Gait Training,Home Exercise Program,Joint Mobilizations,Manual Therapy, Neuromuscular Re-education, Orthotic/Prosthetic Management ,Patient/Caregiver Education, Self-Care/Home Management,Soft Tissue Mobilization,Taping, Therapeutic Activities, Therapeutic Exercises Next Visit Focus/Plan Next Note Type Treatment Note Next Visit Plan Continue use metronome during gait, include cognitive challenge during balance activities and uneven surface walking for midline trunk alignment corrections for trail and beach walking.
--- NOTE | 2024-10-17 11:30 | PT.OTN ---
Current Diagnoses Other specified disorders of brain (10/17/24) Physical Therapy Treatment Note PT-OP-A Visit Information Start: 01/25/24 17:51 Freq: Status: Active Protocol: Document 10/17/24 10:48 SP (Rec: 10/17/24 12:20 SP [id number]) Out-Patient Physical Therapy Visit Information Visit Information Visit Type Treatment Note Visit Note ONEIDA Luciano assisted physical support throughout tx with pt permission while under direct supervision/instruction by DAVID Norton. Visit Start Time 10:48 Visit Stop Time 11:30 Visit Number 34 (12/27) Number of LEAD CARGO MOVER Visits 4 Precautions Precautions *Decreased proprioception R and retro gait belt at all times, Double Vision, difficulty see uneven and change in surfaces, goyo if coloring similar. PT-OP-B Current Condition Start: 01/25/24 17:51 Freq: Status: Active Protocol: Document 01/31/24 13:01 [facility] (Rec: 01/31/24 14:28 [facility] [id number]) Current Condition History of Current Condition Onset Date october 27 Current Complaints dec balance and double vision s/p brain mass ressection w/ residual tumors History of Current Condition Pt had brain mass ressection ( frontal lobe L) on oct 28 2023 at . In September, passed out and on October 26 was able to get MRI and SAKSHI () helped her get into a neuro surgeon the next day. He was DC from hospital October 30. Reports he is feeling wobbly. Mass was cancerous. 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 He just finished radiation on Jan 22 and start chemo in one month (feb 25) through Jul then further MRIs. Double vision and wobbly. Going to see neuro-opthamologist in about 1 .5 month. Grade 3 astrocytoma. denies pain or ORTEGA. Wobby gait since surgery. Minor short term memory loss. Hard to stab things with fork. He has been DC from [employer] and OT. 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 Does better w/balance when following line. The faster he walks, the straighter he walks and more normal AGNES he has vs wider AGNES. Denies falls, but occ braces w/wall. terrain changes that are the same color, he struggles to recognize it. Past hx: likes to hike and occ run and gym. Has not done either since. Trying to get more regular w/ walking. Stamina is also a concern. denies lightheadness/ dizziness. BP is slightly high but okay. Has not returned to gym. This is the first day since not getting treatments since hospital. Tapering off kepra from surgery. Does report jaw tightness. He can't eat large sandwiches. sore after been eating. 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 Treatment Goals Patient/Caregiver Goals Wants to not walk as zigzag; dec use of support of euceda PT-OP-C Subjective Start: 01/25/24 17:51 Freq: Status: Active Protocol: Document 10/17/24 10:48 SP (Rec: 10/17/24 12:20 SP [id number]) OP-PT Subjective Patient Comments Patient Comments Pt reports doesn't have any appts scheduled and considering adding more and how progression making. PT-OP-D Balance Start: 01/25/24 17:51 Freq: Status: Active Protocol: Document 08/23/24 08:20 [facility] (Rec: 08/23/24 10:50 [facility] [id number]) Balance Tests Other Other Balance Tests Performed FELIX 24 PT-OP-E Functional Tests Start: 01/25/24 17:51 Freq: Status: Active Protocol: Document 07/02/24 10:51 [facility] (Rec: 07/02/24 12:34 [facility] [id number]) Functional Tests Functional Gait Assessment Score 25 PT-OP-F Manual Assessment Start: 01/25/24 17:51 Freq: Status: Active Protocol: Document 01/31/24 13:01 [facility] (Rec: 01/31/24 14:28 [facility] [id number]) Manual Assessments Other Manual Assessments Other Manual Assessments jaw opening deviates to L as opens; scar tissue tightness L side (pt reports some mm taken out w/surgery) PT-OP-G Mobility & Gait Start: 01/25/24 17:51 Freq: Status: Active Protocol: Document 01/31/24 13:01 [facility] (Rec: 01/31/24 14:28 [facility] [id number]) OP Gait Assessment Comments Gait Comments WBOS, lat leaning, arms slightly to sides PT-OP-M Strength Start: 01/25/24 17:51 Freq: Status: Active Protocol: Document 01/31/24 13:01 [facility] (Rec: 01/31/24 14:28 [facility] [id number]) Hip Strength Hip Manual Muscle Testing B Flexion (L2) 5 Normal External Rotation 5 Normal Internal Rotation 5 Normal Knee Strength Knee Manual Muscle Testing B Flexion (S2) 5 Normal Extension (L3) 5 Normal Ankle/Foot Strength Ankle and Foot Manual Muscle Testing B Dorsiflexion (L4) 5 Normal Plantarflexion (S1) 5 Normal Comments tested seated PT-OP-Q Treatments Start: 01/25/24 17:51 Freq: Status: Active Protocol: Document 10/17/24 10:48 SP (Rec: 10/17/24 12:20 SP [id number]) Gym Equipment Shuttle Rebound balance Exercise Details cognitive challenge Reps/Duration 4 min total Comments 1. alt august 2 min- sport teams, [facility] 2. august with balloon volley 2 min with PT Aide then added cog challenge, CG/10%A as needed, improved stability with time Shuttle Balance red clips Details HT & naming skeletal challenge today horizontal & vertical each position Reps/Duration CG/Min Comments fwd and side : WBOS fwd: staggered stance B Lateral: WBOS Fwd: WBOS EC Neuro Re-Education Treatment Balance Activities grapevine Details CGA for safety by SPTA Surface floor Equipment basketball (ball pass and bounce pass with SPTA), CG5%A by LEAD CARGO MOVER. Reps/Duration 15 ft with pass and added cognitive challenge Comments Improved stability and LE patterning while pass ball with cog challenge, but harder naming [facility] with bounce pass. no LOB uneven surface Details no AD fwd and lateral, Geraldo trek poles fwd with hurdles Equipment 2 mats over pods/foam stones then added 4hurdles Reps/Duration many laps Comments assimulate beach navigation foam Surface foam Equipment near rail, marble foam Comments Semitandem HTs with cog challenge naming types and brand vechicles, LOB to L during HT L rail and 5%A recovery. PT-OP-T Assessment and Plan Start: 01/25/24 17:51 Freq: Status: Active Protocol: Document 10/17/24 10:48 SP (Rec: 10/17/24 12:20 SP [id number]) Physical Therapy Assessment Goals activity Short Term Goal (STG) Pt will be able to carry objects in B hands when walking in/out of the house. 08/13-if weird size stuff 08/23-only issue if they are weird wt distribution STG Duration 09/18 Halfway Goal (LTG) Pt will be able to reciprocate up/down stairs w/o rail when one not available. 08/13-has to go slowly 08/23-improving LTG Duration 10/23 FELIX Impairment 19 Short Term Goal (STG) Pt will improve FELIX score to no greater than 15 to show improved balance 08/13-20 08/23-24 STG Duration 09/23 Chief Operating Officer Goal (LTG) Pt will improve FELIX score to no greater than 8 to show improved balance LTG Duration 10/23 jaw Halfway Goal (LTG) pt will be able to open jaw w/ o feeling of tightness and no more than mild deviation to L 03/12-still feels tight and has deviation L; completing exercises 04/16/24: still not able open fully and L jaw gets tight eating steak. 04/18 tightness here and there . still some deviation to L 06/04-tightenss w/deviation 07/02-jaw tightness occ, w/ deviation 08/13-tight on L and L deviation 08/23-some tightness LTG Duration 11/01 Assessment Summary Assessment Pt more balance challenge today during HTs shuttle bal and uneven surface trampoline marching with balloon volley with cognitive challenge naming vehicle types/brands, CG/Min A for over sways/LOB to L x1. He is improving coordination patterning grapevine with ball pass/ bounce, but cog challenge with bounce pass lessens recall multitask. Physical Therapy Plan Frequency and Duration Frequency of Treatment 1-2x/Week Duration of treatment (weeks) 10 Plan of Care Start Date 08/23/24 Plan of Care End Date 11/01/24 Therapeutic Interventions Therapeutic Interventions Balance Training,Coordination Training,Gait Training,Home Exercise Program,Joint Mobilizations,Manual Therapy, Neuromuscular Re-education, Orthotic/Prosthetic Management ,Patient/Caregiver Education, Self-Care/Home Management,Soft Tissue Mobilization,Taping, Therapeutic Activities, Therapeutic Exercises Next Visit Focus/Plan Next Note Type Treatment Note Next Visit Plan Recheck added more appts, see PT by 11/01 for update POC. Continue use metronome during gait, include cognitive challenge during balance activities and uneven surface walking for midline trunk alignment corrections for trail and beach walking.
--- NOTE | 2024-10-31 14:13 | PT.OTN ---
Addendum entered and electronically signed by Libia Barroso, PT 10/31/24 14:15: PT direct supervision and direction to student PT Radha Choudhury throughout session Original Note: Current Diagnoses Other specified disorders of brain (10/31/24) Physical Therapy Treatment Note PT-OP-A Visit Information Start: 01/25/24 17:51 Freq: Status: Active Protocol: Document 10/31/24 12:17 GG (Rec: 10/31/24 12:34 GG Laptop) Out-Patient Physical Therapy Visit Information Visit Information Visit Type Progress Note Visit Start Time 09:50 Visit Stop Time 10:30 Visit Number 35 (06/29) Number of MUSICAL INSTRUMENT MAKER Visits 0 PT-OP-B Current Condition Start: 01/25/24 17:51 Freq: Status: Active Protocol: Document 01/31/24 13:01 [facility] (Rec: 01/31/24 14:28 [facility] [id number]) Current Condition History of Current Condition Onset Date october 27 Current Complaints dec balance and double vision s/p brain mass ressection w/ residual tumors History of Current Condition Pt had brain mass ressection ( frontal lobe L) on oct 28 2023 at . In September, passed out and on October 26 was able to get MRI and SAKSHI () helped her get into a neuro surgeon the next day. He was DC from hospital October 30. Reports he is feeling wobbly. Mass was cancerous. 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 He just finished radiation on Jan 22 and start chemo in one month (feb 25) through Jul then further MRIs. Double vision and wobbly. Going to see neuro-opthamologist in about 1 .5 month. Grade 3 astrocytoma. denies pain or ORTEGA. Wobby gait since surgery. Minor short term memory loss. Hard to stab things with fork. He has been DC from [employer] and OT. 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 Does better w/balance when following line. The faster he walks, the straighter he walks and more normal AGNES he has vs wider AGNES. Denies falls, but occ braces w/wall. terrain changes that are the same color, he struggles to recognize it. Past hx: likes to hike and occ run and gym. Has not done either since. Trying to get more regular w/ walking. Stamina is also a concern. denies lightheadness/ dizziness. BP is slightly high but okay. Has not returned to gym. This is the first day since not getting treatments since hospital. Tapering off kepra from surgery. Does report jaw tightness. He can't eat large sandwiches. sore after been eating. 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 Treatment Goals Patient/Caregiver Goals Wants to not walk as zigzag; dec use of support of euceda PT-OP-C Subjective Start: 01/25/24 17:51 Freq: Status: Active Protocol: Document 10/31/24 12:17 GG (Rec: 10/31/24 12:34 GG Laptop) OP-PT Subjective Patient Comments Patient Comments Pt reports that he went hiking with family and had no falls but occ LOB. He notes that he did not use any poles or AD and would occ use a WBOS while navigating difficult terrain. PT-OP-D Balance Start: 01/25/24 17:51 Freq: Status: Active Protocol: Document 08/23/24 08:20 [facility] (Rec: 08/23/24 10:50 [facility] [id number]) Balance Tests Other Other Balance Tests Performed [facility] 24 PT-OP-E Functional Tests Start: 01/25/24 17:51 Freq: Status: Active Protocol: Document 10/31/24 12:17 GG (Rec: 10/31/24 12:34 GG Laptop) Functional Tests Other miniBEST Score PT-OP-F Manual Assessment Start: 01/25/24 17:51 Freq: Status: Active Protocol: Document 01/31/24 13:01 [facility] (Rec: 01/31/24 14:28 [facility] [id number]) Manual Assessments Other Manual Assessments Other Manual Assessments jaw opening deviates to L as opens; scar tissue tightness L side (pt reports some mm taken out w/surgery) PT-OP-G Mobility & Gait Start: 01/25/24 17:51 Freq: Status: Active Protocol: Document 01/31/24 13:01 [facility] (Rec: 01/31/24 14:28 [facility] [id number]) OP Gait Assessment Comments Gait Comments WBOS, lat leaning, arms slightly to sides PT-OP-M Strength Start: 01/25/24 17:51 Freq: Status: Active Protocol: Document 01/31/24 13:01 [facility] (Rec: 01/31/24 14:28 [facility] [id number]) Hip Strength Hip Manual Muscle Testing B Flexion (L2) 5 Normal External Rotation 5 Normal Internal Rotation 5 Normal Knee Strength Knee Manual Muscle Testing B Flexion (S2) 5 Normal Extension (L3) 5 Normal Ankle/Foot Strength Ankle and Foot Manual Muscle Testing B Dorsiflexion (L4) 5 Normal Plantarflexion (S1) 5 Normal Comments tested seated PT-OP-Q Treatments Start: 01/25/24 17:51 Freq: Status: Active Protocol: Document 10/31/24 12:17 GG (Rec: 10/31/24 12:34 GG Laptop) Gym Equipment Shuttle Balance red clips Details math problems and counting bkwds by selected number Reps/Duration CGA Comments fwd and lateral: WBOS, NBOS, staggered stance Neuro Re-Education Treatment Balance Activities firm Comments 1. NBOS EC 2. tandem EC 3. SL EC foam Comments 1. NBOS EC PT-OP-T Assessment and Plan Start: 01/25/24 17:51 Freq: Status: Active Protocol: Document 10/31/24 12:17 GG (Rec: 10/31/24 12:34 GG Laptop) Physical Therapy Assessment Goals activity Short Term Goal (STG) Pt will be able to carry objects in B hands when walking in/out of the house. 08/13-if weird size stuff 08/23-only issue if they are weird wt distribution 10/31-able to w/ occ feelings of being off-balance STG Duration 12/07 Content Checker Goal (LTG) Pt will be able to reciprocate up/down stairs w/o rail when one not available. 08/13-has to go slowly 08/23-improving 10/31- is able to w/ slowed gait LTG Duration 12/26 FELIX Impairment 19 Short Term Goal (STG) Pt will improve FELIX score to no greater than 15 to show improved balance 08/13-20 08/23-24 10/31-cont difficulty DC goal STG Duration 09/23 Content Checker Goal (LTG) Pt will improve FELIX score to no greater than 8 to show improved balance 10/31-cont difficulty DC goal LTG Duration 5 jaw Content Checker Goal (LTG) pt will be able to open jaw w/ o feeling of tightness and no more than mild deviation to L 03/12-still feels tight and has deviation L; completing exercises 04/16/24: still not able open fully and L jaw gets tight eating steak. 04/18 tightness here and there . still some deviation to L 06/04-tightenss w/deviation 07/02-jaw tightness occ, w/ deviation 08/13-tight on L and L deviation 08/23-some tightness 10/31-no change; pt has jaw exercises LTG Duration 12/26 Assessment Summary Assessment Pt tolerated balance challenges well, but still experiences LOB with more difficult activities including , EC, SL, and reactive balance . Pt required CGA to prevent falls with some activities. He demonstrated increased LOB as fatigue increased while working on balance. He is doing well in dynamic gait and balance activities, but continues to struggle with maintaining static positions such as SL and tandem stances. Despite outcome measure testing he continues to struggle with balance during everyday activities which increasing risk of falls and injury. Pt will continue to benefit from skilled PT to practice balance activities that integrate his everyday tasks. Physical Therapy Plan Frequency and Duration Frequency of Treatment 1-2x/Week Duration of treatment (weeks) 8 Plan of Care Start Date 10/31/24 Plan of Care End Date 12/26/24 Therapeutic Interventions Therapeutic Interventions Balance Training,Coordination Training,Gait Training,Home Exercise Program,Joint Mobilizations,Manual Therapy, Neuromuscular Re-education, Orthotic/Prosthetic Management ,Patient/Caregiver Education, Self-Care/Home Management,Soft Tissue Mobilization,Taping, Therapeutic Activities, Therapeutic Exercises Next Visit Focus/Plan Next Note Type Treatment Note Next Visit Plan test HiMAT, incorporate more difficult balance exercises to HEP that can be done safely.
--- NOTE | 2024-11-05 14:27 | PT.OTN ---
Current Diagnoses Other specified disorders of brain (11/05/24) Physical Therapy Treatment Note PT-OP-A Visit Information Start: 01/25/24 17:51 Freq: Status: Active Protocol: Document 11/05/24 13:46 PG (Rec: 11/05/24 15:03 PG Laptop) Out-Patient Physical Therapy Visit Information Visit Information Visit Type Treatment Note Visit Note ONEIDA Luciano led tx with pt permission while under direct supervision by DAVID Norton. Visit Start Time 13:46 Visit Stop Time 14:27 Visit Number 36 (07/30) Number of LIVESTOCK BUYER Visits 1 Precautions Precautions *Decreased proprioception R and retro gait belt at all times, Double Vision, difficulty see uneven and change in surfaces, goyo if coloring similar. PT-OP-B Current Condition Start: 01/25/24 17:51 Freq: Status: Active Protocol: Document 01/31/24 13:01 [facility] (Rec: 01/31/24 14:28 [facility] [id number]) Current Condition History of Current Condition Onset Date october 27 Current Complaints dec balance and double vision s/p brain mass ressection w/ residual tumors History of Current Condition Pt had brain mass ressection ( frontal lobe L) on oct 28 2023 at . In September, passed out and on October 26 was able to get MRI and SAKSHI () helped her get into a neuro surgeon the next day. He was DC from hospital October 30. Reports he is feeling wobbly. Mass was cancerous. 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 He just finished radiation on Jan 22 and start chemo in one month (feb 25) through Jul then further MRIs. Double vision and wobbly. Going to see neuro-opthamologist in about 1 .5 month. Grade 3 astrocytoma. denies pain or ORTEGA. Wobby gait since surgery. Minor short term memory loss. Hard to stab things with fork. 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 Does better w/balance when following line. The faster he walks, the straighter he walks and more normal AGNES he has vs wider AGNES. Denies falls, but occ braces w/wall. terrain changes that are the same color, he struggles to recognize it. Past hx: likes to hike and occ run and gym. Has not done either since. Trying to get more regular w/ walking. Stamina is also a concern. denies lightheadness/ dizziness. BP is slightly high but okay. Has not returned to gym. This is the first day since not getting treatments since hospital. Tapering off kepra from surgery. Does report jaw tightness. He can't eat large sandwiches. sore after been eating. 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 Treatment Goals Patient/Caregiver Goals Wants to not walk as zigzag; dec use of support of euceda PT-OP-C Subjective Start: 01/25/24 17:51 Freq: Status: Active Protocol: Document 11/05/24 13:44 PG (Rec: 11/05/24 15:03 PG Laptop) OP-PT Subjective Patient Comments Patient Comments [place] walking, no more then 1.5 miles each time, with family around. Went on worn trails, that are fairly tame. Roots and rocks created tough challenge = WBOS, slow gait. PT-OP-D Balance Start: 01/25/24 17:51 Freq: Status: Active Protocol: Document 08/23/24 08:20 LR (Rec: 08/23/24 10:50 [facility] [id number]) Balance Tests Other Other Balance Tests Performed [facility] PT-OP-E Functional Tests Start: 01/25/24 17:51 Freq: Status: Active Protocol: Document 10/31/24 12:17 GG (Rec: 10/31/24 12:34 GG Laptop) Functional Tests Other miniBEST Score PT-OP-F Manual Assessment Start: 01/25/24 17:51 Freq: Status: Active Protocol: Document 01/31/24 13:01 [facility] (Rec: 01/31/24 14:28 [facility] [id number]) Manual Assessments Other Manual Assessments Other Manual Assessments jaw opening deviates to L as opens; scar tissue tightness L side (pt reports some mm taken out w/surgery) PT-OP-G Mobility & Gait Start: 01/25/24 17:51 Freq: Status: Active Protocol: Document 01/31/24 13:01 [facility] (Rec: 01/31/24 14:28 [facility] [id number]) OP Gait Assessment Comments Gait Comments WBOS, lat leaning, arms slightly to sides PT-OP-M Strength Start: 01/25/24 17:51 Freq: Status: Active Protocol: Document 01/31/24 13:01 [facility] (Rec: 01/31/24 14:28 [facility] [id number]) Hip Strength Hip Manual Muscle Testing B Flexion (L2) 5 Normal External Rotation 5 Normal Internal Rotation 5 Normal Knee Strength Knee Manual Muscle Testing B Flexion (S2) 5 Normal Extension (L3) 5 Normal Ankle/Foot Strength Ankle and Foot Manual Muscle Testing B Dorsiflexion (L4) 5 Normal Plantarflexion (S1) 5 Normal Comments tested seated PT-OP-Q Treatments Start: 01/25/24 17:51 Freq: Status: Active Protocol: Document 11/05/24 13:44 PG (Rec: 11/05/24 15:03 PG Laptop) Therapeutic Exercises Standing Exercises lunge Standing Exercise Name fwd Side bilateral Equipment Used within // bars, minimal UE support Reps/Minutes x10 each Comments cues for wider AGNES for improved stability, CGA Neuro Re-Education Treatment Balance Activities Corner Balance Details NBOS, staggered, tandem, with head nods and EO/EC Surface floor Equipment chair, wall corner Reps/Duration 30 seconds each Comments Cued for core engagement, shoulder retraction. Provided pt with CGA only. Added NBOS and staggered stance in corner with chair in front to HEP ( EO and head nods only). SL balance Details Modified SLS, head nods: 1LE on floor, 1LE lightly touches basketball Surface floor Equipment basketball Reps/Duration 2x each leg Comments CGA, cued for arms at side, core stability, slower head nods hurdles Details Hurdles w/ foam fwrd and lateral Reps/Duration // bar length 5x back and form (fwd), 2x (lat) Comments Cues to slow pace, motor plan for foot placement in the middle of foam pads. Pt's foot clipped gadiel 1-2x. CG - 5%A PT-OP-T Assessment and Plan Start: 01/25/24 17:51 Freq: Status: Active Protocol: Document 11/05/24 13:44 PG (Rec: 11/05/24 15:03 PG Laptop) Physical Therapy Assessment Goals activity Short Term Goal (STG) Pt will be able to carry objects in B hands when walking in/out of the house. 08/13-if weird size stuff 08/23-only issue if they are weird wt distribution 10/31-able to w/ occ feelings of being off-balance STG Duration 12/07 Instrument Tech Goal (LTG) Pt will be able to reciprocate up/down stairs w/o rail when one not available. 08/13-has to go slowly /-improving 10/31- is able to w/ slowed gait LTG Duration 12/26 jaw Instrument Tech Goal (LTG) pt will be able to open jaw w/ o feeling of tightness and no more than mild deviation to L 03/12-still feels tight and has deviation L; completing exercises 04/16/24: still not able open fully and L jaw gets tight eating steak. 04/18 tightness here and there . still some deviation to L 06/04-tightenss w/deviation 07/02-jaw tightness occ, w/ deviation 08/13-tight on L and L deviation 08/23-some tightness 10/31-no change; pt has jaw exercises LTG Duration 12/26 Assessment Summary Assessment Added static balance challenges safe for HEP with corner set up. Pt was able to complete NBOS, staggered stance and tandem for at least 15 seconds each with head nods and EO/EC w/ CGA only. Pt will perform NBOS and staggered stance with EO and head nods at home with safe corner set up. Incorporated lunges for balance challenge and to trial for HEP, pt did not feel comfortable doing so at home at this time. Required cues to widen AGNES for improved stability, has increased difficulty with left foot forward. Continued working on hurdles w/ foam to work on increased time in SLS and uneven terrain. Pt demonstrated difficulty with motor planning foot placement on foam. With cues to slow pace and aim to step in the middle of the foam, pt was able to demonstrate improved stability with gadiel walking. Physical Therapy Plan Frequency and Duration Frequency of Treatment 1-2x/Week Duration of treatment (weeks) 8 Plan of Care Start Date 10/31/24 Plan of Care End Date 12/26/24 Therapeutic Interventions Therapeutic Interventions Balance Training,Coordination Training,Gait Training,Home Exercise Program,Joint Mobilizations,Manual Therapy, Neuromuscular Re-education, Orthotic/Prosthetic Management ,Patient/Caregiver Education, Self-Care/Home Management,Soft Tissue Mobilization,Taping, Therapeutic Activities, Therapeutic Exercises Next Visit Focus/Plan Next Note Type Treatment Note Next Visit Plan Next: review HEP - corner balance NBOS and staggered stance with head nods, add foam? test HiMAT, incorporate more difficult balance exercises to HEP that can be done safely.
--- NOTE | 2024-11-14 17:30 | PT.OTN ---
Addendum entered and electronically signed by Libia Barroso, PT 11/19/24 09:22: PT direct supervision and direction to student PT Radha Choudhury throughout session Original Note: Current Diagnoses Other specified disorders of brain (11/14/24) Physical Therapy Treatment Note PT-OP-A Visit Information Start: 01/25/24 17:51 Freq: Status: Active Protocol: Document 11/14/24 17:30 GG (Rec: 11/15/24 08:02 GG Laptop) Out-Patient Physical Therapy Visit Information Visit Information Visit Type Treatment Note Visit Start Time 16:17 Visit Stop Time 17:00 Visit Number 36 (08/27) Number of MEDICAL INSURANCE BILLER Visits 0 PT-OP-B Current Condition Start: 01/25/24 17:51 Freq: Status: Active Protocol: Document 01/31/24 13:01 [facility] (Rec: 01/31/24 14:28 [facility] [id number]) Current Condition History of Current Condition Onset Date october 27 Current Complaints dec balance and double vision s/p brain mass ressection w/ residual tumors History of Current Condition Pt had brain mass ressection ( frontal lobe L) on oct 28 2023 at . In September, passed out and on October 26 was able to get MRI and SAKSHI () helped her get into a neuro surgeon the next day. He was DC from hospital October 30. Reports he is feeling wobbly. Mass was cancerous. 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 He just finished radiation on Jan 22 and start chemo in one month (feb 25) through Jul then further MRIs. Double vision and wobbly. Going to see neuro-opthamologist in about 1 .5 month. Grade 3 astrocytoma. denies pain or ORTEGA. Wobby gait since surgery. Minor short term memory loss. Hard to stab things with fork. 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 Does better w/balance when following line. The faster he walks, the straighter he walks and more normal AGNES he has vs wider AGNES. Denies falls, but occ braces w/wall. terrain changes that are the same color, he struggles to recognize it. Past hx: likes to hike and occ run and gym. Has not done either since. Trying to get more regular w/ walking. Stamina is also a concern. denies lightheadness/ dizziness. BP is slightly high but okay. Has not returned to gym. This is the first day since not getting treatments since hospital. Tapering off kepra from surgery. Does report jaw tightness. He can't eat large sandwiches. sore after been eating. 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 Treatment Goals Patient/Caregiver Goals Wants to not walk as zigzag; dec use of support of euceda PT-OP-C Subjective Start: 01/25/24 17:51 Freq: Status: Active Protocol: Document 11/14/24 17:30 GG (Rec: 11/15/24 08:02 GG Laptop) OP-PT Subjective Patient Comments Patient Comments Pt reports that HEP is going well at home, including the corner balance that was added last appt. PT-OP-D Balance Start: 01/25/24 17:51 Freq: Status: Active Protocol: Document 08/23/24 08:20 [facility] (Rec: 08/23/24 10:50 [facility] [id number]) Balance Tests Other Other Balance Tests Performed [facility]ELIX 24 PT-OP-E Functional Tests Start: 01/25/24 17:51 Freq: Status: Active Protocol: Document 11/14/24 17:30 GG (Rec: 11/15/24 08:02 GG Laptop) Functional Tests Other HiMAT Score 29/54 PT-OP-F Manual Assessment Start: 01/25/24 17:51 Freq: Status: Active Protocol: Document 01/31/24 13:01 [facility] (Rec: 01/31/24 14:28 [facility] [id number]) Manual Assessments Other Manual Assessments Other Manual Assessments jaw opening deviates to L as opens; scar tissue tightness L side (pt reports some mm taken out w/surgery) PT-OP-G Mobility & Gait Start: 01/25/24 17:51 Freq: Status: Active Protocol: Document 01/31/24 13:01 [facility] (Rec: 01/31/24 14:28 [facility] [id number]) OP Gait Assessment Comments Gait Comments WBOS, lat leaning, arms slightly to sides PT-OP-M Strength Start: 01/25/24 17:51 Freq: Status: Active Protocol: Document 01/31/24 13:01 [facility] (Rec: 01/31/24 14:28 [facility] [id number]) Hip Strength Hip Manual Muscle Testing B Flexion (L2) 5 Normal External Rotation 5 Normal Internal Rotation 5 Normal Knee Strength Knee Manual Muscle Testing B Flexion (S2) 5 Normal Extension (L3) 5 Normal Ankle/Foot Strength Ankle and Foot Manual Muscle Testing B Dorsiflexion (L4) 5 Normal Plantarflexion (S1) 5 Normal Comments tested seated PT-OP-Q Treatments Start: 01/25/24 17:51 Freq: Status: Active Protocol: Document 11/14/24 17:30 GG (Rec: 11/15/24 08:02 GG Laptop) Neuro Re-Education Treatment Balance Activities jumps Details HiMAT testing Comments 1. SL fwd hop (2x10m) SBA 2. SL jump for distance (x3 B) dynamic walking Details HiMAT testing Reps/Duration 2x20m ea Comments 1. fwd/bkwd 2. toe walk 3. over obstacle 4. run 5. skipping foam Details reformer ball toss on large blue mat; fwd/lat Equipment green weighted ball Reps/Duration x20 ea hurdles Details hurdles w/ foam fwd against rail Equipment 5 hurdles Reps/Duration 6 laps Comments CGA Coordination Activities stairs Reps/Duration 14 steps x2 up/down Comments no rail use, SBA PT-OP-T Assessment and Plan Start: 01/25/24 17:51 Freq: Status: Active Protocol: Document 11/14/24 17:30 GG (Rec: 11/15/24 08:02 GG Laptop) Physical Therapy Assessment Goals activity Short Term Goal (STG) Pt will be able to carry objects in B hands when walking in/out of the house. 08/13-if weird size stuff 08/23-only issue if they are weird wt distribution 10/31-able to w/ occ feelings of being off-balance STG Duration 12/07 Correction Goal (LTG) Pt will be able to reciprocate up/down stairs w/o rail when one not available. 08/13-has to go slowly 6-improving 10/31- is able to w/ slowed gait LTG Duration 12/26 jaw Nuclear Plant Construction Worker Goal (LTG) pt will be able to open jaw w/ o feeling of tightness and no more than mild deviation to L 03/12-still feels tight and has deviation L; completing exercises 04/16/24: still not able open fully and L jaw gets tight eating steak. 04/18 tightness here and there . still some deviation to L 06/04-tightenss w/deviation 07/02-jaw tightness occ, w/ deviation 08/13-tight on L and L deviation 08/23-some tightness 10/31-no change; pt has jaw exercises LTG Duration 12/26 Assessment Summary Assessment Pt performed HiMAT testing which showed deficits in coordination and movement strategies w/ more complex activities such as, jumping and skipping. Pt will cont to benefit from PT to improve coordination skills and agility with complex tasks to become more successful when participating in ADLs and other activities, including hiking. Pt also required occ assist w/ regaining balance to prevent falls during todays session. Showed increased LOB w/ head and trunk turning during ball toss which will cont to be worked on at future appts for improved hand-eye coordination during dynamic and static activities. Physical Therapy Plan Frequency and Duration Frequency of Treatment 1-2x/Week Duration of treatment (weeks) 8 Plan of Care Start Date 10/31/24 Plan of Care End Date 12/26/24 Therapeutic Interventions Therapeutic Interventions Balance Training,Coordination Training,Gait Training,Home Exercise Program,Joint Mobilizations,Manual Therapy, Neuromuscular Re-education, Orthotic/Prosthetic Management ,Patient/Caregiver Education, Self-Care/Home Management,Soft Tissue Mobilization,Taping, Therapeutic Activities, Therapeutic Exercises Next Visit Focus/Plan Next Note Type Treatment Note Next Visit Plan Next: corner balance NBOS and staggered stance with head nods, add foam? dynamic balance exercises w/ dual-tasking (carrying, head turns, etc.), agility work
--- NOTE | 2024-11-29 16:54 | PT.OPPOC ---
Physical, Occupational & Speech Therapy At [facility] Current Diagnoses Other specified disorders of brain (11/29/24) Visit Care Team Role Provider Type Dany Moore DO Attending Provider Physician Family Provider Primary Care Provider Referring Provider Specialty: Family Practice Address: [address] [place] [address], [address], [address] Email: [email or web address] Plan Of Care PT-OP-B Current Condition Start: 01/25/24 17:51 Freq: Status: Active Protocol: Document 01/31/24 13:01 [facility] (Rec: 01/31/24 14:28 [facility] [id number]) Current Condition History of Current Condition Onset Date october 27 Current Complaints dec balance and double vision s/p brain mass ressection w/residual tumors History of Current Pt had brain mass ressection (frontal lobe L) on october 27 Condition 2023 at . In September, passed out and on October 26 was able to get MRI and SAKSHI () helped her get into a neuro surgeon the next day. He was DC from hospital October 30. Reports he is feeling wobbly. Mass was cancerous. 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 He just finished radiation on Jan 22 and start chemo in one month (feb 25) through Jul then further MRIs. Double vision and wobbly. Going to see neuro-opthamologist in about 1.5 month. Grade 3 astrocytoma. denies pain or ORTEGA. Wobby gait since surgery. Minor short term memory loss. Hard to stab things with fork. He has been DC from PANTOGRAPH MACHINE SET UP OPERATOR and OT. 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 Does better w/balance when following line. The faster he walks, the straighter he walks and more normal AGNES he has vs wider AGNES. Denies falls, but occ braces w/wall. terrain changes that are the same color, he struggles to recognize it. Past hx: likes to hike and occ run and gym. Has not done either since. Trying to get more regular w/walking. Stamina is also a concern. denies lightheadness/dizziness. BP is slightly high but okay. Has not returned to gym. This is the first day since not getting treatments since hospital. Tapering off kepra from surgery. Does report jaw tightness. He can't eat large sandwiches. sore after been eating. 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 Treatment Goals Patient/Caregiver Wants to not walk as zigzag; dec use of support of Goals euceda PT-OP-T Assessment and Plan Start: 01/25/24 17:51 Freq: Status: Active Protocol: Document 11/29/24 13:52 GG (Rec: 11/29/24 15:03 GG [id number]) Physical Therapy Assessment Goals HiMAT Hotel Server Goal (LTG) Pt will be able to increase scoring by at least 4 points to show a minimal detectable change. LTG Duration 01/24/25 activity Short Term Goal (STG Pt will be able to carry objects in B hands when ) walking in/out of the house. 08/13-if weird size stuff 08/23-only issue if they are weird wt distribution 10/31-able to w/ occ feelings of being off-balance STG Duration 11/29 - achieved; does well w/ short distances [facility] Goal (LTG) Pt will be able to reciprocate up/down stairs w/o rail when one not available. 08/13-has to go slowly 08/23-improving 10/31- is able to w/ slowed gait 11/29 - no change LTG Duration 12/26 jaw [facility]ci Goal (LTG) pt will be able to open jaw w/o feeling of tightness and no more than mild deviation to L 03/12-still feels tight and has deviation L; completing exercises 04/16/24: still not able open fully and L jaw gets tight eating steak. 04/18 tightness here and there. still some deviation to L 06/04-tightenss w/deviation 07/02-jaw tightness occ, w/deviation 08/13-tight on L and L deviation 08/23-some tightness 10/31-no change; pt has jaw exercises LTG Duration 12/26 Assessment Summary Assessment Pt showed improved reactive balance and good stepping strategies to recover from slight LOB. Performed static /dynamic walking activities w/ occ intervention to prevent falls. Demonstrated better hand-eye coordinated w/ more successful catches during reformer toss. Pt will cont to benefit from PT to work on coordination skills during dynamic activities. Physical Therapy Plan Frequency and Duration Frequency of 1-2x/Week Treatment Duration of 8 treatment (weeks) Plan of Care Start 11/29/24 Plan of Care End 01/24/25 Date Therapeutic Interventions Therapeutic Balance Training,Coordination Training,Gait Training, Interventions Home Exercise Program,Joint Mobilizations,Manual Therapy,Neuromuscular Re-education,Orthotic/Prosthetic Management,Patient/Caregiver Education,Self-Care/Home Management,Soft Tissue Mobilization,Taping,Therapeutic Activities,Therapeutic Exercises Next Visit Focus/Plan Next Note Type Treatment Note Next Visit Plan Next: corner balance NBOS and staggered stance with head nods, add foam? dynamic balance exercises w/ dual-tasking (carrying, head turns, etc.), agility work (reactive, coordination ), bal beam, adding ankle weights? Plan of Care Dates Plan of Care Start Date 11/29/24 Plan of Care End Date 01/24/25 Electronically Signed by: Radah Choudhury 11/29/24 [id number] If you are in agreement with this Plan of Care, please return a signed and dated copy. I have reviewed this Plan of Care and certify that the skilled therapy services above are required to meet the patient?s needs. Physician Signature Date Printed Name and Credentials Clinical Instructor Signature Printed Name and Credentials
--- NOTE | 2024-11-29 16:55 | PT.OTN ---
Addendum entered and electronically signed by Libia Barroso, PT 12/03/24 09:34: PT direct supervision and direction to student PT Radha Choudhury throughout session Original Note: Current Diagnoses Other specified disorders of brain (11/29/24) Physical Therapy Treatment Note PT-OP-A Visit Information Start: 01/25/24 17:51 Freq: Status: Active Protocol: Document 11/29/24 13:52 GG (Rec: 11/29/24 15:03 GG [id number]) Out-Patient Physical Therapy Visit Information Visit Information Visit Type Progress Note Visit Start Time 13:52 Visit Stop Time 14:34 Visit Number 37 (09/27) Number of DEDICATED REGIONAL DRIVER Visits 0 PT-OP-B Current Condition Start: 01/25/24 17:51 Freq: Status: Active Protocol: Document 01/31/24 13:01 [facility] (Rec: 01/31/24 14:28 [facility] [id number]) Current Condition History of Current Condition Onset Date october 27 Current Complaints dec balance and double vision s/p brain mass ressection w/residual tumors History of Current Pt had brain mass ressection (frontal lobe L) on october 27 Condition 2023 at . In September, passed out and on October 26 was able to get MRI and SAKSHI () helped her get into a neuro surgeon the next day. He was DC from hospital October 30. Reports he is feeling wobbly. Mass was cancerous. 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 He just finished radiation on Jan 22 and start chemo in one month (feb 25) through Jul then further MRIs. Double vision and wobbly. Going to see neuro-opthamologist in about 1.5 month. Grade 3 astrocytoma. denies pain or ORTEGA. Wobby gait since surgery. Minor short term memory loss. Hard to stab things with fork. He has been DC from TELECOMMUNICATIONS EQUIPMENT INSTALLER and OT. 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 Does better w/balance when following line. The faster he walks, the straighter he walks and more normal AGNES he has vs wider AGNES. Denies falls, but occ braces w/wall. terrain changes that are the same color, he struggles to recognize it. Past hx: likes to hike and occ run and gym. Has not done either since. Trying to get more regular w/walking. Stamina is also a concern. denies lightheadness/dizziness. BP is slightly high but okay. Has not returned to gym. This is the first day since not getting treatments since hospital. Tapering off kepra from surgery. Does report jaw tightness. He can't eat large sandwiches. sore after been eating. 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 Treatment Goals Patient/Caregiver Wants to not walk as zigzag; dec use of support of Goals euceda PT-OP-C Subjective Start: 01/25/24 17:51 Freq: Status: Active Protocol: Document 11/29/24 13:52 GG (Rec: 11/29/24 15:03 GG [id number]) OP-PT Subjective Patient Comments Patient Comments Pt reports that things are going well, has not gone hiking since last appt. PT-OP-D Balance Start: 01/25/24 17:51 Freq: Status: Active Protocol: Document 08/23/24 08:20 LR (Rec: 08/23/24 10:50 [facility] [id number]) Balance Tests Other Other Balance Tests FELIX 24 Performed PT-OP-E Functional Tests Start: 01/25/24 17:51 Freq: Status: Active Protocol: Document 11/14/24 17:30 GG (Rec: 11/15/24 08:02 GG Laptop) Functional Tests Other HiMAT Score 29/54 PT-OP-F Manual Assessment Start: 01/25/24 17:51 Freq: Status: Active Protocol: Document 01/31/24 13:01 [facility] (Rec: 01/31/24 14:28 [facility] [id number]) Manual Assessments Other Manual Assessments Other Manual jaw opening deviates to L as opens; scar tissue Assessments tightness L side (pt reports some mm taken out w/ surgery) PT-OP-G Mobility & Gait Start: 01/25/24 17:51 Freq: Status: Active Protocol: Document 01/31/24 13:01 [facility] (Rec: 01/31/24 14:28 [facility] [id number]) OP Gait Assessment Comments Gait Comments WBOS, lat leaning, arms slightly to sides PT-OP-M Strength Start: 01/25/24 17:51 Freq: Status: Active Protocol: Document 01/31/24 13:01 [facility] (Rec: 01/31/24 14:28 [facility] [id number]) Hip Strength Hip Manual Muscle Testing B Flexion (L2) 5 Normal External Rotation 5 Normal Internal Rotation 5 Normal Knee Strength Knee Manual Muscle Testing B Flexion (S2) 5 Normal Extension (L3) 5 Normal Ankle/Foot Strength Ankle and Foot Manual Muscle Testing B Dorsiflexion (L4) 5 Normal Plantarflexion (S1) 5 Normal Comments tested seated PT-OP-Q Treatments Start: 01/25/24 17:51 Freq: Status: Active Protocol: Document 11/29/24 13:52 GG (Rec: 11/29/24 15:03 GG [id number]) Neuro Re-Education Treatment Balance Activities jumps Details fwd, zigzag Reps/Duration 2x20ft Comments CGA firm Details reactive balance pulling fwd/lat w/ pool noodle Comments WBOS, NBOS, staggered (wide and narrow) CGA uneven surface Details obstacle course Equipment pods, tilt board, tpads; under wrestling mat Comments 1. 6 laps walking (2 laps w/ holding weights) 2. 4 laps marching CGA dynamic walking Reps/Duration 65ft ea Comments 1. fwd, fwd w/ head turns (up/down and L/R), lateral, walking w/ weights in hands CGA foam Details reformer ball toss on marble foam Equipment red weighted ball (1kg) Reps/Duration x20 ea Comments staggered stance CGA PT-OP-T Assessment and Plan Start: 01/25/24 17:51 Freq: Status: Active Protocol: Document 11/29/24 13:52 GG (Rec: 11/29/24 15:03 GG [id number]) Physical Therapy Assessment Goals HiMAT Acid Recovery Operator Goal (LTG) Pt will be able to increase scoring by at least 4 points to show a minimal detectable change. LTG Duration 01/24/25 activity Short Term Goal (STG Pt will be able to carry objects in B hands when ) walking in/out of the house. 08/13-if weird size stuff 08/23-only issue if they are weird wt distribution 10/31-able to w/ occ feelings of being off-balance STG Duration 11/29 - achieved; does well w/ short distances Snf Goal (LTG) Pt will be able to reciprocate up/down stairs w/o rail when one not available. 08/13-has to go slowly 08/23-improving 10/31- is able to w/ slowed gait 11/29 - no change LTG Duration 12/26 jaw Snf Goal (LTG) pt will be able to open jaw w/o feeling of tightness and no more than mild deviation to L 03/12-still feels tight and has deviation L; completing exercises 04/16/24: still not able open fully and L jaw gets tight eating steak. 04/18 tightness here and there. still some deviation to L 06/04-tightenss w/deviation 07/02-jaw tightness occ, w/deviation 08/13-tight on L and L deviation 08/23-some tightness 10/31-no change; pt has jaw exercises LTG Duration 12/26 Assessment Summary Assessment Pt showed improved reactive balance and good stepping strategies to recover from slight LOB. Performed static /dynamic walking activities w/ occ intervention to prevent falls. Demonstrated better hand-eye coordinated w/ more successful catches during reformer toss. Pt will cont to benefit from PT to work on coordination skills during dynamic activities. Physical Therapy Plan Frequency and Duration Frequency of 1-2x/Week Treatment Duration of 8 treatment (weeks) Plan of Care Start 11/29/24 Date Plan of Care End 01/24/25 Date Therapeutic Interventions Therapeutic Balance Training,Coordination Training,Gait Training, Interventions Home Exercise Program,Joint Mobilizations,Manual Therapy,Neuromuscular Re-education,Orthotic/Prosthetic Management,Patient/Caregiver Education,Self-Care/Home Management,Soft Tissue Mobilization,Taping,Therapeutic Activities,Therapeutic Exercises Next Visit Focus/Plan Next Note Type Treatment Note Next Visit Plan Next: corner balance NBOS and staggered stance with head nods, add foam? dynamic balance exercises w/ dual-tasking (carrying, head turns, etc.), agility work (reactive, coordination ), bal beam, adding ankle weights?
--- NOTE | 2024-12-05 10:30 | PT.OTN ---
Current Diagnoses Other specified disorders of brain (12/05/24) Physical Therapy Treatment Note PT-OP-A Visit Information Start: 01/25/24 17:51 Freq: Status: Active Protocol: Document 12/05/24 09:47 SP (Rec: 12/05/24 10:34 SP [id number]) Out-Patient Physical Therapy Visit Information Visit Information Visit Type Treatment Note Visit Start Time 09:47 Visit Stop Time 10:30 Visit Number 38 (10/27) Number of HYDRAULIC PLUMBER HELPER Visits 1 Precautions Precautions *Decreased proprioception R and retro gait belt at all times, Double Vision, difficulty see uneven and change in surfaces, goyo if coloring similar. PT-OP-B Current Condition Start: 01/25/24 17:51 Freq: Status: Active Protocol: Document 01/31/24 13:01 [facility] (Rec: 01/31/24 14:28 [facility] [id number]) Current Condition History of Current Condition Onset Date october 27 Current Complaints dec balance and double vision s/p brain mass ressection w/residual tumors History of Current Pt had brain mass ressection (frontal lobe L) on october 27 Condition 2023 at . In September, passed out and on October 26 was able to get MRI and SAKSHI () helped her get into a neuro surgeon the next day. He was DC from hospital October 30. Reports he is feeling wobbly. Mass was cancerous. 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 He just finished radiation on Jan 22 and start chemo in one month (feb 25) through Jul then further MRIs. Double vision and wobbly. Going to see neuro-opthamologist in about 1.5 month. Grade 3 astrocytoma. denies pain or ORTEGA. Wobby gait since surgery. Minor short term memory loss. Hard to stab things with fork. He has been DC from SENIOR PRODUCT DESIGNER and OT. 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 Does better w/balance when following line. The faster he walks, the straighter he walks and more normal AGNES he has vs wider AGNES. Denies falls, but occ braces w/wall. terrain changes that are the same color, he struggles to recognize it. Past hx: likes to hike and occ run and gym. Has not done either since. Trying to get more regular w/walking. Stamina is also a concern. denies lightheadness/dizziness. BP is slightly high but okay. Has not returned to gym. This is the first day since not getting treatments since hospital. Tapering off kepra from surgery. Does report jaw tightness. He can't eat large sandwiches. sore after been eating. 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 Treatment Goals Patient/Caregiver Wants to not walk as zigzag; dec use of support of Goals euceda PT-OP-C Subjective Start: 01/25/24 17:51 Freq: Status: Active Protocol: Document 11/29/24 13:52 GG (Rec: 11/29/24 15:03 GG [id number]) OP-PT Subjective Patient Comments Patient Comments Pt reports that things are going well, has not gone hiking since last appt. PT-OP-D Balance Start: 01/25/24 17:51 Freq: Status: Active Protocol: Document 08/23/24 08:20 LR (Rec: 08/23/24 10:50 [facility] [id number]) Balance Tests Other Other Balance Tests FELIX 24 Performed PT-OP-E Functional Tests Start: 01/25/24 17:51 Freq: Status: Active Protocol: Document 11/14/24 17:30 GG (Rec: 11/15/24 08:02 GG Laptop) Functional Tests Other HiMAT Score 29/54 PT-OP-F Manual Assessment Start: 01/25/24 17:51 Freq: Status: Active Protocol: Document 01/31/24 13:01 [facility] (Rec: 01/31/24 14:28 [facility] [id number]) Manual Assessments Other Manual Assessments Other Manual jaw opening deviates to L as opens; scar tissue Assessments tightness L side (pt reports some mm taken out w/ surgery) PT-OP-G Mobility & Gait Start: 01/25/24 17:51 Freq: Status: Active Protocol: Document 01/31/24 13:01 [facility] (Rec: 01/31/24 14:28 [facility] [id number]) OP Gait Assessment Comments Gait Comments WBOS, lat leaning, arms slightly to sides PT-OP-M Strength Start: 01/25/24 17:51 Freq: Status: Active Protocol: Document 01/31/24 13:01 [facility] (Rec: 01/31/24 14:28 [facility] [id number]) Hip Strength Hip Manual Muscle Testing B Flexion (L2) 5 Normal External Rotation 5 Normal Internal Rotation 5 Normal Knee Strength Knee Manual Muscle Testing B Flexion (S2) 5 Normal Extension (L3) 5 Normal Ankle/Foot Strength Ankle and Foot Manual Muscle Testing B Dorsiflexion (L4) 5 Normal Plantarflexion (S1) 5 Normal Comments tested seated PT-OP-Q Treatments Start: 01/25/24 17:51 Freq: Status: Active Protocol: Document 12/05/24 09:47 SP (Rec: 12/05/24 10:34 SP [id number]) Neuro Re-Education Treatment Balance Activities jumps Details 4 laps fwd, 2 laps zigzag (fwd green, lateral alternating red) Reps/Duration 10ft square ladder Comments every other block, to challenging every block CGA firm Details reactive balance pulling (fwd/lat/ let go) w/ pool noodle Equipment firm floor Comments WBOS, NBOS, staggered (wide and narrow) CGA uneven surface Details obstacle course Equipment pods, tilt board, tpads, disc; under wrestling mat Comments 1. 8 laps walking (2 laps w/ 5.5 wt ball & 10# DB)) 2. 4 laps marching CGA- 10%A foam Details reformer ball toss (fwd/angled WBOS, stagger stance fwd) Equipment red weighted ball (1kg), (stand on marble foam) Reps/Duration x20 ea Comments CGA- 5%A Improved hand eye coordination able catch with hands vs chest deflection hurdles Details hurdles w/ foam fwd and lateral Surface without wts (5.5 wt ball & 10# DB) Equipment 4 hurdles over double yoga mat (right after obstacle course) Reps/Duration 6 laps Comments CGA Coordination Activities Antoni Jumps Reps/Duration 30 ft x3 laps lat shuffle Details zigzag shuttle Speed 30 ft x4 laps Comments fwd & bwd PT-OP-T Assessment and Plan Start: 01/25/24 17:51 Freq: Status: Active Protocol: Document 12/05/24 09:47 SP (Rec: 12/05/24 10:34 SP [id number]) Physical Therapy Assessment Goals HiMAT Ornamental Ironworker Goal (LTG) Pt will be able to increase scoring by at least 4 points to show a minimal detectable change. LTG Duration 01/24/25 activity Short Term Goal (STG Pt will be able to carry objects in B hands when ) walking in/out of the house. 08/13-if weird size stuff 08/23-only issue if they are weird wt distribution 10/31-able to w/ occ feelings of being off-balance STG Duration 11/29 - achieved; does well w/ short distances Mcfp Goal (LTG) Pt will be able to reciprocate up/down stairs w/o rail when one not available. 08/13-has to go slowly 08/23-improving 10/31- is able to w/ slowed gait 11/29 - no change LTG Duration 12/26 jaw Mcfp Goal (LTG) pt will be able to open jaw w/o feeling of tightness and no more than mild deviation to L 03/12-still feels tight and has deviation L; completing exercises 04/16/24: still not able open fully and L jaw gets tight eating steak. 04/18 tightness here and there. still some deviation to L 06/04-tightenss w/deviation 07/02-jaw tightness occ, w/deviation 08/13-tight on L and L deviation 08/23-some tightness 10/31-no change; pt has jaw exercises LTG Duration 12/26 Assessment Summary Assessment Pt continues to work hard and improve with reactive balance against resistance and uneven surface walking over challenging disc and tilt board. Noted improved hand eye coordination more successful catches during rebounder toss fwd and angled lateral uneven stance positioning. Physical Therapy Plan Frequency and Duration Frequency of 1-2x/Week Treatment Duration of 8 treatment (weeks) Plan of Care Start 11/29/24 Date Plan of Care End 01/24/25 Date Therapeutic Interventions Therapeutic Balance Training,Coordination Training,Gait Training, Interventions Home Exercise Program,Joint Mobilizations,Manual Therapy,Neuromuscular Re-education,Orthotic/Prosthetic Management,Patient/Caregiver Education,Self-Care/Home Management,Soft Tissue Mobilization,Taping,Therapeutic Activities,Therapeutic Exercises Next Visit Focus/Plan Next Note Type Treatment Note Next Visit Plan Next: Continue progressive dynamic balance exercises w/ dual-tasking (carrying, head turns, etc.), agility work (reactive, coordination), bal beam, adding ankle weights?
--- NOTE | 2024-12-12 14:57 | PT.OTN ---
Current Diagnoses Other specified disorders of brain (12/12/24) Physical Therapy Treatment Note PT-OP-A Visit Information Start: 01/25/24 17:51 Freq: Status: Active Protocol: Document 12/12/24 13:24 GG (Rec: 12/12/24 13:43 GG [id number]) Out-Patient Physical Therapy Visit Information Visit Information Visit Type Progress Note Visit Start Time 10:48 Visit Stop Time 11:32 Visit Number 39 Number of AUTOMATIC PILOT MECHANIC Visits 0 PT-OP-B Current Condition Start: 01/25/24 17:51 Freq: Status: Active Protocol: Document 01/31/24 13:01 [facility] (Rec: 01/31/24 14:28 [facility] [id number]) Current Condition History of Current Condition Onset Date october 27 Current Complaints dec balance and double vision s/p brain mass ressection w/residual tumors History of Current Pt had brain mass ressection (frontal lobe L) on october 27 Condition 2023 at . In September, passed out and on October 26 was able to get MRI and SAKSHI () helped her get into a neuro surgeon the next day. He was DC from hospital October 30. Reports he is feeling wobbly. Mass was cancerous. 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 He just finished radiation on Jan 22 and start chemo in one month (feb 25) through Jul then further MRIs. Double vision and wobbly. Going to see neuro-opthamologist in about 1.5 month. Grade 3 astrocytoma. denies pain or ORTEGA. Wobby gait since surgery. Minor short term memory loss. Hard to stab things with fork. He has been DC from MATCH UP WORKER and OT. 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 Does better w/balance when following line. The faster he walks, the straighter he walks and more normal AGNES he has vs wider AGNES. Denies falls, but occ braces w/wall. terrain changes that are the same color, he struggles to recognize it. Past hx: likes to hike and occ run and gym. Has not done either since. Trying to get more regular w/walking. Stamina is also a concern. denies lightheadness/dizziness. BP is slightly high but okay. Has not returned to gym. This is the first day since not getting treatments since hospital. Tapering off kepra from surgery. Does report jaw tightness. He can't eat large sandwiches. sore after been eating. 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 Treatment Goals Patient/Caregiver Wants to not walk as zigzag; dec use of support of Goals euceda PT-OP-C Subjective Start: 01/25/24 17:51 Freq: Status: Active Protocol: Document 12/12/24 13:24 GG (Rec: 12/12/24 13:43 GG [id number]) OP-PT Subjective Patient Comments Patient Comments Pt reports that he is doing well and feeling better than usual but that is d/t no other doctors appts this week. PT-OP-D Balance Start: 01/25/24 17:51 Freq: Status: Active Protocol: Document 08/23/24 08:20 [facility] (Rec: 08/23/24 10:50 [facility] [id number]) Balance Tests Other Other Balance Tests FELIX 24 Performed PT-OP-E Functional Tests Start: 01/25/24 17:51 Freq: Status: Active Protocol: Document 12/12/24 13:24 GG (Rec: 12/12/24 13:43 GG [id number]) Functional Tests Other HiMAT Score 33/54 PT-OP-F Manual Assessment Start: 01/25/24 17:51 Freq: Status: Active Protocol: Document 01/31/24 13:01 [facility] (Rec: 01/31/24 14:28 [facility] [id number]) Manual Assessments Other Manual Assessments Other Manual jaw opening deviates to L as opens; scar tissue Assessments tightness L side (pt reports some mm taken out w/ surgery) PT-OP-G Mobility & Gait Start: 01/25/24 17:51 Freq: Status: Active Protocol: Document 01/31/24 13:01 [facility] (Rec: 01/31/24 14:28 [facility] [id number]) OP Gait Assessment Comments Gait Comments WBOS, lat leaning, arms slightly to sides PT-OP-M Strength Start: 01/25/24 17:51 Freq: Status: Active Protocol: Document 01/31/24 13:01 [facility] (Rec: 01/31/24 14:28 [facility] [id number]) Hip Strength Hip Manual Muscle Testing B Flexion (L2) 5 Normal External Rotation 5 Normal Internal Rotation 5 Normal Knee Strength Knee Manual Muscle Testing B Flexion (S2) 5 Normal Extension (L3) 5 Normal Ankle/Foot Strength Ankle and Foot Manual Muscle Testing B Dorsiflexion (L4) 5 Normal Plantarflexion (S1) 5 Normal Comments tested seated PT-OP-Q Treatments Start: 01/25/24 17:51 Freq: Status: Active Protocol: Document 12/12/24 13:24 GG (Rec: 12/12/24 13:43 [id number]) Neuro Re-Education Treatment Balance Activities jumps Details HiMAT testing Comments 1. SL fwd hop (2x10m) SBA 2. SL jump for distance (x3 B) dynamic walking Details HiMAT testing Reps/Duration 2x20m ea Comments 1. fwd/bkwd 2. toe walk 3. over obstacle 4. run 5. skipping bosu Comments 1. stepping onto and balancing; 15y2-2l CGA in open 2. static standing in corner CGA 2x20s foam Details blue mat DL w/ reach down then throw Equipment cones, wilson bags hurdles Details fwd reciprocal over 6 hurdles Equipment 2# ankle weights Reps/Duration 4 laps Comments CGA Coordination Activities agility ladder Comments 1. fwd DL hops 4 laps w/ 2# ankle weights, 2 laps w/o weights 2. fwd->lat->bkwd->lat DL hops [address] w/ 2# 3. two feet stepping 2 laps stairs Details HiMAT testing Reps/Duration 14 steps x2 up/down Comments no rail use, CGA PT-OP-T Assessment and Plan Start: 01/25/24 17:51 Freq: Status: Active Protocol: Document 12/12/24 13:24 GG (Rec: 12/12/24 13:43 [id number]) Physical Therapy Assessment Goals HiMAT Longterm Goal (LTG) Pt will be able to increase scoring by at least 4 points to show a minimal detectable change. 12/12 - achieved 33/54 advance goal to 37/54 LTG Duration 03/06/25 activity Short Term Goal (STG Pt will be able to carry objects in B hands when ) walking in/out of the house. 08/13-if weird size stuff 08/23-only issue if they are weird wt distribution 10/31-able to w/ occ feelings of being off-balance STG Duration 11/29 - achieved; does well w/ short distances Biodiesel Engineering Manager Goal (LTG) Pt will be able to reciprocate up/down stairs w/o rail when one not available. 08/13-has to go slowly 08/23-improving 10/31- is able to w/ slowed gait 11/29 - no change 12/12 - able to during testing, but prefers to use rail normally LTG Duration 03/06/25 jaw Biodiesel Engineering Manager Goal (LTG) pt will be able to open jaw w/o feeling of tightness and no more than mild deviation to L 03/12-still feels tight and has deviation L; completing exercises 04/16/24: still not able open fully and L jaw gets tight eating steak. 04/18 tightness here and there. still some deviation to L 06/04-tightenss w/deviation 07/02-jaw tightness occ, w/deviation 08/13-tight on L and L deviation 08/23-some tightness 10/31-no change; pt has jaw exercises LTG Duration 12/26 Assessment Summary Assessment Pt cont to have some improvements in coordination and agility activities as seen by improvement in HiMAT scoring and overall more coordination in movements during testing. Some improvement in hand-eye coordination w/ throwing activities. Pt will cont to benefit from PT to cont improving coordination during dynamic activities for improved safety and ability to do so. Physical Therapy Plan Frequency and Duration Frequency of 1-2x/Week Treatment Duration of 12 treatment (weeks) Plan of Care Start 12/12/24 Date Plan of Care End 03/06/25 Date Therapeutic Interventions Therapeutic Balance Training,Coordination Training,Gait Training, Interventions Home Exercise Program,Joint Mobilizations,Manual Therapy,Neuromuscular Re-education,Orthotic/Prosthetic Management,Patient/Caregiver Education,Self-Care/Home Management,Soft Tissue Mobilization,Taping,Therapeutic Activities,Therapeutic Exercises Next Visit Focus/Plan Next Note Type Treatment Note Next Visit Plan Next: Continue progressive dynamic balance exercises w/ dual-tasking (carrying, head turns, etc.), agility work (reactive, coordination), bal beam
--- NOTE | 2024-12-12 17:44 | PT.OPPN ---
Current Diagnoses Other specified disorders of brain (12/12/24) Physical Therapy Progress Note PT-OP-A Visit Information Start: 01/25/24 17:51 Freq: Status: Active Protocol: Document 12/12/24 13:24 GG (Rec: 12/12/24 13:43 GG [id number]) Out-Patient Physical Therapy Visit Information Visit Information Visit Type Progress Note Visit Start Time 10:48 Visit Stop Time 11:32 Visit Number 39 Number of PARTS DRIVER Visits 0 PT-OP-B Current Condition Start: 01/25/24 17:51 Freq: Status: Active Protocol: Document 01/31/24 13:01 [facility] (Rec: 01/31/24 14:28 [facility] [id number]) Current Condition History of Current Condition Onset Date october 27 Current Complaints dec balance and double vision s/p brain mass ressection w/residual tumors History of Current Pt had brain mass ressection (frontal lobe L) on october 27 Condition 2023 at . In September, passed out and on October 26 was able to get MRI and SAKSHI () helped her get into a neuro surgeon the next day. He was DC from hospital October 30. Reports he is feeling wobbly. Mass was cancerous. 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 He just finished radiation on Jan 22 and start chemo in one month (feb 25) through Jul then further MRIs. Double vision and wobbly. Going to see neuro-opthamologist in about 1.5 month. Grade 3 astrocytoma. denies pain or ORTEGA. Wobby gait since surgery. Minor short term memory loss. Hard to stab things with fork. He has been DC from [employer] and OT. 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 Does better w/balance when following line. The faster he walks, the straighter he walks and more normal AGNES he has vs wider AGNES. Denies falls, but occ braces w/wall. terrain changes that are the same color, he struggles to recognize it. Past hx: likes to hike and occ run and gym. Has not done either since. Trying to get more regular w/walking. Stamina is also a concern. denies lightheadness/dizziness. BP is slightly high but okay. Has not returned to gym. This is the first day since not getting treatments since hospital. Tapering off kepra from surgery. Does report jaw tightness. He can't eat large sandwiches. sore after been eating. 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 Treatment Goals Patient/Caregiver Wants to not walk as zigzag; dec use of support of Goals euceda PT-OP-C Subjective Start: 01/25/24 17:51 Freq: Status: Active Protocol: Document 12/12/24 13:24 GG (Rec: 12/12/24 13:43 GG [id number]) OP-PT Subjective Patient Comments Patient Comments Pt reports that he is doing well and feeling better than usual but that is d/t no other doctors appts this week. PT-OP-D Balance Start: 01/25/24 17:51 Freq: Status: Active Protocol: Document 08/23/24 08:20 [facility] (Rec: 08/23/24 10:50 [facility] [id number]) Balance Tests Other Other Balance Tests FELIX 24 Performed PT-OP-E Functional Tests Start: 01/25/24 17:51 Freq: Status: Active Protocol: Document 12/12/24 13:24 GG (Rec: 12/12/24 13:43 GG [id number]) Functional Tests Other HiMAT Score 33/54 PT-OP-F Manual Assessment Start: 01/25/24 17:51 Freq: Status: Active Protocol: Document 01/31/24 13:01 [facility] (Rec: 01/31/24 14:28 [facility] [id number]) Manual Assessments Other Manual Assessments Other Manual jaw opening deviates to L as opens; scar tissue Assessments tightness L side (pt reports some mm taken out w/ surgery) PT-OP-G Mobility & Gait Start: 01/25/24 17:51 Freq: Status: Active Protocol: Document 01/31/24 13:01 [facility] (Rec: 01/31/24 14:28 [facility] [id number]) OP Gait Assessment Comments Gait Comments WBOS, lat leaning, arms slightly to sides PT-OP-M Strength Start: 01/25/24 17:51 Freq: Status: Active Protocol: Document 01/31/24 13:01 [facility] (Rec: 01/31/24 14:28 [facility] [id number]) Hip Strength Hip Manual Muscle Testing B Flexion (L2) 5 Normal External Rotation 5 Normal Internal Rotation 5 Normal Knee Strength Knee Manual Muscle Testing B Flexion (S2) 5 Normal Extension (L3) 5 Normal Ankle/Foot Strength Ankle and Foot Manual Muscle Testing B Dorsiflexion (L4) 5 Normal Plantarflexion (S1) 5 Normal Comments tested seated PT-OP-T Assessment and Plan Start: 01/25/24 17:51 Freq: Status: Active Protocol: Document 12/12/24 13:24 GG (Rec: 12/12/24 13:43 GG [id number]) Physical Therapy Assessment Goals HiMAT Alf Goal (LTG) Pt will be able to increase scoring by at least 4 points to show a minimal detectable change. 12/12 - achieved 33/54 advance goal to 37/54 LTG Duration 03/06/25 activity Short Term Goal (STG Pt will be able to carry objects in B hands when ) walking in/out of the house. 08/13-if weird size stuff 08/23-only issue if they are weird wt distribution 10/31-able to w/ occ feelings of being off-balance STG Duration 11/29 - achieved; does well w/ short distances Alf Goal (LTG) Pt will be able to reciprocate up/down stairs w/o rail when one not available. 08/13-has to go slowly 08/23-improving 10/31- is able to w/ slowed gait 11/29 - no change 12/12 - able to during testing, but prefers to use rail normally LTG Duration 03/06/25 jaw Punchboard Stuffer Goal (LTG) pt will be able to open jaw w/o feeling of tightness and no more than mild deviation to L 03/12-still feels tight and has deviation L; completing exercises 04/16/24: still not able open fully and L jaw gets tight eating steak. 04/18 tightness here and there. still some deviation to L 06/04-tightenss w/deviation 07/02-jaw tightness occ, w/deviation 08/13-tight on L and L deviation 08/23-some tightness 10/31-no change; pt has jaw exercises LTG Duration 12/26 Assessment Summary Assessment Pt cont to have some improvements in coordination and agility activities as seen by improvement in HiMAT scoring and overall more coordination in movements during testing. Some improvement in hand-eye coordination w/ throwing activities. Pt will cont to benefit from PT to cont improving coordination during dynamic activities for improved safety and ability to do so. Physical Therapy Plan Frequency and Duration Frequency of 1-2x/Week Treatment Duration of 12 treatment (weeks) Plan of Care Start 12/12/24 Date Plan of Care End 03/06/25 Date Therapeutic Interventions Therapeutic Balance Training,Coordination Training,Gait Training, Interventions Home Exercise Program,Joint Mobilizations,Manual Therapy,Neuromuscular Re-education,Orthotic/Prosthetic Management,Patient/Caregiver Education,Self-Care/Home Management,Soft Tissue Mobilization,Taping,Therapeutic Activities,Therapeutic Exercises Next Visit Focus/Plan Next Note Type Treatment Note Next Visit Plan Next: Continue progressive dynamic balance exercises w/ dual-tasking (carrying, head turns, etc.), agility work (reactive, coordination), bal beam
--- NOTE | 2024-12-25 14:29 | PT.OTN ---
Current Diagnoses Other specified disorders of brain (12/25/24) Physical Therapy Treatment Note PT-OP-A Visit Information Start: 01/25/24 17:51 Freq: Status: Active Protocol: Document 12/25/24 13:49 SP (Rec: 12/25/24 14:33 SP [id number]) Out-Patient Physical Therapy Visit Information Visit Information Visit Type Treatment Note Visit Start Time 13:49 Visit Stop Time 14:29 Visit Number 40 Number of LINUX SYSTEM ADMIN Visits 1 Precautions Precautions *Decreased proprioception R and retro gait belt at all times, Double Vision, difficulty see uneven and change in surfaces, goyo if coloring similar. PT-OP-B Current Condition Start: 01/25/24 17:51 Freq: Status: Active Protocol: Document 01/31/24 13:01 [facility] (Rec: 01/31/24 14:28 [facility] [id number]) Current Condition History of Current Condition Onset Date october 27 Current Complaints dec balance and double vision s/p brain mass ressection w/residual tumors History of Current Pt had brain mass ressection (frontal lobe L) on october 27 Condition 2023 at . In September, passed out and on October 26 was able to get MRI and SAKSHI () helped her get into a neuro surgeon the next day. He was DC from hospital October 30. Reports he is feeling wobbly. Mass was cancerous. 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 He just finished radiation on Jan 22 and start chemo in one month (feb 25) through Jul then further MRIs. Double vision and wobbly. Going to see neuro-opthamologist in about 1.5 month. Grade 3 astrocytoma. denies pain or ORTEGA. Wobby gait since surgery. Minor short term memory loss. Hard to stab things with fork. He has been DC from [employer] SEPAR[employer] and OT. 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 Does better w/balance when following line. The faster he walks, the straighter he walks and more normal AGNES he has vs wider AGNES. Denies falls, but occ braces w/wall. terrain changes that are the same color, he struggles to recognize it. Past hx: likes to hike and occ run and gym. Has not done either since. Trying to get more regular w/walking. Stamina is also a concern. denies lightheadness/dizziness. BP is slightly high but okay. Has not returned to gym. This is the first day since not getting treatments since hospital. Tapering off kepra from surgery. Does report jaw tightness. He can't eat large sandwiches. sore after been eating. 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 Treatment Goals Patient/Caregiver Wants to not walk as zigzag; dec use of support of Goals euceda PT-OP-C Subjective Start: 01/25/24 17:51 Freq: Status: Active Protocol: Document 12/25/24 13:49 SP (Rec: 12/25/24 14:33 SP [id number]) OP-PT Subjective Patient Comments Patient Comments Pt at gym walking TM incline 2, speed 3. Leaving Sticky standing in water, hiking. MRI still showing success thus far. PT-OP-D Balance Start: 01/25/24 17:51 Freq: Status: Active Protocol: Document 08/23/24 08:20 [facility] (Rec: 08/23/24 10:50 [facility] [id number]) Balance Tests Other Other Balance Tests FELIX 24 Performed PT-OP-E Functional Tests Start: 01/25/24 17:51 Freq: Status: Active Protocol: Document 12/12/24 13:24 GG (Rec: 12/12/24 13:43 GG [id number]) Functional Tests Other HiMAT Score 33/54 PT-OP-F Manual Assessment Start: 01/25/24 17:51 Freq: Status: Active Protocol: Document 01/31/24 13:01 [facility] (Rec: 01/31/24 14:28 [facility] [id number]) Manual Assessments Other Manual Assessments Other Manual jaw opening deviates to L as opens; scar tissue Assessments tightness L side (pt reports some mm taken out w/ surgery) PT-OP-G Mobility & Gait Start: 01/25/24 17:51 Freq: Status: Active Protocol: Document 01/31/24 13:01 [facility] (Rec: 01/31/24 14:28 [facility] [id number]) OP Gait Assessment Comments Gait Comments WBOS, lat leaning, arms slightly to sides PT-OP-M Strength Start: 01/25/24 17:51 Freq: Status: Active Protocol: Document 01/31/24 13:01 [facility] (Rec: 01/31/24 14:28 [facility] [id number]) Hip Strength Hip Manual Muscle Testing B Flexion (L2) 5 Normal External Rotation 5 Normal Internal Rotation 5 Normal Knee Strength Knee Manual Muscle Testing B Flexion (S2) 5 Normal Extension (L3) 5 Normal Ankle/Foot Strength Ankle and Foot Manual Muscle Testing B Dorsiflexion (L4) 5 Normal Plantarflexion (S1) 5 Normal Comments tested seated PT-OP-Q Treatments Start: 01/25/24 17:51 Freq: Status: Active Protocol: Document 12/25/24 13:49 SP (Rec: 12/25/24 14:33 SP [id number]) Cardio Equipment Treadmill Duration (Minutes) 6 Speed 3.0 Incline 1 Therapeutic Exercises Standing Exercises Retro step down taps Resistance 8 step Reps/Minutes 10 reps each side Comments PRN outside support bal recovery Neuro Re-Education Treatment Balance Activities tilt board Details fwd & lat facing Surface gait belt Equipment rails prn Comments Balloon volley CG- MIn A as needed foam Details cone taps, 4# leg wt Equipment stand on foam Comments cog challenge, taps patterning then calling out LOB x3 rail, min A recovery hurdles Details fwd reciprocal over 6 hurdles Equipment 4#ankle weights, 2 pods, air stone, foam end to turn around on Reps/Duration manyu Comments CGA- min A, LOB recovery needed more L than R PT-OP-T Assessment and Plan Start: 01/25/24 17:51 Freq: Status: Active Protocol: Document 12/25/24 13:49 SP (Rec: 12/25/24 14:33 SP [id number]) Physical Therapy Assessment Goals HiMAT [facility] Goal (LTG) Pt will be able to increase scoring by at least 4 points to show a minimal detectable change. 12/12 - achieved /54 advance goal to 37/54 LTG Duration 03/06/25 activity Short Term Goal (STG Pt will be able to carry objects in B hands when ) walking in/out of the house. 08/13-if weird size stuff 08/23-only issue if they are weird wt distribution 10/31-able to w/ occ feelings of being off-balance STG Duration 11/29 - achieved; does well w/ short distances [facility] Goal (LTG) Pt will be able to reciprocate up/down stairs w/o rail when one not available. 08/13-has to go slowly 08/23-improving 10/31- is able to w/ slowed gait 11/29 - no change 12/12 - able to during testing, but prefers to use rail normally LTG Duration 03/06/25 Assessment Summary Assessment Pt good response to progression stationary dynamic balance and coordination activities including uneven surface with and without added resistance to BLEs. Cues for elongated posture to support midline stability recovery awareness support. Physical Therapy Plan Frequency and Duration Frequency of 1-2x/Week Treatment Duration of 12 treatment (weeks) Plan of Care Start 12/12/24 Date Plan of Care End 03/06/25 Date Therapeutic Interventions Therapeutic Balance Training,Coordination Training,Gait Training, Interventions Home Exercise Program,Joint Mobilizations,Manual Therapy,Neuromuscular Re-education,Orthotic/Prosthetic Management,Patient/Caregiver Education,Self-Care/Home Management,Soft Tissue Mobilization,Taping,Therapeutic Activities,Therapeutic Exercises Next Visit Focus/Plan Next Note Type Treatment Note Next Visit Plan Next: Continue progressive dynamic balance exercises w/ dual-tasking (carrying, head turns, etc.), agility work (reactive, coordination), bal beam
--- NOTE | 2025-01-22 15:22 | PT.OPDS ---
Current Diagnoses Other specified disorders of brain (01/22/25) Visit Care Team Role Provider Type Dany Moore DO Attending Provider Physician Family Provider Primary Care Provider Referring Provider Specialty: Family Practice Address: [address] [place] [address], [address], [place], [address] Email: [email or web address] Visit Number Visit Number 41 Discharge Summary PT OP: Balance, Vestibular, Neuro Start: 01/22/25 14:36 Freq: Status: Active Protocol: Document 01/22/25 14:36 [facility] (Rec: 01/22/25 15:21 [facility] [id number]) Out-Patient Physical Therapy Visit Information Visit Information Visit Type Discharge Summary Visit Start Time 14:37 Visit Stop Time 15:17 Visit Number 41 Number of WINDOWS SYSTEM ADMIN Visits 0 OP-PT Subjective Patient Comments Patient Comments Pt reports doing well with [place] trip overall but uneven surfaces still difficult so he is careful Neuro Re-Education Treatment Balance Activities firm Comments 1. SLS B trials 2. tandem stance trials B 3. NBOS trails B 4. tandem walk 20ft 5. grapevine 20ft B 6. SL hops in place w/counter ot catch x8 B testing Comments HIMAT Physical Therapy Assessment Goals HiMAT Advisor To [employer] In [employer] Goal (LTG) Pt will be able to increase scoring by at least 4 points to show a minimal detectable change. 12/12 - achieved advance goal to 3701/22- achieved LTG Duration achieved activity Short Term Goal (STG Pt will be able to carry objects in B hands when ) walking in/out of the house. 08/13-if weird size stuff 08/23-only issue if they are weird wt distribution 10/31-able to w/ occ feelings of being off-balance STG Duration 11/29 - achieved; does well w/ short distances Advisor To [employer] In [employer] Goal (LTG) Pt will be able to reciprocate up/down stairs w/o rail when one not available. 08/13-has to go slowly 08/23-improving 10/31- is able to w/ slowed gait 11/29 - no change 12/12 - able to during testing, but prefers to use rail normally LTG Duration achieved 01/22 Assessment Summary Assessment Pt has met all goals throguhout time with PT. He has much improved balance and coordination. At this time, pt is dC to [facility] for balance and coordination and is to cont w/this and talk to doctor if any changes in balance for return to PT. Physical Therapy Plan Discharge Physical Therapy Discharge Reasons Goals Met
== END 2025-01-23 11:12 | disposition home or self-care (01) ==
LOC: PHYS 14:30
PROVIDERS: Family Provider Family Medicine; PCP Family Medicine; Referring Provider Family Medicine; Visit Provider Family Medicine
DX: G93.89 Other specified disorders of brain (principal)
CPT/HCPCS: 97110; 97112; 97116; 97140; 97163; 97535